=== PATIENT | female | born 1955 | race Caucasian/White ===

== ENCOUNTER → 2016-11-27 | Outpatient (CLI) | payer MEDICARE ==
[2016-11-27 15:26] LABS: ALT 38 U/L (9-52); AST 17 U/L (14-36); Alkaline Phosphatase 83 U/L (38-126); Anion Gap 14 mmol/L; Blood Urea Nitrogen 21 mg/dL (7-17); Calcium 9.4 mg/dL (8.4-10.2); Carbon Dioxide 20 mmol/L (22-30); Chloride 106 mmol/L (98-107); Glucose 157 mg/dL (74-99); Non-African American GFR(MDRD) >60 (>60 ml/min/1.73 sqM); Potassium 4.3 mmol/L (3.5-5.1); Sodium 140 mmol/L (137-145); Total Bilirubin 0.3 mg/dL (0.2-1.3); Total Protein 6.5 g/dL (6.3-8.2)
[2016-11-27 15:40] LABS: Aty Lym Flag Slight; CH 30.7; CHCM 32.2; HCT 43.3 % (34.0-46.0); HDW 2.55; HGB 13.6 gm/dL (11.4-16.0); MCH 30.2 pg (25.0-35.0); MCHC 31.5 g/dL (31.0-37.0); MCV 95.8 fL (80.0-100.0); Mean Platelet Volume 8.5; RBC 4.52 m/uL (3.80-5.40); WBC 6.7 k/uL (3.8-10.6); WBC (Perox) 6.63
[2016-11-27 16:50] LABS: Add Differential Manual Differential
[2016-11-27 16:53] LABS: Manual Review Performed; Nucleated Red Blood Cells 0 /100 WBC (0-0); Total Cells Counted 100; Toxic Granulation Present
== END | disposition home or self-care (01) ==
LOC: LABWHC1 14:29
PROVIDERS: ATTEND Internal Medicine Medical Oncology
DX: C90.00 Multiple myeloma not having achieved remission (principal); E53.8 Deficiency of other specified B group vitamins; M79.605 Pain in left leg; M25.569 Pain in unspecified knee
CPT/HCPCS: 36415; 80053; 85025

== ENCOUNTER → 2017-03-04 | Outpatient (CLI) | payer MEDICARE ==
[2017-03-04 10:42] LABS: Anisocytosis Slight; Basophils % (A) 0 %; CH 31.3; CHCM 31.2; Eosinophils # (A) 0.1 k/uL (0-0.7); Eosinophils % (A) 2 %; HDW 2.65; HGB 12.5 gm/dL (11.4-16.0); Hypochromasia Slight; Luc # (Auto) 0.12; Luc % (Auto) 2; Lymphocytes # (A) 0.4 k/uL (1.0-4.8); Lymphocytes % (A) 6 %; MCH 32.3 pg (25.0-35.0); MCV 100.7 fL (80.0-100.0); Macrocytosis Slight; Mean Platelet Volume 7.3; Monocytes # (A) 0.3 k/uL (0-1.0); Monocytes % (A) 4 %; Neutrophils # (A) 5.7 k/uL (1.3-7.7); Neutrophils % (A) 87 %; RBC 3.87 m/uL (3.80-5.40); WBC 6.5 k/uL (3.8-10.6); WBC (Perox) 6.82
[2017-03-04 11:14] LABS: ALT 31 U/L (9-52); AST 24 U/L (14-36); Alkaline Phosphatase 70 U/L (38-126); Anion Gap 9 mmol/L; Blood Urea Nitrogen 17 mg/dL (7-17); Calcium 8.8 mg/dL (8.4-10.2); Carbon Dioxide 24 mmol/L (22-30); Chloride 104 mmol/L (98-107); Glucose 203 mg/dL (74-99); Non-African American GFR(MDRD) >60 (>60 ml/min/1.73 sqM); Potassium 4.5 mmol/L (3.5-5.1); Sodium 137 mmol/L (137-145); Total Bilirubin 0.6 mg/dL (0.2-1.3); Total Protein 6.4 g/dL (6.3-8.2)
[2017-03-05 12:34] LABS: Immunoglobulin G 600 mg/dL (700 - 1600)
== END | disposition home or self-care (01) ==
LOC: LABWHC1 09:36
PROVIDERS: ATTEND Internal Medicine Medical Oncology
DX: C90.00 Multiple myeloma not having achieved remission (principal); E53.8 Deficiency of other specified B group vitamins; M25.519 Pain in unspecified shoulder; M79.605 Pain in left leg
CPT/HCPCS: 36415; 80053; 82784; 82785; 85025; 85610

== ENCOUNTER 2018-01-05 18:21 | Emergency (ER) | payer MEDICARE ==
[2018-01-05 19:00] VITALS: TEMP 99
[2018-01-05 20:41] LABS: Basophils % (A) 0 %; Eosinophils # (A) 0.5 k/uL (0-0.7); Eosinophils % (A) 9 %; HCT 38.5 % (34.0-46.0); HGB 12.6 gm/dL (11.4-16.0); Lymphocytes # (A) 0.4 k/uL (1.0-4.8); Lymphocytes % (A) 8 %; MCH 32.4 pg (25.0-35.0); MCHC 32.7 g/dL (31.0-37.0); MCV 99.3 fL (80.0-100.0); Macrocytosis Slight; Mean Platelet Volume 7.4; Monocytes # (A) 0.5 k/uL (0-1.0); Monocytes % (A) 9 %; Neutrophils # (A) 3.6 k/uL (1.3-7.7); Neutrophils % (A) 69 %; Platelet Count 212 k/uL (150-450); RBC 3.88 m/uL (3.80-5.40); RDW 15.6 % (11.5-15.5); WBC 5.2 k/uL (3.8-10.6)
[2018-01-05 20:45] LABS: ALT 31 U/L (9-52); AST 16 U/L (14-36); Albumin 3.5 g/dL (3.5-5.0); Alkaline Phosphatase 83 U/L (38-126); Anion Gap 9 mmol/L; Blood Urea Nitrogen 16 mg/dL (7-17); Calcium 9.6 mg/dL (8.4-10.2); Carbon Dioxide 31 mmol/L (22-30); Chloride 100 mmol/L (98-107); Glucose 118 mg/dL (74-99); Sodium 140 mmol/L (137-145); Total Bilirubin 0.3 mg/dL (0.2-1.3); Total Protein 5.7 g/dL (6.3-8.2)
--- NOTE | 2018-01-05 20:51 | XR ---
EXAMINATION TYPE: XR chest 2V DATE OF EXAM: 01/05/2018 COMPARISON: 04/27/2011 HISTORY: Limb swelling and pain TECHNIQUE: Frontal and lateral views of the chest are obtained. FINDINGS: There is some patchy infiltrate in the right upper lobe. The other lung balderas are fairly clear. There is no gross heart failure. There is no pleural effusion. Bony thorax is intact. IMPRESSION: There is new right upper lobe pneumonia compared to old exam. There is clearing of left perihilar consolidation compared to old exam. No heart failure.
[2018-01-05 21:15] LABS: INR 3.3 (<1.2); Partial Thromboplastin Time 36.3 sec (22.0-30.0); Prothrombin Time 29.6 sec (9.0-12.0)
--- NOTE | 2018-01-05 21:36 | US ---
EXAMINATION TYPE: US venous doppler duplex LE DATE OF EXAM: 01/05/2018 9:28 PM COMPARISON: NONE CLINICAL HISTORY: Pain. Bilateral edema SIDE PERFORMED: Bilateral TECHNIQUE: The lower extremity deep venous system is examined utilizing real time linear array sonog ernst with graded compression, doppler sonography and color-flow sonography. VESSELS IMAGED: External Iliac Vein (EIV) Common Femoral Vein Deep Femoral Vein Greater Saphenous Vein * Femoral Vein Popliteal Vein Small Saphenous Vein * Proximal Calf Veins (* superficial vessels) Right Leg: Negative for DVT Left Leg: Negative for DVT No evidence of DVT bilateral legs. Complex fluid area right popliteal area measuring 2.3 cm suggesti ve of bakers cyst. IMPRESSION: Popliteal cyst is seen at the right knee. No evidence of deep venous thrombosis in both l egs.
[2018-01-05] MEDS ORDERED: DOXYCYCLINE 50 MG CAP PO STA (22:42)
--- NOTE | 2018-01-05 22:46 | ED ---
Extremity Problem HPI - General Chief complaint: Extremity Problem,Nontraumatic Stated complaint: feet and legs swollen, R/O bloodclots Time Seen by Provider: 01/05/18 19:52 Source: patient Mode of arrival: wheelchair Limitations: no limitations - History of Present Illness Initial comments: 62-year-old female patient with past medical history significant for multiple myeloma currently treated with chemotherapy presents to the emergency department today for evaluation of bilateral lower extremity edema and redness. Patient states that her legs have been swollen and painful for the last 2-3 days. She states that today they started to get red. States that she has had cellulitis in the past. Patient states that she did see an network operations specialist today and was sent here for evaluation for possible blood clot. Patient denies any shortness of breath with ambulation or when lying flat. She denies any cough, congestion, fevers, or chills. She denies any chest pain. Patient denies any recent rash, abdominal pain, nausea, vomiting, diarrhea, constipation, back pain, numbness, tingling, dizziness, weakness, hematuria, dysuria, urinary urgency, urinary frequency, headache, visual changes, or any other complaints. - Related Data Home Medications Medication Instructions Recorded Confirmed Acyclovir 400 mg PO BID 01/05/18 01/05/18 Cholecalciferol (Vitamin D3) 2,000 unit PO DAILY 01/05/18 01/05/18 [Vitamin D3] Cyanocobalamin [Vitamin B-12] 500 mcg PO DAILY 01/05/18 01/05/18 Dexamethasone [Hexadrol] 28 mg PO TU 01/05/18 01/05/18 HYDROcodone/APAP 10-325MG [[place] 1 - 2 tab PO DAILY PRN 01/05/18 01/05/18 10-325] Lenalidomide [Revlimid] 25 mg PO DIRECTED 01/05/18 01/05/18 Loperamide [Imodium] 2 mg PO DAILY 01/05/18 01/05/18 Prochlorperazine [Compazine] 10 mg PO Q6H PRN 01/05/18 01/05/18 Pyridoxine [Vitamin B-6] 50 mg PO TID 01/05/18 01/05/18 Ranitidine HCl [Zantac] 150 mg PO DAILY 01/05/18 01/05/18 Warfarin [Coumadin] 2.5 mg PO HS 01/05/18 01/05/18 metFORMIN HCL [Glucophage] 500 mg PO BID 01/05/18 01/05/18 Previous Rx's Medication Instructions Recorded Doxycycline Hyclate 100 mg PO BID #28 tab 01/05/18 Furosemide [Lasix] 10 mg PO BID #6 dose 01/05/18 Allergies Allergy/AdvReac Type Severity Reaction Status Date / Time No Known Allergies Allergy Verified 01/05/18 20:00 Review of Systems ROS Statement: Those systems with pertinent positive or pertinent negative responses have been documented in the HPI. ROS Other: All systems not noted in ROS Statement are negative. Past Medical History Past Medical History: Cancer Additional Past Medical History / Comment(s): multiple myloma History of Any Multi-Drug Resistant Organisms: None Reported Past Surgical History: Orthopedic Surgery Past Psychological History: No Psychological Hx Reported Smoking Status: Never smoker Past Alcohol Use History: None Reported Past Drug Use History: None Reported General Exam Limitations: no limitations General appearance: alert, in no apparent distress, other (Physical well- developed, well-nourished, obese female patient in no acute distress. Vital signs upon presentation are temperature 99.0F, pulse 65, respirations 18, blood pressure 107/55, pulse ox 96% on room air.) Eye exam: Present: normal appearance, PERRL, EOMI. Absent: scleral icterus, conjunctival injection, periorbital swelling ENT exam: Present: normal exam, normal oropharynx, mucous membranes moist Respiratory exam: Present: normal lung sounds bilaterally. Absent: respiratory distress, wheezes, rales, rhonchi, stridor Cardiovascular Exam: Present: regular rate, normal rhythm, normal heart sounds. Absent: systolic murmur, diastolic murmur, rubs, gallop, clicks GI/Abdominal exam: Present: soft, normal bowel sounds. Absent: distended, tenderness, guarding, rebound, rigid Extremities exam: Present: full ROM, normal capillary refill, other (Patient has 3+ pitting lower extremity and pedal edema. There is circumferential cellulitis noted around the ankles. No evidence of wounds, drainage, or weeping. Pedal pulses are 2+ and equal bilaterally.). Absent: normal inspection, tenderness, pedal edema, joint swelling, calf tenderness Neurological exam: Present: alert, oriented X3, CN II-XII intact Psychiatric exam: Present: normal affect, normal mood Skin exam: Present: warm, dry, intact, normal color. Absent: rash Course Vital Signs 01/05/18 01/05/18 18:56 23:02 Temperature 99.0 F Pulse Rate 65 66 Respiratory 18 16 Rate Blood Pressure 107/55 139/58 O2 Sat by Pulse 96 96 Oximetry Medical Decision Making - Medical Decision Making 62-year-old female patient presents to the emergency department today for evaluation of bilateral lower extremity edema, erythema, and pain. Physical examination did reveal 3+ pitting edema to the bilateral lower legs and feet. There was circumferential cellulitis noted surrounding each ankle. Pedal pulses are intact. Ultrasound of the bilateral lower extremities was negative for acute DVT. Labs reviewed and showed a white blood cell count of 5.2. BNP was 649. Chest x-ray showed probable right upper lobe pneumonia. I did discuss findings with the patient. We did discuss home management. She is quite concerned about the swelling so we will start her on Lasix 10 mg twice a day until she is able to follow-up with her primary care physician. We did give her a 3 day course of this. She'll also be started on doxycycline to cover both the pneumonia and the cellulitis. She is instructed to follow-up with her primary care physician as soon as possible. She is instructed to return here immediately if her symptoms worsen, change, or she develops any new symptoms. She verbalizes understanding and agrees with this plan. - Lab Data Result diagrams: 01/05/18 20:17 01/05/18 20:17 Lab Results 01/05/18 01/05/18 01/05/18 Range/Units 20:17 20:17 20:17 WBC 5.2 (3.8-10.6) k/uL RBC 3.88 (3.80-5.40) m/uL Hgb 12.6 (11.4-16.0) gm/dL Hct 38.5 (34.0-46.0) % MCV 99.3 (80.0-100.0) fL MCH 32.4 (25.0-35.0) pg MCHC 32.7 (31.0-37.0) g/dL RDW 15.6 H (11.5-15.5) % Plt Count 212 (150-450) k/uL Neutrophils % 69 % Lymphocytes % 8 % Monocytes % 9 % Eosinophils % 9 % Basophils % 0 % Neutrophils # 3.6 (1.3-7.7) k/uL Lymphocytes # 0.4 L (1.0-4.8) k/uL Monocytes # 0.5 (0-1.0) k/uL Eosinophils # 0.5 (0-0.7) k/uL Basophils # 0.0 (0-0.2) k/uL Macrocytosis Slight PT (9.0-12.0) sec INR (<1.2) APTT (22.0-30.0) sec Sodium 140 (137-145) mmol/L Potassium 4.0 (3.5-5.1) mmol/L Chloride 100 (98-107) mmol/L Carbon Dioxide 31 H (22-30) mmol/L Anion Gap 9 mmol/L BUN 16 (7-17) mg/dL Creatinine 0.80 (0.52-1.04) mg/dL Est GFR (MDRD) Af Amer >60 (>60 ml/min/1.73 sqM) Est GFR (MDRD) Non-Af >60 (>60 ml/min/1.73 sqM) Glucose 118 H (74-99) mg/dL Calcium 9.6 (8.4-10.2) mg/dL Total Bilirubin 0.3 (0.2-1.3) mg/dL AST 16 (14-36) U/L ALT 31 (9-52) U/L Alkaline Phosphatase 83 (38-126) U/L NT-Pro-B Natriuret Pep 649 pg/mL Total Protein 5.7 L (6.3-8.2) g/dL Albumin 3.5 (3.5-5.0) g/dL 01/05/18 Range/Units 20:17 WBC (3.8-10.6) k/uL RBC (3.80-5.40) m/uL Hgb (11.4-16.0) gm/dL Hct (34.0-46.0) % MCV (80.0-100.0) fL MCH (25.0-35.0) pg MCHC (31.0-37.0) g/dL RDW (11.5-15.5) % Plt Count (150-450) k/uL Neutrophils % % Lymphocytes % % Monocytes % % Eosinophils % % Basophils % % Neutrophils # (1.3-7.7) k/uL Lymphocytes # (1.0-4.8) k/uL Monocytes # (0-1.0) k/uL Eosinophils # (0-0.7) k/uL Basophils # (0-0.2) k/uL Macrocytosis PT 29.6 H (9.0-12.0) sec INR 3.3 H (<1.2) APTT 36.3 H (22.0-30.0) sec Sodium (137-145) mmol/L Potassium (3.5-5.1) mmol/L Chloride (98-107) mmol/L Carbon Dioxide (22-30) mmol/L Anion Gap mmol/L BUN (7-17) mg/dL Creatinine (0.52-1.04) mg/dL Est GFR (MDRD) Af Amer (>60 ml/min/1.73 sqM) Est GFR (MDRD) Non-Af (>60 ml/min/1.73 sqM) Glucose (74-99) mg/dL Calcium (8.4-10.2) mg/dL Total Bilirubin (0.2-1.3) mg/dL AST (14-36) U/L ALT (9-52) U/L Alkaline Phosphatase (38-126) U/L NT-Pro-B Natriuret Pep pg/mL Total Protein (6.3-8.2) g/dL Albumin (3.5-5.0) g/dL - Radiology Data Radiology results: report reviewed, image reviewed Venous Doppler duplex of the bilateral lower external is was obtained, report was reviewed in its entirety. Impression by Dr. Barrera shows popliteal cyst in the right knee. No evidence of deep venous thrombosis in both legs. Two-view x-ray of the chest shows some patchy infiltrate in the right upper lobe. The other lung balderas are fairly clear. There is no gross heart failure. There is no pleural effusion. Bony thorax is intact. Impression by Dr. Barrera shows new right upper lobe pneumonia compared to old exam. Clearing of the left perihilar consolidation compared to old exam. No heart failure. Addendum was made shows the mediastinum appears unchanged her life or different projection compared to the old exam. Disposition Clinical Impression: Cellulitis, Lower extremity edema, Right upper lobe pneumonia Disposition: HOME SELF-CARE Condition: Good Instructions: Cellulitis (ED), Leg Edema (ED), Pneumonia (ED) Additional Instructions: Take medications as directed. Follow up with her primary care physician for recheck as soon as possible. Return here immediately for any new, worsening, or concerning symptoms. Prescriptions: Doxycycline Hyclate 100 mg PO BID #28 tab Furosemide [Lasix] 10 mg PO BID #6 dose Referrals: Seth Montoya DO [Primary Care Provider] - 1-2 days Time of Disposition: 22:46
[2018-01-05 23:03] VITALS: BP 139/58; PULSE 66; RESP 16
== END 2018-01-05 23:07 | disposition home or self-care (01) ==
LOC: EC 18:21
DX: J18.1 Lobar pneumonia, unspecified organism (principal); L03.116 Cellulitis of left lower limb; L03.115 Cellulitis of right lower limb; R60.0 Localized edema; M71.21 Synovial cyst of popliteal space [Baker], right knee; C90.00 Multiple myeloma not having achieved remission; E66.9 Obesity, unspecified; Z79.01 Long term (current) use of anticoagulants; Z79.52 Long term (current) use of systemic steroids; Z79.84 Long term (current) use of oral hypoglycemic drugs; Z79.899 Other long term (current) drug therapy; Z68.41 Body mass index [BMI] 40.0-44.9, adult
CPT/HCPCS: 36415; 71046; 80053; 83880; 85025; 85610; 85730; 93970; 99284

== ENCOUNTER 2018-01-18 13:34 | Inpatient (IN) | payer MEDICARE ==
[2018-01-18] MEDS ORDERED: VANCOMYCIN IV PER PHARMACY 1 EACH MISC MISCELLANE PRN (14:53)
[2018-01-18] MEDS ORDERED: SODIUM CHLORIDE 0.9% 1,000 ML IV STA (14:53)
--- NOTE | 2018-01-18 14:54 | ED ---
General Adult HPI - General Chief complaint: Skin/Abscess/Foreign Body Stated complaint: rash Time Seen by Provider: 01/18/18 14:27 Source: patient, RN notes reviewed, old records reviewed Mode of arrival: ambulatory Limitations: physical limitation - History of Present Illness Initial comments: This is a 62-year-old female to the ER for evaluation. This patient was essay for evaluation regarding lower extremities pain, erythema redness weeping and swelling. Patient also complains of bilateral underneath her breast rash and itching. Pain. Patient does have history of diabetes. Patient states her symptoms progressively worsened since being seen in the ER last week for pneumonia. Patient is recent travel history no sick contacts. - Related Data Home Medications Medication Instructions Recorded Confirmed Acyclovir 400 mg PO BID 01/05/18 01/18/18 Cholecalciferol (Vitamin D3) 2,000 unit PO DAILY 01/05/18 01/18/18 [Vitamin D3] Cyanocobalamin [Vitamin B-12] 500 mcg PO DAILY 01/05/18 01/18/18 Dexamethasone [Hexadrol] 28 mg PO TU 01/05/18 01/18/18 HYDROcodone/APAP 10-325MG [[place] 1 - 2 tab PO DAILY PRN 01/05/18 01/18/18 10-325] Lenalidomide [Revlimid] 25 mg PO DIRECTED 01/05/18 01/18/18 Loperamide [Imodium] 2 mg PO DAILY 01/05/18 01/18/18 Prochlorperazine [Compazine] 10 mg PO Q6H PRN 01/05/18 01/18/18 Pyridoxine [Vitamin B-6] 50 mg PO TID 01/05/18 01/18/18 Ranitidine HCl [Zantac] 150 mg PO DAILY 01/05/18 01/18/18 Warfarin [Coumadin] 2.5 mg PO HS 01/05/18 01/18/18 metFORMIN HCL [Glucophage] 500 mg PO BID 01/05/18 01/18/18 Allergies Allergy/AdvReac Type Severity Reaction Status Date / Time No Known Allergies Allergy Verified 01/18/18 14:34 Review of Systems ROS Statement: Those systems with pertinent positive or pertinent negative responses have been documented in the HPI. ROS Other: All systems not noted in ROS Statement are negative. Past Medical History Past Medical History: Cancer Additional Past Medical History / Comment(s): multiple myloma History of Any Multi-Drug Resistant Organisms: None Reported Past Surgical History: Orthopedic Surgery Past Psychological History: No Psychological Hx Reported Smoking Status: Never smoker Past Alcohol Use History: None Reported Past Drug Use History: None Reported General Exam Limitations: physical limitation General appearance: alert, in no apparent distress, obese Head exam: Present: atraumatic, normocephalic, normal inspection Eye exam: Present: normal appearance, PERRL, EOMI. Absent: scleral icterus, conjunctival injection, periorbital swelling ENT exam: Present: normal exam, mucous membranes moist Neck exam: Present: normal inspection. Absent: tenderness, meningismus, lymphadenopathy Respiratory exam: Present: normal lung sounds bilaterally. Absent: respiratory distress, wheezes, rales, rhonchi, stridor Cardiovascular Exam: Present: regular rate, normal rhythm, normal heart sounds, other (Chest wall and underneath breast area has intertrigo,). Absent: systolic murmur, diastolic murmur, rubs, gallop, clicks GI/Abdominal exam: Present: soft, normal bowel sounds. Absent: distended, tenderness, guarding, rebound, rigid Extremities exam: Present: normal inspection, full ROM, normal capillary refill , other (Left lower extremity edema, cellulitis cellulitis into the foot, right lower Shorty significant edema with cellulitis of the upper leg). Absent: tenderness, pedal edema, joint swelling, calf tenderness Back exam: Present: normal inspection Neurological exam: Present: alert, oriented X3, CN II-XII intact Psychiatric exam: Present: normal affect, normal mood Skin exam: Present: warm, dry, intact, normal color. Absent: rash Course Vital Signs 01/18/18 01/18/18 13:53 15:19 Temperature 97.9 F Pulse Rate 68 63 Respiratory 18 18 Rate Blood Pressure 135/59 134/60 O2 Sat by Pulse 97 96 Oximetry EKG Findings - EKG Comments: EKG Findings:: EKG shows normal sinus rhythm rate of 60, HI 144, QRS 74, QTC 422 Medical Decision Making - Medical Decision Making 62 female the ER for evaluation of rash, bilateral lower Shorty cellulitis worse on the left than the right, patient also is intertrigo, will admit for treatment - Lab Data Result diagrams: 01/18/18 15:06 01/18/18 15:06 Lab Results 01/18/18 01/18/18 01/18/18 Range/Units 15:06 15:06 15:44 WBC 8.9 (3.8-10.6) k/uL RBC 3.96 (3.80-5.40) m/uL Hgb 12.8 (11.4-16.0) gm/dL Hct 39.5 (34.0-46.0) % MCV 99.8 (80.0-100.0) fL MCH 32.5 (25.0-35.0) pg MCHC 32.5 (31.0-37.0) g/dL RDW 15.6 H (11.5-15.5) % Plt Count 266 (150-450) k/uL Neutrophils % 82 % Lymphocytes % 6 % Monocytes % 8 % Eosinophils % 3 % Basophils % 0 % Neutrophils # 7.3 (1.3-7.7) k/uL Lymphocytes # 0.5 L (1.0-4.8) k/uL Monocytes # 0.7 (0-1.0) k/uL Eosinophils # 0.2 (0-0.7) k/uL Basophils # 0.0 (0-0.2) k/uL Macrocytosis Slight Sodium 139 (137-145) mmol/L Potassium 4.0 (3.5-5.1) mmol/L Chloride 103 (98-107) mmol/L Carbon Dioxide 25 (22-30) mmol/L Anion Gap 11 mmol/L BUN 20 H (7-17) mg/dL Creatinine 0.61 (0.52-1.04) mg/dL Est GFR (MDRD) Af Amer >60 (>60 ml/min/1.73 sqM) Est GFR (MDRD) Non-Af >60 (>60 ml/min/1.73 sqM) Glucose 117 H (74-99) mg/dL Calcium 9.8 (8.4-10.2) mg/dL Phosphorus 4.9 H (2.5-4.5) mg/dL Magnesium 1.7 (1.6-2.3) mg/dL Total Bilirubin 0.2 (0.2-1.3) mg/dL AST 12 L (14-36) U/L ALT 25 (9-52) U/L Alkaline Phosphatase 75 (38-126) U/L Total Protein 5.7 L (6.3-8.2) g/dL Albumin 3.4 L (3.5-5.0) g/dL Urine Color Light Yellow Urine Appearance Clear (Clear) Urine pH 5.0 (5.0-8.0) Ur Specific [place] 1.014 (1.001-1.035) Urine Protein Negative (Negative) Urine Glucose (UA) Negative (Negative) Urine Ketones Negative (Negative) Urine Blood Small H (Negative) Urine Nitrite Negative (Negative) Urine Bilirubin Negative (Negative) Urine Urobilinogen <2.0 (<2.0) mg/dL Ur Leukocyte Esterase Negative (Negative) Urine RBC 2 (0-5) /hpf Urine WBC 4 (0-5) /hpf Ur Squamous Epith Cells 2 (0-4) /hpf Hyaline Casts 3 H (0-2) /lpf Urine Mucus Rare H (None) /hpf - Radiology Data Radiology results: report reviewed (Chest x-ray shows negative acute disease), image reviewed Disposition Clinical Impression: Lower extremity edema, Cellulitis, Intertrigo Disposition: ADMITTED IP TO THIS [facility] Condition: Good Referrals: Seth Montoya DO [Primary Care Provider] - 1-2 days
[2018-01-18] MEDS ORDERED: cefTRIAXone IN SWFI 1,000 MG/10 ML SYRINGE IVP STA (14:56)
[2018-01-18] MEDS ORDERED: VANCOMYCIN 1,750 MG in SODIUM CHLORIDE 0.9% 250 ML IVPB ONE (15:30)
[2018-01-18 15:33] LABS: Basophils % (A) 0 %; Eosinophils # (A) 0.2 k/uL (0-0.7); Eosinophils % (A) 3 %; HCT 39.5 % (34.0-46.0); HGB 12.8 gm/dL (11.4-16.0); Lymphocytes # (A) 0.5 k/uL (1.0-4.8); Lymphocytes % (A) 6 %; MCH 32.5 pg (25.0-35.0); MCHC 32.5 g/dL (31.0-37.0); MCV 99.8 fL (80.0-100.0); Macrocytosis Slight; Mean Platelet Volume 7.6; Monocytes # (A) 0.7 k/uL (0-1.0); Monocytes % (A) 8 %; Neutrophils # (A) 7.3 k/uL (1.3-7.7); Neutrophils % (A) 82 %; Platelet Count 266 k/uL (150-450); RBC 3.96 m/uL (3.80-5.40); RDW 15.6 % (11.5-15.5); WBC 8.9 k/uL (3.8-10.6)
[2018-01-18 15:43] LABS: Chloride 103 mmol/L (98-107); Glucose 117 mg/dL (74-99); Total Protein 5.7 g/dL (6.3-8.2)
--- NOTE | 2018-01-18 15:44 | XR ---
EXAMINATION TYPE: XR chest 2V DATE OF EXAM: 01/18/2018 COMPARISON: 01/05/2018 HISTORY: Recent pneumonia. Follow-up exam. TECHNIQUE: Frontal and lateral views of the chest are obtained. FINDINGS: The recently seen right upper lobe opacity has resolved in the interim. Left basal atelecta sis is also resolved. There is no focal air space opacity, pleural effusion, or pneumothorax seen. The cardiac silhouette size is mildly enlarged. The osseous structures are intact. Patient's chin p artially obscures the lung apices. IMPRESSION: Resolution of the previously seen right upper lobe pneumonia. No acute cardiopulmonary p rocess.
[2018-01-18 15:46] LABS: ALT 25 U/L (9-52); AST 12 U/L (14-36); Alkaline Phosphatase 75 U/L (38-126); Anion Gap 11 mmol/L; Blood Urea Nitrogen 20 mg/dL (7-17); Calcium 9.8 mg/dL (8.4-10.2); Carbon Dioxide 25 mmol/L (22-30); Sodium 139 mmol/L (137-145); Total Bilirubin 0.2 mg/dL (0.2-1.3)
[2018-01-18 16:00] LABS: Albumin 3.4 g/dL (3.5-5.0); Phosphorus 4.9 mg/dL (2.5-4.5)
[2018-01-18 16:10] LABS: Appearance,Urine Clear (Clear); Bilirubin,Urine Negative (Negative); Blood,Urine Small (Negative); Color,Urine Light Yellow; Glucose,Urine (UA) Negative (Negative); Hyaline Casts,Urine 3 /lpf (0-2); Ketones,Urine Negative (Negative); Leukocyte Esterase,Urine Negative (Negative); Mucus,Urine Rare /hpf; Protein,Urine Negative (Negative); RBC,Urine 2 /hpf (0-5); Specific Gravity,Urine 1.014 (1.001-1.035); Squamous Epithelial Cell,Urine 2 /hpf (0-4); Urobilinogen,Urine <2.0 mg/dL (<2.0); WBC,Urine 4 /hpf (0-5)
[2018-01-18 18:24] VITALS: BMI 41.5
[2018-01-18] MEDS: NYSTATIN 100,000 UNIT/GM POWD 15 GM TOPICAL SCH (21:13)
[2018-01-18 21:51] LABS: Glucose,Whole Blood 134 mg/dL (75-99)
[2018-01-18] MEDS ORDERED: HYDROCODONE PO PRN (22:22)
[2018-01-18] MEDS ORDERED: APAP PO PRN (22:22)
[2018-01-18] MEDS ORDERED: FLUCONAZOLE 100 MG TAB PO SCH (22:30)
[2018-01-18] MEDS: CLOTRIMAZOLE 1% CREAM 15 GM TUBE TOPICAL SCH (23:29)
[2018-01-18] MEDS: FUROSEMIDE 10 MG/ML 2 ML VIAL IV SCH (23:29)
[2018-01-18] MEDS: NYSTATIN 100,000UNIT/GM CREAM 30 GM TUBE TOPICAL SCH (23:29)
[2018-01-18] MEDS: ceFAZolin IN SWFI 2 GM/20 ML SYRINGE IVP SCH (23:30)
[2018-01-18] MEDS: HYDROcodone/APAP 10-325MG 1 EACH TAB PO PRN (23:44)
[2018-01-18] MEDS: ZOLPIDEM 10 MG TAB PO PRN (23:45)
[2018-01-18] MEDS: FLUCONAZOLE ORAL SUSP 1,400 MG/35 ML BOTTLE PO SCH (23:46)
[2018-01-19] MEDS ORDERED: VANCOMYCIN 1,750 MG in SODIUM CHLORIDE 0.9% 250 ML IVPB SCH ×2
[2018-01-19 07:10] LABS: Glucose,Whole Blood 114 mg/dL (75-99)
--- NOTE | 2018-01-19 07:34 | HP ---
HISTORY AND PHYSICAL I am covering for Dr. Montoya. DATE OF SERVICE: 01/18/2018. CHIEF COMPLAINT: Skin rash as well as itching of the left leg. HISTORY OF PRESENT ILLNESS: This 62-year-old woman with a past medical history of multiple medical problems including multiple myeloma, history of DJD being followed by Dr. Montoya in the outpatient setting is on chemotherapy by Dr. Stern by Oncology. Currently the patient is complaining of pain and swelling of the left leg over the past several days with erythema, pain, weeping, and sweating and patient also had adhesions under the breast bilaterally. The patient came to [facility] and was admitted for further evaluation and treatment. There is no history of fever, rigors. No history of headache, loss of consciousness or seizures. PAST MEDICAL HISTORY: Of multiple myeloma, history of degenerative joint disease. MEDICATIONS: Home medications are: 1. Glucophage 500 mg p.o. b.i.d. 2. Coumadin 2.5 mg daily. 3. Zantac 150 mg daily. 4. Vitamin B 50 mg t.i.d. 5. Compazine 10 mg q.6h. 6. Imodium 2 mg daily. 7. Revlimid 25 mg as before. 8. [place] 10 mg p.r.n. 9. Lexapro 20 mg p.o. q.h.s. 10.Vitamin B12 500 mcg. 11.Vitamin D3 2000 daily. ALLERGIES: None. FAMILY HISTORY: No history of heart disease or strokes in the family. SOCIAL HISTORY: No history of smoking. No history of alcohol intake. REVIEW OF SYSTEMS: ENT: No diminished vision. No diminished hearing. CARDIOVASCULAR: No angina or palpitations. RESPIRATORY: No cough. No hemoptysis. GI no nausea. no dysuria. Nervous system: No numbness or weakness. ALLERGY/IMMUNOLOGY: As mentioned earlier. HEMATOLOGY/ONCOLOGY: As mentioned earlier. Endocrine as mentioned earlier. Constitutional: As mentioned earlier. Dermatology: Negative. Rheumatology: Negative. PHYSICAL EXAM: Patient is alert, oriented x3. Blood pressure 130/60. Respiration 18, temperature 97.2, pulse ox 97% on room air. HEENT: Conjunctivae normal. Neck: No jugular venous distention. CARDIOVASCULAR: S1, S2. Respiratory: Breath sounds diminished in the bases. No rhonchi and no crackles. ABDOMEN: Soft, obese, nontender. No mass palpable. Legs no edema and no swelling. NERVOUS SYSTEM: Higher functions as mentioned earlier. Moves all four limbs. No focal deficits. Lymphatics: No lymph nodes palpable in the neck, axillae or groin. Skin: Bilateral cellulitis, left more than the right with tenderness and swelling also present. Candidal intertrigo present under the breasts both sites. LABORATORY DATA: CBC within normal limits. Otherwise glucose 117, phosphorus 4.9, AST is 12, and albumin 3.4. ASSESSMENT: 1. Bilateral leg cellulitis, left more than the right as well as Aaliyah intertrigo. 2. Multiple myeloma. 3. Diabetes type 2. 4. Increased random blood sugar. RECOMMENDATION AND DISCUSSION: In this 62-year-old woman who presented with multiple complex medical issues. We will monitor the patient closely. Initiate Kefzol and continue to monitor. Obtain cultures. Otherwise local treatment. Resume the home medications. I would also recommend a small dose of Lasix very cautiously and monitor renal functions very closely. Otherwise Dr. Russo will be consulted and Dr. Montoya will follow tomorrow. Prognosis guarded because of multiple complex medical issues as mentioned earlier. Discussed with the patient, understands and agrees. Discussed with staff. MMERICKL / IJN: [id number] / JAMESON
[2018-01-19 07:43] LABS: Basophils % (A) 1 %; Eosinophils # (A) 0.2 k/uL (0-0.7); Eosinophils % (A) 4 %; HCT 38.5 % (34.0-46.0); HGB 12.2 gm/dL (11.4-16.0); Lymphocytes # (A) 0.5 k/uL (1.0-4.8); Lymphocytes % (A) 9 %; MCH 31.7 pg (25.0-35.0); MCHC 31.7 g/dL (31.0-37.0); MCV 99.7 fL (80.0-100.0); Macrocytosis Slight; Monocytes # (A) 0.6 k/uL (0-1.0); Monocytes % (A) 10 %; Neutrophils # (A) 4.2 k/uL (1.3-7.7); Neutrophils % (A) 74 %; Platelet Count 237 k/uL (150-450); RBC 3.86 m/uL (3.80-5.40); RDW 15.5 % (11.5-15.5); WBC 5.7 k/uL (3.8-10.6)
[2018-01-19 07:52] LABS: INR 4.8 (<1.2); Prothrombin Time 43.2 sec (9.0-12.0)
[2018-01-19 07:56] LABS: Anion Gap 8 mmol/L; Blood Urea Nitrogen 18 mg/dL (7-17); Calcium 9.1 mg/dL (8.4-10.2); Carbon Dioxide 29 mmol/L (22-30); Chloride 102 mmol/L (98-107); Glucose 114 mg/dL (74-99); Potassium 3.9 mmol/L (3.5-5.1); Sodium 139 mmol/L (137-145)
[2018-01-19] MEDS: SODIUM CHLORIDE 0.9% 500 ML IV SCH ×2 (08:18→23:57)
[2018-01-19] MEDS: INSULIN ASPART 100 UNIT/ML 1 ML 10 ML VIAL SQ SCH ×4 (08:18→22:10)
[2018-01-19] MEDS ORDERED: ENOXAPARIN 40 MG/0.4 ML SYRINGE SQ SCH (09:00)
[2018-01-19] MEDS: METFORMIN HCL 500 MG PO SCH ×2 (09:16→17:19)
[2018-01-19] MEDS: ACYCLOVIR 400 MG PO SCH ×2 (09:17→20:01)
[2018-01-19] MEDS: DEXAMETHASONE PO SCH (09:17)
[2018-01-19] MEDS: NON-FORMULARY DRUG (Ranitidine Hcl [Zantac] 150 MG) PO SCH (09:18)
[2018-01-19] MEDS: LOPERAMIDE 2 MG PO SCH (09:18)
[2018-01-19] MEDS: NYSTATIN 100,000UNIT/GM CREAM 30 GM TUBE TOPICAL SCH ×2 (09:19→20:03)
[2018-01-19] MEDS: PYRIDOXINE 50 MG TAB PO SCH ×3 (09:19→20:03)
[2018-01-19] MEDS: CHOLECALCIFEROL 1,000 UNIT TAB PO SCH (09:19)
[2018-01-19] MEDS: CLOTRIMAZOLE 1% CREAM 15 GM TUBE TOPICAL SCH ×2 (09:20→20:03)
[2018-01-19] MEDS: CYANOCOBALAMIN 500 MCG TAB PO SCH (09:20)
[2018-01-19] MEDS: FUROSEMIDE 10 MG/ML 2 ML VIAL IV SCH ×2 (09:23→19:50)
[2018-01-19] MEDS: FLUCONAZOLE ORAL SUSP 1,400 MG/35 ML BOTTLE PO SCH (09:23)
[2018-01-19] MEDS: ceFAZolin IN SWFI 2 GM/20 ML SYRINGE IVP SCH ×3 (10:32→23:57)
[2018-01-19] MEDS: HYDROcodone/APAP 10-325MG 1 EACH TAB PO PRN ×3 (10:45→22:11)
[2018-01-19 11:34] LABS: Hemoglobin A1C 7.5 % (4.0-6.0)
[2018-01-19 11:43] LABS: Glucose,Whole Blood 179 mg/dL (75-99)
[2018-01-19] MEDS: NYSTATIN 100,000 UNIT/GM POWD 15 GM TOPICAL SCH ×2 (13:14→20:04)
[2018-01-19 17:07] LABS: Glucose,Whole Blood 120 mg/dL (75-99)
[2018-01-19] MEDS: WARFARIN 2.5 MG PO SCH (17:19)
[2018-01-19] MEDS: PROCHLORPERAZINE 10 MG PO PRN (17:20)
[2018-01-19 20:50] LABS: Glucose,Whole Blood 170 mg/dL (75-99)
[2018-01-19] MEDS: ZOLPIDEM 10 MG TAB PO PRN (22:11)
--- NOTE | 2018-01-19 23:26 | PN ---
PROGRESS NOTE DATE OF ADMISSION: 01/18/2018. DATE SEEN: 01/19/2018. HISTORY: Dr. Virk saw this patient on Friday, the . This is a pleasant 62-year-old white female who was admitted with multiple medical problems including history of multiple myeloma, who was admitted for weeping lower extremities and severe rash underneath her bilateral breasts. These are currently wrapped. PHYSICAL EXAM: Patient is alert and orientated x3. No acute distress at this time. Her legs feel much better being wrapped with Brenton bandages bilateral. She is neurovascular intact to the lower extremities. She is morbidly obese. Abdomen is soft, nontender. No rebound, rigidity, or guarding. Skin is warm and dry to palpation with cellulitis of the bilateral lower extremities. She has a candidal infection underneath bilateral breasts. Neurologic, cranial nerves 2 through 12 are grossly intact. IMPRESSIONS: 1. Acute bilateral lower extremity cellulitis. 2. Aaliyah infection under bilateral breasts. 3. History of multiple myeloma. 4. Diabetes type 2. PLAN: Continue patient on IV antibiotics. She has seen Dr. Soliz in the past, we will consult him for infectious issues. We will keep her on sepsis control. We will continue to follow patient's complex conditions. MMODL / IJN: [id number] /
--- NOTE | 2018-01-20 01:03 | CONS ---
CONSULTATION DATE OF CONSULTATION: 01/19/2018. REASON FOR CONSULTATION: 1. Left lower extremity cellulitis. 2. Bilateral breast intertrigo. HISTORY OF PRESENT ILLNESS: The patient is a 62-year-old male, morbidly obese with a past medical history significant for recurrent lower extremity cellulitis, presented to the ER at [facility] on the with chief complaints of left leg swelling redness and weeping that apparently has been going on for almost a week before she presented to the hospital. The patient also complaining of some dull aching pain to the left leg for the same duration of about a week. The pain is mostly dull aching 3-4 out of 10 and no radiation with associated redness, swelling and weeping of some clear fluid. The patient has also been complaining of a rash under the breast area, bilateral breast area that has been going on for more than a week now with significant itching to the area and intensity is mild to moderate. Some associated redness, but no drainage. Denies any high-grade fever. With these symptoms, the patient has been evaluated at the ER. The patient did have a chest x-ray showing no acute cardiopulmonary process. The patient was started on Rocephin and vanco that was subsequently switched over to Cefazolin. Infectious Disease was consulted for further recommendation regarding antibiotic therapy. REVIEW OF SYSTEMS: Constitutional: Positive for weakness and chills. No high-grade fever. Eyes no complaint. ENT no complaint. Respiratory as per HPI. Cardiovascular: No complaint. Genitourinary no complaint. Gastrointestinal: No complaint. Musculoskeletal no complaint. INTEGUMENTARY: As per HPI. PSYCHOLOGICAL: No complaint. Endocrine: No complaint. Neurologic no complaint. PAST MEDICAL HISTORY: Significant for multiple myeloma, recurrent lower extremity cellulitis, type 2 diabetes mellitus, history of DVT, PE. SOCIAL HISTORY: The patient denies smoking, drinking or drug use. Resides with . FAMILY HISTORY: No pertinent findings were noticed. ALLERGIES: No known drug allergies. MEDICATION: Medications include the patient is currently on [place], cefazolin 2 g q.8h. She is on vitamin D3. Lotrimizole lotion, Diflucan, Lasix, NovoLog, Glucophage, Coumadin, vitamin B6 and Ambien. EXAMINATION: Her blood pressure is 126/80 with a pulse of 75, temperature 99.9. She is 95% on room air. General description is a middle-aged female up in the bed in no distress. No tachypnea or accessory muscle for respiration use. HEENT: Shows no pallor or scleral icterus. Oral mucosa membranes moist. No significant erythema, thrush. Neck: Trachea central. No thyromegaly. Lungs unlabored breathing. Clear to auscultation, no wheezes or crackles. Heart S1, S2. Regular rate. No added sounds. ABDOMEN: Soft, no tenderness. No guarding. No rigidity. Extremities left leg with some swelling, minimal redness with evidence of athlete's foot in between the toes bilateral feet area. No open wound. No drainage. The patient also have extensive cultures can be sent both the breast area with a rash and no open area. No drainage. Neurological: Patient is awake, alert, oriented and affect normal. LABS: Hemoglobin is 12.8, white count 5.7, BUN of 18, creatinine 0.57. Urine is so far negative. Blood culture has been obtained which are currently pending. DIAGNOSTIC IMPRESSION AND PLAN: 1. Patient with left lower extremity cellulitis. The patient did have diffuse swelling and redness with evidence of representing a streptococcal cellulitis. Clinically doubt MRSA infection. 2. Patient with bilateral breast left intertrigo with extensive cutaneous skin disease, but no evidence of any cellulitis. PLAN: 1. Cefazolin 2 g q.8 hours. 2. cream to the bilateral below the breast area rash along with oral Diflucan. 3. Brenton wrap from just above to below the knee. 4. We will follow up on the clinical condition as well as cultures to further adjust medication if needed. Thank you for this consultation. Will follow this patient along with you. MMODL / IJN: [id number] /
[2018-01-20 02:04] LABS: Protein, Total 5.2 g/dL (6.2-8.2)
[2018-01-20 06:42] LABS: Glucose,Whole Blood 123 mg/dL (75-99)
[2018-01-20 07:45] LABS: Basophils % (A) 1 %; Eosinophils # (A) 0.3 k/uL (0-0.7); Eosinophils % (A) 6 %; HCT 41.4 % (34.0-46.0); HGB 13.4 gm/dL (11.4-16.0); Lymphocytes # (A) 0.5 k/uL (1.0-4.8); Lymphocytes % (A) 11 %; MCH 32.1 pg (25.0-35.0); MCHC 32.3 g/dL (31.0-37.0); MCV 99.4 fL (80.0-100.0); Macrocytosis Slight; Mean Platelet Volume 7.2; Monocytes # (A) 0.4 k/uL (0-1.0); Monocytes % (A) 9 %; Neutrophils # (A) 3.1 k/uL (1.3-7.7); Neutrophils % (A) 71 %; Platelet Count 251 k/uL (150-450); RBC 4.17 m/uL (3.80-5.40); RDW 15.6 % (11.5-15.5); WBC 4.4 k/uL (3.8-10.6)
[2018-01-20] MEDS: HYDROcodone/APAP 10-325MG 1 EACH TAB PO PRN ×3 (07:53→18:37)
[2018-01-20 07:54] LABS: INR 4.5 (<1.2); Prothrombin Time 40.9 sec (9.0-12.0)
[2018-01-20] MEDS: ceFAZolin IN SWFI 2 GM/20 ML SYRINGE IVP SCH ×3 (07:54→23:41)
[2018-01-20] MEDS: FUROSEMIDE 10 MG/ML 2 ML VIAL IV SCH ×2 (07:55→22:09)
[2018-01-20] MEDS: NYSTATIN 100,000UNIT/GM CREAM 30 GM TUBE TOPICAL SCH ×2 (08:14→22:08)
[2018-01-20] MEDS: NYSTATIN 100,000 UNIT/GM POWD 15 GM TOPICAL SCH ×2 (08:14→22:08)
[2018-01-20] MEDS: NON-FORMULARY DRUG (Ranitidine Hcl [Zantac] 150 MG) PO SCH (08:15)
[2018-01-20] MEDS: DEXAMETHASONE PO SCH (08:18)
[2018-01-20] MEDS: PYRIDOXINE 50 MG TAB PO SCH ×3 (08:20→22:08)
[2018-01-20] MEDS: PROCHLORPERAZINE 10 MG PO PRN ×2 (08:21→17:33)
[2018-01-20] MEDS: INSULIN ASPART 100 UNIT/ML 1 ML 10 ML VIAL SQ SCH ×4 (08:22→22:35)
[2018-01-20] MEDS: METFORMIN HCL 500 MG PO SCH ×2 (08:22→17:34)
[2018-01-20] MEDS: CHOLECALCIFEROL 1,000 UNIT TAB PO SCH (08:23)
[2018-01-20] MEDS: ACYCLOVIR 400 MG PO SCH ×2 (08:23→22:07)
[2018-01-20] MEDS: CYANOCOBALAMIN 500 MCG TAB PO SCH (08:25)
[2018-01-20] MEDS: FLUCONAZOLE ORAL SUSP 1,400 MG/35 ML BOTTLE PO SCH (08:25)
[2018-01-20] MEDS: CLOTRIMAZOLE 1% CREAM 15 GM TUBE TOPICAL SCH ×2 (08:25→22:08)
[2018-01-20] MEDS: LOPERAMIDE 2 MG PO SCH (08:26)
[2018-01-20 08:34] LABS: Anion Gap 12 mmol/L; Blood Urea Nitrogen 20 mg/dL (7-17); Calcium 9.4 mg/dL (8.4-10.2); Carbon Dioxide 27 mmol/L (22-30); Chloride 99 mmol/L (98-107); Glucose 142 mg/dL (74-99); Sodium 138 mmol/L (137-145)
--- NOTE | 2018-01-20 10:23 | XR ---
EXAMINATION TYPE: XR knee complete LT DATE OF EXAM: 01/20/2018 CLINICAL HISTORY: Increasing left knee pain with history of multiple myeloma TECHNIQUE: Three views of the left knee are obtained. COMPARISON: None. FINDINGS: There is no acute fracture/dislocation evident in left knee. There is surgical fixation of the left femur with lateral distal femoral diaphyseal periosteal reaction just distal to the surgica l clip and medial periosteal reaction. Increased density within the medullary canal may relate to pos tsurgical change in segment. No evidence of fixation plate loosening or hardware fracture. Mild media l compartment joint space narrowing and tibial plateau sclerosis is noted. Punctate calcification of the lateral compartment cartilage is present. There is a moderate suprapatellar joint effusion that appears to create bowing of the medial collater al ligament. There is also note of patella baja. No suspicious osseous lesions are seen. IMPRESSION: 1. There is no acute fracture or dislocation in the left knee. 2. Moderate suprapatellar joint effusion. 3. Patella baja that may be sequela of quadriceps dysfunction, prior bony trauma, or prior ligamentou s trauma. MR could further evaluate the tendons. 4. Mild lateral compartment chondrocalcinosis and medial compartment arthrosis.
[2018-01-20 10:57] LABS: Glucose,Whole Blood 179 mg/dL (75-99)
[2018-01-20 12:42] LABS: Immunoglobulin A <25.5 mg/dL (60.0-350.0); Immunoglobulin M <16.9 mg/dL (40.0-280.0)
[2018-01-20 17:24] LABS: Glucose,Whole Blood 285 mg/dL (75-99)
[2018-01-20] MEDS: WARFARIN 2.5 MG PO SCH (17:26)
--- NOTE | 2018-01-20 17:33 | P.CONS ---
History of Present Illness - Reason for Consult Consult date: 01/19/18 Mutiple Myeloma Requesting physician: Froilan Virk - Chief Complaint Rash and LE Swelling - History of Present Illness Mrs. Donato is a pleasant female who presents to [facility] for concerns related to increasing LE edema and blistering open rash to anterior chest. Merissa has a known history of Multiple Myeloma, she is currently under the care of Dr. Adkins at [facility]. She has been treated with multiple regimens, most currently on Empliciti/Revlimid/Decadron. She has a known history of recurrent, chronic lower extremity cellulitis and venous status, BLE DVT (on warfarin). She is morbidly obese, ambulates with a walker. Her treatment cycle restarted this week. She is not sure which day of her cycle she is currently on although her treatment plan is the following (Elotuzumab Day 1 and 15 every 28 days, Revlimid daily days 1-21 of 28 day cycle, and Decadron weekly on Tuesdays (40mg days 8 and 22, 28mg days 1 and 15). She states her Lower extremities have increased in swelling over the past week and have become painful. Her chest started to break out last week and is blistery and painful. She has been on acyclovir prophylaxis with her current regimen. She has been using over the counter hydrocortisone and light moisturizers without relief. She denies any fevers or chills. Review of Systems A 12 point review of systems assessed and completed and all negative except HPI All systems: negative Constitutional: Reports chronic pain, Reports daytime sleepiness, Reports fatigue, Reports malaise, Reports night sweats, Reports sweats Cardiovascular: Reports leg edema, Reports palpitations Respiratory: Reports dyspnea, Reports sleep apnea Musculoskeletal: Reports gait dysfunction, Reports leg numbness/tingling, Reports low back pain, Reports morning stiffness, Reports muscle cramps, Reports muscle weakness, Reports myalgias, Reports neck pain Integumentary: Reports dryness, Reports foot/leg ulcers, Reports lesions, Reports pruritus, Reports rash Past Medical History Past Medical History: Cancer, Diabetes Mellitus, Deep Vein Thrombosis (DVT), Fibromyalgia, GERD/Reflux, Hyperlipidemia Additional Past Medical History / Comment(s): multiple myloma History of Any Multi-Drug Resistant Organisms: None Reported Past Surgical History: Orthopedic Surgery Past Psychological History: No Psychological Hx Reported Smoking Status: Never smoker Past Alcohol Use History: None Reported Past Drug Use History: None Reported Medications and Allergies Home Medications Medication Instructions Recorded Confirmed Type Acyclovir 400 mg PO BID 01/05/18 01/18/18 History Cholecalciferol (Vitamin D3) 2,000 unit PO DAILY 01/05/18 01/18/18 History [Vitamin D3] Cyanocobalamin [Vitamin B-12] 500 mcg PO DAILY 01/05/18 01/18/18 History Dexamethasone [Hexadrol] 28 mg PO TU 01/05/18 01/18/18 History HYDROcodone/APAP 10-325MG [Lithia 1 - 2 tab PO DAILY PRN 01/05/18 01/18/18 History 10-325] Lenalidomide [Revlimid] 25 mg PO DIRECTED 01/05/18 01/18/18 History Loperamide [Imodium] 2 mg PO DAILY 01/05/18 01/18/18 History Prochlorperazine [Compazine] 10 mg PO Q6H PRN 01/05/18 01/18/18 History Pyridoxine [Vitamin B-6] 50 mg PO TID 01/05/18 01/18/18 History Ranitidine HCl [Zantac] 150 mg PO DAILY 01/05/18 01/18/18 History Warfarin [Coumadin] 2.5 mg PO HS 01/05/18 01/18/18 History metFORMIN HCL [Glucophage] 500 mg PO BID 01/05/18 01/18/18 History Allergies Allergy/AdvReac Type Severity Reaction Status Date / Time No Known Allergies Allergy Verified 01/18/18 14:34 Physical Exam Vitals: Vital Signs Temp Pulse Pulse Resp BP BP Pulse Ox 01/19/18 14:19 99.9 F H 95 18 126/80 95 01/19/18 08:00 71 16 01/19/18 07:00 97.1 F L 71 16 133/63 98 01/19/18 00:00 16 01/18/18 23:00 98.6 F 61 16 127/82 98 01/18/18 18:53 98.4 F 66 16 143/65 96 01/18/18 17:09 97.2 F L 73 18 138/66 97 Intake and Output 01/19/18 01/19/18 01/19/18 06:59 14:59 22:59 Intake Total 560 500 Balance 560 500 Intake: IV 60 Sodium Chloride 0.9% 500 60 ml @ 20 mls/hr IV .Q24H [facility] Rx#:[id number] Oral 500 500 Other: Voiding Method Toilet Toilet Bedside Commode Bedside Commode Incontinent Incontinent # Voids 6 5 # Bowel Movements 1 Weight 113.398 kg - Constitutional General appearance: morbidly obese - EENT Eyes: dentition normal, normal appearance ENT: hard of hearing, NA/AT, normal oropharynx Ears: bilateral: normal, negative: other (Hearing AIdes Bilateral ) - Neck Neck: other - Respiratory Respiratory: bilateral: CTA (No increased respiratory effort noted) - Cardiovascular Rhythm: regularly irregular Heart sounds: normal: S1, S2 - Gastrointestinal General gastrointestinal: normal bowel sounds, soft - Integumentary Bullous, open sores, crusted outside, blistered and erythema, appears to be bilateral bra line. Appears more herpetic than fungal although along same area that a fungal rash could evolve. - Neurologic No Focal Deficits - Musculoskeletal Musculoskeletal: generalized weakness - Psychiatric Psychiatric: A&O x's 3, appropriate affect, intact judgment & insight Results CBC & Chem 7: 01/20/18 07:17 01/20/18 07:17 Labs: Abnormal Lab Results - Last 24 Hours (Table) 01/18/18 01/18/18 01/18/18 Range/Units 15:06 15:06 15:44 Lymphocytes # (1.0-4.8) k/uL PT (9.0-12.0) sec INR (<1.2) BUN 20 H (7-17) mg/dL Glucose 117 H (74-99) mg/dL POC Glucose (mg/dL) (75-99) mg/dL Hemoglobin A1c 7.5 H (4.0-6.0) % Phosphorus 4.9 H (2.5-4.5) mg/dL AST 12 L (14-36) U/L Total Protein 5.7 L (6.3-8.2) g/dL Albumin 3.4 L (3.5-5.0) g/dL Urine Blood Small H (Negative) Hyaline Casts 3 H (0-2) /lpf Urine Mucus Rare H (None) /hpf 01/18/18 01/19/18 01/19/18 Range/Units 21:30 07:08 07:18 Lymphocytes # 0.5 L (1.0-4.8) k/uL PT (9.0-12.0) sec INR (<1.2) BUN (7-17) mg/dL Glucose (74-99) mg/dL POC Glucose (mg/dL) 134 H 114 H (75-99) mg/dL Hemoglobin A1c (4.0-6.0) % Phosphorus (2.5-4.5) mg/dL AST (14-36) U/L Total Protein (6.3-8.2) g/dL Albumin (3.5-5.0) g/dL Urine Blood (Negative) Hyaline Casts (0-2) /lpf Urine Mucus (None) /hpf 01/19/18 01/19/18 01/19/18 Range/Units 07:18 07:18 11:31 Lymphocytes # (1.0-4.8) k/uL PT 43.2 H (9.0-12.0) sec INR 4.8 H (<1.2) BUN 18 H (7-17) mg/dL Glucose 114 H (74-99) mg/dL POC Glucose (mg/dL) 179 H (75-99) mg/dL Hemoglobin A1c (4.0-6.0) % Phosphorus (2.5-4.5) mg/dL AST (14-36) U/L Total Protein (6.3-8.2) g/dL Albumin (3.5-5.0) g/dL Urine Blood (Negative) Hyaline Casts (0-2) /lpf Urine Mucus (None) /hpf Microbiology - Last 24 Hours (Table) 01/18/18 15:44 Urine Culture - Preliminary Urine,Voided Assessment and Plan (1) Multiple myeloma Narrative/Plan: 1. Currently under the care of Dr. Adkins at [facility]. 2. Receives treatment with Elozutunab/Revlimid/Dexamethasone 3. COntinue Dexamethasone and Revlimid tomorrow, since not receiving Empliciti tomorrow recommend giving 4mg PO of dexamethasone since this is dose when treatment is not received. 4. WIll Check Immunoglobulins today, protein electrophoresis 5. She will follow-up with Dr. Adkins after discharge. Current Visit: Yes Status: Acute Code(s): C90.00 - MULTIPLE MYELOMA NOT HAVING ACHIEVED REMISSION SNOMED Code(s): 393688234 (2) Rash and nonspecific skin eruption Narrative/Plan: 1. Viral versus Fungal. Grandchildren recently received vaccines 3 weeks ago? 2. If no improvement on antifungals would increased antiviral - WIll defer to Infectious Disease. She is at higher risk for atypical infections secondary to medications for multiple myeloma. Current Visit: Yes Status: Acute Code(s): R21 - RASH AND OTHER NONSPECIFIC SKIN ERUPTION SNOMED Code(s): 147844981 (3) Cellulitis Narrative/Plan: 1. Chronic and recurrent venous status and recurrent LE Cellulitis of her Lower Extremities. Multiple treatments and hospitalizations between [place] and [place] Current Visit: Yes Status: Acute Code(s): L03.90 - CELLULITIS, UNSPECIFIED SNOMED Code(s): 571964982 (4) Lower extremity edema Current Visit: Yes Status: Acute Code(s): R60.0 - LOCALIZED EDEMA SNOMED Code(s): 812905093 (5) Right upper lobe pneumonia Current Visit: No Status: Acute Code(s): J18.1 - LOBAR PNEUMONIA, UNSPECIFIED ORGANISM SNOMED Code(s): 213523765
--- NOTE | 2018-01-20 17:44 | P.PN ---
Subjective Progress Note Date: 01/20/18 Principal diagnosis: Multiplpe Myeloma Merissa is feeling ok today, her left knee is stiff and painful, this is new for her , her lower extremities are feeling heavy and she required assistance moving to the chair. Objective - Vital Signs Vital signs: Vital Signs Temp 98 F 01/20/18 14:16 Pulse 91 01/20/18 14:16 Resp 18 01/20/18 14:16 BP 138/85 01/20/18 14:16 Pulse Ox 96 01/20/18 14:16 Intake & Output 01/19/18 01/20/18 01/20/18 18:59 06:59 18:59 Intake Total 500 Balance 500 Weight 113.398 kg Intake: Oral 500 Other: Voiding Method Toilet Toilet Toilet Bedside Commode Bedside Commode Bedside Commode Incontinent Incontinent Incontinent # Voids 5 3 2 # Bowel Movements 1 - Constitutional General appearance: Present: morbidly obese - EENT Eyes: Present: dentition normal ENT: Present: NA/AT, normal oropharynx - Neck Neck: Present: normal ROM - Respiratory Respiratory: bilateral: diminished (Lower Lobes, No increased respiratory effort noted) - Cardiovascular Rhythm: regularly irregular - Peripheral edema foot Peripheral Edema: bilateral: 2+ leg Peripheral Edema: bilateral: 2+ (Evidence of venous insufficiency bilaterally) - Gastrointestinal Gastrointestinal Comment(s): Obese General gastrointestinal: Present: normal bowel sounds, soft - Integumentary Integumentary Comment(s): Blister-like open areas to bilateral anterior chest under bilateral breasts. - Neurologic Neurologic Comment(s): No Focal Defects. - Psychiatric Psychiatric: Present: A&O x's 3, appropriate affect, intact judgment & insight - Labs CBC & Chem 7: 01/20/18 07:17 01/20/18 07:17 Labs: Abnormal Lab Results - Last 24 Hours (Table) 01/19/18 01/19/18 01/20/18 Range/Units 07:18 20:42 06:39 RDW (11.5-15.5) % Lymphocytes # (1.0-4.8) k/uL PT (9.0-12.0) sec INR (<1.2) BUN (7-17) mg/dL Glucose (74-99) mg/dL POC Glucose (mg/dL) 170 H 123 H (75-99) mg/dL Total Protein (PEP) 5.2 L (6.2-8.2) g/dL IgG 493.0 L (700.0-1600.0) mg/dL IgA <25.5 L (60.0-350.0) mg/dL IgM <16.9 L (40.0-280.0) mg/dL 01/20/18 01/20/18 01/20/18 Range/Units 07:17 07:17 07:17 RDW 15.6 H (11.5-15.5) % Lymphocytes # 0.5 L (1.0-4.8) k/uL PT 40.9 H (9.0-12.0) sec INR 4.5 H (<1.2) BUN 20 H (7-17) mg/dL Glucose 142 H (74-99) mg/dL POC Glucose (mg/dL) (75-99) mg/dL Total Protein (PEP) (6.2-8.2) g/dL IgG (700.0-1600.0) mg/dL IgA (60.0-350.0) mg/dL IgM (40.0-280.0) mg/dL 01/20/18 01/20/18 Range/Units 10:55 17:22 RDW (11.5-15.5) % Lymphocytes # (1.0-4.8) k/uL PT (9.0-12.0) sec INR (<1.2) BUN (7-17) mg/dL Glucose (74-99) mg/dL POC Glucose (mg/dL) 179 H 285 H (75-99) mg/dL Total Protein (PEP) (6.2-8.2) g/dL IgG (700.0-1600.0) mg/dL IgA (60.0-350.0) mg/dL IgM (40.0-280.0) mg/dL Microbiology - Last 24 Hours (Table) 01/18/18 15:44 Urine Culture - Final Urine,Voided Proteus mirabilis 01/18/18 23:13 Blood Culture - Preliminary Blood No Growth after 24 hours 01/18/18 23:13 Blood Culture - Preliminary Blood No Growth after 24 hours Assessment and Plan (1) Left knee pain Current Visit: Yes Status: Acute Code(s): M25.562 - PAIN IN LEFT KNEE SNOMED Code(s): 69889985 (2) Multiple myeloma Narrative/Plan: 1. Under Care of Dr. Knight being treated with Emplici Revlimid and Dex 2. COntinue Rev and Dex 3. Awaiting SPEP, Immunogloblin levels 4. Xray of left ankle concern for new pain and mobility, Current Visit: Yes Status: Acute Code(s): C90.00 - MULTIPLE MYELOMA NOT HAVING ACHIEVED REMISSION SNOMED Code(s): 744664577 (3) Intertrigo Current Visit: Yes Status: Acute Code(s): L30.4 - ERYTHEMA INTERTRIGO SNOMED Code(s): 05473859 (4) Rash and nonspecific skin eruption Current Visit: Yes Status: Acute Code(s): R21 - RASH AND OTHER NONSPECIFIC SKIN ERUPTION SNOMED Code(s): 052379765 (5) DVT (deep venous thrombosis) Narrative/Plan: History of LE DVTs, On Warfarin, Holding currently for coumadin coagulopathy prob secondary to medication Current Visit: Yes Status: Acute Code(s): I82.409 - ACUTE EMBOLISM AND THOMBOS UNSP DEEP VN UNSP LOWER EXTREMITY SNOMED Code(s): 685042904
[2018-01-20 21:10] LABS: Glucose,Whole Blood 252 mg/dL (75-99)
[2018-01-20] MEDS: Lenalidomide [Revlimid] 25 MG PO SCH (22:04)
[2018-01-21] MEDS: SODIUM CHLORIDE 0.9% 500 ML IV SCH ×2 (00:26→22:46)
[2018-01-21] MEDS: ZOLPIDEM 10 MG TAB PO PRN ×2 (00:35→22:33)
[2018-01-21] MEDS: HYDROcodone/APAP 10-325MG 1 EACH TAB PO PRN ×3 (00:44→17:51)
[2018-01-21 07:47] LABS: Glucose,Whole Blood 256 mg/dL (75-99)
[2018-01-21] MEDS: ceFAZolin IN SWFI 2 GM/20 ML SYRINGE IVP SCH ×2 (07:47→16:32)
[2018-01-21] MEDS: FUROSEMIDE 10 MG/ML 2 ML VIAL IV SCH ×2 (07:47→21:15)
[2018-01-21 07:49] LABS: INR 4.8 (<1.2); Prothrombin Time 43.5 sec (9.0-12.0)
[2018-01-21 07:50] LABS: Basophils % (A) 0 %; Eosinophils % (A) 0 %; HGB 12.6 gm/dL (11.4-16.0); Lymphocytes # (A) 0.4 k/uL (1.0-4.8); Lymphocytes % (A) 7 %; MCH 31.9 pg (25.0-35.0); MCHC 32.4 g/dL (31.0-37.0); MCV 98.4 fL (80.0-100.0); Macrocytosis Slight; Mean Platelet Volume 7.6; Monocytes # (A) 0.3 k/uL (0-1.0); Monocytes % (A) 4 %; Neutrophils # (A) 5.8 k/uL (1.3-7.7); Neutrophils % (A) 88 %; Platelet Count 223 k/uL (150-450); RBC 3.96 m/uL (3.80-5.40); RDW 15.4 % (11.5-15.5); WBC 6.6 k/uL (3.8-10.6)
[2018-01-21] MEDS: CLOTRIMAZOLE 1% CREAM 15 GM TUBE TOPICAL SCH ×2 (07:56→22:34)
[2018-01-21] MEDS: NON-FORMULARY DRUG (Ranitidine Hcl [Zantac] 150 MG) PO SCH (08:02)
[2018-01-21] MEDS: CHOLECALCIFEROL 1,000 UNIT TAB PO SCH (08:02)
[2018-01-21] MEDS: CYANOCOBALAMIN 500 MCG TAB PO SCH (08:02)
[2018-01-21] MEDS: PYRIDOXINE 50 MG TAB PO SCH ×3 (08:02→21:15)
[2018-01-21] MEDS: FLUCONAZOLE ORAL SUSP 1,400 MG/35 ML BOTTLE PO SCH (08:03)
[2018-01-21] MEDS: METFORMIN HCL 500 MG PO SCH ×2 (08:03→18:11)
[2018-01-21] MEDS: ACYCLOVIR 400 MG PO SCH ×2 (08:04→21:17)
[2018-01-21] MEDS: INSULIN ASPART 100 UNIT/ML 1 ML 10 ML VIAL SQ SCH ×4 (08:04→21:16)
[2018-01-21] MEDS: NYSTATIN 100,000 UNIT/GM POWD 15 GM TOPICAL SCH ×2 (08:05→22:34)
[2018-01-21] MEDS: NYSTATIN 100,000UNIT/GM CREAM 30 GM TUBE TOPICAL SCH ×2 (08:05→22:34)
[2018-01-21 08:06] LABS: Anion Gap 13 mmol/L; Blood Urea Nitrogen 22 mg/dL (7-17); Calcium 9.3 mg/dL (8.4-10.2); Carbon Dioxide 25 mmol/L (22-30); Chloride 99 mmol/L (98-107); Glucose 253 mg/dL (74-99); Potassium 4.3 mmol/L (3.5-5.1); Sodium 137 mmol/L (137-145)
[2018-01-21] MEDS: LOPERAMIDE 2 MG PO SCH (08:12)
[2018-01-21] MEDS ORDERED: PROCHLORPERAZINE 10 MG TAB PO PRN (09:30)
--- NOTE | 2018-01-21 11:57 | PN ---
PROGRESS NOTE DATE OF SERVICE: 01/21/2018 REASON FOR FOLLOWUP: Right foot cellulitis at the foot and bilateral cutaneous candidiasis involving the breast area. INTERVAL HISTORY: The patient is afebrile. Her rash under the breast has slightly improved. Still complaining of swelling in the patient's the left foot area with some erythema, but no drainage. Denies having any chest pain or shortness of breath or cough and no diarrhea. PHYSICAL EXAMINATION: Blood pressure 141/57, pulse of 84, temperature of 97.9. She is 95% on room air. General description is a middle-aged female, up in the bed in no distress. RESPIRATORY SYSTEM: Unlabored breathing, clear to auscultation anteriorly. HEART: S1, S2. Regular rate and rhythm. ABDOMEN: Soft, no tenderness. Rash under the breast has slightly decreased in intensity. The right foot swelling is improved. Left leg still has some swelling and redness with the foot did have erythematous rash and evidence of athlete's foot. LABS: Hemoglobin is 12.5, white count of 6.6, BUN of 22, creatinine 0.47. DIAGNOSTIC IMPRESSION AND PLAN: 1. Patient with bilateral leg cellulitis and the left is more prominent than the right foot. Will continue Cefazolin, would benefit with the oral Keflex. 2. As per the athlete's foot and rash on the foot, will switch over the local wound care to local application to the Mycolog cream twice a day along with Brenton wrap to keep the swelling down. 3. Patient did have a positive urine culture with Proteus mirabilis. Should be covered with Cefazolin patient is already on, continue supportive care. MMODL / IJN: [id number] /
[2018-01-21 12:18] LABS: Albumin 2.96 g/dL (3.80-4.90); Gamma Globulin 0.48 g/dL (0.70-1.50)
--- NOTE | 2018-01-21 13:48 | P.CNOR ---
History of Present Illness - [facility] Consult date: 01/21/18 Consult reason: joint pain History of present illness: This is a 62-year-old female who was seen and evaluated today regards to left knee pain. Patient was recently admitted to [facility] with regards to bilateral lower extremity cellulitis, left being worse than the right. patient has a known history of multiple myeloma and is being followed by hematology/ oncology. She has had this diagnosis for about 5 years and has had treatment. She's had cellulitis of the lower extremities before and has seen Dr. Soliz from infectious disease, he is currently on consult also. Patient was admitted under internal medicine for initial care. Patient did develop some knee pain yesterday after ambulating, our orthopedic team was consulted for evaluation. Initial x-rays were done on the left knee, they revealed no acute fractures or dislocations. Previous surgical hardware is present along the lateral aspect of the knee. There is also knee effusion present. She was evaluated today at bedside, she notes the pain has significantly improved since yesterday. She notes pain more over the anterior aspect of the knee. She denies any recent trauma including falls. She has utilized a walker with ambulation over the last 3-4 years. Patient has had a previous ORIF procedure of the left distal femur, she states her was a cancerous lesion present there, a orthopedic oncologist at [facility] did this procedure about 5 years ago. Since that initial surgery, she's had no acute changes in the left leg. Review of Systems Constitutional: Reports as per [facility] Past Medical History Past Medical History: Cancer, Diabetes Mellitus, Deep Vein Thrombosis (DVT), Fibromyalgia, GERD/Reflux, Hyperlipidemia Additional Past Medical History / Comment(s): multiple myloma History of Any Multi-Drug Resistant Organisms: None Reported Past Surgical History: Orthopedic Surgery Past Psychological History: No Psychological Hx Reported Smoking Status: Never smoker Past Alcohol Use History: None Reported Past Drug Use History: None Reported Medications and Allergies Home Medications Medication Instructions Recorded Confirmed Type Acyclovir 400 mg PO BID 01/05/18 01/18/18 History Cholecalciferol (Vitamin D3) 2,000 unit PO DAILY 01/05/18 01/18/18 History [Vitamin D3] Cyanocobalamin [Vitamin B-12] 500 mcg PO DAILY 01/05/18 01/18/18 History Dexamethasone [Hexadrol] 28 mg PO TU 01/05/18 01/18/18 History HYDROcodone/APAP 10-325MG [[place] 1 - 2 tab PO DAILY PRN 01/05/18 01/18/18 History 10-325] Lenalidomide [Revlimid] 25 mg PO DIRECTED 01/05/18 01/18/18 History Loperamide [Imodium] 2 mg PO DAILY 01/05/18 01/18/18 History Prochlorperazine [Compazine] 10 mg PO Q6H PRN 01/05/18 01/18/18 History Pyridoxine [Vitamin B-6] 50 mg PO TID 01/05/18 01/18/18 History Ranitidine HCl [Zantac] 150 mg PO DAILY 01/05/18 01/18/18 History Warfarin [Coumadin] 2.5 mg PO HS 01/05/18 01/18/18 History metFORMIN HCL [Glucophage] 500 mg PO BID 01/05/18 01/18/18 History Allergies Allergy/AdvReac Type Severity Reaction Status Date / Time No Known Allergies Allergy Verified 01/18/18 14:34 Physical Examination Left lower extremity: No obvious open lesions or sores present over the knee, previous surgical incisions are present on the medial and lateral aspects of the knee Obvious effusion present on the left knee Obvious erythema noted around the ankle extending into the foot and toes, 3+ pitting edema is noted from mid shaft tibia down to the foot. Significant areas of erythema or increase in warmth the skin around the knee Patient is able to bend the knee past 90 with no significant discomfort, there is some extension lag noted, she can actively extend to about 50-60. Strength testing reveals adequate extension strength Calf is soft, no tenderness with palpation Sensory exam to light touch throughout the extremities intact, dorsal pedis pulses 2+ Results - Labs Labs: Abnormal Lab Results - Last 24 Hours (Table) 01/19/18 01/20/18 01/20/18 Range/Units 07:18 17:22 20:55 Lymphocytes # (1.0-4.8) k/uL PT (9.0-12.0) sec INR (<1.2) BUN (7-17) mg/dL Creatinine (0.52-1.04) mg/dL Glucose (74-99) mg/dL POC Glucose (mg/dL) 285 H 252 H (75-99) mg/dL IgG 493.0 L (700.0-1600.0) mg/dL IgA <25.5 L (60.0-350.0) mg/dL IgM <16.9 L (40.0-280.0) mg/dL 01/21/18 01/21/18 01/21/18 Range/Units 07:30 07:30 07:30 Lymphocytes # 0.4 L (1.0-4.8) k/uL PT 43.5 H (9.0-12.0) sec INR 4.8 H (<1.2) BUN 22 H (7-17) mg/dL Creatinine 0.47 L (0.52-1.04) mg/dL Glucose 253 H (74-99) mg/dL POC Glucose (mg/dL) (75-99) mg/dL IgG (700.0-1600.0) mg/dL IgA (60.0-350.0) mg/dL IgM (40.0-280.0) mg/dL 01/21/18 Range/Units 07:44 Lymphocytes # (1.0-4.8) k/uL PT (9.0-12.0) sec INR (<1.2) BUN (7-17) mg/dL Creatinine (0.52-1.04) mg/dL Glucose (74-99) mg/dL POC Glucose (mg/dL) 256 H (75-99) mg/dL IgG (700.0-1600.0) mg/dL IgA (60.0-350.0) mg/dL IgM (40.0-280.0) mg/dL Microbiology - Last 24 Hours (Table) 01/18/18 23:13 Blood Culture - Preliminary Blood No Growth after 48 hours 01/18/18 23:13 Blood Culture - Preliminary Blood No Growth after 48 hours 01/18/18 15:44 Urine Culture - Final Urine,Voided Proteus mirabilis H & H 01/18/18 01/19/18 01/20/18 Range/Units 15:06 07:18 07:17 Hgb 12.8 12.2 13.4 (11.4-16.0) gm/dL Hct 39.5 38.5 41.4 (34.0-46.0) % 01/21/18 Range/Units 07:30 Hgb 12.6 (11.4-16.0) gm/dL Hct 39.0 (34.0-46.0) % Coagulation 01/19/18 01/20/18 01/21/18 Range/Units 07:18 07:17 07:30 INR 4.8 H 4.5 H 4.8 H (<1.2) Result Diagrams: 01/21/18 07:30 01/21/18 07:30 - Diagnostic results Knee x-ray: report reviewed, image reviewed Assessment and Plan Plan: Imagin views of the left knee were taken by x-ray. Images reveal no acute fractures or dislocations. Stable plate and screw fixation of left distal femur present. Obvious effusion present. There is some chondrocalcinosis noted more on the lateral aspect of the knee with mild arthritic changes. Patella baja also appreciated. Assessment: 1. Left knee effusion 2. Left knee mild osteoarthritis 3. Other medical comorbidities Plan: I was able to discuss this case, including with physical exam findings with Dr. Lombardi. Dr. Lombardi was also available to examine the patient today at bedside. We do not feel there is any injury to the quad tendon at this time. The difficulty with extension and discomfort is likely due to the knee effusion. With the patient's current anticoagulation status, we will avoid any joint aspiration. We would like to evaluate the patient in the outpatient setting in 10-14 days for possible aspiration to improve symptoms Weight-bear as tolerated, utilize walker Pain control DVT and GI prophylaxis per medical's recommendations Other medical center director recommendations No orthopedic surgical intervention needed at this time, we'll be available for any further questions. On a orthopedic standpoint, patient is stable for discharge Time with Patient: Less than 30
[2018-01-21 16:41] LABS: Glucose,Whole Blood 256 mg/dL (75-99)
[2018-01-21 20:43] LABS: Glucose,Whole Blood 156 mg/dL (75-99)
[2018-01-21] MEDS: FAMOTIDINE 20 MG TAB PO SCH (21:16)
[2018-01-21] MEDS: Lenalidomide [Revlimid] 25 MG PO SCH (21:17)
[2018-01-21 21:19] VITALS: RESP 18
[2018-01-22] MEDS: HYDROcodone/APAP 10-325MG 1 EACH TAB PO PRN ×2 (00:04→13:32)
[2018-01-22] MEDS: ceFAZolin IN SWFI 2 GM/20 ML SYRINGE IVP SCH ×2 (00:05→07:49)
[2018-01-22 07:07] LABS: INR 4.6 (<1.2); Prothrombin Time 41.1 sec (9.0-12.0)
[2018-01-22 07:17] LABS: Anion Gap 9 mmol/L; Blood Urea Nitrogen 30 mg/dL (7-17); Calcium 9.2 mg/dL (8.4-10.2); Carbon Dioxide 27 mmol/L (22-30); Chloride 99 mmol/L (98-107); Glucose 183 mg/dL (74-99); Sodium 135 mmol/L (137-145)
[2018-01-22 07:22] LABS: Basophils % (A) 0 %; Eosinophils % (A) 0 %; HCT 37.4 % (34.0-46.0); HGB 12.2 gm/dL (11.4-16.0); Lymphocytes # (A) 0.6 k/uL (1.0-4.8); Lymphocytes % (A) 7 %; MCH 32.5 pg (25.0-35.0); MCHC 32.6 g/dL (31.0-37.0); MCV 99.5 fL (80.0-100.0); Macrocytosis Slight; Mean Platelet Volume 7.8; Monocytes # (A) 0.5 k/uL (0-1.0); Monocytes % (A) 6 %; Neutrophils % (A) 83 %; Platelet Count 234 k/uL (150-450); RBC 3.76 m/uL (3.80-5.40); RDW 15.4 % (11.5-15.5); WBC 8.5 k/uL (3.8-10.6)
[2018-01-22] MEDS: LOPERAMIDE 2 MG PO SCH ×2 (07:47→07:52)
[2018-01-22] MEDS: FLUCONAZOLE ORAL SUSP 1,400 MG/35 ML BOTTLE PO SCH (07:48)
[2018-01-22] MEDS: FUROSEMIDE 10 MG/ML 2 ML VIAL IV SCH (07:48)
[2018-01-22] MEDS: METFORMIN HCL 500 MG PO SCH (07:48)
[2018-01-22] MEDS: ACYCLOVIR 400 MG PO SCH (07:48)
[2018-01-22] MEDS: INSULIN ASPART 100 UNIT/ML 1 ML 10 ML VIAL SQ SCH ×2 (07:49→11:57)
[2018-01-22] MEDS: CHOLECALCIFEROL 1,000 UNIT TAB PO SCH (07:49)
[2018-01-22] MEDS: CYANOCOBALAMIN 500 MCG TAB PO SCH (07:49)
[2018-01-22] MEDS: PYRIDOXINE 50 MG TAB PO SCH (07:49)
[2018-01-22] MEDS: FAMOTIDINE 20 MG TAB PO SCH (07:49)
[2018-01-22] MEDS: NYSTATIN 100,000 UNIT/GM POWD 15 GM TOPICAL SCH (07:50)
[2018-01-22] MEDS: NYSTATIN 100,000UNIT/GM CREAM 30 GM TUBE TOPICAL SCH (07:50)
[2018-01-22] MEDS: CLOTRIMAZOLE 1% CREAM 15 GM TUBE TOPICAL SCH (07:50)
[2018-01-22 08:20] VITALS: TEMP 97.7
[2018-01-22 08:39] LABS: Glucose,Whole Blood 288 mg/dL (75-99)
[2018-01-22] MEDS ORDERED: IMMUNE GLOBULIN (HUMAN-IGG) 1 GM/10 ML VIAL IV ONE (09:30)
[2018-01-22] MEDS ORDERED: IMMUNE GLOBULIN (HUMAN-IGG) 20 GM in EMPTY BAG 1 BAG IV NR (10:00)
[2018-01-22] MEDS ORDERED: IMMUNE GLOBULIN (HUMAN-IGG) 30 GM in EMPTY BAG 1 BAG IV NR (10:00)
[2018-01-22 11:16] LABS: Glucose,Whole Blood 153 mg/dL (75-99)
--- NOTE | 2018-01-22 11:37 | P.DS ---
Providers Date of admission: 01/18/18 17:05 Expected date of discharge: 01/22/18 Attending physician: Seth Montoya Consults: 01/18/18 22:37 Consult Physician Routine Consulting Provider: Praneeth Russo Consult Reason/Comments: cml Do you want consulting provider notified?: Yes, Notify in am 01/19/18 09:32 Consult Physician Stat Consulting Provider: Hay Soliz Consult Reason/Comments: cellulitis Do you want consulting provider notified?: Yes 01/20/18 23:22 Consult Physician Routine Consulting Provider: Faustino Neville Consult Reason/Comments: left knee effusion, and pain Do you want consulting provider notified?: Yes Primary care physician: Seth Montoya [facility] Course: 62-year-old female who presented to the emergency room on 01/18/2018 with a chief complaint of increased swelling to her bilateral lower extremities and left knee pain. The patient also had a rash under her breasts bilaterally. The patient has a history of multiple myeloma and deep vein thrombosis. The patient takes Coumadin 2.5 mg daily. She also has a history of diabetes mellitus and degenerative joint disease. Infectious disease and hematology/ oncology were consulted. An x-ray of the left knee was completed revealing no acute fracture or dislocation but did reveal moderate suprapatellar joint effusion. Orthopedics was consulted and recommends patient follow up on an outpatient basis for possible drainage of effusion. The patient's INR was supratherapeutic upon admission at 4.8. Her Coumadin has been on hold. Her INR is currently 4.6. No evidence of bleeding is noted. The patient was evaluated by infectious disease and was placed on cefazolin IV. She has also been receiving mycolog cream to her feet and under her breasts. She also received IV lasix during hospitalization with improvement in swelling of her lower extremities. The patient was deemed stable for discharge per Dr. Montoya. She is to follow up on an outpatient basis. She is to receive Immune Globulin ordered by Dr. Russo before her discharge. She was also cleared for discharge per Dr. Soliz, who recommends Keflex 500 mg 3 times a day 10 days, Diflucan 200 mg daily 10 days, and continued use of Mycolog cream to rash under her bilateral breasts and bilateral feet. She is to hold her Coumadin until her follow-up appointment with Dr. Montoya at which time he will repeat her INR. DISCHARGE DIAGNOSIS: Bilateral lower extremity cellulitis Left knee pain, imaging reveals moderate suprapatellar joint effusion Urinary tract infection, cultures positive for Proteus mirabilis Supratherapeutic INR History of deep vein thrombosis, maintained on long-term anticoagulation with Coumadin Diabetes mellitus, type II History of multiple myeloma Morbid obesity: BMI 41.6 Nurse practitioner note has been reviewed by physician. Signing provider agrees with the documented findings, assessment, and plan of care. Patient Condition at Discharge: Good Plan - Discharge Summary New Discharge Prescriptions: New Cephalexin [Keflex] 500 mg PO Q8HR #30 cap Fluconazole [Diflucan] 200 mg PO DAILY #10 tab Nystatin/Triamcin Cream [Mycolog 100,000-0.1 Unit/gm-% Cream] 1 applic TOPICAL BID #1 tube Continue HYDROcodone/APAP 10-325MG [[place] 10-325] 1 - 2 tab PO DAILY PRN PRN Reason: Pain Ranitidine HCl [Zantac] 150 mg PO DAILY Pyridoxine [Vitamin B-6] 50 mg PO TID metFORMIN HCL [Glucophage] 500 mg PO BID Lenalidomide [Revlimid] 25 mg PO DIRECTED Cyanocobalamin [Vitamin B-12] 500 mcg PO DAILY Cholecalciferol (Vitamin D3) [Vitamin D3] 2,000 unit PO DAILY Dexamethasone [Hexadrol] 28 mg PO TU Acyclovir 400 mg PO BID Loperamide [Imodium] 2 mg PO DAILY Discontinued Prochlorperazine [Compazine] 10 mg PO Q6H PRN PRN Reason: Nausea Warfarin [Coumadin] 2.5 mg PO HS Discharge Medication List Acyclovir 400 mg PO BID 01/05/18 [History] Cholecalciferol (Vitamin D3) [Vitamin D3] 2,000 unit PO DAILY 01/05/18 [History] Cyanocobalamin [Vitamin B-12] 500 mcg PO DAILY 01/05/18 [History] Dexamethasone [Hexadrol] 28 mg PO TU 01/05/18 [History] HYDROcodone/APAP 10-325MG [[place] 10-325] 1 - 2 tab PO DAILY PRN 01/05/18 [ History] Lenalidomide [Revlimid] 25 mg PO DIRECTED 01/05/18 [History] Loperamide [Imodium] 2 mg PO DAILY 01/05/18 [History] Pyridoxine [Vitamin B-6] 50 mg PO TID 01/05/18 [History] Ranitidine HCl [Zantac] 150 mg PO DAILY 01/05/18 [History] metFORMIN HCL [Glucophage] 500 mg PO BID 01/05/18 [History] Cephalexin [Keflex] 500 mg PO Q8HR #30 cap 01/22/18 [Rx] Fluconazole [Diflucan] 200 mg PO DAILY #10 tab 01/22/18 [Rx] Nystatin/Triamcin Cream [Mycolog 100,000-0.1 Unit/gm-% Cream] 1 applic TOPICAL BID #1 tube 01/22/18 [Rx] Follow up Appointment(s)/Referral(s): Praneeth Russo MD [STAFF PHYSICIAN] - 1 Week Seth Montoya DO [Primary Care Provider] - 1-2 days Pramod Lombardi MD [STAFF PHYSICIAN] - 2 Weeks Activity/Diet/Wound Care/Special Instructions: Patient to hold Coumadin until her follow up appointment with Dr. Montoya. Will recheck INR at that visit Discharge Disposition: HOME SELF-CARE
--- NOTE | 2018-01-22 11:41 | P.PN ---
Subjective Progress Note Date: 01/21/18 Patient seen and examined the bedside on rounds with Dr. Montoya. Patient is sitting up in bed. Awake and alert. Swelling to the lower extremities has improved. Rashes noted to underside of bilateral breast. Patient denies shortness of breath or coughing. Denies chest pain or pressure. INR remains elevated. Coumadin remains on hold. Objective - Vital Signs Vital signs: Vital Signs Temp 97.7 F 01/22/18 07:00 Pulse 56 L 01/22/18 07:00 Resp 18 01/22/18 07:00 BP 119/70 01/22/18 07:00 Pulse Ox 98 01/22/18 07:00 Intake & Output 01/21/18 01/22/18 01/22/18 18:59 06:59 18:59 Weight 113.398 kg Other: Voiding Method Toilet Toilet Toilet Bedside Commode # Voids 3 3 - Exam GENERAL: This is a 62-year-old female in no apparent distress at the time of examination. Pleasant and cooperative. HEENT: Head is atraumatic, normocephalic. Pupils are equal, round, and reactive to light. Sclerae anicteric. Conjunctivae are clear. Mucus membranes of the mouth are moist. Neck is supple. RESPIRATORY: Clear to ausculation. No wheezes, rales, or rhonchi. No use of accessory muscles. Patient maintaining oxygen saturation greater than 92%. No chest wall tenderness is noted on palpation or with deep breathing. CARDIOVASCULAR: Regular rate and rhythm. S1 and S2 noted. No systolic or diastolic murmur auscultated. No JVD noted. No S3 or S4 noted. GASTROINTESTINAL: No distention noted. Abdomen soft and round. Normal active bowel sounds auscultated x 4 quadrants. No pain or tenderness noted upon palpation. INTEGUMENTARY: Rash noted to underside of bilateral breast. +2 lower extremity edema, which is improving. Erythema and dry flaky skin noted to bilateral feet. EXTREMITIES: 2+ peripheral pulses. No calf tenderness noted. NEUROLOGIC: Cranial nerves II-XII intact. PSYCHIATRIC: Awake, alert, and oriented X 3. Appropriate affect. Intact judgement and insight. - Labs CBC & Chem 7: 01/22/18 06:40 01/22/18 06:40 Labs: Abnormal Lab Results - Last 24 Hours (Table) 01/19/18 01/21/18 01/21/18 Range/Units 07:18 11:40 16:30 RBC (3.80-5.40) m/uL Lymphocytes # (1.0-4.8) k/uL PT (9.0-12.0) sec INR (<1.2) Sodium (137-145) mmol/L BUN (7-17) mg/dL Glucose (74-99) mg/dL POC Glucose (mg/dL) 288 H 256 H (75-99) mg/dL Albumin (PEP) 2.96 L (3.80-4.90) g/dL Gamma Globulins 0.48 L (0.70-1.50) g/dL 01/21/18 01/22/18 01/22/18 Range/Units 20:41 06:40 06:40 RBC 3.76 L (3.80-5.40) m/uL Lymphocytes # 0.6 L (1.0-4.8) k/uL PT (9.0-12.0) sec INR (<1.2) Sodium 135 L (137-145) mmol/L BUN 30 H (7-17) mg/dL Glucose 183 H (74-99) mg/dL POC Glucose (mg/dL) 156 H (75-99) mg/dL Albumin (PEP) (3.80-4.90) g/dL Gamma Globulins (0.70-1.50) g/dL 01/22/18 01/22/18 Range/Units 06:40 11:14 RBC (3.80-5.40) m/uL Lymphocytes # (1.0-4.8) k/uL PT 41.1 H (9.0-12.0) sec INR 4.6 H (<1.2) Sodium (137-145) mmol/L BUN (7-17) mg/dL Glucose (74-99) mg/dL POC Glucose (mg/dL) 153 H (75-99) mg/dL Albumin (PEP) (3.80-4.90) g/dL Gamma Globulins (0.70-1.50) g/dL Microbiology - Last 24 Hours (Table) 01/18/18 23:13 Blood Culture - Preliminary Blood No Growth after 72 hours 02/25/18 23:13 Blood Culture - Preliminary Blood No Growth after 72 hours Assessment and Plan Plan: ASSESSMENT: Bilateral lower extremity cellulitis Left knee pain, imaging reveals moderate suprapatellar joint effusion Urinary tract infection, cultures positive for Proteus mirabilis Supratherapeutic INR History of deep vein thrombosis, maintained on long-term anticoagulation with Coumadin Diabetes mellitus, type II History of multiple myeloma Morbid obesity: BMI 41.6 PLAN: Continue to hold Coumadin. Recheck INR in a.m. Continue cefazolin. Continue Mycolog cream to bilateral lower extremities Anticipate discharge within the next 24 hours if patient remains stable. Nurse practitioner note has been reviewed by physician. Signing provider agrees with the documented findings, assessment, and plan of care.
[2018-01-22 13:58] VITALS: BP 125/64; PULSE 62
--- NOTE | 2018-01-22 15:37 | PN ---
PROGRESS NOTE DATE OF SERVICE: 01/22/2018 REASON FOR FOLLOW UP: 1. Bilateral leg cellulitis. 2. Patient with bilateral breast intertrigo. INTERVAL HISTORY: The patient is afebrile, she is breathing comfortably. Did mention the rash on the other breast has decreased. Still complaining of some swelling in the leg, minimal redness and some dull pain to to the region of slight radiation. There is no open area. No drainage. Denies having any chest pain or shortness of breath or cough. PHYSICAL EXAMINATION: Blood pressure 125/84 with a pulse of 82, temperature is 97.7. General description is a middle-aged female up in the bed, in no distress. RESPIRATORY SYSTEM: Unlabored breathing, clear to auscultation anteriorly. HEART: S1, S2. Regular rate and rhythm. ABDOMEN: Soft, no tenderness. swelling has improved. No bleeding. No drainage. Bilateral breast pressure has decreased as well. LABS: Hemoglobin is 12.1, white count 8.5 with a BUN of 30, creatinine 0.60. DIAGNOSTIC IMPRESSION AND PLAN: 1. Patient with a bilateral extremity cellulitis, left more than the right with diffuse swelling and redness likely a streptococcal disease. The patient did show overall improvement on cefazolin. She was switched over to Keflex 500 mg 3 times a day for another week to finish the course of therapy. 2. Patient with extensive redness and candidiasis under the breast area bilaterally. Local wound care with estrogen cream in addition to the oral Diflucan for another week with close monitoring of her INR while she is on these antibiotic in the . Plan of care discussed with the nurse practitioner for the primary team. MMODL / IJN: [id number] /
[2018-01-22] MEDS ORDERED: TRIAMCINOLONE ACET 0.5% CREAM 15 GM TUBE TOPICAL SCH (21:00)
[2018-01-22] MEDS ORDERED: NYSTATIN 100,000UNIT/GM CREAM 30 GM TUBE TOPICAL SCH (21:00)
== END 2018-01-22 16:56 | disposition home or self-care (01) | DRG 603 ==
LOC: EC 13:34 → 5MS5E 17:05 → 5ONC 17:15
PROVIDERS: ADMIT Family Medicine; ATTEND Family Medicine
DX: L03.115 Cellulitis of right lower limb (principal); N39.0 Urinary tract infection, site not specified; E66.01 Morbid (severe) obesity due to excess calories; E11.9 Type 2 diabetes mellitus without complications; E78.5 Hyperlipidemia, unspecified; B37.2 Candidiasis of skin and nail; B96.4 Proteus (mirabilis) (morganii) as the cause of diseases classified elsewhere; M19.90 Unspecified osteoarthritis, unspecified site; L03.116 Cellulitis of left lower limb; M79.7 Fibromyalgia; R79.1 Abnormal coagulation profile; K21.9 Gastro-esophageal reflux disease without esophagitis; M25.462 Effusion, left knee; L30.4 Erythema intertrigo; I87.8 Other specified disorders of veins; H91.90 Unspecified hearing loss, unspecified ear; R32 Unspecified urinary incontinence; Z68.41 Body mass index [BMI] 40.0-44.9, adult; Z79.01 Long term (current) use of anticoagulants; Z79.84 Long term (current) use of oral hypoglycemic drugs; Z79.899 Other long term (current) drug therapy; Z86.718 Personal history of other venous thrombosis and embolism
CPT/HCPCS: 36415; 71046; 80048; 80053; 81001; 82784; 83036; 83735; 84100; 84165; 85025; 85610; 87040; 87077; 87086; 87186; 93005; 96365; 96366; 96375; 99285

== ENCOUNTER → 2018-02-13 | Outpatient (CLI) | payer MEDICARE ==
--- NOTE | 2018-02-13 14:39 | CT ---
EXAMINATION TYPE: CT femur LT wo con DATE OF EXAM: 02/13/2018 COMPARISON: NONE HISTORY: Left sided knee pain. History of multiple myeloma. CT DLP: 771.9 mGycm Automated exposure control for dose reduction was used. Unenhanced CT of the left femur was performed from the proximal diaphysis through the proximal left tibia and fibula. Bone and soft tissue window settings are submitted as well as coronal and sagittal reconstruction. FINDINGS: Plate fixation noted distal femur with multiple fixating screws in place. Increased density within th e medullary canal is likely related to postsurgical change. Correlate clinically. There is evidence o f periosteal reaction. Axial image 74 of 144 demonstrates vague cortical linear lucency posterior cor kristen. Skeletal reflect nondisplaced pathologic fracture. No bony destructive process seen. Mild patell a urbano is noted. Proximal tibia and fibula are intact. IMPRESSION: 1. POSTOPERATIVE CHANGES OF THE FEMUR DISCUSSED WITH PERIOSTEAL REACTION SEEN. NOTED IDENTIFIED ON A SINGLE IMAGE WITHIN THE POSTERIOR CORTEX IS LINEAR CORTICAL DEFECT WHICH COULD REFLECT A NONDIS PLACED FRACTURE.
== END | disposition home or self-care (01) ==
LOC: RADCTMAIN 13:55
PROVIDERS: ATTEND Orthopaedic Surgery
DX: M94.8X6 Other specified disorders of cartilage, lower leg (principal); Z98.890 Other specified postprocedural states

== ENCOUNTER 2018-05-03 16:05 | Observation (INO) | payer BC, MEDICARE ==
[2018-05-03] MEDS ORDERED: MORPHINE SULFATE 2 MG/ML SYRINGE IVP STA ×2 (17:03→19:31)
[2018-05-03] MEDS ORDERED: ONDANSETRON 4 MG/2 ML VIAL IVP STA (17:03)
[2018-05-03] MEDS ORDERED: SODIUM CHLORIDE 0.9% 1,000 ML IV STA (17:03)
--- NOTE | 2018-05-03 17:07 | ED ---
General Adult HPI - General Chief complaint: Back Pain/Injury Stated complaint: Kidney Pain Time Seen by Provider: 05/03/18 16:54 Source: patient, RN notes reviewed Mode of arrival: wheelchair Limitations: no limitations - History of Present Illness Initial comments: Patient 63-year-old female significant past medical history for multiple myeloma , presented to the emergency room today with chief complaint of right-sided flank pain. Patient states pain started approximately 4 days ago. Since she feels it in the right side over the kidney. Patient denies any injury or trauma. Patient does admit that there was some pain wrapping around to the front short days ago none currently. Patient does note that she's taking [place] at home with little relief the symptoms. Denies any other complaints or symptoms. Patient denies any recent fever, chills, shortness of breath, chest pain, dysuria or hematuria, constipation or diarrhea, headaches or visual changes, or any other complaints. - Related Data Home Medications Medication Instructions Recorded Confirmed Acyclovir 400 mg PO BID 01/05/18 01/18/18 Cholecalciferol (Vitamin D3) 2,000 unit PO DAILY 01/05/18 01/18/18 [Vitamin D3] Cyanocobalamin [Vitamin B-12] 500 mcg PO DAILY 01/05/18 01/18/18 Dexamethasone [Hexadrol] 28 mg PO TU 01/05/18 01/18/18 HYDROcodone/APAP 10-325MG [[place] 1 - 2 tab PO DAILY PRN 01/05/18 01/18/18 10-325] Lenalidomide [Revlimid] 25 mg PO DIRECTED 01/05/18 01/18/18 Loperamide [Imodium] 2 mg PO DAILY 01/05/18 01/18/18 Pyridoxine [Vitamin B-6] 50 mg PO TID 01/05/18 01/18/18 Ranitidine HCl [Zantac] 150 mg PO DAILY 01/05/18 01/18/18 metFORMIN HCL [Glucophage] 500 mg PO BID 01/05/18 01/18/18 Previous Rx's Medication Instructions Recorded Cephalexin [Keflex] 500 mg PO Q8HR #30 cap 01/22/18 Fluconazole [Diflucan] 200 mg PO DAILY #10 tab 01/22/18 Nystatin/Triamcin Cream [Mycolog 1 applic TOPICAL BID #1 tube 01/22/18 100,000-0.1 Unit/gm-% Cream] Allergies Allergy/AdvReac Type Severity Reaction Status Date / Time No Known Allergies Allergy Verified 05/03/18 16:17 Review of Systems ROS Statement: Those systems with pertinent positive or pertinent negative responses have been documented in the HPI. ROS Other: All systems not noted in ROS Statement are negative. Past Medical History Past Medical History: Cancer, Diabetes Mellitus, Deep Vein Thrombosis (DVT), Fibromyalgia, GERD/Reflux, Hyperlipidemia Additional Past Medical History / Comment(s): multiple myloma History of Any Multi-Drug Resistant Organisms: None Reported Past Surgical History: Orthopedic Surgery Past Psychological History: No Psychological Hx Reported Smoking Status: Never smoker Past Alcohol Use History: None Reported Past Drug Use History: None Reported General Exam - General Exam Comments Initial Comments: General: The patient is awake and alert, in mild discomfort. Eye: Pupils are equal, round and reactive to light, extra-ocular movements are intact. No nystagmus. There is normal conjunctiva bilaterally. No signs of icterus. Ears, nose, mouth and throat: There are moist mucous membranes and no oral lesions. Neck: The neck is supple, there is no tenderness or JVD. Cardiovascular: There is a regular rate and rhythm. No murmur, rub or gallop is appreciated. Respiratory: Lungs are clear to auscultation, respirations are non-labored, breath sounds are equal. No wheezes, stridor, rales, or rhonchi. Gastrointestinal: Abdomen soft on palpation. no rebound or guarding present. Tender in the right flank. Musculoskeletal: Normal ROM, no tenderness. Strength 5/5. Sensation intact. Pulses equal bilaterally 2+. Neurological: A&O x 3. CN II-XII intact, There are no obvious motor or sensory deficits. Coordination appears grossly intact. Speech is normal. Skin: Skin is warm and dry and no rashes or lesions are noted. Psychiatric: Cooperative, appropriate mood & affect, normal judgment. Limitations: no limitations Course Vital Signs 05/03/18 05/03/18 16:13 19:00 Temperature 98.3 F Pulse Rate 84 74 Respiratory 18 16 Rate Blood Pressure 123/66 121/60 O2 Sat by Pulse 96 99 Oximetry Medical Decision Making - Medical Decision Making Patient's CT reviewed and does show evidence of a proximal ureteral stone on the left with obstruction and mild hydronephrosis. There is evidence for a indeterminate age of a T11 fracture. Patient maile bony tenderness in this area. She is tender over the flank. No elevated fever here in emergency room. Patient urinalysis does show evidence for infection. Patient still expressing pain over the left flank. Will be started on antibiotics and admitted to observation for rule out pyelonephritis/infected stone. - Lab Data Result diagrams: 05/03/18 17:37 05/03/18 17:37 Lab Results 05/03/18 05/03/18 05/03/18 Range/Units 17:37 17:37 17:37 WBC 9.6 (3.8-10.6) k/uL RBC 3.90 (3.80-5.40) m/uL Hgb 13.0 (11.4-16.0) gm/dL Hct 38.4 (34.0-46.0) % MCV 98.6 (80.0-100.0) fL MCH 33.3 (25.0-35.0) pg MCHC 33.8 (31.0-37.0) g/dL RDW 15.8 H (11.5-15.5) % Plt Count 206 (150-450) k/uL Neutrophils % 81 % Lymphocytes % 4 % Monocytes % 10 % Eosinophils % 2 % Basophils % 0 % Neutrophils # 7.7 (1.3-7.7) k/uL Lymphocytes # 0.4 L (1.0-4.8) k/uL Monocytes # 1.0 (0-1.0) k/uL Eosinophils # 0.2 (0-0.7) k/uL Basophils # 0.0 (0-0.2) k/uL Macrocytosis Slight PT (9.0-12.0) sec INR (<1.2) APTT (22.0-30.0) sec Sodium 139 (137-145) mmol/L Potassium 4.9 (3.5-5.1) mmol/L Chloride 103 (98-107) mmol/L Carbon Dioxide 22 (22-30) mmol/L Anion Gap 14 mmol/L BUN 25 H (7-17) mg/dL Creatinine 0.80 (0.52-1.04) mg/dL Est GFR (CKD-EPI)AfAm >90 (>60 ml/min/1.73 sqM) Est GFR (CKD-EPI)NonAf 80 (>60 ml/min/1.73 sqM) Glucose 170 H (74-99) mg/dL Calcium 8.7 (8.4-10.2) mg/dL Total Bilirubin 0.9 (0.2-1.3) mg/dL AST 54 H (14-36) U/L ALT 35 (9-52) U/L Alkaline Phosphatase 54 (38-126) U/L NT-Pro-B Natriuret Pep 592 pg/mL Total Protein 6.5 (6.3-8.2) g/dL Albumin 3.8 (3.5-5.0) g/dL Amylase 61 (30-110) U/L Lipase 132 (23-300) U/L Urine Color Urine Appearance (Clear) Urine pH (5.0-8.0) Ur Specific [place] (1.001-1.035) Urine Protein (Negative) Urine Glucose (UA) (Negative) Urine Ketones (Negative) Urine Blood (Negative) Urine Nitrite (Negative) Urine Bilirubin (Negative) Urine Urobilinogen (<2.0) mg/dL Ur Leukocyte Esterase (Negative) Urine RBC (0-5) /hpf Urine WBC (0-5) /hpf Ur Squamous Epith Cells (0-4) /hpf Calcium Oxalate Crystal (None) /hpf Uric Acid Crystals (None) /hpf Urine Mucus (None) /hpf 05/03/18 05/03/18 Range/Units 17:37 17:45 WBC (3.8-10.6) k/uL RBC (3.80-5.40) m/uL Hgb (11.4-16.0) gm/dL Hct (34.0-46.0) % MCV (80.0-100.0) fL MCH (25.0-35.0) pg MCHC (31.0-37.0) g/dL RDW (11.5-15.5) % Plt Count (150-450) k/uL Neutrophils % % Lymphocytes % % Monocytes % % Eosinophils % % Basophils % % Neutrophils # (1.3-7.7) k/uL Lymphocytes # (1.0-4.8) k/uL Monocytes # (0-1.0) k/uL Eosinophils # (0-0.7) k/uL Basophils # (0-0.2) k/uL Macrocytosis PT 26.3 H (9.0-12.0) sec INR 2.9 H (<1.2) APTT 29.7 (22.0-30.0) sec Sodium (137-145) mmol/L Potassium (3.5-5.1) mmol/L Chloride (98-107) mmol/L Carbon Dioxide (22-30) mmol/L Anion Gap mmol/L BUN (7-17) mg/dL Creatinine (0.52-1.04) mg/dL Est GFR (CKD-EPI)AfAm (>60 ml/min/1.73 sqM) Est GFR (CKD-EPI)NonAf (>60 ml/min/1.73 sqM) Glucose (74-99) mg/dL Calcium (8.4-10.2) mg/dL Total Bilirubin (0.2-1.3) mg/dL AST (14-36) U/L ALT (9-52) U/L Alkaline Phosphatase (38-126) U/L NT-Pro-B Natriuret Pep pg/mL Total Protein (6.3-8.2) g/dL Albumin (3.5-5.0) g/dL Amylase (30-110) U/L Lipase (23-300) U/L Urine Color Yellow Urine Appearance Turbid H (Clear) Urine pH 5.0 (5.0-8.0) Ur Specific [place] 1.027 (1.001-1.035) Urine Protein 1+ H (Negative) Urine Glucose (UA) 2+ H (Negative) Urine Ketones Trace H (Negative) Urine Blood Moderate H (Negative) Urine Nitrite Negative (Negative) Urine Bilirubin Negative (Negative) Urine Urobilinogen <2.0 (<2.0) mg/dL Ur Leukocyte Esterase Small H (Negative) Urine RBC 88 H (0-5) /hpf Urine WBC 25 H (0-5) /hpf Ur Squamous Epith Cells 1 (0-4) /hpf Calcium Oxalate Crystal Rare H (None) /hpf Uric Acid Crystals Few H (None) /hpf Urine Mucus Few H (None) /hpf Disposition Clinical Impression: Kidney stone, Pyelonephritis Disposition: ADMITTED IP TO THIS [facility] Condition: Stable Is patient prescribed a controlled substance at d/c from ED?: No Referrals: Seth Montoya DO [Primary Care Provider] - 1-2 days Time of Disposition: 19:39
[2018-05-03 17:49] LABS: Basophils % (A) 0 %; Eosinophils # (A) 0.2 k/uL (0-0.7); Eosinophils % (A) 2 %; HCT 38.4 % (34.0-46.0); Lymphocytes # (A) 0.4 k/uL (1.0-4.8); Lymphocytes % (A) 4 %; MCH 33.3 pg (25.0-35.0); MCHC 33.8 g/dL (31.0-37.0); MCV 98.6 fL (80.0-100.0); Macrocytosis Slight; Mean Platelet Volume 7.5; Monocytes % (A) 10 %; Neutrophils # (A) 7.7 k/uL (1.3-7.7); Neutrophils % (A) 81 %; Platelet Count 206 k/uL (150-450); RDW 15.8 % (11.5-15.5); WBC 9.6 k/uL (3.8-10.6)
[2018-05-03 17:54] LABS: Appearance,Urine Turbid (Clear); Bilirubin,Urine Negative (Negative); Blood,Urine Moderate (Negative); Calcium Oxalate Crystals,Urine Rare /hpf; Color,Urine Yellow; Glucose,Urine (UA) 2+ (Negative); Ketones,Urine Trace (Negative); Leukocyte Esterase,Urine Small (Negative); Mucus,Urine Few /hpf; Nitrite,Urine Negative (Negative); Protein,Urine 1+ (Negative); RBC,Urine 88 /hpf (0-5); Specific Gravity,Urine 1.027 (1.001-1.035); Squamous Epithelial Cell,Urine 1 /hpf (0-4); Uric Acid Crystals,Urine Few /hpf; Urobilinogen,Urine <2.0 mg/dL (<2.0); WBC,Urine 25 /hpf (0-5)
[2018-05-03 18:03] LABS: Amylase 61 U/L (30-110); Anion Gap 14 mmol/L; Carbon Dioxide 22 mmol/L (22-30); Chloride 103 mmol/L (98-107); Glucose 170 mg/dL (74-99); Lipase 132 U/L (23-300); Sodium 139 mmol/L (137-145)
[2018-05-03 18:07] LABS: ALT 35 U/L (9-52); AST 54 U/L (14-36); Albumin 3.8 g/dL (3.5-5.0); Alkaline Phosphatase 54 U/L (38-126); Blood Urea Nitrogen 25 mg/dL (7-17); Calcium 8.7 mg/dL (8.4-10.2); Potassium 4.9 mmol/L (3.5-5.1); Total Bilirubin 0.9 mg/dL (0.2-1.3); Total Protein 6.5 g/dL (6.3-8.2)
[2018-05-03 18:13] LABS: INR 2.9 (<1.2); Prothrombin Time 26.3 sec (9.0-12.0)
[2018-05-03 18:14] LABS: Partial Thromboplastin Time 29.7 sec (22.0-30.0)
--- NOTE | 2018-05-03 18:20 | XR ---
EXAMINATION TYPE: XR chest 2V DATE OF EXAM: 05/03/2018 COMPARISON: 01/18/2018 HISTORY: Lower extremity edema. Shortness of breath. TECHNIQUE: Frontal and lateral views of the chest are obtained. FINDINGS: There is no focal air space opacity, pleural effusion, or pneumothorax seen. The cardiac silhouette size is and mildly enlarged. The osseous structures are intact. Mild to moderate multile jimmy degenerative changes of the thoracic spine are noted. IMPRESSION: No acute cardiopulmonary process.
--- NOTE | 2018-05-03 18:21 | XR ---
EXAMINATION TYPE: XR KUB DATE OF EXAM: 05/03/2018 6:15 PM CLINICAL HISTORY: Right flank pain TECHNIQUE: Single upright image of the abdomen is obtained. COMPARISON: None. FINDINGS: Scattered gas is seen in non-distended small bowel loops. Gas and fecal material is seen in non-distended colon. There is no visceromegaly, pneumoperitoneum, or abnormal calcification apprecia sriram. The lung bases are clear and the osseous structures are intact. IMPRESSION: Nonobstructive bowel gas pattern.
--- NOTE | 2018-05-03 19:07 | CT ---
EXAMINATION TYPE: CT abdomen pelvis wo con DATE OF EXAM: 05/03/2018 COMPARISON: NONE HISTORY: Back pain. CT DLP: 1339.8 mGycm Automated exposure control for dose reduction was used. TECHNIQUE: Helical acquisition of images was performed from the lung bases through the pelvis. FINDINGS: Lack of intravenous and oral contrast limit evaluation of the hollow and solid viscera. LUNG BASES: No significant abnormality is appreciated. LIVER/GB: Diffuse hypoattenuation of the hepatic parenchyma and approaches criteria for hepatic steat osis. No cholelithiasis. PANCREAS: No significant abnormality is seen. SPLEEN: No significant abnormality is seen. ADRENALS: No significant abnormality is seen. KIDNEYS: There is a 2 to 3 mm obstructing calculus within the right proximal ureter just distal to th e ureteropelvic junction creating mild right hydroureteronephrosis. Left pelvocaliectasis is seen wit hout obstructing calculus. There also may be renal sinus cysts although incomplete evaluation without intravenous contrast. 5 mm nonobstructing right renal calculus is also identified. Minimal right-silverio ed perinephric fat stranding is seen. FREE AIR: No free air is visualized ADENOPATHY: No greater than 1 cm short axis lymph nodes are noted within the abdomen or pelvis. REPRODUCTIVE ORGANS: No significant abnormality is seen URINARY BLADDER: No significant abnormality is seen. OSSEOUS STRUCTURES: Age indeterminant compression deformity is seen of the T11 vertebral body. Corre late with point tenderness. Mild multilevel degenerative changes of the visualized spine are seen. Pr obable hemangioma is noted of L5.. BOWEL: There is a small hiatal hernia. No bowel dilatation to suggest obstruction. OTHER: There is a fat-containing infrarenal ventral hernia with a neck measuring 2.2 cm in craniocaud al dimension and the hernia measuring 8.5 cm in craniocaudal dimension. No bowel is seen within this hernia defect. IMPRESSION: 1. RIGHT PROXIMAL URETERAL 2 TO 3 MM OBSTRUCTING CALCULUS CREATING MILD RIGHT HYDROURETERONEPHROSIS. SOLITARY ADDITIONAL NONOBSTRUCTING RIGHT RENAL CALCULUS. 2. AGE INDETERMINANT COMPRESSION DEFORMITY OF THE T11 VERTEBRAL BODY. CORRELATE WITH POINT TENDERNESS . 3. FAT FILLED VENTRAL INFRAUMBILICAL ABDOMINAL HERNIA DESCRIBED ABOVE.
[2018-05-03] MEDS ORDERED: cefTRIAXone IN SWFI 1,000 MG/10 ML SYRINGE IVP STA (19:31)
[2018-05-03] MEDS ORDERED: NALOXONE 0.4 MG/ML 1 ML VIAL IV PRN (19:40)
[2018-05-03] MEDS ORDERED: ONDANSETRON 4 MG/2 ML VIAL IVP PRN (19:40)
[2018-05-03] MEDS ORDERED: SODIUM CHLORIDE 0.9% 1,000 ML IV ONE (19:40)
[2018-05-03] MEDS ORDERED: HYDROcodone/APAP 5-325MG 1 EACH TAB PO PRN (19:40)
[2018-05-03] MEDS ORDERED: LORazepam 2 MG/ML INJ IV PRN (19:40)
[2018-05-03] MEDS ORDERED: MORPHINE SULFATE 2 MG/ML SYRINGE IV PRN (19:40)
[2018-05-03] MEDS ORDERED: ACETAMINOPHEN TAB 325 MG TAB PO PRN (19:40)
[2018-05-03 22:08] LABS: Glucose,Whole Blood 157 mg/dL (75-99)
[2018-05-03] MEDS ORDERED: LOPERAMIDE 2 MG CAP PO PRN (22:23)
[2018-05-03] MEDS ORDERED: TRIAMCINOLONE 0.1% CREAM 80 GM TUBE TOPICAL SCH (22:45)
[2018-05-04] MEDS ORDERED: HYDROcodone/APAP 10-325MG 1 EACH TAB PO PRN (00:01)
[2018-05-04] MEDS: metFORMIN 500 MG TAB PO SCH ×3 (00:08→20:25)
[2018-05-04] MEDS: ACYCLOVIR 200 MG CAP PO SCH ×3 (00:08→20:21)
[2018-05-04] MEDS: ZOLPIDEM 10 MG TAB PO SCH ×2 (00:10→22:46)
[2018-05-04] MEDS: PROCHLORPERAZINE 10 MG TAB PO SCH ×3 (00:10→20:25)
[2018-05-04] MEDS: INSULIN ASPART 100 UNIT/ML 1 ML 10 ML VIAL SQ SCH ×5 (00:12→20:24)
[2018-05-04] MEDS: CLOTRIMAZOLE 1% CREAM 15 GM TUBE TOPICAL SCH ×3 (00:12→20:21)
[2018-05-04] MEDS: HYDROcodone/APAP 10-325MG 1 EACH TAB PO PRN ×4 (00:15→20:02)
[2018-05-04] MEDS: NYSTAT-TRIAMCIN 100,000-0.1 UNIT/GM-% CREAM 30 GM TUBE TOPICAL SCH ×2 (00:26→20:07)
[2018-05-04] MEDS: PYRIDOXINE 50 MG TAB PO SCH ×4 (00:26→22:46)
[2018-05-04 07:09] LABS: Glucose,Whole Blood 107 mg/dL (75-99)
[2018-05-04 08:26] LABS: Anisocytosis Slight; Basophils % (A) 0 %; Eosinophils # (A) 0.2 k/uL (0-0.7); Eosinophils % (A) 4 %; HCT 35.7 % (34.0-46.0); HGB 11.5 gm/dL (11.4-16.0); Lymphocytes # (A) 0.4 k/uL (1.0-4.8); Lymphocytes % (A) 7 %; MCH 32.5 pg (25.0-35.0); MCHC 32.2 g/dL (31.0-37.0); MCV 100.9 fL (80.0-100.0); Macrocytosis Slight; Mean Platelet Volume 6.8; Monocytes # (A) 0.6 k/uL (0-1.0); Monocytes % (A) 10 %; Neutrophils # (A) 4.3 k/uL (1.3-7.7); Neutrophils % (A) 74 %; Platelet Count 194 k/uL (150-450); RBC 3.54 m/uL (3.80-5.40); RDW 16.2 % (11.5-15.5); WBC 5.8 k/uL (3.8-10.6)
[2018-05-04 08:37] LABS: ALT 36 U/L (9-52); AST 12 U/L (14-36); Albumin 2.8 g/dL (3.5-5.0); Alkaline Phosphatase 54 U/L (38-126); Anion Gap 9 mmol/L; Blood Urea Nitrogen 17 mg/dL (7-17); Calcium 8.1 mg/dL (8.4-10.2); Carbon Dioxide 25 mmol/L (22-30); Chloride 107 mmol/L (98-107); Glucose 104 mg/dL (74-99); Potassium 3.4 mmol/L (3.5-5.1); Sodium 141 mmol/L (137-145); Total Bilirubin 0.6 mg/dL (0.2-1.3); Total Protein 4.9 g/dL (6.3-8.2)
[2018-05-04] MEDS: FAMOTIDINE 20 MG TAB PO SCH (10:54)
[2018-05-04] MEDS: POTASSIUM CHLORIDE ER 20 MEQ TAB.ER PO SCH ×2 (10:55→13:32)
[2018-05-04] MEDS: CHOLECALCIFEROL 1,000 UNIT TAB PO SCH (10:55)
[2018-05-04 11:44] LABS: Glucose,Whole Blood 131 mg/dL (75-99)
--- NOTE | 2018-05-04 12:06 | P.HPIM ---
History of Present Illness H&P Date: 05/04/18 Chief Complaint: Right flank pain 63-year-old female who presented to the emergency room with a chief complaint of right sided flank pain. Patient reports pain has been present for about 3-4 days and worsening in severity. Patient reports she takes [place] at home but it was not helping the pain. She denies dysuria, urinary frequency, urgency, or malodorous urine. She denies chest pain or pressure. Denies shortness of breath. The patient has a history of multiple myeloma, diabetes mellitus, DVT and thrombosis, fibromyalgia, hyperlipidemia, and GERD. Chest x-ray: Negative for an acute process. KUB x-ray: Nonobstructive bowel gas pattern. CT abdomen and pelvis: Right proximal ureteral 2 to 3mm calculus creating mild right hydroureteronephrosis. Age indetermint compression deformity of T11 vertebral body. Fat filled ventral infraumbilical abdominal hernia. Laboratory data: WBC 9.6. Hemoglobin 13.0. Platelet count 206. Sodium 139. Potassium 3.9. BUN 25. Creatinine 0.80. GFR 80. Glucose 170. BNP: 592 Urinalysis reveals: Turbid, urine, 1+ proteinuria, 2+ glucose, trace ketonuria, moderate blood, small leukocyte esterase, RBC 88, WBC 25 The patient was admitted to the hospital under the care of Dr. Montoya. The patient was seen and examined at the bedside. Patient continues to complain of right flank pain but states she thinks she may have passed a kidney stone this morning. Patient does report hematuria with urination. Denies any other urinary symptoms. Patient complains of increased edema and erythema to bilateral lower extremities. Patient has been prescribed compression hose and is supposed to with him on an outpatient basis. Patient states she does not wear them because they're uncomfortable. Patient reports Dr. Montoya told her she could use silvadene to her bilateral lower extremities and then wrap with gauze and [place] bandage. Patient states she has not been doing this either at home. Review of Systems GENERAL: Patient denies fever. Denies chills. EYES: Denies blurred vision. Denies vision changes. Denies eye pain. EARS, NOSE, MOUTH, & THROAT: Denies headache. Denies sore throat. Denies ear pain. RESPIRATORY: Denies cough. Denies shortness of breath. Denies sputum production. Denies hemoptysis. CARDIOVASCULAR: Denies chest pain or pressure. Denies palpitations. Denies arrhythmias. GASTROINTESTINAL: Denies abdominal pain. Denies diarrhea. Denies constipation. Denies nausea. Denies vomiting. Denies heartburn. Denies blood in the stool. GENITOURINARY: Reports hematuria. Denies urinary frequency. Denies burning. Denies dysuria. Denies cloudy urine. MUSCULOSKELETAL: Denies myalgias. Denies joint swelling. Denies decreased range of motion beyond patients baseline. INTEGUMENTARY: Reports increased erythema and edema to bilateral lower extremities. PSYCHIATRIC: Denies suicidal or homicial ideations. ENDOCRINE: Denies weight change. Denies polydipsia. Denies polyuria. HEMATOLOGIC: Denies bleeding disorders. Past Medical History Past Medical History: Cancer, Diabetes Mellitus, Deep Vein Thrombosis (DVT), Fibromyalgia, GERD/Reflux, Hyperlipidemia Additional Past Medical History / Comment(s): multiple myloma History of Any Multi-Drug Resistant Organisms: None Reported Past Surgical History: Orthopedic Surgery Past Anesthesia/Blood Transfusion Reactions: Previous Problems w/ Anesthesia Additional Past Anesthesia/Blood Transfusion Reaction / Comment(s): DIFFICULT INTUBATION WHEN HAVING PREVIOUS LEFT KNEE SURGERIES Past Psychological History: No Psychological Hx Reported Smoking Status: Never smoker Past Alcohol Use History: None Reported Past Drug Use History: None Reported Medications and Allergies Home Medications Medication Instructions Recorded Confirmed Type Acyclovir 400 mg PO BID 01/05/18 05/04/18 History Cholecalciferol (Vitamin D3) 2,000 unit PO DAILY 01/05/18 05/04/18 History [Vitamin D3] Cyanocobalamin [Vitamin B-12] 500 mcg PO DAILY 01/05/18 05/04/18 History Dexamethasone [Hexadrol] 28 - 40 mg PO TU 01/05/18 05/04/18 History HYDROcodone/APAP 10-325MG [[place] 2 tab PO Q4H PRN 01/05/18 05/04/18 History 10-325] Lenalidomide [Revlimid] 25 mg PO DIRECTED 01/05/18 05/04/18 History Loperamide [Imodium] 2 mg PO DAILY PRN 01/05/18 05/04/18 History Pyridoxine [Vitamin B-6] 50 mg PO DAILY 01/05/18 05/04/18 History Ranitidine HCl [Zantac] 150 mg PO DAILY 01/05/18 05/04/18 History metFORMIN HCL [Glucophage] 500 mg PO BID 01/05/18 05/04/18 History Prochlorperazine Maleate 10 mg PO BID 05/04/18 05/04/18 History Warfarin [Coumadin] 2.5 mg PO HS 05/04/18 05/04/18 History Zolpidem [Ambien] 10 mg PO HS 05/04/18 05/04/18 History Allergies Allergy/AdvReac Type Severity Reaction Status Date / Time No Known Allergies Allergy Verified 05/04/18 08:56 Physical Exam Vitals: Vital Signs Temp Pulse Pulse Resp BP BP Pulse Ox 05/04/18 03:14 98.4 F 67 16 96/60 92 L 05/04/18 00:00 16 05/03/18 20:54 98.7 F 76 17 146/75 97 05/03/18 20:26 98.8 F 76 20 127/58 95 05/03/18 19:00 74 16 121/60 99 05/03/18 16:13 98.3 F 84 18 123/66 96 Intake and Output 05/03/18 05/04/18 05/04/18 22:59 06:59 14:59 Intake Total 540 Balance 540 Intake: Oral 540 Other: Voiding Method Toilet Toilet # Voids 1 3 # Bowel Movements 0 # Emeses 0 Weight 110.223 kg GENERAL: This is a 63-year-old female in no apparent distress at the time of examination. Pleasant and cooperative. HEENT: Head is atraumatic, normocephalic. Pupils are equal, round, and reactive to light. Sclerae anicteric. Conjunctivae are clear. Mucus membranes of the mouth are moist. Neck is supple. RESPIRATORY: Clear to ausculation-diminished at the bases. No wheezes, rales, or rhonchi. No use of accessory muscles. Patient maintaining oxygen saturation greater than 92%. No chest wall tenderness is noted on palpation or with deep breathing. CARDIOVASCULAR: Regular rate and rhythm. S1 and S2 noted. No systolic or diastolic murmur auscultated. No JVD noted. No S3 or S4 noted. GASTROINTESTINAL: Pain and tenderness of right flank region upon palpation. No distention noted. Abdomen soft and round. Normal active bowel sounds auscultated x 4 quadrants. INTEGUMENTARY: No cyanosis. No jaundice. No rashes noted. No cellulitis noted. EXTREMITIES: 2+ bilateral lower extremity edema with erythema. NEUROLOGIC: Cranial nerves II-XII intact. PSYCHIATRIC: Awake, alert, and oriented X 3. Appropriate affect. Intact judgement and insight. Results CBC & Chem 7: 05/04/18 07:33 05/04/18 07:33 Labs: Abnormal Lab Results - Last 24 Hours (Table) 05/03/18 05/03/18 05/03/18 Range/Units 17:37 17:37 17:37 RBC (3.80-5.40) m/uL MCV (80.0-100.0) fL RDW 15.8 H (11.5-15.5) % Lymphocytes # 0.4 L (1.0-4.8) k/uL PT (9.0-12.0) sec INR (<1.2) Potassium (3.5-5.1) mmol/L BUN 25 H (7-17) mg/dL Glucose 170 H (74-99) mg/dL POC Glucose (mg/dL) (75-99) mg/dL Calcium (8.4-10.2) mg/dL AST 54 H (14-36) U/L Total Protein (6.3-8.2) g/dL Albumin (3.5-5.0) g/dL Urine Appearance Turbid H (Clear) Urine Protein 1+ H (Negative) Urine Glucose (UA) 2+ H (Negative) Urine Ketones Trace H (Negative) Urine Blood Moderate H (Negative) Ur Leukocyte Esterase Small H (Negative) Urine RBC 88 H (0-5) /hpf Urine WBC 25 H (0-5) /hpf Calcium Oxalate Crystal Rare H (None) /hpf Uric Acid Crystals Few H (None) /hpf Urine Mucus Few H (None) /hpf 05/03/18 05/03/18 05/04/18 Range/Units 17:45 21:51 07:06 RBC (3.80-5.40) m/uL MCV (80.0-100.0) fL RDW (11.5-15.5) % Lymphocytes # (1.0-4.8) k/uL PT 26.3 H (9.0-12.0) sec INR 2.9 H (<1.2) Potassium (3.5-5.1) mmol/L BUN (7-17) mg/dL Glucose (74-99) mg/dL POC Glucose (mg/dL) 157 H 107 H (75-99) mg/dL Calcium (8.4-10.2) mg/dL AST (14-36) U/L Total Protein (6.3-8.2) g/dL Albumin (3.5-5.0) g/dL Urine Appearance (Clear) Urine Protein (Negative) Urine Glucose (UA) (Negative) Urine Ketones (Negative) Urine Blood (Negative) Ur Leukocyte Esterase (Negative) Urine RBC (0-5) /hpf Urine WBC (0-5) /hpf Calcium Oxalate Crystal (None) /hpf Uric Acid Crystals (None) /hpf Urine Mucus (None) /hpf 05/04/18 05/04/18 Range/Units 07:33 07:33 RBC 3.54 L (3.80-5.40) m/uL MCV 100.9 H (80.0-100.0) fL RDW 16.2 H (11.5-15.5) % Lymphocytes # 0.4 L (1.0-4.8) k/uL PT (9.0-12.0) sec INR (<1.2) Potassium 3.4 L (3.5-5.1) mmol/L BUN (7-17) mg/dL Glucose 104 H (74-99) mg/dL POC Glucose (mg/dL) (75-99) mg/dL Calcium 8.1 L (8.4-10.2) mg/dL AST 12 L (14-36) U/L Total Protein 4.9 L (6.3-8.2) g/dL Albumin 2.8 L (3.5-5.0) g/dL Urine Appearance (Clear) Urine Protein (Negative) Urine Glucose (UA) (Negative) Urine Ketones (Negative) Urine Blood (Negative) Ur Leukocyte Esterase (Negative) Urine RBC (0-5) /hpf Urine WBC (0-5) /hpf Calcium Oxalate Crystal (None) /hpf Uric Acid Crystals (None) /hpf Urine Mucus (None) /hpf Microbiology - Last 24 Hours (Table) 05/03/18 17:37 Urine Culture - Preliminary Urine,Voided Thrombosis Risk Factor Assmnt - Choose All That Apply Any of the Below Risk Factors Present?: No Other Risk Factors: Yes Each Risk Factor Represents 2 Points: Age 61-74 years Each Risk Factor Represents 3 Points: History of DVT/PE Other congenital or acquired thrombophilia - If yes, enter type in comment: No Thrombosis Risk Factor Assessment Total Risk Factor Score: 5 Thrombosis Risk Factor Assessment Level: High Risk Assessment and Plan Plan: ASSESSMENT: Right ureteral calculus with mild hydroureteronephrosis with suspected pyelonephritis Pyuria and hematuria, secondary to above Cellulitis of bilateral lower extremities Diabetes mellitus, type II History of deep vein thrombosis History of fibromyalgia History of multiple myeloma Gastroesophageal reflux disease Hypokalemia PLAN: Await results of urine culture Antibiotics: Rocephin 1 gram Q24 hours Consult urology for evaluation Pain control Continue IV fluid Replace potassium Silvadene to bilateral lower extremities, wrap lightly with gauze, and then wrap with Brenton bandage Elevate lower extremities while in bed Home meds as appropriate Resume coumadin. Monitor INR Monitor labs GI prophylaxis: Pepcid 20 mg by mouth daily DVT prophylaxis: Coumadin Monitor vital signs and address as appropriate Discharge planning: Patient to return home when stable Further recommendations pending patient's course Nurse practitioner note has been reviewed by physician. Signing provider agrees with the documented findings, assessment, and plan of care.
[2018-05-04] MEDS ORDERED: LEVOFLOXACIN 750MG-D5W PMX 750 MG in DEXTROSE/WATER 1 150ML.BAG IVPB SCH (13:00)
[2018-05-04] MEDS: CYANOCOBALAMIN 500 MCG TAB PO SCH (13:32)
[2018-05-04] MEDS: cefTRIAXone IN SWFI 1,000 MG/10 ML SYRINGE IVP SCH (13:35)
[2018-05-04 14:59] LABS: INR 2.4 (<1.2); Prothrombin Time 21.3 sec (9.0-12.0)
[2018-05-04 17:24] LABS: Glucose,Whole Blood 115 mg/dL (75-99)
[2018-05-04] MEDS: NYSTATIN 100,000UNIT/GM CREAM 30 GM TUBE TOPICAL SCH ×2 (17:40→20:25)
[2018-05-04] MEDS: TRIAMCINOLONE 0.1% CREAM 80 GM TUBE TOPICAL SCH ×2 (17:41→20:25)
[2018-05-04 20:19] LABS: Glucose,Whole Blood 180 mg/dL (75-99)
[2018-05-04] MEDS ORDERED: WARFARIN 2.5 MG TAB PO SCH ×2 (21:00)
[2018-05-04] MEDS ORDERED: HEPARIN SODIUM,PORCINE 5,000 UNIT/ML 1 ML VIAL SQ SCH (21:00)
--- NOTE | 2018-05-04 22:26 | P.GSCN ---
History of Present Illness Consult date: 05/04/18 Reason for Consult: Right ureteral calculus Requesting physician: Fernanda Taylor History of present illness: The patient is a 63-year-old white female admitted with a four-day history of right flank pain. She denies any prior history of UTIs or urolithiasis. She does report mixed urinary incontinence. Review of Systems - Constitutional Denies chills, Denies fever - Gastrointestinal Denies nausea, Denies vomiting - Genitourinary Genitourinary: Reports hematuria, Reports mixed incontinence Past Medical History Past Medical History: Cancer, Diabetes Mellitus, Deep Vein Thrombosis (DVT), Fibromyalgia, GERD/Reflux, Hyperlipidemia Additional Past Medical History / Comment(s): multiple myloma History of Any Multi-Drug Resistant Organisms: None Reported Past Surgical History: Orthopedic Surgery Past Anesthesia/Blood Transfusion Reactions: Previous Problems w/ Anesthesia Additional Past Anesthesia/Blood Transfusion Reaction / Comm: DIFFICULT INTUBATION WHEN HAVING PREVIOUS LEFT KNEE SURGERIES Past Psychological History: No Psychological Hx Reported Smoking Status: Never smoker Past Alcohol Use History: None Reported Past Drug Use History: None Reported Medications and Allergies Home Medications Medication Instructions Recorded Confirmed Type Acyclovir 400 mg PO BID 01/05/18 05/04/18 History Cholecalciferol (Vitamin D3) 2,000 unit PO DAILY 01/05/18 05/04/18 History [Vitamin D3] Cyanocobalamin [Vitamin B-12] 500 mcg PO DAILY 01/05/18 05/04/18 History Dexamethasone [Hexadrol] 28 - 40 mg PO TU 01/05/18 05/04/18 History HYDROcodone/APAP 10-325MG [Malone 2 tab PO Q4H PRN 01/05/18 05/04/18 History 10-325] Lenalidomide [Revlimid] 25 mg PO DIRECTED 01/05/18 05/04/18 History Loperamide [Imodium] 2 mg PO DAILY PRN 01/05/18 05/04/18 History Pyridoxine [Vitamin B-6] 50 mg PO DAILY 01/05/18 05/04/18 History Ranitidine HCl [Zantac] 150 mg PO DAILY 01/05/18 05/04/18 History metFORMIN HCL [Glucophage] 500 mg PO BID 01/05/18 05/04/18 History Prochlorperazine Maleate 10 mg PO BID 05/04/18 05/04/18 History Tamsulosin [Flomax] 0.4 mg PO DAILY #30 cap 05/04/18 Rx Tamsulosin [Flomax] 0.4 mg PO DAILY #30 cap 05/04/18 Rx Warfarin [Coumadin] 2.5 mg PO HS 05/04/18 05/04/18 History Zolpidem [Ambien] 10 mg PO HS 05/04/18 05/04/18 History Allergies Allergy/AdvReac Type Severity Reaction Status Date / Time No Known Allergies Allergy Verified 05/04/18 08:56 Surgical - Exam Vital Signs Temp Pulse Resp BP Pulse Ox 98.3 F 84 18 123/66 96 05/03/18 16:13 05/03/18 16:13 05/03/18 16:13 05/03/18 16:13 05/03/18 16:13 - General well developed, well nourished, no distress, obese - Abdomen Abdomen: soft, non tender, no guarding, no rigid, no rebound - Neurologic normal coordination - Psychiatric oriented to time, oriented to person, oriented to place, speech is normal, memory intact Results - Labs 05/04/18 07:33 05/04/18 07:33 Abnormal Lab Results - Last 24 Hours (Table) 05/03/18 05/04/18 05/04/18 Range/Units 21:51 07:06 07:33 RBC 3.54 L (3.80-5.40) m/uL MCV 100.9 H (80.0-100.0) fL RDW 16.2 H (11.5-15.5) % Lymphocytes # 0.4 L (1.0-4.8) k/uL PT (9.0-12.0) sec INR (<1.2) Potassium (3.5-5.1) mmol/L Glucose (74-99) mg/dL POC Glucose (mg/dL) 157 H 107 H (75-99) mg/dL Calcium (8.4-10.2) mg/dL AST (14-36) U/L Total Protein (6.3-8.2) g/dL Albumin (3.5-5.0) g/dL 05/04/18 05/04/18 05/04/18 Range/Units 07:33 11:24 14:42 RBC (3.80-5.40) m/uL MCV (80.0-100.0) fL RDW (11.5-15.5) % Lymphocytes # (1.0-4.8) k/uL PT 21.3 H (9.0-12.0) sec INR 2.4 H (<1.2) Potassium 3.4 L (3.5-5.1) mmol/L Glucose 104 H (74-99) mg/dL POC Glucose (mg/dL) 131 H (75-99) mg/dL Calcium 8.1 L (8.4-10.2) mg/dL AST 12 L (14-36) U/L Total Protein 4.9 L (6.3-8.2) g/dL Albumin 2.8 L (3.5-5.0) g/dL 05/04/18 05/04/18 Range/Units 17:20 20:14 RBC (3.80-5.40) m/uL MCV (80.0-100.0) fL RDW (11.5-15.5) % Lymphocytes # (1.0-4.8) k/uL PT (9.0-12.0) sec INR (<1.2) Potassium (3.5-5.1) mmol/L Glucose (74-99) mg/dL POC Glucose (mg/dL) 115 H 180 H (75-99) mg/dL Calcium (8.4-10.2) mg/dL AST (14-36) U/L Total Protein (6.3-8.2) g/dL Albumin (3.5-5.0) g/dL Microbiology - Last 24 Hours (Table) 05/03/18 17:37 Urine Culture - Preliminary Urine,Voided Gram Neg Bacilli Diabetes panel 05/04/18 Range/Units 07:33 Sodium 141 (137-145) mmol/L Potassium 3.4 L (3.5-5.1) mmol/L Chloride 107 (98-107) mmol/L Carbon Dioxide 25 (22-30) mmol/L BUN 17 (7-17) mg/dL Creatinine 0.61 (0.52-1.04) mg/dL Glucose 104 H (74-99) mg/dL Calcium 8.1 L (8.4-10.2) mg/dL AST 12 L (14-36) U/L ALT 36 (9-52) U/L Alkaline Phosphatase 54 (38-126) U/L Total Protein 4.9 L (6.3-8.2) g/dL Albumin 2.8 L (3.5-5.0) g/dL Calcium panel 05/04/18 Range/Units 07:33 Calcium 8.1 L (8.4-10.2) mg/dL Albumin 2.8 L (3.5-5.0) g/dL Pituitary panel 05/04/18 Range/Units 07:33 Sodium 141 (137-145) mmol/L Potassium 3.4 L (3.5-5.1) mmol/L Chloride 107 (98-107) mmol/L Carbon Dioxide 25 (22-30) mmol/L BUN 17 (7-17) mg/dL Creatinine 0.61 (0.52-1.04) mg/dL Glucose 104 H (74-99) mg/dL Calcium 8.1 L (8.4-10.2) mg/dL Adrenal panel 05/04/18 Range/Units 07:33 Sodium 141 (137-145) mmol/L Potassium 3.4 L (3.5-5.1) mmol/L Chloride 107 (98-107) mmol/L Carbon Dioxide 25 (22-30) mmol/L BUN 17 (7-17) mg/dL Creatinine 0.61 (0.52-1.04) mg/dL Glucose 104 H (74-99) mg/dL Calcium 8.1 L (8.4-10.2) mg/dL Total Bilirubin 0.6 (0.2-1.3) mg/dL AST 12 L (14-36) U/L ALT 36 (9-52) U/L Alkaline Phosphatase 54 (38-126) U/L Total Protein 4.9 L (6.3-8.2) g/dL Albumin 2.8 L (3.5-5.0) g/dL - Imaging CT scan - abdomen: report reviewed, image reviewed Assessment and Plan (1) Calculus of ureter Current Visit: Yes Status: Acute Code(s): N20.1 - CALCULUS OF URETER SNOMED Code(s): 80042194 Plan: The patient is a 63-year-old woman with no prior history of urolithiasis, who now presents with right renal colic due to a 2-3 mm right proximal ureteral calculus just distal to the ureteropelvic junction. the computed tomography scan shows mild right hydronephrosis, as well as an additional 5 mm right lower pole renal calculus. She believes she may have passed a calculus prior to admission. She is currently comfortable. I explained to her that the calculus has a high likelihood of spontaneous passage, and in view of this I have discouraged surgery. If she remains comfortable overnight, she will be discharged home tomorrow. I have prescribed tamsulosin, and advised her to strain her urine. She has Malone at home. She will follow up in 4 weeks. She will require ureteroscopic removal of the calculus if she develops intractable symptoms. Time with Patient: Greater than 30
[2018-05-05] MEDS: HYDROcodone/APAP 10-325MG 1 EACH TAB PO PRN ×3 (01:54→11:59)
[2018-05-05 07:26] LABS: Glucose,Whole Blood 113 mg/dL (75-99)
[2018-05-05 07:47] LABS: Basophils % (A) 0 %; Eosinophils # (A) 0.3 k/uL (0-0.7); Eosinophils % (A) 5 %; HCT 38.2 % (34.0-46.0); HGB 12.2 gm/dL (11.4-16.0); Lymphocytes # (A) 0.4 k/uL (1.0-4.8); Lymphocytes % (A) 9 %; MCH 32.2 pg (25.0-35.0); MCHC 31.9 g/dL (31.0-37.0); Macrocytosis Slight; Mean Platelet Volume 6.9; Monocytes # (A) 0.5 k/uL (0-1.0); Monocytes % (A) 11 %; Neutrophils # (A) 3.4 k/uL (1.3-7.7); Neutrophils % (A) 71 %; Platelet Count 219 k/uL (150-450); RBC 3.79 m/uL (3.80-5.40); RDW 15.7 % (11.5-15.5); WBC 4.9 k/uL (3.8-10.6)
[2018-05-05] MEDS: INSULIN ASPART 100 UNIT/ML 1 ML 10 ML VIAL SQ SCH ×2 (07:53→12:28)
[2018-05-05 08:16] LABS: ALT 33 U/L (9-52); AST 16 U/L (14-36); Albumin 3.1 g/dL (3.5-5.0); Alkaline Phosphatase 60 U/L (38-126); Anion Gap 10 mmol/L; Blood Urea Nitrogen 15 mg/dL (7-17); Calcium 8.4 mg/dL (8.4-10.2); Carbon Dioxide 26 mmol/L (22-30); Chloride 108 mmol/L (98-107); Glucose 112 mg/dL (74-99); Potassium 3.9 mmol/L (3.5-5.1); Sodium 144 mmol/L (137-145); Total Bilirubin 0.5 mg/dL (0.2-1.3); Total Protein 5.3 g/dL (6.3-8.2)
[2018-05-05] MEDS: metFORMIN 500 MG TAB PO SCH (08:28)
[2018-05-05] MEDS: PROCHLORPERAZINE 10 MG TAB PO SCH (08:28)
[2018-05-05] MEDS: CHOLECALCIFEROL 1,000 UNIT TAB PO SCH (08:28)
[2018-05-05] MEDS: ACYCLOVIR 200 MG CAP PO SCH (08:28)
[2018-05-05] MEDS: PYRIDOXINE 50 MG TAB PO SCH (08:28)
[2018-05-05] MEDS: FAMOTIDINE 20 MG TAB PO SCH (08:28)
[2018-05-05] MEDS: cefTRIAXone IN SWFI 1,000 MG/10 ML SYRINGE IVP SCH ×2 (08:28→08:47)
[2018-05-05] MEDS: CLOTRIMAZOLE 1% CREAM 15 GM TUBE TOPICAL SCH (08:29)
[2018-05-05] MEDS: TRIAMCINOLONE 0.1% CREAM 80 GM TUBE TOPICAL SCH (08:30)
[2018-05-05] MEDS: NYSTATIN 100,000UNIT/GM CREAM 30 GM TUBE TOPICAL SCH (08:30)
[2018-05-05 08:40] LABS: INR 2.1 (<1.2); Prothrombin Time 18.8 sec (9.0-12.0)
[2018-05-05] MEDS ORDERED: WARFARIN 2.5 MG TAB PO SCH ×2 (09:20→18:00)
--- NOTE | 2018-05-05 10:35 | P.DS ---
Providers Date of admission: 05/03/18 19:49 Expected date of discharge: 05/05/18 Attending physician: Seth Montoya Consults: 05/04/18 11:56 Consult Physician Routine Consulting Provider: Artie Renteria Consult Reason/Comments: kidney stone, right flank pain Do you want consulting provider notified?: Yes Primary care physician: Seth Montoya [facility] Course: 63-year-old female who presented to the emergency room with a chief complaint of right sided flank pain. Patient reports pain has been present for about 3-4 days and worsening in severity. Patient reports she takes [place] at home but it was not helping the pain. She denies dysuria, urinary frequency, urgency, or malodorous urine. She denies chest pain or pressure. Denies shortness of breath. The patient has a history of multiple myeloma, diabetes mellitus, DVT and thrombosis, fibromyalgia, hyperlipidemia, and GERD. Chest x-ray: Negative for an acute process. KUB x-ray: Nonobstructive bowel gas pattern. CT abdomen and pelvis: Right proximal ureteral 2 to 3mm calculus creating mild right hydroureteronephrosis. Age indetermint compression deformity of T11 vertebral body. Fat filled ventral infraumbilical abdominal hernia. Laboratory data: WBC 9.6. Hemoglobin 13.0. Platelet count 206. Sodium 139. Potassium 3.9. BUN 25. Creatinine 0.80. GFR 80. Glucose 170. BNP: 592 Urinalysis reveals: Turbid, urine, 1+ proteinuria, 2+ glucose, trace ketonuria, moderate blood, small leukocyte esterase, RBC 88, WBC 25 The patient was admitted to the hospital under the care of Dr. Montoya. 05/04/2018 The patient was seen and examined at the bedside. Patient continues to complain of right flank pain but states she thinks she may have passed a kidney stone this morning. Patient does report hematuria with urination. Denies any other urinary symptoms. Patient complains of increased edema and erythema to bilateral lower extremities. Patient has been prescribed compression hose and is supposed to with him on an outpatient basis. Patient states she does not wear them because they're uncomfortable. Patient reports Dr. Montoya told her she could use silvadene to her bilateral lower extremities and then wrap with gauze and Brenton bandage. Patient states she has not been doing this either at home. 05/05/2018 Patient seen and examined at the bedside on rounds Dr. Montoya. Patient states she is feeling better this morning. Pain is controlled. Patient was evaluated by urology yesterday who recommended straining urine for calculus as patient has a high likelihood of spontaneously passing the stone. She was prescribed Flomax. Preliminary urine culture is positive for gram-negative bacilli. Identification of organism is not yet resulted. The patient was deemed stable for discharge per Dr. Montoya. She is to follow up on an outpatient basis with Dr. Montoya and urology. Prescriptions were sent to the patient's preferred pharmacy for ciprofloxacin, Flomax, and Silvadene. Home care will be set up for the patient the time of discharge. She was encouraged to wrap her legs daily with Silvadene cream then loosely wrapped with gauze and apply Brenton bandages to bilateral lower extremities. DISCHARGE DIAGNOSIS: Right ureteral calculus with mild hydroureteronephrosis, pyelonephritis ruled out Pyuria and hematuria, secondary to above Cellulitis of bilateral lower extremities Diabetes mellitus, type II History of deep vein thrombosis History of fibromyalgia History of multiple myeloma Gastroesophageal reflux disease Hypokalemia, resolved at the time of discharge Nurse practitioner note has been reviewed by physician. Signing provider agrees with the documented findings, assessment, and plan of care. Patient Condition at Discharge: Stable Plan - Discharge Summary Discharge Rx Participant: Yes New Discharge Prescriptions: New Tamsulosin [Flomax] 0.4 mg PO DAILY #30 cap Ciprofloxacin HCl [Cipro] 500 mg PO Q12HR #10 tablet SILVER sulfADIAZINE CREAM [Silvadene Cream] 1 applic TOPICAL DAILY #1 tube Continue HYDROcodone/APAP 10-325MG [[place] 10-325] 2 tab PO Q4H PRN PRN Reason: Pain Ranitidine HCl [Zantac] 150 mg PO DAILY Pyridoxine [Vitamin B-6] 50 mg PO DAILY metFORMIN HCL [Glucophage] 500 mg PO BID Lenalidomide [Revlimid] 25 mg PO DIRECTED Cyanocobalamin [Vitamin B-12] 500 mcg PO DAILY Cholecalciferol (Vitamin D3) [Vitamin D3] 2,000 unit PO DAILY Dexamethasone [Hexadrol] 28 - 40 mg PO TU Acyclovir 400 mg PO BID Loperamide [Imodium] 2 mg PO DAILY PRN PRN Reason: Diarrhea Zolpidem [Ambien] 10 mg PO HS Warfarin [Coumadin] 2.5 mg PO HS Prochlorperazine Maleate 10 mg PO BID Discharge Medication List Acyclovir 400 mg PO BID 01/05/18 [History] Cholecalciferol (Vitamin D3) [Vitamin D3] 2,000 unit PO DAILY 01/05/18 [History] Cyanocobalamin [Vitamin B-12] 500 mcg PO DAILY 01/05/18 [History] Dexamethasone [Hexadrol] 28 - 40 mg PO TU 01/05/18 [History] HYDROcodone/APAP 10-325MG [[place] 10-325] 2 tab PO Q4H PRN 01/05/18 [History] Lenalidomide [Revlimid] 25 mg PO DIRECTED 01/05/18 [History] Loperamide [Imodium] 2 mg PO DAILY PRN 01/05/18 [History] Pyridoxine [Vitamin B-6] 50 mg PO DAILY 01/05/18 [History] Ranitidine HCl [Zantac] 150 mg PO DAILY 01/05/18 [History] metFORMIN HCL [Glucophage] 500 mg PO BID 01/05/18 [History] Prochlorperazine Maleate 10 mg PO BID 05/04/18 [History] Tamsulosin [Flomax] 0.4 mg PO DAILY #30 cap 05/04/18 [Rx] Warfarin [Coumadin] 2.5 mg PO HS 05/04/18 [History] Zolpidem [Ambien] 10 mg PO HS 05/04/18 [History] Ciprofloxacin HCl [Cipro] 500 mg PO Q12HR #10 tablet 05/05/18 [Rx] SILVER sulfADIAZINE CREAM [Silvadene Cream] 1 applic TOPICAL DAILY #1 tube 05/05 [Rx] Follow up Appointment(s)/Referral(s): Artie Renteria MD [STAFF PHYSICIAN] - 4 Weeks Seth Montoya DO [Primary Care Provider] - 1 Week [facility], [NON-STAFF] - Activity/Diet/Wound Care/Special Instructions: Drink plenty of fluids. Strain urine. Please provide patient with a urine strainer prior to discharge Discharge Disposition: HOME WITH HOME HEALTH SERVICES
[2018-05-05 10:48] VITALS: BP 111/65; PULSE 62; RESP 12; TEMP 98.5
[2018-05-05] MEDS ORDERED: LEVOFLOXACIN 500 MG TAB PO STA (11:20)
[2018-05-05] MEDS: CYANOCOBALAMIN 500 MCG TAB PO SCH (11:59)
[2018-05-05 12:18] LABS: Glucose,Whole Blood 114 mg/dL (75-99)
[2018-05-05 14:29] VITALS: BMI 40.4
== END 2018-05-05 14:30 | disposition home health service (06) ==
LOC: EC 16:05 → 3SUR 19:49 → 6PED 05-05 09:48
PROVIDERS: ADMIT Family Medicine; ATTEND Family Medicine
DX: N13.2 Hydronephrosis with renal and ureteral calculous obstruction (principal); L03.115 Cellulitis of right lower limb; L03.116 Cellulitis of left lower limb; M79.7 Fibromyalgia; C90.00 Multiple myeloma not having achieved remission; K21.9 Gastro-esophageal reflux disease without esophagitis; M48.54XA Collapsed vertebra, not elsewhere classified, thoracic region, initial encounter for fracture; N39.46 Mixed incontinence; E78.5 Hyperlipidemia, unspecified; E11.9 Type 2 diabetes mellitus without complications; K46.9 Unspecified abdominal hernia without obstruction or gangrene; E87.6 Hypokalemia; Z86.718 Personal history of other venous thrombosis and embolism; Z79.01 Long term (current) use of anticoagulants; Z79.84 Long term (current) use of oral hypoglycemic drugs; Z79.899 Other long term (current) drug therapy
CPT/HCPCS: 99285 ×2; 96374 ×2; 96375 ×3; 96376 ×3; 96361 ×7; 36415; 83880; 80053 ×3; 82150; 83690; 85025 ×3; 85610 ×3; 85730; 81001; 87086; 87077; 87186; 71046; 74018; 74176; G0378 ×3; S0183 ×2; J2405; J0696 ×2; J2270

== ENCOUNTER → 2018-07-15 | Outpatient (CLI) | payer MEDICARE ==
[2018-07-15 15:56] LABS: Basophils % (A) 0 %; Eosinophils % (A) 0 %; HCT 37.7 % (34.0-46.0); HGB 12.2 gm/dL (11.4-16.0); Lymphocytes # (A) 0.4 k/uL (1.0-4.8); Lymphocytes % (A) 6 %; MCH 32.1 pg (25.0-35.0); MCHC 32.4 g/dL (31.0-37.0); MCV 99.1 fL (80.0-100.0); Macrocytosis Slight; Mean Platelet Volume 7.9; Monocytes # (A) 0.6 k/uL (0-1.0); Monocytes % (A) 8 %; Neutrophils # (A) 6.3 k/uL (1.3-7.7); Neutrophils % (A) 83 %; Platelet Count 220 k/uL (150-450); RBC 3.81 m/uL (3.80-5.40); RDW 15.3 % (11.5-15.5); WBC 7.5 k/uL (3.8-10.6)
[2018-07-15 16:06] LABS: ALT 30 U/L (9-52); AST 15 U/L (14-36); Albumin 3.7 g/dL (3.5-5.0); Alkaline Phosphatase 56 U/L (38-126); Anion Gap 12 mmol/L; Blood Urea Nitrogen 18 mg/dL (7-17); Calcium 8.9 mg/dL (8.4-10.2); Carbon Dioxide 19 mmol/L (22-30); Chloride 107 mmol/L (98-107); Glucose 190 mg/dL (74-99); Potassium 3.9 mmol/L (3.5-5.1); Sodium 138 mmol/L (137-145); Total Bilirubin 0.3 mg/dL (0.2-1.3); Total Protein 5.9 g/dL (6.3-8.2)
== END | disposition home or self-care (01) ==
LOC: LABWHC1 15:11
PROVIDERS: ATTEND Nurse Practitioner Adult Health
DX: C90.00 Multiple myeloma not having achieved remission (principal); E53.8 Deficiency of other specified B group vitamins
CPT/HCPCS: 36415; 80053; 85025

== ENCOUNTER → 2018-07-22 | Outpatient (CLI) | payer MEDICARE, BC ==
--- NOTE | 2018-07-22 15:53 | XR ---
EXAMINATION TYPE: XR femur LT DATE OF EXAM: 07/22/2018 COMPARISON: None HISTORY: Fracture TECHNIQUE: 2 view left femur FINDINGS: Open reduction internal fixation of the distal left femoral fracture is evident. The superi ormost screw on the lateral plate is fractured. An acute fracture is not identified at this time. Degenerative changes are at proximal and distal femoral joint spaces. Within the proximal diaphysis there is some subtle the lucencies. This could indicate underlying mult iple myeloma. IMPRESSION: 1. No acute osseous abnormality. 2. Suspicion of subtle lytic areas within the proximal diaphysis left femur
--- NOTE | 2018-07-22 15:59 | XR ---
EXAMINATION TYPE: XR Hip Complete LT DATE OF EXAM: 07/22/2018 COMPARISON: None HISTORY: Multiple myeloma TECHNIQUE: 2 view left hip FINDINGS: Femoral head articulate with the acetabulum. Mild joint space narrowing may be present. The proximal diaphyseal femur is slightly moth-eaten which can be compatible with multiple myeloma. IMPRESSION: 1. No acute osseous abnormality. 2. Moth-eaten appearance of the medullary diaphysis proximal left femur. Findings can be compatible w ith multiple myeloma.
== END | disposition home or self-care (01) ==
LOC: RADXRMAIN 14:40
PROVIDERS: ATTEND Radiology Radiation Oncology
DX: C90.00 Multiple myeloma not having achieved remission (principal)
CPT/HCPCS: 73502

== ENCOUNTER → 2018-11-04 | Outpatient (CLI) | payer MEDICARE ==
--- NOTE | 2018-11-04 15:37 | XR ---
EXAMINATION TYPE: XR pelvis AP view DATE OF EXAM: 11/04/2018 COMPARISON: None HISTORY: Multiple myeloma TECHNIQUE: AP standing pelvis FINDINGS: Femoral heads articulate with the acetabulum. No acute fractures are evident. No suspicious lytic lesions are evident. Mild joint space narrowing of the hips is present. Symphysis pubis and sa croiliac joints are intact. Sacroiliac joints have mild degenerative change. IMPRESSION: 1. Mild degenerative joint changes. 2. No suspicious lytic lesions.
--- NOTE | 2018-11-04 15:39 | XR ---
EXAMINATION TYPE: XR knee complete LT DATE OF EXAM: 11/04/2018 COMPARISON: None HISTORY: Multiple myeloma TECHNIQUE: Three-view left knee FINDINGS: There is an old femoral diaphyseal repair. Multiple screws and plates along the lateral fem ur. No joint effusion is evident. Mild narrowing of the medial compartment joint space is present. IMPRESSION: 1. Old left knee repair of the distal femur. 2. No acute osseous abnormality. 3. No suspicious lytic lesions.
--- NOTE | 2018-11-04 15:42 | XR ---
EXAMINATION TYPE: XR femur LT DATE OF EXAM: 11/04/2018 COMPARISON: None HISTORY: Multiple myeloma TECHNIQUE: 2 view left femur FINDINGS: Femoral head articulates with the acetabulum. Mild joint space narrowing is present. There is an old fracture repair at distal femur. The proximal screw is fractured the there is repair of the distal femur. IMPRESSION: 1. No suspicious lytic femur.
== END | disposition home or self-care (01) ==
LOC: RADXRMAIN 15:06
PROVIDERS: ATTEND Radiology Radiation Oncology
DX: C90.00 Multiple myeloma not having achieved remission (principal); M16.0 Bilateral primary osteoarthritis of hip
CPT/HCPCS: 72170

== ENCOUNTER 2018-11-26 03:21 | Inpatient (IN) | payer MEDICARE ==
[2018-11-26] MEDS ORDERED: SODIUM CHLORIDE 0.9% 1,000 ML IV STA (04:01)
[2018-11-26] MEDS ORDERED: IPRATROPIUM-ALBUTEROL 3 ML NEB INHALATION STA (04:04)
[2018-11-26 04:39] LABS: Appearance,Urine Clear (Clear); Bilirubin,Urine Negative (Negative); Blood,Urine Small (Negative); Color,Urine Yellow; Glucose,Urine (UA) Trace (Negative); Hyaline Casts,Urine 1 /lpf (0-2); Ketones,Urine 1+ (Negative); Leukocyte Esterase,Urine Negative (Negative); Mucus,Urine Many /hpf; Nitrite,Urine Negative (Negative); PH, Urine 5.5 (5.0-8.0); Protein,Urine Trace (Negative); RBC,Urine 1 /hpf (0-5); Specific Gravity,Urine 1.022 (1.001-1.035); Squamous Epithelial Cell,Urine <1 /hpf (0-4); Urobilinogen,Urine <2.0 mg/dL (<2.0); WBC,Urine 1 /hpf (0-5)
--- NOTE | 2018-11-26 04:57 | ED ---
Weakness HPI - General Source: EMS, RN notes reviewed, old records reviewed Mode of arrival: EMS Limitations: no limitations <Stormy Dunbar - Last Filed: 11/26/18 06:29> <Ivet Beck - Last Filed: 11/27/18 21:35> - General Chief complaint: Weakness Stated complaint: Weakness Time Seen by Provider: 11/26/18 03:33 - History of Present Illness Initial comments: 63-year-old female with history of multiple myeloma presents today with increased weakness multiple falls over the past 2 days. Patient reports that she was ambulating with her walker and seems to the fast and tripped and fell. She states that she's been increasingly weak. She does complain of a significant cough drops of breath. She states that she has had this cough worsening over the past 2 days. Patient reports she is currently on amoxicillin for a jaw infection. (Stormy Dunbar) - Related Data Home Medications Medication Instructions Recorded Confirmed Acyclovir 400 mg PO BID 01/05/18 11/26/18 Cholecalciferol (Vitamin D3) 4,000 unit PO DAILY 01/05/18 11/26/18 [Vitamin D3] Cyanocobalamin [Vitamin B-12] 500 mcg PO DAILY 01/05/18 11/26/18 Loperamide [Imodium] 2 mg PO DAILY PRN 01/05/18 11/26/18 Pyridoxine [Vitamin B-6] 50 mg PO DAILY 01/05/18 11/26/18 Ranitidine HCl [Zantac] 150 mg PO DAILY 01/05/18 11/26/18 metFORMIN HCL [Glucophage] 500 mg PO BID 01/05/18 11/26/18 Prochlorperazine Maleate 10 mg PO Q6H PRN 05/04/18 11/26/18 Zolpidem [Ambien] 10 mg PO HS 05/04/18 11/26/18 Amoxicillin 500 mg PO TID 11/26/18 11/26/18 Apixaban [Eliquis] 5 mg PO BID 11/26/18 11/26/18 Fexofenadine HCl 180 mg PO DAILY 11/26/18 11/26/18 Hydrocodone/Acetaminophen [[place] 1 tab PO Q6H PRN 11/26/18 11/26/18 10-325] Lenalidomide [Revlimid] 25 mg PO DIRECTED 11/26/18 11/26/18 Allergies Allergy/AdvReac Type Severity Reaction Status Date / Time No Known Allergies Allergy Verified 11/26/18 07:55 Review of Systems ROS Other: All systems not noted in ROS Statement are negative. <BettinaStormy - Last Filed: 11/26/18 06:29> ROS Other: All systems not noted in ROS Statement are negative. <Ivet Beck - Last Filed: 11/27/18 21:35> ROS Statement: Those systems with pertinent positive or pertinent negative responses have been documented in the HPI. Past Medical History Past Medical History: Cancer, Diabetes Mellitus, Deep Vein Thrombosis (DVT), Fibromyalgia, GERD/Reflux, Hyperlipidemia Additional Past Medical History / Comment(s): multiple myloma History of Any Multi-Drug Resistant Organisms: None Reported Past Surgical History: Orthopedic Surgery Past Anesthesia/Blood Transfusion Reactions: Previous Problems w/ Anesthesia Additional Past Anesthesia/Blood Transfusion Reaction / Comment(s): DIFFICULT INTUBATION WHEN HAVING PREVIOUS LEFT KNEE SURGERIES Past Psychological History: No Psychological Hx Reported Smoking Status: Never smoker Past Alcohol Use History: None Reported Past Drug Use History: None Reported <BettinaStormy - Last Filed: 11/26/18 06:29> General Exam Limitations: no limitations General appearance: alert, in no apparent distress Head exam: Present: atraumatic, normocephalic, normal inspection Eye exam: Present: normal appearance, PERRL, EOMI. Absent: scleral icterus, conjunctival injection, periorbital swelling ENT exam: Present: normal exam, mucous membranes moist Neck exam: Present: normal inspection. Absent: tenderness, meningismus, lymphadenopathy Respiratory exam: Present: wheezes, decreased breath sounds. Absent: normal lung sounds bilaterally (Diminished right lower lung field sounds.), respiratory distress, rales, rhonchi, stridor Cardiovascular Exam: Present: regular rate, normal rhythm, normal heart sounds. Absent: systolic murmur, diastolic murmur, rubs, gallop, clicks GI/Abdominal exam: Present: soft, normal bowel sounds. Absent: distended, tenderness, guarding, rebound, rigid Extremities exam: Present: normal inspection, full ROM, normal capillary refill. Absent: tenderness, pedal edema, joint swelling, calf tenderness Back exam: Present: normal inspection Neurological exam: Present: alert, oriented X3, CN II-XII intact Psychiatric exam: Present: normal affect, normal mood Skin exam: Present: warm, dry, intact, normal color. Absent: rash <Stormy Dunbar - Last Filed: 11/26/18 06:29> <Ivet Beck - Last Filed: 11/27/18 21:35> - General Exam Comments Initial Comments: Is a 63-year-old female. Alert and oriented. 3. Patient appears in no significant distress at this time. (Stormy Dunbar) Vital Signs 11/26/18 11/26/18 11/26/18 03:49 03:51 04:00 Temperature Pulse Rate 79 Pulse Rate [ Pulse Oximetery ] Respiratory 22 19 Rate Blood Pressure 121/56 121/56 Blood Pressure [Left Arm] O2 Sat by Pulse 89 L 93 L Oximetry 11/26/18 11/26/18 11/26/18 04:32 04:42 05:00 Temperature Pulse Rate 80 82 80 Pulse Rate [ Pulse Oximetery ] Respiratory 20 Rate Blood Pressure 108/60 Blood Pressure [Left Arm] O2 Sat by Pulse 95 Oximetry 11/26/18 11/26/18 07:00 12:12 Temperature 98.3 F 97.5 F L Pulse Rate 72 Pulse Rate [ 69 Pulse Oximetery ] Respiratory 18 18 Rate Blood Pressure 111/60 Blood Pressure 99/53 [Left Arm] O2 Sat by Pulse 95 92 L Oximetry EKG Findings - EKG Comments: EKG Findings:: EKG performed at [facility] shows normal sinus rhythm, really transferred to return. Abnormal EKG. Ventricular 85 bpm. Is 146 ms. QRS ration 72 ms. QT QTC 398/473 ms. <Stormy Dunbar - Last Filed: 11/26/18 06:29> Medical Decision Making - Lab Data Result diagrams: 11/26/18 05:28 11/26/18 05:28 - Radiology Data Radiology results: report reviewed <Stormy Dunbar - Last Filed: 11/26/18 06:29> - Lab Data Result diagrams: 11/27/18 08:06 11/27/18 08:06 <Ivet Beck P - Last Filed: 11/27/18 21:35> - Medical Decision Making 63-year-old female presents return to diffuse body weakness, cough and congestion 2 days. Patient was found to be somewhat hypoxic on EMS arrival and 87% on room air. Patient on oxygen. Patient denies chest pain but she reports that she is having worsening cough since urged her grandchildren were over the [place] holiday. They also had a cough. Patient has history of multiple myeloma. She follows with Dr. Jefferson. Chest x-ray does show evidence of right middle lobe pneumonia. Started the Patient on Rocephin and azithromycin. Lab work was otherwise unremarkable. When Patient was ambulating to the bathroom and took a 2 person assist. She states that she lives at home and she takes care of her and her . Given patient's current physical state it seems difficult for her to care for herself alone her . will be admitted at this time for weakness, pneumonia. She may need placement for an extended care facility. (Stormy Dunbar) I personally saw and examined the patient. I reviewed and agree with the mid- level provider findings including all diagnostic interpretations and treatment plans as written unless otherwise stated. At this time I agree the patient is not stay for discharge home and will require observation in the hospital, treatment for her middle lobe pneumonia and generalized weakness and possible discussion of long-term placement. Patient care was discussed with the admitting hospitalist who accepts admission. (Ivet Beck) - Lab Data Lab Results 11/26/18 11/26/18 11/26/18 Range/Units 04:28 05:28 05:28 WBC 10.5 (3.8-10.6) k/uL RBC 4.04 (3.80-5.40) m/uL Hgb 13.0 (11.4-16.0) gm/dL Hct 39.6 (34.0-46.0) % MCV 98.0 (80.0-100.0) fL MCH 32.1 (25.0-35.0) pg MCHC 32.8 (31.0-37.0) g/dL RDW 15.6 H (11.5-15.5) % Plt Count 194 (150-450) k/uL Neutrophils % 86 % Lymphocytes % 4 % Monocytes % 6 % Eosinophils % 1 % Basophils % 0 % Neutrophils # 9.1 H (1.3-7.7) k/uL Lymphocytes # 0.4 L (1.0-4.8) k/uL Monocytes # 0.7 (0-1.0) k/uL Eosinophils # 0.1 (0-0.7) k/uL Basophils # 0.0 (0-0.2) k/uL Macrocytosis Slight PT (9.0-12.0) sec INR (<1.2) APTT (22.0-30.0) sec Sodium (137-145) mmol/L Potassium (3.5-5.1) mmol/L Chloride (98-107) mmol/L Carbon Dioxide (22-30) mmol/L Anion Gap mmol/L BUN (7-17) mg/dL Creatinine (0.52-1.04) mg/dL Est GFR (CKD-EPI)AfAm (>60 ml/min/1.73 sqM) Est GFR (CKD-EPI)NonAf (>60 ml/min/1.73 sqM) Glucose (74-99) mg/dL Estimated Ave Glu mg/dL Hemoglobin A1c (4.0-6.0) % Plasma Lactic Acid Manoj (0.7-2.0) mmol/L Calcium (8.4-10.2) mg/dL Phosphorus (2.5-4.5) mg/dL Magnesium (1.6-2.3) mg/dL Total Bilirubin (0.2-1.3) mg/dL AST (14-36) U/L ALT (9-52) U/L Alkaline Phosphatase (38-126) U/L Total Creatine Kinase 24 L (30-135) U/L CK-MB (CK-2) 0.3 (0.0-2.4) ng/mL CK-MB (CK-2) Rel Index 1.3 Troponin I <0.012 (0.000-0.034) ng/mL NT-Pro-B Natriuret Pep pg/mL Total Protein (6.3-8.2) g/dL Albumin (3.5-5.0) g/dL Urine Color Yellow Urine Appearance Clear (Clear) Urine pH 5.5 (5.0-8.0) Ur Specific [place] 1.022 (1.001-1.035) Urine Protein Trace H (Negative) Urine Glucose (UA) Trace H (Negative) Urine Ketones 1+ H (Negative) Urine Blood Small H (Negative) Urine Nitrite Negative (Negative) Urine Bilirubin Negative (Negative) Urine Urobilinogen <2.0 (<2.0) mg/dL Ur Leukocyte Esterase Negative (Negative) Urine RBC 1 (0-5) /hpf Urine WBC 1 (0-5) /hpf Ur Squamous Epith Cells <1 (0-4) /hpf Hyaline Casts 1 (0-2) /lpf Urine Mucus Many H (None) /hpf 11/26/18 11/26/18 11/26/18 Range/Units 05:28 05:28 05:28 WBC (3.8-10.6) k/uL RBC (3.80-5.40) m/uL Hgb (11.4-16.0) gm/dL Hct (34.0-46.0) % MCV (80.0-100.0) fL MCH (25.0-35.0) pg MCHC (31.0-37.0) g/dL RDW (11.5-15.5) % Plt Count (150-450) k/uL Neutrophils % % Lymphocytes % % Monocytes % % Eosinophils % % Basophils % % Neutrophils # (1.3-7.7) k/uL Lymphocytes # (1.0-4.8) k/uL Monocytes # (0-1.0) k/uL Eosinophils # (0-0.7) k/uL Basophils # (0-0.2) k/uL Macrocytosis PT 11.7 (9.0-12.0) sec INR 1.1 (<1.2) APTT 26.6 (22.0-30.0) sec Sodium 137 (137-145) mmol/L Potassium 3.9 (3.5-5.1) mmol/L Chloride 104 (98-107) mmol/L Carbon Dioxide 25 (22-30) mmol/L Anion Gap 8 mmol/L BUN 14 (7-17) mg/dL Creatinine 0.55 (0.52-1.04) mg/dL Est GFR (CKD-EPI)AfAm >90 (>60 ml/min/1.73 sqM) Est GFR (CKD-EPI)NonAf >90 (>60 ml/min/1.73 sqM) Glucose 144 H (74-99) mg/dL Estimated Ave Glu mg/dL Hemoglobin A1c (4.0-6.0) % Plasma Lactic Acid Manoj (0.7-2.0) mmol/L Calcium 8.8 (8.4-10.2) mg/dL Phosphorus 3.9 (2.5-4.5) mg/dL Magnesium 1.5 L (1.6-2.3) mg/dL Total Bilirubin 0.7 (0.2-1.3) mg/dL AST 14 (14-36) U/L ALT 38 (9-52) U/L Alkaline Phosphatase 68 (38-126) U/L Total Creatine Kinase (30-135) U/L CK-MB (CK-2) (0.0-2.4) ng/mL CK-MB (CK-2) Rel Index Troponin I (0.000-0.034) ng/mL NT-Pro-B Natriuret Pep 517 pg/mL Total Protein 5.7 L (6.3-8.2) g/dL Albumin 3.4 L (3.5-5.0) g/dL Urine Color Urine Appearance (Clear) Urine pH (5.0-8.0) Ur Specific [place] (1.001-1.035) Urine Protein (Negative) Urine Glucose (UA) (Negative) Urine Ketones (Negative) Urine Blood (Negative) Urine Nitrite (Negative) Urine Bilirubin (Negative) Urine Urobilinogen (<2.0) mg/dL Ur Leukocyte Esterase (Negative) Urine RBC (0-5) /hpf Urine WBC (0-5) /hpf Ur Squamous Epith Cells (0-4) /hpf Hyaline Casts (0-2) /lpf Urine Mucus (None) /hpf 11/26/18 11/26/18 Range/Units 05:28 05:28 WBC (3.8-10.6) k/uL RBC (3.80-5.40) m/uL Hgb (11.4-16.0) gm/dL Hct (34.0-46.0) % MCV (80.0-100.0) fL MCH (25.0-35.0) pg MCHC (31.0-37.0) g/dL RDW (11.5-15.5) % Plt Count (150-450) k/uL Neutrophils % % Lymphocytes % % Monocytes % % Eosinophils % % Basophils % % Neutrophils # (1.3-7.7) k/uL Lymphocytes # (1.0-4.8) k/uL Monocytes # (0-1.0) k/uL Eosinophils # (0-0.7) k/uL Basophils # (0-0.2) k/uL Macrocytosis PT (9.0-12.0) sec INR (<1.2) APTT (22.0-30.0) sec Sodium (137-145) mmol/L Potassium (3.5-5.1) mmol/L Chloride (98-107) mmol/L Carbon Dioxide (22-30) mmol/L Anion Gap mmol/L BUN (7-17) mg/dL Creatinine (0.52-1.04) mg/dL Est GFR (CKD-EPI)AfAm (>60 ml/min/1.73 sqM) Est GFR (CKD-EPI)NonAf (>60 ml/min/1.73 sqM) Glucose (74-99) mg/dL Estimated Ave Glu mg/dL 137 Hemoglobin A1c 6.4 H (4.0-6.0) % Plasma Lactic Acid Manoj 1.4 (0.7-2.0) mmol/L Calcium (8.4-10.2) mg/dL Phosphorus (2.5-4.5) mg/dL Magnesium (1.6-2.3) mg/dL Total Bilirubin (0.2-1.3) mg/dL AST (14-36) U/L ALT (9-52) U/L Alkaline Phosphatase (38-126) U/L Total Creatine Kinase (30-135) U/L CK-MB (CK-2) (0.0-2.4) ng/mL CK-MB (CK-2) Rel Index Troponin I (0.000-0.034) ng/mL NT-Pro-B Natriuret Pep pg/mL Total Protein (6.3-8.2) g/dL Albumin (3.5-5.0) g/dL Urine Color Urine Appearance (Clear) Urine pH (5.0-8.0) Ur Specific [place] (1.001-1.035) Urine Protein (Negative) Urine Glucose (UA) (Negative) Urine Ketones (Negative) Urine Blood (Negative) Urine Nitrite (Negative) Urine Bilirubin (Negative) Urine Urobilinogen (<2.0) mg/dL Ur Leukocyte Esterase (Negative) Urine RBC (0-5) /hpf Urine WBC (0-5) /hpf Ur Squamous Epith Cells (0-4) /hpf Hyaline Casts (0-2) /lpf Urine Mucus (None) /hpf - Radiology Data Mild interstitial right-sided pulmonary infiltrate appears new compared old exam. Normal heart. No heart failure. Slight elevated right diaphragm could relate to partial paralysis. (Stormy Dunbar) Disposition Is patient prescribed a controlled substance at d/c from ED?: No Time of Disposition: 06:31 <Stormy Dunbar - Last Filed: 11/26/18 06:29> <Ivet Beck - Last Filed: 11/27/18 21:35> Clinical Impression: Weakness, Pneumonia Disposition: ADMITTED IP TO THIS HOSP Condition: Stable
--- NOTE | 2018-11-26 05:09 | XR ---
EXAMINATION TYPE: XR chest 2V DATE OF EXAM: 11/26/2018 COMPARISON: 05/03/2018 HISTORY: Weakness TECHNIQUE: Frontal and lateral views of the chest are obtained. FINDINGS: There is some minimal infiltrate in the right lung. The other lung balderas are clear. There is no heart failure. There is slight elevated right diaphragm. IMPRESSION: Mild interstitial right side pulmonary infiltrate appears new compared to old exam. Norm al heart. No heart failure. Slight elevated right diaphragm could relate to partial paralysis.
[2018-11-26] MEDS ORDERED: AZITHROMYCIN 500 MG TAB PO STA (05:23)
[2018-11-26 05:47] LABS: Basophils % (A) 0 %; Eosinophils # (A) 0.1 k/uL (0-0.7); Eosinophils % (A) 1 %; HCT 39.6 % (34.0-46.0); Lymphocytes # (A) 0.4 k/uL (1.0-4.8); Lymphocytes % (A) 4 %; MCH 32.1 pg (25.0-35.0); MCHC 32.8 g/dL (31.0-37.0); Macrocytosis Slight; Mean Platelet Volume 7.4; Monocytes # (A) 0.7 k/uL (0-1.0); Monocytes % (A) 6 %; Neutrophils # (A) 9.1 k/uL (1.3-7.7); Neutrophils % (A) 86 %; Platelet Count 194 k/uL (150-450); RBC 4.04 m/uL (3.80-5.40); RDW 15.6 % (11.5-15.5); WBC 10.5 k/uL (3.8-10.6)
[2018-11-26 05:53] LABS: INR 1.1 (<1.2); Partial Thromboplastin Time 26.6 sec (22.0-30.0); Prothrombin Time 11.7 sec (9.0-12.0)
[2018-11-26 05:55] LABS: ALT 38 U/L (9-52); AST 14 U/L (14-36); Albumin 3.4 g/dL (3.5-5.0); Alkaline Phosphatase 68 U/L (38-126); Anion Gap 8 mmol/L; Blood Urea Nitrogen 14 mg/dL (7-17); Calcium 8.8 mg/dL (8.4-10.2); Carbon Dioxide 25 mmol/L (22-30); Chloride 104 mmol/L (98-107); Glucose 144 mg/dL (74-99); Magnesium 1.5 mg/dL (1.6-2.3); Phosphorus 3.9 mg/dL (2.5-4.5); Potassium 3.9 mmol/L (3.5-5.1); Sodium 137 mmol/L (137-145); Total Bilirubin 0.7 mg/dL (0.2-1.3); Total Protein 5.7 g/dL (6.3-8.2)
[2018-11-26 06:00] LABS: Creatine Kinase 24 U/L (30-135)
[2018-11-26 06:14] LABS: Creatine Kinase MB 0.3 ng/mL (0.0-2.4); Troponin I <0.012 ng/mL (0.000-0.034)
[2018-11-26] MEDS ORDERED: ACETAMINOPHEN TAB 325 MG TAB PO PRN (06:32)
[2018-11-26] MEDS ORDERED: oxyCODONE-APAP 5-325MG 1 EACH TAB PO PRN (06:32)
[2018-11-26] MEDS ORDERED: IBUPROFEN 400 MG TAB PO PRN (06:32)
[2018-11-26] MEDS ORDERED: NALOXONE 0.4 MG/ML 1 ML VIAL IV PRN (06:32)
[2018-11-26] MEDS: HYDROcodone/APAP 5-325MG 1 EACH TAB PO PRN ×3 (09:55→20:25)
[2018-11-26] MEDS: PANTOPRAZOLE 40 MG/10 ML VIAL IV SCH (09:55)
[2018-11-26] MEDS: ONDANSETRON 4 MG/2 ML VIAL IVP PRN ×2 (09:56→19:50)
[2018-11-26 13:04] LABS: Glucose,Whole Blood 123 mg/dL (75-99)
[2018-11-26] MEDS: SODIUM CHLORIDE 0.9% 1,000 ML IV SCH ×3 (14:33→23:52)
[2018-11-26] MEDS ORDERED: LOPERAMIDE 2 MG CAP PO PRN (14:59)
[2018-11-26] MEDS ORDERED: Lenalidomide [Revlimid] PO SCH (15:00)
[2018-11-26 16:18] LABS: Hemoglobin A1C 6.4 % (4.0-6.0)
[2018-11-26 17:27] LABS: Glucose,Whole Blood 114 mg/dL (75-99)
[2018-11-26] MEDS: INSULIN ASPART 100 UNIT/ML 1 ML 10 ML VIAL SQ SCH ×2 (17:46→20:51)
[2018-11-26] MEDS ORDERED: IPRATROPIUM-ALBUTEROL 3 ML NEB INHALATION PRN (17:49)
[2018-11-26] MEDS: metFORMIN 500 MG TAB PO SCH (18:16)
[2018-11-26] MEDS: methylPREDNISolone SOD SUCCI 125 MG/2 ML VIAL IV SCH ×2 (18:17→23:52)
--- NOTE | 2018-11-26 19:22 | HP ---
HISTORY AND PHYSICAL DATE OF SERVICE: 11/26/2018 I am covering for Dr. Montoya. CHIEF COMPLAINT: Weakness and cough and sputum. HISTORY OF PRESENT ILLNESS: This 63-year-old woman with past medical history of diabetes, DVT,hypertension, history of multiple myeloma being followed by Dr. Seth Montoya in the outpatient setting, was complaining shortness of breath with cough for the past several days. The patient was complaining of tiredness and weakness. The patient apparently tripped, patient also had a fall also. The patient is complaining of left femur pain and the patient came to [facility] and was admitted for further evaluation and treatment. A right-sided pneumonia is suspected and the patient is started on IV antibiotics. Patient admitted for further evaluation and treatment. There is no history of any fever, rigors or chills. No history of headache, loss of consciousness or seizures at this time. Pulmonary and as well as Dr. Jefferson has been consulted. There is no history of fever, rigors. PAST MEDICAL HISTORY: Diabetes, DVT, fibromyalgia, GERD, hyperlipidemia, history of multiple myeloma. MEDICATIONS: Home medications are reviewed and include: 1. Metformin 500 mg p.o. b.i.d. 2. Ambien 10 mg q.h.s. 3. Zantac 150 mg. 4. Vitamin B6 50 mg daily. 5. Prochlorperazine 10 mg daily. 6. Imodium 2 mg daily p.r.n. 7. Revlimid 25 mg p.r.n. 8. [place] 10 mg q.6h p.r.n. 9. Fexofenadine 180 mg p.o. daily. 10.Vitamin B12 500 mcg daily. 11.Vitamin D3 4000 daily. 12.Eliquis 5 mg p.o. b.i.d. 13.Amoxicillin 500 mg p.o.. 14.Acyclovir 400 mg p.o. b.i.d. ALLERGIES: None. FAMILY HISTORY: History of cancer, ALS in the family. SOCIAL HISTORY: No history of smoking. No history of alcohol. REVIEW OF SYSTEMS: ENT: No diminished vision. No diminished hearing. CARDIOVASCULAR: As mentioned earlier. RESPIRATORY: As mentioned earlier. GI: No nausea or vomiting. : No dysuria. NERVOUS SYSTEM: No numbness or weakness. ALLERGY/IMMUNOLOGY: No asthma or hayfever. MUSCULOSKELETAL as mentioned earlier. HEMATOLOGY/ONCOLOGY: No history of anemia. ENDOCRINE: Diabetes. CONSTITUTIONAL: As mentioned earlier. Dermatology: Negative. Rheumatology: Negative. Psychiatry: As mentioned earlier. PHYSICAL EXAMINATION: GENERAL: Alert and oriented x2. VITAL SIGNS: Pulse 79, blood pressure 96/56, respiration 18, temperature 98.4, pulse ox 98% on 2 L. HEENT is conjunctivae are normal. Oral mucosa moist. NECK is no jugular venous distention. No carotid bruit. No lymph node enlargement. CARDIOVASCULAR SYSTEM: S1, S2. RESPIRATION: Breath sounds diminished in the bases with bilateral scattered rhonchi and crackles. Expiratory wheezing also present. ABDOMEN: Soft, nontender. No mass palpable. LEGS: No edema. No swelling. NERVOUS SYSTEM: Higher functions as mentioned earlier. Moves all four extremities. No focal deficits. LYMPHATICS: No lymph nodes palpable in the neck, axilla and groin. SKIN: No ulcer, rash or bleeding. LABS: At this time shows WBC 10.2, hemoglobin 13, and sodium 137, potassium 3.8, glucose 123, and magnesium is 1.5. Chest x-ray personally reviewed by me showed evidence of right sided pneumonia. ASSESSMENT: 1. Right-sided pneumonia possibly community-acquired. 2. Fall and left femur and left leg pain. 3. Multiple myeloma. 4. History of diabetes. 5. History of deep vein thrombosis. 6. Fibromyalgia. 7. Gastroesophageal reflux disease. 8. Hyperlipidemia. 9. Gait dysfunction. 10.FULL CODE. RECOMMENDATIONS AND DISCUSSION: This 63-year-old woman who presented with multiple complex medical issues, we will monitor the patient closely, continue the current medications, management and symptomatic treatment. I recommend continue with broad-spectrum IV antibiotics, bronchodilators also recommend Pulmonary and Hematology consultations. I would also recommend x-rays. I would also recommend a CT scan of the brain also. Otherwise prognosis guarded because of multiple complex medical issues. Further recommendations to follow. We will cut down the IV as well. The prognosis extremely guarded because of multiple complex medical issues. Further recommendations to follow. Repeat labs have been ordered. Home medications will be reconciled. MMODL / IJN: [id number] / MTDD
[2018-11-26] MEDS: IPRATROPIUM-ALBUTEROL 3 ML NEB INHALATION SCH (19:53)
--- NOTE | 2018-11-26 20:03 | CT ---
EXAMINATION TYPE: CT brain wo con DATE OF EXAM: 11/26/2018 COMPARISON: None HISTORY: Fall. CT DLP: 1095.7 mGycm Automated exposure control for dose reduction was used. FINDINGS: Ventricles and sulci appear normal. There is no mass effect nor midline shift. There is no sign of in tracranial hemorrhage. The calvarium is intact. There is mild mucosal thickening in the right maxilla ry sinus. There is some mucosal thickening in the ethmoid air cells. IMPRESSION: MILD SINUSITIS. NEGATIVE CT SCAN OF THE BRAIN.
--- NOTE | 2018-11-26 20:07 | XR ---
EXAMINATION TYPE: XR femur LT DATE OF EXAM: 11/26/2018 COMPARISON: 11/04/2018 HISTORY: Left leg pain TECHNIQUE: 5 views there is a plate with screws fixing old fracture of the distal shaft of the femur. The hip joint neela ears intact. There is a transverse lucent line at the mid shaft of the femur at the proximal and of t he plate that is consistent with nondisplaced transverse femoral fracture. This appears to be an acut e fracture. There is extensive bone cement in the distal femoral metaphysis. IMPRESSION: There is transverse fracture of the midshaft of the femur that in retrospect is probably present on the old exam of 11/04/2018. No displacement.
[2018-11-26] MEDS: LENALIDOMIDE PO SCH (20:26)
[2018-11-26] MEDS: ACYCLOVIR 200 MG CAP PO SCH (20:26)
[2018-11-26] MEDS: APIXABAN 5 MG TAB PO SCH (20:26)
[2018-11-26 21:03] LABS: Glucose,Whole Blood 144 mg/dL (75-99)
--- NOTE | 2018-11-26 21:25 | XR ---
EXAMINATION TYPE: XR Hip Complete LT DATE OF EXAM: 11/26/2018 COMPARISON: NONE HISTORY: Leg pain TECHNIQUE: 3 views FINDINGS: Acetabulum appears intact. Proximal femur is intact. There is a plate fixing the distal fem ur. The upper end of the plate has a fracture screw and also there is transverse cortical fracture th rough the midshaft of the femur on the lateral aspect. There is no displacement. IMPRESSION: Transverse nondisplaced fracture of the midshaft of the femur.
--- NOTE | 2018-11-26 21:26 | XR ---
EXAMINATION TYPE: XR pelvis AP view DATE OF EXAM: 11/26/2018 COMPARISON: 11/04/2018 HISTORY: Leg pain TECHNIQUE: Single view FINDINGS: The pelvic ring is intact. Proximal femurs and hip joints are intact. There is no sign of h ip dysplasia. Sacroiliac joints appear intact. IMPRESSION: No acute abnormality of the pelvis.
[2018-11-26] MEDS: ZOLPIDEM 10 MG TAB PO PRN (22:21)
[2018-11-27] MEDS: HYDROcodone/APAP 5-325MG 1 EACH TAB PO PRN ×5 (02:35→23:37)
[2018-11-27] MEDS: methylPREDNISolone SOD SUCCI 125 MG/2 ML VIAL IV SCH ×4 (06:27→23:33)
[2018-11-27] MEDS: IPRATROPIUM-ALBUTEROL 3 ML NEB INHALATION SCH ×4 (07:20→19:14)
[2018-11-27 07:23] LABS: Glucose,Whole Blood 167 mg/dL (75-99)
[2018-11-27] MEDS: metFORMIN 500 MG TAB PO SCH ×2 (08:52→17:49)
[2018-11-27] MEDS: ACYCLOVIR 200 MG CAP PO SCH ×2 (08:52→21:03)
[2018-11-27] MEDS: FAMOTIDINE 20 MG TAB PO SCH (08:52)
[2018-11-27] MEDS: LORATADINE 10 MG TAB PO SCH (08:52)
[2018-11-27] MEDS: CHOLECALCIFEROL 1,000 UNIT TAB PO SCH (08:53)
[2018-11-27] MEDS: APIXABAN 5 MG TAB PO SCH ×2 (08:53→21:03)
[2018-11-27] MEDS: INSULIN ASPART 100 UNIT/ML 1 ML 10 ML VIAL SQ SCH ×4 (08:53→21:02)
[2018-11-27] MEDS: CYANOCOBALAMIN 500 MCG TAB PO SCH (08:53)
[2018-11-27] MEDS: PANTOPRAZOLE 40 MG/10 ML VIAL IV SCH (08:53)
[2018-11-27] MEDS: PYRIDOXINE 50 MG TAB PO SCH (08:57)
[2018-11-27] MEDS ORDERED: AZITHROMYCIN 500 MG in SODIUM CHLORIDE 0.9% 250 ML IVPB SCH (09:00)
[2018-11-27 09:03] LABS: Basophils % (A) 0 %; Eosinophils % (A) 0 %; HCT 37.8 % (34.0-46.0); HGB 12.2 gm/dL (11.4-16.0); Hypochromasia Slight; Lymphocytes # (A) 0.4 k/uL (1.0-4.8); Lymphocytes % (A) 7 %; MCH 31.9 pg (25.0-35.0); MCHC 32.4 g/dL (31.0-37.0); MCV 98.5 fL (80.0-100.0); Macrocytosis Slight; Mean Platelet Volume 7.6; Monocytes # (A) 0.4 k/uL (0-1.0); Monocytes % (A) 7 %; Neutrophils # (A) 4.6 k/uL (1.3-7.7); Neutrophils % (A) 84 %; Platelet Count 205 k/uL (150-450); RBC 3.84 m/uL (3.80-5.40); RDW 15.7 % (11.5-15.5); WBC 5.5 k/uL (3.8-10.6)
[2018-11-27 09:23] LABS: Anion Gap 5 mmol/L; Blood Urea Nitrogen 8 mg/dL (7-17); Calcium 8.7 mg/dL (8.4-10.2); Carbon Dioxide 26 mmol/L (22-30); Chloride 107 mmol/L (98-107); Glucose 155 mg/dL (74-99); Magnesium 1.9 mg/dL (1.6-2.3); Potassium 4.2 mmol/L (3.5-5.1); Sodium 138 mmol/L (137-145)
[2018-11-27 11:16] LABS: Glucose,Whole Blood 190 mg/dL (75-99)
--- NOTE | 2018-11-27 13:01 | P.CONS ---
History of Present Illness - Reason for Consult Consult date: 11/27/18 Multiple myeloma on treatment Requesting physician: Stormy Dunbar - Chief Complaint Weakness - History of Present Illness Merissa presented in 2011 with severe L leg pain > she was found to have a pathologic fracture of L distal femur, had surgery by Dr Hector Segura (Ortho/Onc) > was found to have Plasma cell Myeloma. The patient was diagnosed with IgG- [place] Multiple Myeloma. The patient was initially treated with Velcade/Dex , received XRT to L femur, then placed in maintenance Revlamid from November 2012 to Dec 2015 when disease progressed. She was then treated with Kyprolis/Rev/Dex without significant clinical response> treatment changed to Empliciti/Rev/Dex with excellent control > she remains on same protocol. She recently has become peristently weaker and difficulty with walking, ambulating, and now with falls. She has had recurrent hospital admissions, recent [facility] and [facility]. With her multiple myeloma well controlled will wan to continue same regimen, although unlikely able to be discharged home after hospitalization with recurrent admissions. Review of Systems A 14 point review of systems assessed and completed and all negative except HPI Past Medical History Past Medical History: Cancer, Diabetes Mellitus, Deep Vein Thrombosis (DVT), Fibromyalgia, GERD/Reflux, Hyperlipidemia Additional Past Medical History / Comment(s): multiple myloma -chemo every other week, uti-ecoli ,kidney stone/polynephritis History of Any Multi-Drug Resistant Organisms: None Reported Past Surgical History: Orthopedic Surgery Past Anesthesia/Blood Transfusion Reactions: Previous Problems w/ Anesthesia Additional Past Anesthesia/Blood Transfusion Reaction / Comm: DIFFICULT INTUBATION WHEN HAVING PREVIOUS LEFT KNEE SURGERIES Smoking Status: Never smoker - Past Family History Father Family Medical History: Cancer Mother Additional Family Medical History / Comment(s): from ALS Medications and Allergies Home Medications Medication Instructions Recorded Confirmed Type Acyclovir 400 mg PO BID 01/05/18 11/26/18 History Cholecalciferol (Vitamin D3) 4,000 unit PO DAILY 01/05/18 11/26/18 History [Vitamin D3] Cyanocobalamin [Vitamin B-12] 500 mcg PO DAILY 01/05/18 11/26/18 History Loperamide [Imodium] 2 mg PO DAILY PRN 01/05/18 11/26/18 History Pyridoxine [Vitamin B-6] 50 mg PO DAILY 01/05/18 11/26/18 History Ranitidine HCl [Zantac] 150 mg PO DAILY 01/05/18 11/26/18 History metFORMIN HCL [Glucophage] 500 mg PO BID 01/05/18 11/26/18 History Prochlorperazine Maleate 10 mg PO Q6H PRN 05/04/18 11/26/18 History Zolpidem [Ambien] 10 mg PO HS 05/04/18 11/26/18 History Amoxicillin 500 mg PO TID 11/26/18 11/26/18 History Apixaban [Eliquis] 5 mg PO BID 11/26/18 11/26/18 History Fexofenadine HCl 180 mg PO DAILY 11/26/18 11/26/18 History Hydrocodone/Acetaminophen [[place] 1 tab PO Q6H PRN 11/26/18 11/26/18 History 10-325] Lenalidomide [Revlimid] 25 mg PO DIRECTED 11/26/18 11/26/18 History Allergies Allergy/AdvReac Type Severity Reaction Status Date / Time No Known Allergies Allergy Verified 11/26/18 07:55 Physical Exam Vitals: Vital Signs Temp Pulse Pulse Resp BP Pulse Ox 11/27/18 12:15 97.5 F L 75 20 99/61 92 L 11/27/18 11:02 76 11/27/18 10:54 72 11/27/18 07:29 68 11/27/18 07:21 68 11/27/18 05:00 98.3 F 61 17 134/75 93 L 11/26/18 23:30 17 11/26/18 21:00 98.4 F 77 17 118/56 93 L 11/26/18 20:01 80 11/26/18 19:55 78 11/26/18 16:00 79 18 11/26/18 13:37 98.4 F 79 18 96/56 93 L Intake and Output 11/26/18 11/27/18 11/27/18 22:59 06:59 14:59 Intake Total 440 280 Balance 440 280 Intake: Intake, IV Titration 80 40 Amount Sodium Chloride 0.9% 1, 80 40 000 ml @ 20 mls/hr IV . Q24H BUZZ Rx#:[id number] Oral 360 240 Other: # Voids 2 1 1 # Bowel Movements 1 Weight 99.79 kg - Constitutional General appearance: Present: morbidly obese - EENT Eyes: Present: dentition normal ENT: Present: NA/AT, normal oropharynx - Neck Neck: Present: normal ROM - Respiratory Respiratory: bilateral: diminished (Lower Lobes, No increased respiratory effort noted) - Cardiovascular Rhythm: regularly irregular - Peripheral edema foot Peripheral Edema: bilateral: 2+ leg Peripheral Edema: bilateral: 2+ (Evidence of venous insufficiency bilaterally) - Gastrointestinal Gastrointestinal Comment(s): Obese General gastrointestinal: Present: normal bowel sounds, soft - Integumentary Integumentary Comment(s): Blister-like open areas to bilateral anterior chest under bilateral breasts. - Neurologic Neurologic Comment(s): No Focal Defects. - Psychiatric Psychiatric: Present: A&O x's 3, appropriate affect, intact judgment & insight - Labs CBC & Chem 7: Results CBC & Chem 7: 11/27/18 08:06 11/27/18 08:06 Labs: Abnormal Lab Results - Last 24 Hours (Table) 11/26/18 11/26/18 11/26/18 Range/Units 05:28 13:03 17:26 RDW (11.5-15.5) % Lymphocytes # (1.0-4.8) k/uL Creatinine (0.52-1.04) mg/dL Glucose (74-99) mg/dL POC Glucose (mg/dL) 123 H 114 H (75-99) mg/dL Hemoglobin A1c 6.4 H (4.0-6.0) % 11/26/18 11/27/18 11/27/18 Range/Units 20:43 07:21 08:06 RDW 15.7 H (11.5-15.5) % Lymphocytes # 0.4 L (1.0-4.8) k/uL Creatinine (0.52-1.04) mg/dL Glucose (74-99) mg/dL POC Glucose (mg/dL) 144 H 167 H (75-99) mg/dL Hemoglobin A1c (4.0-6.0) % 11/27/18 11/27/18 Range/Units 08:06 11:14 RDW (11.5-15.5) % Lymphocytes # (1.0-4.8) k/uL Creatinine 0.41 L (0.52-1.04) mg/dL Glucose 155 H (74-99) mg/dL POC Glucose (mg/dL) 190 H (75-99) mg/dL Hemoglobin A1c (4.0-6.0) % Microbiology - Last 24 Hours (Table) 11/26/18 05:28 Blood Culture Gram Stain - Preliminary Blood Blood Culture - Preliminary Coagulase Negative Staph 11/26/18 18:15 Urine Culture - Preliminary Urine,Voided 11/26/18 05:28 Blood Culture - Final Blood Chest x-ray: report reviewed Assessment and Plan Plan: Assessment and Recommendations: 1. Multiple Myeloma: - currently on treatment with Revlimid, Dexamethasone, and Empliciti (Last , was due 11-26-17) Also receuives Xgeva which was on hold for tooth abscess - Disease has been stable 2. Recurrent Falls and Debility: - Becoming more difficult for patient to care for herself at home. - She recently had admission at [facility] for similiar complaints with increased mental status changes. - Further imaging with MRI is resonable 3. Pneumonia: Currently on antibiotics. 4. 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 - Use caution with prescribing - Bowel protocol.
[2018-11-27] MEDS: MULTIVITAMINS, THERA 1 EACH TAB PO SCH (13:21)
[2018-11-27] MEDS: SODIUM CHLORIDE 0.9% 1,000 ML IV SCH (13:46)
[2018-11-27] MEDS: HYDROmorphone 0.5 MG/0.5 ML SYRINGE IVP PRN ×2 (13:46→21:03)
--- NOTE | 2018-11-27 13:53 | P.CNPUL ---
History of Present Illness Consult date: 11/27/18 Requesting physician: Froilan Virk Reason for consult: pneumonia Chief complaint: shortness of breath History of present illness: HPI: This is a 63-year-old female being seen examined and evaluated today for consult dictation covering for Dr. Owens. This patient came in to the hospital after having shortness of breath and multiple falls at home. Patient states she has had progressive weakness that has been causing her to fall. She has been using a walker however she states she continues to trip and fall. She also states she has had a significant cough as well as progressive being short of breath. She describes her sputum is being cleared. Workup in the ER did reveal that she had a right-sided pneumonia. In the emergency room the patient was somewhat hypoxic on room air. Has pO2 of 87% and she did require supplemental oxygen. She was admitted and started on antibiotics as well as steroids and breathing treatments. The patient states she does not use breathing treatments in the home setting. She states she has never been diagnosed with COPD asthma or had any toxic inhalation exposures. She denies any smoking history. Does have dog in the home. She also had a CT of the brain which showed mild sinusitis with no acute bleeding. CT of the chest is currently pending. She did have x-rays of her hip/femur which did show a transverse nondisplaced fracture of the midshaft of the left femur. She does have a history of multiple myeloma, and states she gets chemo every other week. Review of Systems 14 point review of systems was completed and is negative unless noted above in the HPI Past Medical History Past Medical History: Cancer, Diabetes Mellitus, Deep Vein Thrombosis (DVT), Fibromyalgia, GERD/Reflux, Hyperlipidemia Additional Past Medical History / Comment(s): multiple myloma -chemo every other week, uti-ecoli ,kidney stone/polynephritis History of Any Multi-Drug Resistant Organisms: None Reported Past Surgical History: Orthopedic Surgery Past Anesthesia/Blood Transfusion Reactions: Previous Problems w/ Anesthesia Additional Past Anesthesia/Blood Transfusion Reaction / Comment(s): DIFFICULT INTUBATION WHEN HAVING PREVIOUS LEFT KNEE SURGERIES Smoking Status: Never smoker - Past Family History Father Family Medical History: Cancer Mother Additional Family Medical History / Comment(s): from ALS Medications and Allergies Home Medications Medication Instructions Recorded Confirmed Type Acyclovir 400 mg PO BID 01/05/18 11/26/18 History Cholecalciferol (Vitamin D3) 4,000 unit PO DAILY 01/05/18 11/26/18 History [Vitamin D3] Cyanocobalamin [Vitamin B-12] 500 mcg PO DAILY 01/05/18 11/26/18 History Loperamide [Imodium] 2 mg PO DAILY PRN 01/05/18 11/26/18 History Pyridoxine [Vitamin B-6] 50 mg PO DAILY 01/05/18 11/26/18 History Ranitidine HCl [Zantac] 150 mg PO DAILY 01/05/18 11/26/18 History metFORMIN HCL [Glucophage] 500 mg PO BID 01/05/18 11/26/18 History Prochlorperazine Maleate 10 mg PO Q6H PRN 05/04/18 11/26/18 History Zolpidem [Ambien] 10 mg PO HS 05/04/18 11/26/18 History Amoxicillin 500 mg PO TID 11/26/18 11/26/18 History Apixaban [Eliquis] 5 mg PO BID 11/26/18 11/26/18 History Fexofenadine HCl 180 mg PO DAILY 11/26/18 11/26/18 History Hydrocodone/Acetaminophen [[place] 1 tab PO Q6H PRN 11/26/18 11/26/18 History 10-325] Lenalidomide [Revlimid] 25 mg PO DIRECTED 11/26/18 11/26/18 History Allergies Allergy/AdvReac Type Severity Reaction Status Date / Time No Known Allergies Allergy Verified 11/26/18 07:55 Physical Exam Vitals: Vital Signs Temp Pulse Pulse Resp BP Pulse Ox 11/27/18 12:15 97.5 F L 75 20 99/61 92 L 11/27/18 11:02 76 11/27/18 10:54 72 11/27/18 07:29 68 11/27/18 07:21 68 11/27/18 05:00 98.3 F 61 17 134/75 93 L 11/26/18 23:30 17 11/26/18 21:00 98.4 F 77 17 118/56 93 L 11/26/18 20:01 80 11/26/18 19:55 78 11/26/18 16:00 79 18 11/26/18 13:37 98.4 F 79 18 96/56 93 L Intake and Output 11/26/18 11/27/18 11/27/18 22:59 06:59 14:59 Intake Total 440 280 Balance 440 280 Intake: Intake, IV Titration 80 40 Amount Sodium Chloride 0.9% 1, 80 40 000 ml @ 20 mls/hr IV . Q24H BUZZ Rx#:[id number] Oral 360 240 Other: # Voids 2 1 1 # Bowel Movements 1 Weight 99.79 kg GENERAL EXAM: Alert, obese, comfortable in no apparent distress. HEAD: Normocephalic. EYES: Normal reaction of pupils, equal size. NOSE: Clear with pink turbinates. THROAT: No erythema or exudates. NECK: No masses, no JVD. CHEST: No chest wall deformity. LUNGS: Equal air entry with expiratory wheezing noted. Bases diminished. CVS: S1 and S2 normal with no audible mumurs, regular rhythm. ABDOMEN: No hepatosplenomegaly, normal bowel sounds, no guarding or rigidity. EXTREMITIES: Trace pedal edema noted, pedal pulses palpable. CENTRAL NERVOUS SYSTEM: No focal deficits, weakness. Results - Laboratory Findings CBC and BMP: 11/27/18 08:06 11/27/18 08:06 PT/INR, D-dimer PT 11.7 sec (9.0-12.0) 11/26/18 05:28 INR 1.1 (<1.2) 11/26/18 05:28 Abnormal lab findings: Abnormal Labs 11/26/18 11/26/18 11/26/18 04:28 05:28 05:28 RDW 15.6 H Neutrophils # 9.1 H Lymphocytes # 0.4 L Creatinine Glucose POC Glucose (mg/dL) Hemoglobin A1c Magnesium Total Creatine Kinase 24 L Total Protein Albumin Urine Protein Trace H Urine Glucose (UA) Trace H Urine Ketones 1+ H Urine Blood Small H Urine Mucus Many H 11/26/18 11/26/18 11/26/18 05:28 05:28 13:03 RDW Neutrophils # Lymphocytes # Creatinine Glucose 144 H POC Glucose (mg/dL) 123 H Hemoglobin A1c 6.4 H Magnesium 1.5 L Total Creatine Kinase Total Protein 5.7 L Albumin 3.4 L Urine Protein Urine Glucose (UA) Urine Ketones Urine Blood Urine Mucus 11/26/18 11/26/18 11/27/18 17:26 20:43 07:21 RDW Neutrophils # Lymphocytes # Creatinine Glucose POC Glucose (mg/dL) 114 H 144 H 167 H Hemoglobin A1c Magnesium Total Creatine Kinase Total Protein Albumin Urine Protein Urine Glucose (UA) Urine Ketones Urine Blood Urine Mucus 11/27/18 11/27/18 11/27/18 08:06 08:06 11:14 RDW 15.7 H Neutrophils # Lymphocytes # 0.4 L Creatinine 0.41 L Glucose 155 H POC Glucose (mg/dL) 190 H Hemoglobin A1c Magnesium Total Creatine Kinase Total Protein Albumin Urine Protein Urine Glucose (UA) Urine Ketones Urine Blood Urine Mucus - Diagnostic Findings Chest x-ray: report reviewed, image reviewed Assessment and Plan Assessment: Assessment Right-sided community-acquired pneumonia Acute hypoxic respiratory failure requiring supplemental oxygen Weakness and debility with frequent falls History of multiple myeloma Fibromyalgia, chronic pain syndrome GERD History of DVT Transverse nondisplaced fracture of the midshaft of the left femur, appears to be an old fracture that was seen on 11/04/2018 film per radiology report Plan Medications have been reviewed and will be continued as ordered. Continue with antibiotics and steroid taper Initiate and encourage incentive spirometer Bloody urine and sputum cultures pending CT of the chest pending Continue with pulmonary hygiene, coughing and deep breathing exercises, and supportive care. Supplemental oxygen to maintain oxygen saturations of 92% or better. Continue nebulizer treatments. GI and DVT prophylaxis. Hematology/oncology on consult appreciate recommendations Ortho on consult for fracture, appreciate recommendations Increase activity as tolerated PT and OT weight bearing per ortho We will continue to monitor labs/results and adjust treatment as necessary. Further recommendations pending. Please note we are covering for Dr. Owens. I, the signing physician performed an examination of the patient, discussed and directed their management with the nurse practitioner. I have reviewed the nurse practitioner's note and agree with the documented findings, orders and plan of care. Nurse practitioner acting as a scribe for the signing physician.
--- NOTE | 2018-11-27 14:41 | CT ---
EXAMINATION TYPE: CT chest wo con DATE OF EXAM: 11/27/2018 COMPARISON: None HISTORY: Pneumonia CT DLP: 881.3 mGycm, Automated exposure control for dose reduction was used. CONTRAST: Performed injected with 0 mL of Isovue 300. TECHNIQUE: Axial images were obtained at 5 mm thick sections. Reconstructed images are reviewed on [employer] computer in the coronal plane. FINDINGS: Portion of the thyroid visualized is normal. Bibasilar infiltrates are present in the posterior medial lung bases bilaterally. Correlate for pneum onia. This should be followed to clearing. There are some additional patchy areas of pneumonitis with in the right upper mid lung balderas. No enlarged mediastinal or hilar adenopathy is evident. The ascending aorta diameter at the level o f the main pulmonary artery is 3.5 cm. The main pulmonary artery diameter at the bifurcation is 3.6 cm. Pulmonary hypertension is not excluded. Mild coronary artery calcification is present. Limited CT sections are obtained through the upper abdomen. Note is made of punctate nonobstructing r enal stones on the right kidney. There is some mild left hydronephrosis. Left kidney is small. IMPRESSIONS: 1. Bibasilar infiltrates findings can be compatible with pneumonia. Additional areas of pneumonitis. Follow-up can be performed. 2. Nonobstructing punctate right renal stones. 3. Mild left hydronephrosis partially visualized on this exam.
[2018-11-27 17:07] LABS: Glucose,Whole Blood 147 mg/dL (75-99)
[2018-11-27] MEDS: guaiFENesin 600 MG TABLET.ER PO SCH ×2 (17:48→23:33)
[2018-11-27 19:06] LABS: Glucose,Whole Blood 128 mg/dL (75-99)
[2018-11-27 20:04] LABS: Glucose,Whole Blood 169 mg/dL (75-99)
--- NOTE | 2018-11-27 20:35 | PN ---
PROGRESS NOTE DATE OF SERVICE: 11/27/2018 I am covering for Dr. Montoya. This 63-year-old woman who was admitted with right-sided pneumonia, possibly community- acquired, also was complaining of shortness of breath and cough. The patient had a CT scan of the chest. Pulmonary is following the patient closely. CT scan of the chest showed bibasilar infiltrate and nonobstructive punctate right renal stone and mild left hydronephrosis. Past medical history reviewed. REVIEW OF SYSTEMS: CARDIOVASCULAR SYSTEM: As mentioned earlier. RESPIRATORY SYSTEM: As mentioned earlier. GI: No nausea, vomiting. : No dysuria or retention. NERVOUS SYSTEM: No numbness, weakness. CURRENT MEDICATIONS: Reviewed. They include: 1. Tylenol 650 q.6 p.r.n. 2. Cozad 5 mg q.4 p.r.n. 3. Zovirax 400 mg p.o. b.i.d. 4. DuoNeb q.i.d. and p.r.n. 5. Eliquis 5 mg p.o. b.i.d. 6. Zithromax 500 mg p.o. daily. 7. Rocephin 1 gram daily. 8. Vitamin D3 daily. 9. Vitamin B12 daily. 10.Pepcid 20 mg p.o. daily. 11.Mucinex 1200 mg p.o. b.i.d. 12.Dilaudid 0.5 mg q.6 p.r.n. 13.Motrin 400 mg q.6 p.r.n. 14.NovoLog. 15.Imodium. 16.Claritin. 17.Glucophage. 18.Solu-Medrol 60 IV q.6. 19.Multivitamins. 20.Narcan. 21.Zofran. 22.Percocet. 23.Compazine. 24.Ambien. PHYSICAL EXAMINATION: Patient is alert and oriented x3. Pulse 75, blood pressure 99/61, respiration 20, temperature 97.5, pulse ox 92% on room air. HEENT: Conjunctivae normal. Oral mucosa moist. NECK: No jugular venous distention. No carotid bruit. No lymph node enlargement. CARDIOVASCULAR SYSTEM: S1, S2 muffled. RESPIRATORY SYSTEM: Breath sounds diminished at the bases. Bilateral scattered rhonchi and crackles. ABDOMEN: Soft, non-tender. LEGS: No edema. No swelling. NERVOUS SYSTEM: No focal deficit. LABS: WBC 5.5, hemoglobin 12.2, sodium 138, potassium 4.2. ASSESSMENT: 1. Right-sided pneumonia, possibly community-acquired. 2. Fall and left femur and left leg pain. 3. Possible transverse missed displaced fracture of the mid shaft of the femur. 4. Multiple myeloma. 5. History of diabetes mellitus, type 2. 6. History of deep vein thrombosis. 7. Fibromyalgia. 8. Gastroesophageal reflux disease. 9. Hyperlipidemia. 10.Gait dysfunction. 11.FULL CODE. RECOMMENDATIONS AND DISCUSSION: I recommend to continue current management, continue symptomatic treatment. The CT scan of the chest reports evaluated. The brain CT scan showed mild sinusitis. Otherwise, the pelvis x-ray showed no abnormality of the pelvis. Hip x-ray showed a transverse nondisplaced fracture of the mid shaft of the femur. I would also recommend orthopedic evaluation. The fracture is possibly not acute at this time; however, we will continue to monitor. PT/OT evaluation. Also recommend evaluate pain medications. Guarded prognosis because of multiple complex medical issues. Further recommendations to follow. MMODL / IJN: [id number] /
[2018-11-27] MEDS: LENALIDOMIDE PO SCH (23:34)
[2018-11-28] MEDS: ZOLPIDEM 10 MG TAB PO PRN ×2 (01:04→22:13)
[2018-11-28] MEDS: methylPREDNISolone SOD SUCCI 125 MG/2 ML VIAL IV SCH ×2 (05:50→13:33)
[2018-11-28 07:05] LABS: Glucose,Whole Blood 182 mg/dL (75-99)
[2018-11-28] MEDS: IPRATROPIUM-ALBUTEROL 3 ML NEB INHALATION SCH ×4 (07:56→20:56)
[2018-11-28 08:03] LABS: Basophils % (A) 0 %; Eosinophils % (A) 1 %; HCT 39.3 % (34.0-46.0); HGB 12.5 gm/dL (11.4-16.0); Hypochromasia Slight; Lymphocytes # (A) 0.3 k/uL (1.0-4.8); Lymphocytes % (A) 6 %; MCH 31.8 pg (25.0-35.0); MCHC 31.8 g/dL (31.0-37.0); MCV 99.9 fL (80.0-100.0); Macrocytosis Slight; Mean Platelet Volume 7.6; Monocytes # (A) 0.2 k/uL (0-1.0); Monocytes % (A) 4 %; Neutrophils # (A) 4.9 k/uL (1.3-7.7); Neutrophils % (A) 89 %; Platelet Count 201 k/uL (150-450); RBC 3.94 m/uL (3.80-5.40); RDW 15.7 % (11.5-15.5); WBC 5.5 k/uL (3.8-10.6)
[2018-11-28 08:15] LABS: Anion Gap 6 mmol/L; Blood Urea Nitrogen 15 mg/dL (7-17); Calcium 8.6 mg/dL (8.4-10.2); Carbon Dioxide 27 mmol/L (22-30); Chloride 108 mmol/L (98-107); Glucose 183 mg/dL (74-99); Potassium 4.5 mmol/L (3.5-5.1); Sodium 141 mmol/L (137-145)
[2018-11-28] MEDS: LORATADINE 10 MG TAB PO SCH (08:54)
[2018-11-28] MEDS: FAMOTIDINE 20 MG TAB PO SCH (08:54)
[2018-11-28] MEDS: INSULIN ASPART 100 UNIT/ML 1 ML 10 ML VIAL SQ SCH ×4 (08:54→20:31)
[2018-11-28] MEDS: metFORMIN 500 MG TAB PO SCH ×2 (08:54→18:31)
[2018-11-28] MEDS: MULTIVITAMINS, THERA 1 EACH TAB PO SCH (08:55)
[2018-11-28] MEDS: CHOLECALCIFEROL 1,000 UNIT TAB PO SCH (08:55)
[2018-11-28] MEDS: CYANOCOBALAMIN 500 MCG TAB PO SCH (08:56)
[2018-11-28] MEDS: ACYCLOVIR 200 MG CAP PO SCH ×2 (08:57→20:31)
[2018-11-28] MEDS: APIXABAN 5 MG TAB PO SCH ×2 (08:57→20:30)
[2018-11-28] MEDS: guaiFENesin 600 MG TABLET.ER PO SCH ×2 (08:57→20:31)
[2018-11-28] MEDS: HYDROcodone/APAP 5-325MG 1 EACH TAB PO PRN ×4 (09:02→22:13)
--- NOTE | 2018-11-28 09:51 | P.CNOR ---
History of Present Illness - HPI Consult date: 11/28/18 Consult reason: fracture (Possible subacute midshaft femur fracture) History of present illness: The patient is a 63-year-old female who is a history of multiple myeloma that is currently in the hospital for pneumonia and weakness. She states that she fell twice at home recently and has developed increased left thigh pain. Orthopedics was consulted for a possible subacute midshaft femur fracture. She does have a history of a pathologic fracture to the left distal femur and 2012 that was repaired by Dr. Segura, an oncology orthopedic surgeon. She has most recently follow-up with Dr. Ortiz less than a year ago but has not seen him recently. X-rays in June and October in our system reveal a stable position of the plate and screws, the most proximal screw has been broken for some time. X-rays taken on this admission revealed a nondisplaced fracture to the midshaft femur at the most proximal screw site. Upon reviewing the x-ray from October 2018, there was a possible fracture at that time as well. The patient is receiving treatment by oncology and radiation therapy. Internal medicine and pulmonology are also on the case due to the pneumonia. Today, the patient states that her pain is controlled. She does have quite a bit of pain when she puts weight into the left leg which is new since the recent 2 falls. She denies any numbness or tingling in the leg. No other injuries noted at this time. Review of Systems Constitutional: Denies chills, Denies fatigue, Denies fever Cardiovascular: Reports shortness of breath, Denies chest pain Respiratory: Denies cough Gastrointestinal: Denies diarrhea, Denies nausea, Denies vomiting Musculoskeletal: Reports as per HPI, Reports fractures Past Medical History Past Medical History: Cancer, Diabetes Mellitus, Deep Vein Thrombosis (DVT), Fibromyalgia, GERD/Reflux, Hyperlipidemia Additional Past Medical History / Comment(s): multiple myloma -chemo every other week, uti-ecoli ,kidney stone/polynephritis History of Any Multi-Drug Resistant Organisms: None Reported Past Surgical History: Orthopedic Surgery Past Anesthesia/Blood Transfusion Reactions: Previous Problems w/ Anesthesia Additional Past Anesthesia/Blood Transfusion Reaction / Comm: DIFFICULT INTUBATION WHEN HAVING PREVIOUS LEFT KNEE SURGERIES Smoking Status: Never smoker - Past Family History Father Family Medical History: Cancer Mother Additional Family Medical History / Comment(s): from ALS Medications and Allergies Home Medications Medication Instructions Recorded Confirmed Type Acyclovir 400 mg PO BID 01/05/18 11/26/18 History Cholecalciferol (Vitamin D3) 4,000 unit PO DAILY 01/05/18 11/26/18 History [Vitamin D3] Cyanocobalamin [Vitamin B-12] 500 mcg PO DAILY 01/05/18 11/26/18 History Loperamide [Imodium] 2 mg PO DAILY PRN 01/05/18 11/26/18 History Pyridoxine [Vitamin B-6] 50 mg PO DAILY 01/05/18 11/26/18 History Ranitidine HCl [Zantac] 150 mg PO DAILY 01/05/18 11/26/18 History metFORMIN HCL [Glucophage] 500 mg PO BID 01/05/18 11/26/18 History Prochlorperazine Maleate 10 mg PO Q6H PRN 05/04/18 11/26/18 History Zolpidem [Ambien] 10 mg PO HS 05/04/18 11/26/18 History Amoxicillin 500 mg PO TID 11/26/18 11/26/18 History Apixaban [Eliquis] 5 mg PO BID 11/26/18 11/26/18 History Fexofenadine HCl 180 mg PO DAILY 11/26/18 11/26/18 History Hydrocodone/Acetaminophen [[place] 1 tab PO Q6H PRN 11/26/18 11/26/18 History 10-325] Lenalidomide [Revlimid] 25 mg PO DIRECTED 11/26/18 11/26/18 History Allergies Allergy/AdvReac Type Severity Reaction Status Date / Time No Known Allergies Allergy Verified 11/26/18 07:55 Physical Examination The patient is a 63-year-old female who is in no acute distress. She is alert and oriented 3. Exam of the left lower extremity reveals a well-healed incision to the lateral aspect of the thigh. No obvious deformity or open wounds seen. There is pain to palpation to the thigh and calf area. Homans sign is negative. There is good foot and ankle motion to the leg. There is pain to any range of motion of the leg at this time. Neurological and circulatory status is intact. Results X-rays of the left femur dated 11/26/2018 reveal a transverse fracture of the midshaft femur that was probably present on exam dated 11/04/2018. No displacement noted. The most proximal screw is broken. Plate and screws are intact. - Labs Labs: Abnormal Lab Results - Last 24 Hours (Table) 11/27/18 11/27/18 11/27/18 Range/Units 11:14 17:05 18:54 RDW (11.5-15.5) % Lymphocytes # (1.0-4.8) k/uL Chloride (98-107) mmol/L Creatinine (0.52-1.04) mg/dL Glucose (74-99) mg/dL POC Glucose (mg/dL) 190 H 147 H 128 H (75-99) mg/dL 11/27/18 11/28/18 11/28/18 Range/Units 20:03 06:33 06:33 RDW 15.7 H (11.5-15.5) % Lymphocytes # 0.3 L (1.0-4.8) k/uL Chloride 108 H (98-107) mmol/L Creatinine 0.43 L (0.52-1.04) mg/dL Glucose 183 H (74-99) mg/dL POC Glucose (mg/dL) 169 H (75-99) mg/dL 11/28/18 Range/Units 07:04 RDW (11.5-15.5) % Lymphocytes # (1.0-4.8) k/uL Chloride (98-107) mmol/L Creatinine (0.52-1.04) mg/dL Glucose (74-99) mg/dL POC Glucose (mg/dL) 182 H (75-99) mg/dL Microbiology - Last 24 Hours (Table) 11/27/18 15:24 Gram Stain - Preliminary Sputum 11/26/18 18:15 Urine Culture - Final Urine,Voided 11/26/18 05:28 Blood Culture Gram Stain - Preliminary Blood Blood Culture - Preliminary Coagulase Negative Staph H & H 11/26/18 11/27/18 11/28/18 Range/Units 05:28 08:06 06:33 Hgb 13.0 12.2 12.5 (11.4-16.0) gm/dL Hct 39.6 37.8 39.3 (34.0-46.0) % Coagulation 11/26/18 Range/Units 05:28 INR 1.1 (<1.2) Result Diagrams: 11/28/18 06:33 11/28/18 06:33 Assessment and Plan (1) Closed femur fracture Current Visit: Yes Status: Acute Code(s): S72.90XA - UNSP FRACTURE OF UNSP FEMUR, INIT ENCNTR FOR CLOSED FRACTURE SNOMED Code(s): 23509974 (2) Fall Current Visit: Yes Status: Acute Code(s): W19.XXXA - UNSPECIFIED FALL, INITIAL ENCOUNTER SNOMED Code(s): 4651671 (3) Multiple myeloma Current Visit: No Status: Acute Code(s): C90.00 - MULTIPLE MYELOMA NOT HAVING ACHIEVED REMISSION SNOMED Code(s): 169703466 Plan: The clinical and x-ray findings were discussed with the patient. The case was also discussed at length with Dr. Enio Pagan. We are recommending nonweightbearing to the left lower extremity and application of the knee immobilizer for support. Continue current pain control. Physical therapy and occupational therapy has been ordered to evaluate the patient. Subacute rehab may be needed depending on the patient's course. Upon discharge, the patient was encouraged to follow up with Dr. Ortiz for further management of her femur.
[2018-11-28] MEDS: PYRIDOXINE 50 MG TAB PO SCH (10:27)
[2018-11-28] MEDS: AZITHROMYCIN 500 MG TAB PO SCH (10:27)
[2018-11-28] MEDS: HYDROmorphone 0.5 MG/0.5 ML SYRINGE IVP PRN (10:29)
[2018-11-28 12:43] LABS: Glucose,Whole Blood 235 mg/dL (75-99)
[2018-11-28 17:13] LABS: Glucose,Whole Blood 172 mg/dL (75-99)
--- NOTE | 2018-11-28 19:08 | PN ---
PROGRESS NOTE DATE OF SERVICE: 11/28/2018 I am covering for Dr. Montoya. This 63-year-old woman who was admitted with right-sided pneumonia also had a fall and left leg pain also. The patient was noted to have a left femoral fracture. Orthopedics recommending nonweightbearing to the left and application of the knee immobilizer. PT/OT. Possible ECF rehab may also be a possibility. The CT scan of the brain was done which showed mild sinusitis. A CT of the chest was also done which showed bibasilar infiltrates. renal stone and mild hydronephrosis. No chest pain. No palpitations. PAST MEDICAL HISTORY: Reviewed. REVIEW OF SYSTEMS: CARDIOVASCULAR: No angina or palpitations. RESPIRATORY: As mentioned earlier. GI no nausea or vomiting. : No dysuria. NERVOUS SYSTEM: No numbness or weakness. CURRENT MEDICATIONS ARE: Reviewed and include: 1. Tylenol 650 q.6h p.r.n. 2. Critz 5 mg q.4h p.r.n. 3. Zovirax 400 mg b.i.d. 4. DuoNeb q.i.d. and p.r.n. 5. Eliquis 5 mg p.o. b.i.d. 6. Zithromax 500 mg p.o. daily. 7. Rocephin 1 g daily. 8. Vitamin D3 4000 daily. 9. Vitamin B12 500 mcg. 10.Pepcid 20 mg. 11.Mucinex. 12.Dilaudid. 13.Motrin. 14.NovoLog scale. 15.Imodium 2 mg p.o. 16.Claritin 10 mg daily. 17.Glucophage 500 mg p.o. b.i.d. 18.Solu-Medrol 60 IV q.6h. 19.Narcan. 20.Zofran. 21.Percocet 5 mg q.4h. 22.Compazine. 23.Vitamin B6. 24.Ambien. PHYSICAL EXAM: Patient is alert, oriented x3. Pulse 96, blood pressure 116/67, respirations 16 , temperature 97.7, pulse ox 92% on room air. HEENT: Conjunctivae normal. Oral mucosa moist. Neck is no jugular venous distention. No carotid bruit. No lymph node enlargement. CARDIOVASCULAR: S1, S2 muffled. RESPIRATIONS: Breath sounds diminished in the bases. Scattered rhonchi and crackles. ABDOMEN: Soft, nontender. Legs are no edema. No swelling. CENTRAL NERVOUS SYSTEM: No focal deficits. LABS: At this time shows WBC 5.2, hemoglobin 12.4, sodium 140. Accu-Cheks noted. ASSESSMENT: 1. Right-sided pneumonia possibly community acquired. 2. Fall and left leg pain, left femur fracture. 3. Possible transverse undisplaced fracture of the midshaft of the femur. 4. Multiple myeloma. 5. History of diabetes type 2. 6. History of deep vein thrombosis. 7. History of fibromyalgia. 8. Gastroesophageal reflux disease. 9. Hyperlipidemia. 10.Gait dysfunction. 11.FULL CODE. RECOMMENDATIONS AND DISCUSSION: Recommend to continue current medications, management and symptomatic treatment. Otherwise, at this time, I would recommend continue with PT/OT evaluation, possible ECF rehab. Otherwise orthopedic evaluation noted. Broad-spectrum IV antibiotics. Continue the bronchodilators and rest of the medications. Guarded prognosis because of multiple complex medical issues. We will monitor blood sugars closely. Further recommendations to follow. MMODL / IJN: [id number] / JAMESON
--- NOTE | 2018-11-28 19:29 | PN ---
PROGRESS NOTE She has some shortness of breath and cough that is bringing up sputum. She has pain in her left lower extremity. PHYSICAL EXAMINATION: Respiratory rate is 18, pulse 60, blood pressure 116/67, O2 saturation on room is 92%. HEENT is unremarkable. Chest reveals scattered crackles in the bases. Cardiovascular system reveals an S1, S2. Abdomen is soft. There is no edema white count is 5.5, hemoglobin of 12.5, sodium 141, potassium 4.4, ( ).7. IMPRESSION: 1. Bilateral lower zone pneumonia, possibly secondary to aspiration. 2. Multiple myeloma with nondisplaced fracture of the midshaft of the femur on the left. Continue her on bronchodilators, IV steroids, Rocephin. Increase her activity level per orthopedic instructions. MMODL / IJN: [id number] /
[2018-11-28 20:09] LABS: Glucose,Whole Blood 179 mg/dL (75-99)
[2018-11-28] MEDS: ESCITALOPRAM 20 MG TAB PO SCH (20:31)
[2018-11-28] MEDS: LENALIDOMIDE PO SCH (20:32)
[2018-11-29] MEDS: methylPREDNISolone SOD SUCCI 40 MG/ML 1 ML VIAL IV SCH ×2 (00:54→09:01)
[2018-11-29] MEDS: SODIUM CHLORIDE 0.9% 1,000 ML IV SCH (01:11)
[2018-11-29] MEDS: HYDROmorphone 0.5 MG/0.5 ML SYRINGE IVP PRN ×2 (02:57→19:33)
[2018-11-29] MEDS: HYDROcodone/APAP 5-325MG 1 EACH TAB PO PRN ×5 (04:17→21:37)
[2018-11-29 07:25] LABS: Glucose,Whole Blood 159 mg/dL (75-99)
[2018-11-29] MEDS: INSULIN ASPART 100 UNIT/ML 1 ML 10 ML VIAL SQ SCH ×4 (08:58→20:46)
[2018-11-29] MEDS: ESCITALOPRAM 20 MG TAB PO SCH (08:59)
[2018-11-29] MEDS: LORATADINE 10 MG TAB PO SCH (08:59)
[2018-11-29] MEDS: FAMOTIDINE 20 MG TAB PO SCH (09:00)
[2018-11-29] MEDS: ACYCLOVIR 200 MG CAP PO SCH ×2 (09:00→20:36)
[2018-11-29] MEDS: guaiFENesin 600 MG TABLET.ER PO SCH ×2 (09:00→20:36)
[2018-11-29] MEDS: CYANOCOBALAMIN 500 MCG TAB PO SCH (09:00)
[2018-11-29] MEDS: APIXABAN 5 MG TAB PO SCH ×2 (09:00→20:37)
[2018-11-29] MEDS: metFORMIN 500 MG TAB PO SCH ×2 (09:00→17:05)
[2018-11-29] MEDS: CHOLECALCIFEROL 1,000 UNIT TAB PO SCH (09:00)
[2018-11-29] MEDS: MULTIVITAMINS, THERA 1 EACH TAB PO SCH (09:00)
[2018-11-29] MEDS: AZITHROMYCIN 500 MG TAB PO SCH (09:01)
[2018-11-29 09:32] LABS: Basophils % (A) 0 %; Eosinophils % (A) 1 %; HCT 38.6 % (34.0-46.0); HGB 12.3 gm/dL (11.4-16.0); Hypochromasia Moderate; Lymphocytes # (A) 0.2 k/uL (1.0-4.8); Lymphocytes % (A) 3 %; MCH 32.2 pg (25.0-35.0); MCHC 31.9 g/dL (31.0-37.0); MCV 100.8 fL (80.0-100.0); Macrocytosis Slight; Mean Platelet Volume 7.7; Monocytes # (A) 0.7 k/uL (0-1.0); Monocytes % (A) 8 %; Neutrophils # (A) 7.5 k/uL (1.3-7.7); Neutrophils % (A) 87 %; Platelet Count 206 k/uL (150-450); RBC 3.83 m/uL (3.80-5.40); RDW 15.7 % (11.5-15.5); WBC 8.6 k/uL (3.8-10.6)
[2018-11-29] MEDS: IPRATROPIUM-ALBUTEROL 3 ML NEB INHALATION SCH ×4 (09:43→20:07)
[2018-11-29 09:52] LABS: Anion Gap 8 mmol/L; Blood Urea Nitrogen 20 mg/dL (7-17); Calcium 8.7 mg/dL (8.4-10.2); Carbon Dioxide 22 mmol/L (22-30); Chloride 108 mmol/L (98-107); Glucose 238 mg/dL (74-99); Potassium 3.9 mmol/L (3.5-5.1); Sodium 138 mmol/L (137-145)
[2018-11-29] MEDS: PYRIDOXINE 50 MG TAB PO SCH (11:46)
[2018-11-29 11:53] LABS: Glucose,Whole Blood 202 mg/dL (75-99)
--- NOTE | 2018-11-29 12:49 | P.PN ---
Subjective Progress Note Date: 11/29/18 Principal diagnosis: Left femur fracture The patient is a 63 y/o female who we have been following for a left femur fracture. The patient states that her pain is better today in the knee immobilizer. She did sit on the side of the bed with physical therapy yesterday. No new complaints today. Objective - Vital Signs Vital signs: Vital Signs Temp 98.1 F 11/29/18 05:00 Pulse 63 11/29/18 05:00 Resp 24 11/29/18 05:00 BP 126/73 11/29/18 05:00 Pulse Ox 93 L 11/29/18 05:00 Intake & Output 11/28/18 11/29/18 11/29/18 18:59 06:59 18:59 Intake Total 210 1020 Balance 210 1020 Intake: Intake, IV Titration 210 140 Amount Sodium Chloride 0.9% 1, 160 140 000 ml @ 20 mls/hr IV . Q24H BUZZ Rx#:[id number] cefTRIAXone 1,000 mg In 50 Sodium Chloride 0.9% 50 ml @ 100 mls/hr IVPB Q24HR BUZZ Rx#:[id number] Oral 880 Other: Voiding Method Bedpan Bedpan Bedpan # Voids 2 - Exam The patient is a 63-year-old female who is in no acute distress. She is alert and oriented 3. Exam of the left lower extremity reveals a well-healed incision to the lateral aspect of the thigh. Knee immobilizer in the place. No obvious deformity or open wounds seen. There is pain to palpation to the thigh and calf area. Homans sign is negative. There is good foot and ankle motion to the leg. There is pain to any range of motion of the leg at this time. Neurological and circulatory status is intact. - Labs CBC & Chem 7: 11/29/18 09:11 11/29/18 09:11 Labs: Abnormal Lab Results - Last 24 Hours (Table) 11/28/18 11/28/18 11/29/18 Range/Units 17:12 20:08 07:24 MCV (80.0-100.0) fL RDW (11.5-15.5) % Lymphocytes # (1.0-4.8) k/uL Chloride (98-107) mmol/L BUN (7-17) mg/dL Creatinine (0.52-1.04) mg/dL Glucose (74-99) mg/dL POC Glucose (mg/dL) 172 H 179 H 159 H (75-99) mg/dL 11/29/18 11/29/18 11/29/18 Range/Units 09:11 09:11 11:52 MCV 100.8 H (80.0-100.0) fL RDW 15.7 H (11.5-15.5) % Lymphocytes # 0.2 L (1.0-4.8) k/uL Chloride 108 H (98-107) mmol/L BUN 20 H (7-17) mg/dL Creatinine 0.45 L (0.52-1.04) mg/dL Glucose 238 H (74-99) mg/dL POC Glucose (mg/dL) 202 H (75-99) mg/dL Microbiology - Last 24 Hours (Table) 11/27/18 15:24 Gram Stain - Preliminary Sputum Assessment and Plan (1) Closed femur fracture Current Visit: Yes Status: Acute Code(s): S72.90XA - UNSP FRACTURE OF UNSP FEMUR, INIT ENCNTR FOR CLOSED FRACTURE SNOMED Code(s): 99569096 (2) Fall Current Visit: Yes Status: Acute Code(s): W19.XXXA - UNSPECIFIED FALL, INITIAL ENCOUNTER SNOMED Code(s): 1800555 (3) Multiple myeloma Current Visit: No Status: Acute Code(s): C90.00 - MULTIPLE MYELOMA NOT HAVING ACHIEVED REMISSION SNOMED Code(s): 854501454 Plan: The clinical and x-ray findings were discussed with the patient. The case was also discussed at length with Dr. Enio Pagan. We are recommending nonweightbearing to the left lower extremity and application of the knee immobilizer for support. Continue current pain control. Physical therapy and occupational therapy has been ordered to evaluate the patient. Subacute rehab may be needed depending on the patient's course. Upon discharge, the patient was encouraged to follow up with Dr. Ortiz for further management of her femur. We will be signing off at this time.
--- NOTE | 2018-11-29 16:10 | PN ---
PROGRESS NOTE DATE OF SERVICE: 11/29/2018 She was seen on November2018. She continues to have cough, but she has less shortness of breath. PHYSICAL EXAMINATION: Her respiratory rate is 16, pulse rate of 80, temperature 98.2, blood pressure 146/72, O2 saturation on room air is 91%. HEENT: Unremarkable. Chest reveals decreased breath sounds at bases. Cardiovascular system is S1, S2. Abdomen is soft. There is no pedal edema. LABS: Reveal a white count 8.6, hemoglobin of 12.3, sodium 138, potassium 3.9, chloride 108, bicarb 22, BUN 20, creatinine 0.85. IMPRESSION: At this time: 1. Multiple myeloma with left femur fracture. 2. Pneumonia possibly secondary to aspiration. Switch to oral steroids. Continue antibiotics. Increase activity level. She may be a candidate for inpatient rehab. TASIA / CRYSTAL: [id number] /
[2018-11-29 16:54] LABS: Glucose,Whole Blood 129 mg/dL (75-99)
[2018-11-29] MEDS: LENALIDOMIDE PO SCH (20:38)
[2018-11-29 20:43] LABS: Glucose,Whole Blood 173 mg/dL (75-99)
[2018-11-29] MEDS: ZOLPIDEM 10 MG TAB PO PRN (22:03)
[2018-11-30] MEDS: HYDROcodone/APAP 5-325MG 1 EACH TAB PO PRN ×5 (02:18→22:08)
--- NOTE | 2018-11-30 05:43 | PN ---
PROGRESS NOTE DATE OF SERVICE: 11/29/2018 I am covering for Dr. Montoya. This 63-year-old woman who was admitted with right-sided pneumonia possibly community- acquired, also had a fall and leg pain also. Patient is being closely monitor. PT, OT evaluated the patient. No chest pain or palpitations. No fever. PHYSICAL EXAMINATION: On exam, alert and oriented x3. Pulse 80 blood pressure 146/72, respirations 16, temperature 98.2, pulse ox 91% on room air. HEENT: Conjunctivae normal. NECK: No jugular venous distention. CARDIOVASCULAR: S1 and S2 muffled. RESPIRATORY: Breath sounds diminished at the bases. A few rhonchi. No crackles. ABDOMEN: Soft, nontender. LEGS: No edema, no swelling. NERVOUS SYSTEM: No focal deficits. LABS: WBC 8.6, hemoglobin 12.3. Accu-Cheks noted. ASSESSMENT: 1. Right-sided pneumonia possibly community acquired. 2. Fall and left leg pain, left femur fracture. There is possible transverse and displaced fracture of the midshaft of the femur. 3. Multiple myeloma. 4. History of diabetes mellitus type 2. 5. History of deep vein thrombosis. 6. History of fibromyalgia. 7. History of gastroesophageal reflux disease. 8. Hyperlipidemia. 9. History of gait dysfunction. 10.FULL CODE. RECOMMENDATIONS AND DISCUSSION: Recommend to continue current medications, continue with monitoring and symptomatic treatment. Otherwise at this time I would recommend closely follow with multiple consultants. PT, OT evaluation, possible ECF rehab. Guarded prognosis. Further recommendations to follow. MMODL / IJN: [id number] /
[2018-11-30] MEDS: PROCHLORPERAZINE 10 MG TAB PO PRN (05:44)
--- NOTE | 2018-11-30 06:36 | P.CONS ---
History of Present Illness - Chief Complaint Walking difficulty - History of Present Illness I had the opportunity to see patient for inpatient rehab consultation regarding walking difficulty. She was admitted to [facility] November 26 with weakness and falls. Seen by EMS 2 times and brought in because of severe weakness. Seen by Dr. Owens who notes right side community-acquired pneumonia. Seen by Dr. Enio Pagan who notes transverse midshaft left femur fracture currently with nonweightbearing and leg immobilizer. Chest CT demonstrates bibasilar infiltrates and nonobstructing right renal calculi. Head CT with mild sinusitis only. Pelvic x-ray negative. Hip and femur x-ray consistent with transverse midshaft fracture. PT and OT prescribed. Previous functional history as elicited from patient: 63-year-old right-handed white female who is lives in one floor home with . does the laundry, in the basement. Patient does the cooking and is independent with driving, standing shower and gait with roller walker at night. Regular doctors are Drs. Montoya and Ronny. Family history mother with ALS and father with cancer. Review of Systems Review of systems: ENT: Denies sneezes or discharge. Eyes: Denies discharge or photophobia. Cardiac: Denies chest pain or palpitation. Pulmonary: Mild shortness of breath. Breast: Denies discharge or lumps. Gastrointestinal: Denies nausea, emesis, constipation, diarrhea. Genitourinary: Denies discharge or frequency. Musculoskeletal: Left thigh pain or discomfort. Neurologic: Generalized weakness. Endocrine: Denies shakes or sweats. Oncology: Denies cancers. Dermatologic: Denies rash, itching, pruritus. ALLERGY/immunology: Denies sneezes, rashes. Past Medical History Past Medical History: Cancer, Diabetes Mellitus, Deep Vein Thrombosis (DVT), Fibromyalgia, GERD/Reflux, Hyperlipidemia Additional Past Medical History / Comment(s): multiple myloma -chemo every other week, uti-ecoli ,kidney stone/polynephritis History of Any Multi-Drug Resistant Organisms: None Reported Past Surgical History: Orthopedic Surgery Past Anesthesia/Blood Transfusion Reactions: Previous Problems w/ Anesthesia Additional Past Anesthesia/Blood Transfusion Reaction / Comm: DIFFICULT INTUBATION WHEN HAVING PREVIOUS LEFT KNEE SURGERIES Smoking Status: Never smoker - Past Family History Father Family Medical History: Cancer Mother Additional Family Medical History / Comment(s): from ALS Medications and Allergies Home Medications Medication Instructions Recorded Confirmed Type Acyclovir 400 mg PO BID 01/05/18 11/26/18 History Cholecalciferol (Vitamin D3) 4,000 unit PO DAILY 01/05/18 11/26/18 History [Vitamin D3] Cyanocobalamin [Vitamin B-12] 500 mcg PO DAILY 01/05/18 11/26/18 History Loperamide [Imodium] 2 mg PO DAILY PRN 01/05/18 11/26/18 History Pyridoxine [Vitamin B-6] 50 mg PO DAILY 01/05/18 11/26/18 History Ranitidine HCl [Zantac] 150 mg PO DAILY 01/05/18 11/26/18 History metFORMIN HCL [Glucophage] 500 mg PO BID 01/05/18 11/26/18 History Prochlorperazine Maleate 10 mg PO Q6H PRN 05/04/18 11/26/18 History Zolpidem [Ambien] 10 mg PO HS 05/04/18 11/26/18 History Amoxicillin 500 mg PO TID 11/26/18 11/26/18 History Apixaban [Eliquis] 5 mg PO BID 11/26/18 11/26/18 History Fexofenadine HCl 180 mg PO DAILY 11/26/18 11/26/18 History Hydrocodone/Acetaminophen [[place] 1 tab PO Q6H PRN 11/26/18 11/26/18 History 10-325] Lenalidomide [Revlimid] 25 mg PO DIRECTED 11/26/18 11/26/18 History Escitalopram Oxalate [Lexapro] 1 tab PO DAILY 11/28/18 11/28/18 History Allergies Allergy/AdvReac Type Severity Reaction Status Date / Time No Known Allergies Allergy Verified 11/26/18 07:55 Physical Exam Vitals: Vital Signs Temp Pulse Resp BP Pulse Ox 11/30/18 05:00 97.6 F 61 16 148/81 91 L 11/29/18 21:00 98.3 F 56 L 16 143/67 90 L 11/29/18 12:29 98.2 F 80 16 146/72 91 L Intake and Output 11/29/18 11/29/18 11/30/18 14:59 22:59 06:59 Intake Total 1909 590 Balance 1909 590 Intake: Intake, IV Titration 210 Amount Sodium Chloride 0.9% 1, 160 000 ml @ 20 mls/hr IV . Q24H BUZZ Rx#:[id number] cefTRIAXone 1,000 mg In 50 Sodium Chloride 0.9% 50 ml @ 100 mls/hr IVPB Q24HR BUZZ Rx#:[id number] Oral 1700 590 Other: Voiding Method Bedpan Bedpan # Voids 3 2 2 # Bowel Movements 1 Skin: Good color, texture, turgor. General: Medium build and comfortable appearance. Head: Normocephalic, atraumatic. Eyes: Symmetric. Pupils equal round. Ears: Symmetric. Hearing within normal limits. Mouth: Clear. Neck: Supple. Carotid without bruit. Cardiac: Regular rate and rhythm. Lungs: Clear anteriorly and posteriorly. Abdomen: Soft active nontender. Extremities: Normal tone. Neurological: Mental status: Alert, cooperative, pleasant. Cranial nerves: Symmetric facial tone and trapezius. Motor: Can actively elevate arms. Active movement right leg and left ankle.. Sensation: Intact throughout. DTRs: Symmetric and equal throughout. Mobility: Did not attempt to sit or stand is with leg in immobilizer. Results CBC & Chem 7: 11/29/18 09:11 11/29/18 09:11 Labs: Abnormal Lab Results - Last 24 Hours (Table) 11/29/18 11/29/18 11/29/18 Range/Units 07:24 09:11 09:11 MCV 100.8 H (80.0-100.0) fL RDW 15.7 H (11.5-15.5) % Lymphocytes # 0.2 L (1.0-4.8) k/uL Chloride 108 H (98-107) mmol/L BUN 20 H (7-17) mg/dL Creatinine 0.45 L (0.52-1.04) mg/dL Glucose 238 H (74-99) mg/dL POC Glucose (mg/dL) 159 H (75-99) mg/dL 11/29/18 11/29/18 11/29/18 Range/Units 11:52 16:54 20:41 MCV (80.0-100.0) fL RDW (11.5-15.5) % Lymphocytes # (1.0-4.8) k/uL Chloride (98-107) mmol/L BUN (7-17) mg/dL Creatinine (0.52-1.04) mg/dL Glucose (74-99) mg/dL POC Glucose (mg/dL) 202 H 129 H 173 H (75-99) mg/dL Assessment and Plan (1) Closed femur fracture Current Visit: Yes Status: Acute Code(s): S72.90XA - UNSP FRACTURE OF UNSP FEMUR, INIT ENCNTR FOR CLOSED FRACTURE SNOMED Code(s): 41043453 (2) Pneumonia Current Visit: Yes Status: Acute Code(s): J18.9 - PNEUMONIA, UNSPECIFIED ORGANISM SNOMED Code(s): 053644455 Plan: Impression: 1. Walking difficulty. 2. Left femur fracture. 3. Right side community-acquired pneumonia. 4. Multiple myeloma with history of femur fracture 2011. 5. Diabetes. 6. History DVT. Comments and plan: PT and OT prescribed per orthopedics and no nonweightbearing left leg. Follow therapies with yourself but currently guarded.
[2018-11-30 07:06] LABS: Anisocytosis Slight; Basophils % (A) 0 %; Eosinophils # (A) 0.1 k/uL (0-0.7); Eosinophils % (A) 1 %; HCT 39.2 % (34.0-46.0); HGB 12.3 gm/dL (11.4-16.0); Lymphocytes # (A) 0.2 k/uL (1.0-4.8); Lymphocytes % (A) 4 %; MCHC 31.5 g/dL (31.0-37.0); MCV 98.4 fL (80.0-100.0); Macrocytosis Slight; Mean Platelet Volume 7.4; Monocytes # (A) 0.5 k/uL (0-1.0); Monocytes % (A) 9 %; Neutrophils # (A) 4.8 k/uL (1.3-7.7); Neutrophils % (A) 83 %; Platelet Count 190 k/uL (150-450); RBC 3.98 m/uL (3.80-5.40); RDW 16.1 % (11.5-15.5); WBC 5.7 k/uL (3.8-10.6)
[2018-11-30 07:12] LABS: Glucose,Whole Blood 75 mg/dL (75-99)
[2018-11-30 07:16] LABS: Anion Gap 3 mmol/L; Blood Urea Nitrogen 19 mg/dL (7-17); Calcium 8.4 mg/dL (8.4-10.2); Carbon Dioxide 28 mmol/L (22-30); Chloride 107 mmol/L (98-107); Glucose 80 mg/dL (74-99); Potassium 3.8 mmol/L (3.5-5.1); Sodium 138 mmol/L (137-145)
[2018-11-30] MEDS: IPRATROPIUM-ALBUTEROL 3 ML NEB INHALATION SCH ×4 (07:52→21:24)
[2018-11-30] MEDS: INSULIN ASPART 100 UNIT/ML 1 ML 10 ML VIAL SQ SCH ×4 (08:17→20:49)
[2018-11-30] MEDS: HYDROmorphone 0.5 MG/0.5 ML SYRINGE IVP PRN (08:25)
[2018-11-30] MEDS: APIXABAN 5 MG TAB PO SCH ×2 (08:26→20:49)
[2018-11-30] MEDS: FAMOTIDINE 20 MG TAB PO SCH (08:26)
[2018-11-30] MEDS: predniSONE 20 MG TAB PO SCH (08:26)
[2018-11-30] MEDS: ACYCLOVIR 200 MG CAP PO SCH ×2 (08:26→20:49)
[2018-11-30] MEDS: CHOLECALCIFEROL 1,000 UNIT TAB PO SCH (08:26)
[2018-11-30] MEDS: AZITHROMYCIN 500 MG TAB PO SCH (08:26)
[2018-11-30] MEDS: CYANOCOBALAMIN 500 MCG TAB PO SCH (08:26)
[2018-11-30] MEDS: ESCITALOPRAM 20 MG TAB PO SCH (08:26)
[2018-11-30] MEDS: LORATADINE 10 MG TAB PO SCH (08:26)
[2018-11-30] MEDS: metFORMIN 500 MG TAB PO SCH ×2 (08:26→18:12)
[2018-11-30] MEDS: guaiFENesin 600 MG TABLET.ER PO SCH ×2 (08:26→20:49)
[2018-11-30] MEDS: SODIUM CHLORIDE 0.9% 1,000 ML IV SCH (08:33)
[2018-11-30] MEDS: PYRIDOXINE 50 MG TAB PO SCH (08:33)
--- NOTE | 2018-11-30 09:29 | P.PN ---
Subjective Progress Note Date: 11/30/18 Patient examined at the bedside. She is awake and alert. Eating breakfast. Immobilizer to left lower extremity. Complains of back spasms this morning. Vital signs are stable. Objective - Vital Signs Vital signs: Vital Signs Temp 97.6 F 11/30/18 05:00 Pulse 64 11/30/18 07:59 Resp 16 11/30/18 05:00 BP 148/81 11/30/18 05:00 Pulse Ox 91 L 11/30/18 05:00 Intake & Output 11/29/18 11/30/18 11/30/18 18:59 06:59 18:59 Intake Total 1910 590 Balance 1910 590 Intake: Intake, IV Titration 210 Amount Sodium Chloride 0.9% 1, 160 000 ml @ 20 mls/hr IV . Q24H [facility] Rx#:[id number] cefTRIAXone 1,000 mg In 50 Sodium Chloride 0.9% 50 ml @ 100 mls/hr IVPB Q24HR [facility] Rx#:[id number] Oral 1700 590 Other: Voiding Method Bedpan Bedpan # Voids 3 2 # Bowel Movements 1 - Exam GENERAL: This is a 63-year-old female in no apparent distress at the time of examination. Pleasant and cooperative. HEENT: Head is atraumatic, normocephalic. Pupils are equal, round, and reactive to light. Sclerae anicteric. Conjunctivae are clear. Mucus membranes of the mouth are moist. Neck is supple. RESPIRATORY: Diminished with some expiratory wheezing noted. No use of accessory muscles. Patient maintaining oxygen saturation greater than 92%. No chest wall tenderness is noted on palpation or with deep breathing. CARDIOVASCULAR: Regular rate and rhythm. S1 and S2 noted. No systolic or diastolic murmur auscultated. No JVD noted. No S3 or S4 noted. GASTROINTESTINAL: No distention noted. Abdomen soft and round. Normal active bowel sounds auscultated x 4 quadrants. No pain or tenderness noted upon palpation. INTEGUMENTARY: No cyanosis. No jaundice. No rashes noted. No cellulitis noted. EXTREMITIES: Immobilizer to left lower extremity. 2+ peripheral pulses. trace bilateral lower extremity edema. No calf tenderness noted. NEUROLOGIC: Cranial nerves II-XII intact. PSYCHIATRIC: Awake, alert, and oriented X 3. Appropriate affect. Intact judgement and insight. - Labs CBC & Chem 7: 11/30/18 06:35 11/30/18 06:35 Labs: Abnormal Lab Results - Last 24 Hours (Table) 11/29/18 11/29/18 11/29/18 Range/Units 09:11 09:11 11:52 MCV 100.8 H (80.0-100.0) fL RDW 15.7 H (11.5-15.5) % Lymphocytes # 0.2 L (1.0-4.8) k/uL Chloride 108 H (98-107) mmol/L BUN 20 H (7-17) mg/dL Creatinine 0.45 L (0.52-1.04) mg/dL Glucose 238 H (74-99) mg/dL POC Glucose (mg/dL) 202 H (75-99) mg/dL 11/29/18 11/29/18 11/30/18 Range/Units 16:54 20:41 06:35 MCV (80.0-100.0) fL RDW 16.1 H (11.5-15.5) % Lymphocytes # 0.2 L (1.0-4.8) k/uL Chloride (98-107) mmol/L BUN (7-17) mg/dL Creatinine (0.52-1.04) mg/dL Glucose (74-99) mg/dL POC Glucose (mg/dL) 129 H 173 H (75-99) mg/dL 11/30/18 Range/Units 06:35 MCV (80.0-100.0) fL RDW (11.5-15.5) % Lymphocytes # (1.0-4.8) k/uL Chloride (98-107) mmol/L BUN 19 H (7-17) mg/dL Creatinine (0.52-1.04) mg/dL Glucose (74-99) mg/dL POC Glucose (mg/dL) (75-99) mg/dL Assessment and Plan Plan: ASSESSMENT: Right sided pneumonia, community acquired Fall with left femur fracture Inability to ambulate secondary to above Diabetes mellitus type II History of DVT History of fibromyalgia History of multiple myeloma GERD Hyperlipidemia PLAN: Continue antibiotics. Continue nebulizer treatments. Oral steroids per pulmonary. PT/OT. Discharge planning includes inpatient rehab VS subacute rehab. Patient requesting [facility] or [facility]. Anticipate discharge in the next 48 hours. Nurse practitioner note has been reviewed by physician. Signing provider agrees with the documented findings, assessment, and plan of care.
[2018-11-30 11:14] LABS: Glucose,Whole Blood 116 mg/dL (75-99)
[2018-11-30] MEDS: MULTIVITAMINS, THERA 1 EACH TAB PO SCH (11:23)
[2018-11-30 17:32] LABS: Glucose,Whole Blood 147 mg/dL (75-99)
[2018-11-30 20:48] LABS: Glucose,Whole Blood 152 mg/dL (75-99)
[2018-11-30] MEDS: LENALIDOMIDE PO SCH (20:49)
[2018-11-30] MEDS: ZOLPIDEM 10 MG TAB PO PRN (22:08)
[2018-12-01] MEDS: SODIUM CHLORIDE 0.9% 1,000 ML IV SCH (04:52)
[2018-12-01 07:18] LABS: Glucose,Whole Blood 86 mg/dL (75-99)
[2018-12-01] MEDS: predniSONE 20 MG TAB PO SCH (07:18)
[2018-12-01] MEDS: ACYCLOVIR 200 MG CAP PO SCH ×2 (07:18→20:47)
[2018-12-01] MEDS: APIXABAN 5 MG TAB PO SCH ×2 (07:18→20:47)
[2018-12-01] MEDS: CYANOCOBALAMIN 500 MCG TAB PO SCH (07:18)
[2018-12-01] MEDS: INSULIN ASPART 100 UNIT/ML 1 ML 10 ML VIAL SQ SCH ×4 (07:18→20:47)
[2018-12-01] MEDS: FAMOTIDINE 20 MG TAB PO SCH (07:19)
[2018-12-01] MEDS: LORATADINE 10 MG TAB PO SCH (07:19)
[2018-12-01] MEDS: CHOLECALCIFEROL 1,000 UNIT TAB PO SCH (07:19)
[2018-12-01] MEDS: HYDROcodone/APAP 5-325MG 1 EACH TAB PO PRN ×4 (07:19→22:17)
[2018-12-01] MEDS: guaiFENesin 600 MG TABLET.ER PO SCH ×2 (07:19→20:47)
[2018-12-01] MEDS: metFORMIN 500 MG TAB PO SCH ×2 (07:19→17:59)
[2018-12-01] MEDS: ESCITALOPRAM 20 MG TAB PO SCH (07:23)
[2018-12-01] MEDS: AZITHROMYCIN 500 MG TAB PO SCH (07:23)
[2018-12-01] MEDS: PYRIDOXINE 50 MG TAB PO SCH (07:23)
[2018-12-01 08:12] LABS: Anisocytosis Slight; Basophils % (A) 0 %; Eosinophils # (A) 0.2 k/uL (0-0.7); Eosinophils % (A) 4 %; HCT 41.2 % (34.0-46.0); HGB 13.4 gm/dL (11.4-16.0); Lymphocytes # (A) 0.4 k/uL (1.0-4.8); Lymphocytes % (A) 8 %; MCH 31.6 pg (25.0-35.0); MCHC 32.6 g/dL (31.0-37.0); Mean Platelet Volume 7.5; Monocytes # (A) 0.5 k/uL (0-1.0); Monocytes % (A) 9 %; Neutrophils # (A) 3.8 k/uL (1.3-7.7); Neutrophils % (A) 74 %; Platelet Count 175 k/uL (150-450); RBC 4.24 m/uL (3.80-5.40); WBC 5.2 k/uL (3.8-10.6)
[2018-12-01 08:18] LABS: Anion Gap 8 mmol/L; Blood Urea Nitrogen 16 mg/dL (7-17); Calcium 8.7 mg/dL (8.4-10.2); Carbon Dioxide 28 mmol/L (22-30); Chloride 102 mmol/L (98-107); Glucose 98 mg/dL (74-99); Potassium 3.9 mmol/L (3.5-5.1); Sodium 138 mmol/L (137-145)
[2018-12-01] MEDS: IPRATROPIUM-ALBUTEROL 3 ML NEB INHALATION SCH ×4 (08:57→21:08)
--- NOTE | 2018-12-01 09:05 | P.DS ---
Providers Date of admission: 11/26/18 06:32 Expected date of discharge: 12/01/18 Attending physician: Seth Montoya Consults: 11/26/18 06:34 Consult Physician Stat Consulting Provider: Daniel Jefferson Consult Reason/Comments: Multiple Myeloma, Weakness, Pneumonia Do you want consulting provider notified?: Yes, Notify in am 11/26/18 15:27 Consult Physician Routine Consulting Provider: Eben Owens Consult Reason/Comments: pneumonis Do you want consulting provider notified?: Yes 11/27/18 13:22 Consult Physician Routine Consulting Provider: Enio Pagan Consult Reason/Comments: femur fracture Do you want consulting provider notified?: Yes 11/28/18 13:41 Consult Physician Routine Consulting Provider: Kevin Marcus Consult Reason/Comments: inpatient rehab/left leg fracture Do you want consulting provider notified?: Yes Primary care physician: Seth Montoya Hospital Course: Patient originally presented to the hospital due to weakness. She reports falling at home. She also complained of SOB. She was diagnosed with right sided pneumonia. She was treated with IV antibiotics. She was followed by pulmonary during hospitalization. She was also started on steroids which have been transitioned to oral. She was evaluated by orthopedics during hospitalization due to complaints of left lower extremity pain. She does have a history of a pathologic fracture to the left distal femur and 2012 that was repaired by Dr. Segura, an oncology orthopedic surgeon. She has most recently follow-up with Dr. Ortiz less than a year ago but has not seen him recently. X-rays in June and October in our system reveal a stable position of the plate and screws, the most proximal screw has been broken for some time. X-rays taken on this admission revealed a nondisplaced fracture to the midshaft femur at the most proximal screw site. Upon reviewing the x-ray from October 2018, there was a possible fracture at that time as well. Per orthopedics the patient is to be nonweightbearing to left lower extremity. Her left leg is currently in an immobilizer. She is to follow-up with Dr. Ortiz after discharge. She has been working with physical therapy and occupational therapy during hospitalization. Subacute rehab was recommended the time of discharge. The patient is requesting [facility]. She is stable for discharge today to subacute rehab. Discharge Diagnosis: Right sided pneumonia, community acquired Fall with left femur fracture Inability to ambulate secondary to above Diabetes mellitus type II History of DVT History of fibromyalgia History of multiple myeloma GERD Hyperlipidemia Nurse practitioner note has been reviewed by physician. Signing provider agrees with the documented findings, assessment, and plan of care. Patient Condition at Discharge: Stable Plan - Discharge Summary Discharge Rx Participant: No New Discharge Prescriptions: New Azithromycin [Zithromax] 500 mg PO DAILY #3 tab Cefuroxime Axetil [Ceftin] 500 mg PO BID #14 tab guaiFENesin [Mucinex] 1,200 mg PO Q12HR tablet.er predniSONE See Taper PO DIRECTED #30 tab Zolpidem [Ambien] 10 mg PO HS PRN #3 tab PRN Reason: Sleep Continue Ranitidine HCl [Zantac] 150 mg PO DAILY Pyridoxine [Vitamin B-6] 50 mg PO DAILY metFORMIN HCL [Glucophage] 500 mg PO BID Cyanocobalamin [Vitamin B-12] 500 mcg PO DAILY Cholecalciferol (Vitamin D3) [Vitamin D3] 4,000 unit PO DAILY Acyclovir 400 mg PO BID Loperamide [Imodium] 2 mg PO DAILY PRN PRN Reason: Diarrhea Prochlorperazine Maleate 10 mg PO Q6H PRN PRN Reason: UPSET STOMACH Fexofenadine HCl 180 mg PO DAILY Lenalidomide [Revlimid] 25 mg PO DIRECTED Apixaban [Eliquis] 5 mg PO BID Escitalopram Oxalate [Lexapro] 1 tab PO DAILY Hydrocodone/Acetaminophen [[place] 10-325] 1 tab PO Q6H PRN #12 tablet PRN Reason: Pain Discontinued Zolpidem [Ambien] 10 mg PO HS Amoxicillin 500 mg PO TID Discharge Medication List Acyclovir 400 mg PO BID 01/05/18 [History] Cholecalciferol (Vitamin D3) [Vitamin D3] 4,000 unit PO DAILY 01/05/18 [History] Cyanocobalamin [Vitamin B-12] 500 mcg PO DAILY 01/05/18 [History] Loperamide [Imodium] 2 mg PO DAILY PRN 01/05/18 [History] Pyridoxine [Vitamin B-6] 50 mg PO DAILY 01/05/18 [History] Ranitidine HCl [Zantac] 150 mg PO DAILY 01/05/18 [History] metFORMIN HCL [Glucophage] 500 mg PO BID 01/05/18 [History] Prochlorperazine Maleate 10 mg PO Q6H PRN 05/04/18 [History] Apixaban [Eliquis] 5 mg PO BID 11/26/18 [History] Fexofenadine HCl 180 mg PO DAILY 11/26/18 [History] Lenalidomide [Revlimid] 25 mg PO DIRECTED 11/26/18 [History] Escitalopram Oxalate [Lexapro] 1 tab PO DAILY 11/28/18 [History] Azithromycin [Zithromax] 500 mg PO DAILY #3 tab 12/01/18 [Rx] Cefuroxime Axetil [Ceftin] 500 mg PO BID #14 tab 12/01/18 [Rx] Hydrocodone/Acetaminophen [[place] 10-325] 1 tab PO Q6H PRN #12 tablet 12/01/18 [ Rx] Zolpidem [Ambien] 10 mg PO HS PRN #3 tab 12/01/18 [Rx] guaiFENesin [Mucinex] 1,200 mg PO Q12HR tablet.er 12/01/18 [Rx] predniSONE See Taper PO DIRECTED #30 tab 12/01/18 [Rx] Follow up Appointment(s)/Referral(s): Seth Montoya DO [Primary Care Provider] - 1 Week Juliann Arcos ANPBC [Nurse Practitioner] - 12/03/18 1:15 pm [facility] [place], [NON-STAFF] - As Needed Eder Dalal MD [STAFF PHYSICIAN] - 2 Weeks Activity/Diet/Wound Care/Special Instructions: pt home meds in pharmacy. tag in chart for slat pickler. pt also has own chemo pills that need returned at discharge Nonweight bearing to left lower extremity. Patient has immobilizer Regular diet Patient is to follow up with Dr. Ortiz regarding her femur fracture Discharge Disposition: TRANSFER TO SNF/ECF
--- NOTE | 2018-12-01 10:18 | P.PN ---
Subjective Progress Note Date: 12/01/18 Principal diagnosis: Right-sided community-acquired pneumonia Acute hypoxic respiratory failure related to above History of multiple myeloma Generalized weakness and medical debility History of DVT mid shaft left femoral fracture, seen back in 12/01/2018, patient seen daytonal reexamined during the rounds clinically has been doing better cough congestion shortness breath has improved though is still present labs reviewed medications reviewed noted patient is being planned for possible discharge later on today, labs reviewed medications reviewed, would recommend patient to have early follow-up in the office This patient came in to the hospital after having shortness of breath and multiple falls at home. Patient states she has had progressive weakness that has been causing her to fall. She has been using a walker however she states she continues to trip and fall. She also states she has had a significant cough as well as progressive being short of breath. She describes her sputum is being cleared. Workup in the ER did reveal that she had a right-sided pneumonia. In the emergency room the patient was somewhat hypoxic on room air. Has pO2 of 87% and she did require supplemental oxygen. She was admitted and started on antibiotics as well as steroids and breathing treatments. The patient states she does not use breathing treatments in the home setting. She states she has never been diagnosed with COPD asthma or had any toxic inhalation exposures. She denies any smoking history. Does have dog in the home. She also had a CT of the brain which showed mild sinusitis with no acute bleeding. CT of the chest is currently pending. She did have x-rays of her hip /femur which did show a transverse nondisplaced fracture of the midshaft of the left femur. She does have a history of multiple myeloma, and states she gets chemo every other week. Objective - Vital Signs Vital signs: Vital Signs Temp 97.2 F L 12/01/18 04:55 Pulse 74 12/01/18 09:08 Resp 17 12/01/18 04:55 BP 148/70 12/01/18 04:55 Pulse Ox 97 12/01/18 04:55 Intake & Output 11/30/18 12/01/18 12/01/18 18:59 06:59 18:59 Intake Total 210 2020 Balance 210 2020 Weight 99.79 kg Intake: Intake, IV Titration 210 Amount Sodium Chloride 0.9% 1, 160 000 ml @ 20 mls/hr IV . Q24H [facility] Rx#:[id number] cefTRIAXone 1,000 mg In 50 Sodium Chloride 0.9% 50 ml @ 100 mls/hr IVPB Q24HR [facility] Rx#:[id number] Oral 2020 Other: Voiding Method Bedpan Bedpan # Voids 5 1 # Bowel Movements 1 - Exam GENERAL EXAM: Alert, obese, comfortable in no apparent distress. HEAD: Normocephalic. EYES: Normal reaction of pupils, equal size. NOSE: Clear with pink turbinates. THROAT: No erythema or exudates. NECK: No masses, no JVD. CHEST: No chest wall deformity. LUNGS: Equal air entry with expiratory wheezing noted. Bases diminished. CVS: S1 and S2 normal with no audible mumurs, regular rhythm. ABDOMEN: No hepatosplenomegaly, normal bowel sounds, no guarding or rigidity. EXTREMITIES: Trace pedal edema noted, pedal pulses palpable. CENTRAL NERVOUS SYSTEM: No focal deficits, weakness. - Labs CBC & Chem 7: 12/01/18 07:34 12/01/18 07:34 Labs: Abnormal Lab Results - Last 24 Hours (Table) 11/30/18 11/30/18 11/30/18 Range/Units 11:12 17:22 20:21 RDW (11.5-15.5) % Lymphocytes # (1.0-4.8) k/uL POC Glucose (mg/dL) 116 H 147 H 152 H (75-99) mg/dL 12/01/18 Range/Units 07:34 RDW 16.0 H (11.5-15.5) % Lymphocytes # 0.4 L (1.0-4.8) k/uL POC Glucose (mg/dL) (75-99) mg/dL Microbiology - Last 24 Hours (Table) 11/27/18 15:24 Gram Stain - Final Sputum Sputum Culture - Final 11/26/18 05:28 Blood Culture Gram Stain - Final Blood Blood Culture - Final Staphylococcus epidermidis Assessment and Plan Assessment: Aspiration pneumonia Left femoral fracture and advanced multiple myeloma Generalized weakness Advanced multiple myeloma on chemotherapy Plan: Agree with discharge planning Continue with rehab evaluation Taper and DC her steroids and oral outpatient antibiotic follow up on outpatient setting Time with Patient: Greater than 30
[2018-12-01 11:18] LABS: Glucose,Whole Blood 156 mg/dL (75-99)
[2018-12-01] MEDS: MULTIVITAMINS, THERA 1 EACH TAB PO SCH (11:51)
--- NOTE | 2018-12-01 13:12 | P.PN ---
Subjective Progress Note Date: 12/01/18 Principal diagnosis: pneumonia, on treatment for MM Pt seen today in f/u, she is going to rehabilitate for her non-displaced femur fracture. She is being treated for pneumonia. She denies fever, cough is stable, sputum that is expectorated is nearly clear, no dysuria, diarrhea, pain is managed on current analgesic regimen. Objective - Vital Signs Vital signs: Vital Signs Temp 98.1 F 12/01/18 11:17 Pulse 74 12/01/18 12:20 Resp 18 12/01/18 11:17 BP 140/70 12/01/18 11:17 Pulse Ox 92 L 12/01/18 11:17 Intake & Output 11/30/18 12/01/18 12/01/18 18:59 06:59 18:59 Intake Total 210 2020 Balance 210 2020 Weight 99.79 kg Intake: Intake, IV Titration 210 Amount Sodium Chloride 0.9% 1, 160 000 ml @ 20 mls/hr IV . Q24H [facility] Rx#:[id number] cefTRIAXone 1,000 mg In 50 Sodium Chloride 0.9% 50 ml @ 100 mls/hr IVPB Q24HR [facility] Rx#:[id number] Oral 2020 Other: Voiding Method Bedpan Bedpan # Voids 5 1 # Bowel Movements 1 - Constitutional General appearance: Present: cooperative, no acute distress, obese - EENT Eyes: Present: anicteric sclerae ENT: Present: hearing grossly normal - Respiratory Respiratory: bilateral: CTA - Cardiovascular Heart sounds: normal: S1, S2 - Gastrointestinal General gastrointestinal: Present: normal bowel sounds, soft - Musculoskeletal Musculoskeletal: Present: generalized weakness - Psychiatric Psychiatric: Present: A&O x's 3, appropriate affect, intact judgment & insight - Labs CBC & Chem 7: 12/01/18 07:34 12/01/18 07:34 Labs: Abnormal Lab Results - Last 24 Hours (Table) 11/30/18 11/30/18 12/01/18 Range/Units 17:22 20:21 07:34 RDW 16.0 H (11.5-15.5) % Lymphocytes # 0.4 L (1.0-4.8) k/uL POC Glucose (mg/dL) 147 H 152 H (75-99) mg/dL 12/01/18 Range/Units 11:17 RDW (11.5-15.5) % Lymphocytes # (1.0-4.8) k/uL POC Glucose (mg/dL) 156 H (75-99) mg/dL Microbiology - Last 24 Hours (Table) 11/27/18 15:24 Gram Stain - Final Sputum Sputum Culture - Final 11/26/18 05:28 Blood Culture Gram Stain - Final Blood Blood Culture - Final Staphylococcus epidermidis Assessment and Plan (1) Closed femur fracture Narrative/Plan: Plan of care per orthopedic recommendations Current Visit: Yes Status: Acute Priority: High Code(s): S72.90XA - UNSP FRACTURE OF UNSP FEMUR, INIT ENCNTR FOR CLOSED FRACTURE SNOMED Code(s): 69632580 (2) Multiple myeloma Narrative/Plan: Please plan for pt MM treatment: Patient is actually due for her one-week off of oral Revlimid. Patient will continue to hold Revlimid until she has been discharged from rehabilitation/ ECF. She will start a new cycle once discharged Patient does receive intravenous empliciti as part of her treatment regimen. This will be on hold until patient has been discharged from rehabilitation/ECF. Zometa is IV bisphosphonate therapy for myeloma bone lesions. This is only administered Q 3 months, not due until Dec 2018, ok to hold until discharged from rehab/ECF. Please continue patient on dexamethasone as prescribed, 20 mg weekly, please give on . Cont Acyclovir 400mg PO BID Current Visit: No Status: Chronic Priority: Medium Code(s): C90.00 - MULTIPLE MYELOMA NOT HAVING ACHIEVED REMISSION SNOMED Code(s): 074971729 (3) DVT (deep venous thrombosis) Narrative/Plan: Cont eliquis 5mg BID Current Visit: No Status: Chronic Priority: Medium Code(s): I82.409 - ACUTE EMBOLISM AND THOMBOS UNSP DEEP VN UNSP LOWER EXTREMITY SNOMED Code(s): 648735271
[2018-12-01 17:13] LABS: Glucose,Whole Blood 136 mg/dL (75-99)
[2018-12-01 20:41] LABS: Glucose,Whole Blood 126 mg/dL (75-99)
[2018-12-01] MEDS: LENALIDOMIDE PO SCH (20:47)
[2018-12-01] MEDS: ZOLPIDEM 10 MG TAB PO PRN (22:17)
[2018-12-02] MEDS: SODIUM CHLORIDE 0.9% 1,000 ML IV SCH (04:42)
[2018-12-02 07:12] LABS: Glucose,Whole Blood 98 mg/dL (75-99)
[2018-12-02] MEDS: INSULIN ASPART 100 UNIT/ML 1 ML 10 ML VIAL SQ SCH ×4 (07:21→21:07)
[2018-12-02 07:25] LABS: Anion Gap 8 mmol/L; Blood Urea Nitrogen 21 mg/dL (7-17); Calcium 8.7 mg/dL (8.4-10.2); Carbon Dioxide 25 mmol/L (22-30); Chloride 106 mmol/L (98-107); Glucose 105 mg/dL (74-99); Potassium 3.6 mmol/L (3.5-5.1); Sodium 139 mmol/L (137-145)
[2018-12-02 07:40] LABS: Anisocytosis Slight; Basophils % (A) 0 %; Eosinophils # (A) 0.5 k/uL (0-0.7); Eosinophils % (A) 9 %; HCT 42.2 % (34.0-46.0); HGB 13.6 gm/dL (11.4-16.0); Lymphocytes # (A) 0.7 k/uL (1.0-4.8); Lymphocytes % (A) 12 %; MCH 31.5 pg (25.0-35.0); MCHC 32.2 g/dL (31.0-37.0); MCV 97.6 fL (80.0-100.0); Macrocytosis Slight; Mean Platelet Volume 7.4; Monocytes # (A) 0.5 k/uL (0-1.0); Monocytes % (A) 9 %; Neutrophils # (A) 3.8 k/uL (1.3-7.7); Neutrophils % (A) 66 %; Platelet Count 193 k/uL (150-450); RBC 4.33 m/uL (3.80-5.40); RDW 16.1 % (11.5-15.5); WBC 5.8 k/uL (3.8-10.6)
[2018-12-02] MEDS: guaiFENesin 600 MG TABLET.ER PO SCH ×2 (07:52→21:07)
[2018-12-02] MEDS: ACYCLOVIR 200 MG CAP PO SCH ×2 (07:52→21:07)
[2018-12-02] MEDS: LORATADINE 10 MG TAB PO SCH (07:52)
[2018-12-02] MEDS: metFORMIN 500 MG TAB PO SCH ×2 (07:52→17:20)
[2018-12-02] MEDS: CHOLECALCIFEROL 1,000 UNIT TAB PO SCH (07:52)
[2018-12-02] MEDS: HYDROcodone/APAP 5-325MG 1 EACH TAB PO PRN ×4 (07:53→21:08)
[2018-12-02] MEDS: predniSONE 20 MG TAB PO SCH (07:53)
[2018-12-02] MEDS: APIXABAN 5 MG TAB PO SCH ×2 (07:53→21:07)
[2018-12-02] MEDS: FAMOTIDINE 20 MG TAB PO SCH (07:53)
[2018-12-02] MEDS: MULTIVITAMINS, THERA 1 EACH TAB PO SCH (07:53)
[2018-12-02] MEDS: CYANOCOBALAMIN 500 MCG TAB PO SCH (07:53)
[2018-12-02] MEDS: ESCITALOPRAM 20 MG TAB PO SCH (07:55)
[2018-12-02] MEDS: AZITHROMYCIN 500 MG TAB PO SCH (07:55)
[2018-12-02] MEDS: PYRIDOXINE 50 MG TAB PO SCH (07:56)
[2018-12-02] MEDS: IPRATROPIUM-ALBUTEROL 3 ML NEB INHALATION SCH ×4 (08:57→20:26)
--- NOTE | 2018-12-02 09:03 | P.PN ---
Progress Note - Text Progress Note Date: 12/02/18 Patient was medically cleared for discharge yesterday. [facility] declined patient due to chemo medications. Per Oncology [employer], patient may hold her chemo medications while in [facility]. Patient is now requesting discharge to [facility]. Anticipate discharge today.
[2018-12-02 11:07] LABS: Glucose,Whole Blood 116 mg/dL (75-99)
[2018-12-02 17:15] LABS: Glucose,Whole Blood 134 mg/dL (75-99)
[2018-12-02 20:18] LABS: Glucose,Whole Blood 152 mg/dL (75-99)
[2018-12-02] MEDS: LENALIDOMIDE PO SCH (21:15)
[2018-12-02] MEDS: ZOLPIDEM 10 MG TAB PO PRN (22:48)
[2018-12-03] MEDS: SODIUM CHLORIDE 0.9% 1,000 ML IV SCH (01:56)
--- NOTE | 2018-12-03 06:37 | P.PN ---
Subjective Progress Note Date: 12/02/18 Principal diagnosis: Right-sided community-acquired pneumonia Acute hypoxic respiratory failure related to above History of multiple myeloma Generalized weakness and medical debility History of DVT mid shaft left femoral fracture, seen back in 12/02/2018, patient seen jerilyn examined during rounds clinically has been doing well awake and alert breathing comfortably cuff congestion shortness of breath has improved, patient is being valve replacement in extended care facility 12/01/2018, patient seen jerilyn reexamined during the rounds clinically has been doing better cough congestion shortness breath has improved though is still present labs reviewed medications reviewed noted patient is being planned for possible discharge later on today, labs reviewed medications reviewed, would recommend patient to have early follow-up in the office This patient came in to the hospital after having shortness of breath and multiple falls at home. Patient states she has had progressive weakness that has been causing her to fall. She has been using a walker however she states she continues to trip and fall. She also states she has had a significant cough as well as progressive being short of breath. She describes her sputum is being cleared. Workup in the ER did reveal that she had a right-sided pneumonia. In the emergency room the patient was somewhat hypoxic on room air. Has pO2 of 87% and she did require supplemental oxygen. She was admitted and started on antibiotics as well as steroids and breathing treatments. The patient states she does not use breathing treatments in the home setting. She states she has never been diagnosed with COPD asthma or had any toxic inhalation exposures. She denies any smoking history. Does have dog in the home. She also had a CT of the brain which showed mild sinusitis with no acute bleeding. CT of the chest is currently pending. She did have x-rays of her hip /femur which did show a transverse nondisplaced fracture of the midshaft of the left femur. She does have a history of multiple myeloma, and states she gets chemo every other week. Objective - Vital Signs Vital signs: Vital Signs Temp 97.7 F 12/02/18 21:00 Pulse 65 12/02/18 21:00 Resp 18 12/02/18 21:00 BP 130/74 12/02/18 21:00 Pulse Ox 93 L 12/02/18 21:00 Intake & Output 12/02/18 12/02/18 12/03/18 06:59 18:59 06:59 Intake Total 1260 50 320 Balance 1260 50 320 Weight 99.79 kg Intake: Intake, IV Titration 50 80 Amount Sodium Chloride 0.9% 1, 80 000 ml @ 20 mls/hr IV . Q24H [facility] Rx#:[id number] cefTRIAXone 1,000 mg In 50 Sodium Chloride 0.9% 50 ml @ 100 mls/hr IVPB Q24HR [facility] Rx#:[id number] Oral 1260 240 Other: Voiding Method Bedpan Bedpan # Voids 3 2 # Bowel Movements 1 1 - Exam GENERAL EXAM: Alert, obese, comfortable in no apparent distress. HEAD: Normocephalic. EYES: Normal reaction of pupils, equal size. NOSE: Clear with pink turbinates. THROAT: No erythema or exudates. NECK: No masses, no JVD. CHEST: No chest wall deformity. LUNGS: Equal air entry with expiratory wheezing noted. Bases diminished. CVS: S1 and S2 normal with no audible mumurs, regular rhythm. ABDOMEN: No hepatosplenomegaly, normal bowel sounds, no guarding or rigidity. EXTREMITIES: Trace pedal edema noted, pedal pulses palpable. CENTRAL NERVOUS SYSTEM: No focal deficits, weakness. - Labs CBC & Chem 7: 12/02/18 06:43 12/02/18 06:43 Labs: Abnormal Lab Results - Last 24 Hours (Table) 12/02/18 12/02/18 12/02/18 Range/Units 06:43 06:43 11:06 RDW 16.1 H (11.5-15.5) % Lymphocytes # 0.7 L (1.0-4.8) k/uL BUN 21 H (7-17) mg/dL Glucose 105 H (74-99) mg/dL POC Glucose (mg/dL) 116 H (75-99) mg/dL 12/02/18 12/02/18 Range/Units 17:13 20:17 RDW (11.5-15.5) % Lymphocytes # (1.0-4.8) k/uL BUN (7-17) mg/dL Glucose (74-99) mg/dL POC Glucose (mg/dL) 134 H 152 H (75-99) mg/dL Assessment and Plan Assessment: Aspiration pneumonia Left femoral fracture and advanced multiple myeloma Generalized weakness Advanced multiple myeloma on chemotherapy Plan: Agree with discharge planning Continue with rehab evaluation Taper and DC her steroids and oral outpatient antibiotic follow up on outpatient setting Time with Patient: Greater than 30
--- NOTE | 2018-12-03 06:39 | P.PN ---
Subjective Progress Note Date: 12/03/18 Principal diagnosis: Right-sided community-acquired pneumonia Acute hypoxic respiratory failure related to above History of multiple myeloma Generalized weakness and medical debility History of DVT mid shaft left femoral fracture, seen back in 12/03/2018, patient seen jerilyn examined during care plan discussed with RN, patient has been breathing comfortably no obvious distress present Ammann patient likely will replace to ECF later on today she is off of chemotherapy now , she has been on room air with sats into low to mid 90s 12/02/2018, patient seen evbridget examined during rounds clinically has been doing well awake and alert breathing comfortably cuff congestion shortness of breath has improved, patient is being valve replacement in extended care facility 12/01/2018, patient seen eval reexamined during the rounds clinically has been doing better cough congestion shortness breath has improved though is still present labs reviewed medications reviewed noted patient is being planned for possible discharge later on today, labs reviewed medications reviewed, would recommend patient to have early follow-up in the office This patient came in to the hospital after having shortness of breath and multiple falls at home. Patient states she has had progressive weakness that has been causing her to fall. She has been using a walker however she states she continues to trip and fall. She also states she has had a significant cough as well as progressive being short of breath. She describes her sputum is being cleared. Workup in the ER did reveal that she had a right-sided pneumonia. In the emergency room the patient was somewhat hypoxic on room air. Has pO2 of 87% and she did require supplemental oxygen. She was admitted and started on antibiotics as well as steroids and breathing treatments. The patient states she does not use breathing treatments in the home setting. She states she has never been diagnosed with COPD asthma or had any toxic inhalation exposures. She denies any smoking history. Does have dog in the home. She also had a CT of the brain which showed mild sinusitis with no acute bleeding. CT of the chest is currently pending. She did have x-rays of her hip /femur which did show a transverse nondisplaced fracture of the midshaft of the left femur. She does have a history of multiple myeloma, and states she gets chemo every other week. Objective - Vital Signs Vital signs: Vital Signs Temp 97.4 F L 12/03/18 05:00 Pulse 57 L 12/03/18 05:00 Resp 18 12/03/18 05:00 BP 149/86 12/03/18 05:00 Pulse Ox 94 L 12/03/18 05:00 Intake & Output 12/02/18 12/02/18 12/03/18 06:59 18:59 06:59 Intake Total 1260 50 880 Balance 1260 50 880 Weight 99.79 kg Intake: Intake, IV Titration 50 220 Amount Sodium Chloride 0.9% 1, 220 000 ml @ 20 mls/hr IV . Q24H BUZZ Rx#:[id number] cefTRIAXone 1,000 mg In 50 Sodium Chloride 0.9% 50 ml @ 100 mls/hr IVPB Q24HR BUZZ Rx#:[id number] Oral 1260 660 Other: Voiding Method Bedpan Bedpan Bedpan # Voids 3 2 600 # Bowel Movements 1 1 - Exam GENERAL EXAM: Alert, obese, comfortable in no apparent distress. HEAD: Normocephalic. EYES: Normal reaction of pupils, equal size. NOSE: Clear with pink turbinates. THROAT: No erythema or exudates. NECK: No masses, no JVD. CHEST: No chest wall deformity. LUNGS: Equal air entry with expiratory wheezing noted. Bases diminished. CVS: S1 and S2 normal with no audible mumurs, regular rhythm. ABDOMEN: No hepatosplenomegaly, normal bowel sounds, no guarding or rigidity. EXTREMITIES: Trace pedal edema noted, pedal pulses palpable. CENTRAL NERVOUS SYSTEM: No focal deficits, weakness. - Labs CBC & Chem 7: 12/02/18 06:43 12/02/18 06:43 Labs: Abnormal Lab Results - Last 24 Hours (Table) 12/02/18 12/02/18 12/02/18 Range/Units 06:43 06:43 11:06 RDW 16.1 H (11.5-15.5) % Lymphocytes # 0.7 L (1.0-4.8) k/uL BUN 21 H (7-17) mg/dL Glucose 105 H (74-99) mg/dL POC Glucose (mg/dL) 116 H (75-99) mg/dL 12/02/18 12/02/18 Range/Units 17:13 20:17 RDW (11.5-15.5) % Lymphocytes # (1.0-4.8) k/uL BUN (7-17) mg/dL Glucose (74-99) mg/dL POC Glucose (mg/dL) 134 H 152 H (75-99) mg/dL Assessment and Plan Assessment: Aspiration pneumonia Left femoral fracture and advanced multiple myeloma Generalized weakness Advanced multiple myeloma on chemotherapy Acute hypoxic respiratory failure related to above Plan: Patient will not need home oxygen however recheck oxygen saturation at room air prior to discharge Agree with discharge planning Continue with rehab evaluation Taper and DC her steroids and oral outpatient antibiotic follow up on outpatient setting Time with Patient: Greater than 30
[2018-12-03 07:01] LABS: Glucose,Whole Blood 82 mg/dL (75-99)
[2018-12-03] MEDS: HYDROcodone/APAP 5-325MG 1 EACH TAB PO PRN ×3 (07:14→17:03)
[2018-12-03] MEDS: INSULIN ASPART 100 UNIT/ML 1 ML 10 ML VIAL SQ SCH ×3 (07:42→17:45)
[2018-12-03] MEDS: ESCITALOPRAM 20 MG TAB PO SCH (08:14)
[2018-12-03] MEDS: AZITHROMYCIN 500 MG TAB PO SCH (08:14)
[2018-12-03] MEDS: guaiFENesin 600 MG TABLET.ER PO SCH (08:14)
[2018-12-03] MEDS: ACYCLOVIR 200 MG CAP PO SCH (08:14)
[2018-12-03] MEDS: metFORMIN 500 MG TAB PO SCH ×2 (08:14→17:45)
[2018-12-03] MEDS: APIXABAN 5 MG TAB PO SCH (08:14)
[2018-12-03] MEDS: FAMOTIDINE 20 MG TAB PO SCH (08:14)
[2018-12-03] MEDS: CHOLECALCIFEROL 1,000 UNIT TAB PO SCH (08:14)
[2018-12-03] MEDS: CYANOCOBALAMIN 500 MCG TAB PO SCH (08:14)
[2018-12-03] MEDS: predniSONE 20 MG TAB PO SCH (08:14)
[2018-12-03] MEDS: PYRIDOXINE 50 MG TAB PO SCH (08:14)
[2018-12-03] MEDS: LORATADINE 10 MG TAB PO SCH (08:15)
[2018-12-03] MEDS: IPRATROPIUM-ALBUTEROL 3 ML NEB INHALATION SCH ×3 (08:32→16:00)
--- NOTE | 2018-12-03 08:51 | P.PN ---
Progress Note - Text Progress Note Date: 12/03/18 Patient examined at the bedside. Patient was medically cleared for discharge on 12-01-18. Discharge delayed pending ECF arrangements and insurance authorization. Patient remains stable for discharge today.
[2018-12-03 11:36] LABS: Glucose,Whole Blood 106 mg/dL (75-99)
[2018-12-03] MEDS: PROCHLORPERAZINE 10 MG TAB PO PRN (12:26)
[2018-12-03] MEDS: MULTIVITAMINS, THERA 1 EACH TAB PO SCH (12:49)
[2018-12-03 13:09] VITALS: BP 140/92; PULSE 90; RESP 20; TEMP 97.8
[2018-12-03 14:34] VITALS: BMI 36.6
[2018-12-03 17:15] LABS: Glucose,Whole Blood 134 mg/dL (75-99)
== END 2018-12-03 18:54 | DRG 177 ==
LOC: EC 03:21 → 3NMEDONC 06:32
PROVIDERS: ADMIT Family Medicine; ATTEND Family Medicine
DX: J69.0 Pneumonitis due to inhalation of food and vomit (principal); S72.302A Unspecified fracture of shaft of left femur, initial encounter for closed fracture; J96.01 Acute respiratory failure with hypoxia; C90.00 Multiple myeloma not having achieved remission; N13.2 Hydronephrosis with renal and ureteral calculous obstruction; E11.9 Type 2 diabetes mellitus without complications; E78.5 Hyperlipidemia, unspecified; G89.4 Chronic pain syndrome; I10 Essential (primary) hypertension; K21.9 Gastro-esophageal reflux disease without esophagitis; M79.7 Fibromyalgia; R29.6 Repeated falls; W01.0XXA Fall on same level from slipping, tripping and stumbling without subsequent striking against object, initial encounter; Y92.009 Unspecified place in unspecified non-institutional (private) residence as the place of occurrence of the external cause; Z79.01 Long term (current) use of anticoagulants; Z79.84 Long term (current) use of oral hypoglycemic drugs; Z80.9 Family history of malignant neoplasm, unspecified; Z86.718 Personal history of other venous thrombosis and embolism; Z87.442 Personal history of urinary calculi
CPT/HCPCS: 36415; 70450; 71046; 71250; 72170; 73502; 80048; 80053; 81001; 82550; 82553; 83036; 83605; 83735; 83880; 84100; 84484; 85025; 85610; 85730; 87040; 87070; 87077; 87086; 87186; 87205; 87502; 93005; 94640; 96365; 96366; 96375; 99285

== ENCOUNTER 2019-01-06 16:32 | Inpatient (IN) | payer MEDICARE ==
[2019-01-06] MEDS ORDERED: NALOXONE 0.4 MG/ML 1 ML VIAL IV PRN (17:51)
[2019-01-06] MEDS ORDERED: HYDROcodone/APAP 5-325MG 1 EACH TAB PO PRN (17:51)
[2019-01-06] MEDS ORDERED: DOCUSATE 100 MG CAP PO PRN (17:51)
[2019-01-06] MEDS ORDERED: traMADol 50 MG TAB PO PRN (17:51)
[2019-01-06] MEDS ORDERED: TEMAZEPAM 15 MG CAP PO PRN (17:54)
[2019-01-06] MEDS ORDERED: HYDROmorphone 0.5 MG/0.5 ML SYRINGE IVP PRN (18:14)
--- NOTE | 2019-01-06 19:25 | HP ---
HISTORY AND PHYSICAL I am covering for Dr. Montoya. CHIEF COMPLAINTS: Left leg pain. HISTORY OF PRESENT ILLNESS: This 63-year-old woman with a past history of diabetes, DJD, DVT, fibromyalgia, GERD, multiple myeloma, being followed by Dr. Montoya in the outpatient setting was recently admitted to [facility] with right-sided pneumonia possibly community acquired. The patient also had a fall and complains of left leg pain also. Left femoral fracture was suspected and the patient was evaluated by Dr. Lemos in [facility] and the patient was told her not have any fracture. Apparently yesterday the patient was sitting on the commode for a long time complaining of leg pain. Patient was referred and sent to [facility] and they femur x-ray was also done which showed proximal screw fractured and trances lucency noted to reflect recent fracture and the patient admitted for further evaluation and treatment. The patient had orthopedic surgery recently. There is no history of fever, rigors. No history of headache, loss of consciousness, seizures at this time. PAST MEDICAL HISTORY: History of diabetes, DVT, fibromyalgia, GERD, hyperlipidemia, history of multiple myeloma. MEDICATIONS ARE: 1. Prednisone taper. 2. Glucophage 500 mg b.i.d. 3. Mucinex 1200 mg b.i.d. 4. Ambien 10 mg q.h.s. p.r.n. 5. Zantac 150 mg daily. 6. Vitamin B6 50 mg p.o. daily. 7. Prochlorperazine 10 mg q.6h p.r.n. 8. Imodium 2 mg daily p.r.n. 9. Revlimid 25 mg p.r.n. 10.[place]cl[place] 10 mg q.6h p.r.n. 11.Fexofenadine 180 mg. 12.Lexapro 10 daily. 13.Vitamin B12 500 mcg. 14.Vitamin D3 4000 daily. 15.Ceftin 500 mg p.o. b.i.d. 16.Zithromax 500 mg p.o. daily. 17.Eliquis 5 mg p.o. b.i.d. 18.Acyclovir 400 mg p.o. daily. ALLERGIES: None. FAMILY HISTORY: History of ALS, cancer. SOCIAL HISTORY: No history of smoking. No history of alcohol. REVIEW OF SYSTEMS: ENT: Diminished hearing and diminished vision. CARDIOVASCULAR: No angina or palpitations. RESPIRATION: No angina or palpitations. GASTROINTESTINAL: No nausea or vomiting. GENITOURINARY: No dysuria or hematuria. Nervous System: No numbness, weakness. ALLERGY/IMMUNOLOGY: No asthma or hayfever. MUSCULOSKELETAL: As mentioned. HEMATOLOGY/ONCOLOGY: As mentioned earlier. ENDOCRINE: Mentioned earlier. CONSTITUTIONAL: As mentioned earlier. DERMATOLOGY: Negative. RHEUMATOLOGY: Negative. PSYCHIATRY: As mentioned. PHYSICAL EXAMINATION: Alert and oriented x3. Pulse 80. Blood pressure 120/92, respiration 20. Temperature is normal. HEENT: Conjunctivae normal. Oral mucosa moist. NECK is no jugular venous distention. No carotid bruit. No lymph node enlargement. Cardiovascular system: S1, S2 muffled. No S3, no S4. RESPIRATORY: Breath sounds diminished in the bases. No rhonchi. No crackles. ABDOMEN: Soft, nontender. No mass palpable. Legs minimal tenderness in the present. Otherwise, no edema and no swelling. Nervous system: Higher functions as mentioned earlier. Moves all four extremities. No focal deficits. lymphatics: No lymph nodes palpable in the neck, axillae or groin. Skin: No ulcer, rash or bleeding. LABS: Not available at this time. ASSESSMENT: 1. Left leg pain as well as possible left transverse humerus fracture. 2. Fractured screw of the plate and screw on the left leg. 3. History of recent pneumonia. 4. Multiple myeloma on radiation. 5. History of multiple falls. 6. History of diabetes type 2. 7. History of deep vein thrombosis. 8. Fibromyalgia. 9. Gastroesophageal reflux disease. 10.Hyperlipidemia. 11.History of gait dysfunction. 12.FULL CODE: RECOMMENDATIONS AND DISCUSSION: In this 63-year-old woman who presented with multiple medical issues, at this time, we will monitor the patient closely. Continue the current medications, continue symptomatic treatment. Otherwise, I would recommend DVT prophylaxis. Symptomatic treatment of pain. Otherwise, resume the home medications. Orthopedic evaluation. Other than that, guarded prognosis because of multiple complex medical issues. Further recommendations to follow. MMODL / IJN: [id number] / MTDD
[2019-01-06 20:05] LABS: Glucose,Whole Blood 119 mg/dL (75-99)
[2019-01-06 22:11] LABS: Amorphous Sediment,Urine Rare /hpf; Appearance,Urine Cloudy (Clear); Bacteria,Urine Rare /hpf; Bilirubin,Urine Negative (Negative); Blood,Urine Trace (Negative); Color,Urine Yellow; Glucose,Urine (UA) Negative (Negative); Hyaline Casts,Urine 6 /lpf (0-2); Ketones,Urine 1+ (Negative); Leukocyte Esterase,Urine Large (Negative); Mucus,Urine Occasional /hpf; Nitrite,Urine Negative (Negative); PH, Urine 5.5 (5.0-8.0); Protein,Urine Trace (Negative); RBC,Urine 6 /hpf (0-5); Specific Gravity,Urine 1.023 (1.001-1.035); Squamous Epithelial Cell,Urine 32 /hpf (0-4); Urobilinogen,Urine <2.0 mg/dL (<2.0); WBC,Urine 96 /hpf (0-5)
[2019-01-06] MEDS: HYDROcodone/APAP 10-325MG 1 EACH TAB PO PRN (22:32)
[2019-01-06] MEDS: HEPARIN SODIUM,PORCINE 5,000 UNIT/ML 1 ML VIAL SQ SCH (22:32)
[2019-01-06] MEDS: MELATONIN 3 MG TABLET PO SCH (22:32)
[2019-01-06] MEDS: Lenalidomide [Revlimid] 25 MG PO SCH (22:32)
[2019-01-07] MEDS: SODIUM CHLORIDE 0.9% 1,000 ML IV SCH ×2 (05:11→19:31)
[2019-01-07 07:46] LABS: Anisocytosis Slight; Basophils % (A) 1 %; Eosinophils # (A) 0.2 k/uL (0-0.7); Eosinophils % (A) 5 %; HCT 35.4 % (34.0-46.0); HGB 11.6 gm/dL (11.4-16.0); Hypochromasia Slight; Lymphocytes # (A) 0.5 k/uL (1.0-4.8); Lymphocytes % (A) 12 %; MCH 31.9 pg (25.0-35.0); MCHC 32.8 g/dL (31.0-37.0); MCV 97.3 fL (80.0-100.0); Mean Platelet Volume 6.6; Monocytes # (A) 0.5 k/uL (0-1.0); Monocytes % (A) 11 %; Neutrophils % (A) 70 %; Platelet Count 269 k/uL (150-450); RBC 3.64 m/uL (3.80-5.40); RDW 16.3 % (11.5-15.5); WBC 4.3 k/uL (3.8-10.6)
[2019-01-07 08:08] LABS: Anion Gap 6 mmol/L; Blood Urea Nitrogen 9 mg/dL (7-17); Calcium 8.7 mg/dL (8.4-10.2); Carbon Dioxide 27 mmol/L (22-30); Chloride 108 mmol/L (98-107); Glucose 95 mg/dL (74-99); Potassium 3.4 mmol/L (3.5-5.1); Sodium 141 mmol/L (137-145)
--- NOTE | 2019-01-07 08:58 | P.CNOR ---
History of Present Illness - HPI Consult date: 01/07/19 Consult reason: fracture History of present illness: The patient is seen and examined at bedside. She is a very pleasant 63-year- old female multiple medical histories, including history of multiple myeloma and history of left femur surgery with removal of mass at left femur and fracture fixation done approximately 5 or 6 years ago with a lateral plate. The patient has been having pain at her left thigh particularly with ambulating. She says the pain is been going on for the past several months. When she initially had her surgery 5 or 6 years ago she had plate fixation and says that at that point she was told by her surgeon that one of the screws was broken but that that would be okay. She continues to well over the past 5 years but started having some increasing pain. She was seen approximately 1-1/ 2 months ago in regards to left femur pain as she had been having a couple falls. There were able to note the broken screw at the proximal plate at the left femur, as well as a likely fracture line near the top of top plate at the level of the broken screw. The patient was placed in a knee but knee immobilizer and made nonweightbearing. She was referred for follow-up evaluation with Dr. Ortiz, trauma surgeon at [facility]. The patient says she was seen by Dr. Ortiz at [place] this past month and was told that she did not need the brace and could start weightbearing. However the patient has been having some increasing pain and return for evaluation. Lucency at the top of the plate transversely across the femur was again noted and we're counseled in regard to the fracture. She denies any numbness tingling or lower extremity. Denies any weakness in her ankle foot and toes. She denies any new hard falls but had had a couple of minor falls over the past month where she was still able to get up and ambulate. She normally uses a walker for ambulation and has some difficulty even with her walker. She lives at home with her who has some medical issues as well. Review of Systems As stated per HPI. Denies any chest pain shortness breath. Past Medical History Past Medical History: Cancer, Diabetes Mellitus, Deep Vein Thrombosis (DVT), Fibromyalgia, GERD/Reflux, Hyperlipidemia, Pneumonia Additional Past Medical History / Comment(s): multiple myeloma -chemo every other week, uti-ecoli ,kidney stone/polynephritis History of Any Multi-Drug Resistant Organisms: None Reported Past Surgical History: Orthopedic Surgery Additional Past Surgical History / Comment(s): knee sx Past Anesthesia/Blood Transfusion Reactions: Previous Problems w/ Anesthesia Additional Past Anesthesia/Blood Transfusion Reaction / Comm: DIFFICULT INTUBATION WHEN HAVING PREVIOUS LEFT KNEE SURGERIES Smoking Status: Never smoker - Past Family History Father Family Medical History: Cancer Mother Additional Family Medical History / Comment(s): from ALS Medications and Allergies Home Medications Medication Instructions Recorded Confirmed Type Acyclovir 400 mg PO BID 01/05/18 01/06/19 History Cholecalciferol (Vitamin D3) 4,000 unit PO DAILY 01/05/18 01/06/19 History [Vitamin D3] Cyanocobalamin [Vitamin B-12] 500 mcg PO DAILY 01/05/18 01/06/19 History Loperamide [Imodium] 2 mg PO DAILY PRN 01/05/18 01/06/19 History Pyridoxine [Vitamin B-6] 50 mg PO DAILY 01/05/18 01/06/19 History Ranitidine HCl [Zantac] 150 mg PO DAILY 01/05/18 01/06/19 History metFORMIN HCL [Glucophage] 500 mg PO BID 01/05/18 01/06/19 History Prochlorperazine Maleate 10 mg PO Q6H PRN 05/04/18 01/06/19 History Apixaban [Eliquis] 5 mg PO BID 11/26/18 01/06/19 History Fexofenadine HCl 180 mg PO DAILY 11/26/18 01/06/19 History Lenalidomide [Revlimid] 25 mg PO DIRECTED 11/26/18 01/06/19 History Escitalopram Oxalate [Lexapro] 20 mg PO DAILY 11/28/18 01/06/19 History Hydrocodone/Acetaminophen [[place] 1 tab PO Q6H PRN #12 tablet 12/01/18 01/06/19 Rx 10-325] Zolpidem [Ambien] 10 mg PO HS PRN #3 tab 12/01/18 01/06/19 Rx guaiFENesin [Mucinex] 1,200 mg PO Q12HR tablet.er 12/01/18 01/06/19 Rx Bisacodyl [Dulcolax] 10 mg RECTAL DAILY PRN 01/06/19 01/06/19 History Magnesium Hydroxide [Milk of 2,400 mg PO DAILY PRN 01/06/19 01/06/19 History Magnesia] Menthol/Zinc Oxide [Calmoseptine 1 applic TOPICAL Q12H 01/06/19 01/06/19 History Ointment] Na Phos,M-B/Na Phos,Di-Ba [Fleet 133 ml RECTAL ONCE PRN 01/06/19 01/06/19 History Adult] SILVER sulfADIAZINE Cream 1 applic TOPICAL DAILY 01/06/19 01/06/19 History [Silvadene 1% Cream] Allergies Allergy/AdvReac Type Severity Reaction Status Date / Time No Known Allergies Allergy Verified 01/06/19 18:27 Physical Examination Osteopathic Statement: *. No significant issues noted on an osteopathic structural exam other than those noted in the History and Physical/Consult. - Fracture left femur Appearance: other (At her left thigh there is no redness or swelling. There is a left lateral well-healed incision. She is nontender to palpation. She is able to lift her leg up off the bed though she does have some global weakness. She has sustained dorsal flexion plantarflexion and EHL at her ankle foot and toes. She is able flex and extend her knee though she has some pain at her thigh with this. There is no crepitus. There is no point tenderness.) Results - Labs Labs: Abnormal Lab Results - Last 24 Hours (Table) 01/06/19 01/06/19 01/07/19 Range/Units 19:54 21:50 06:36 RBC 3.64 L (3.80-5.40) m/uL RDW 16.3 H (11.5-15.5) % Lymphocytes # 0.5 L (1.0-4.8) k/uL Potassium (3.5-5.1) mmol/L Chloride (98-107) mmol/L Creatinine (0.52-1.04) mg/dL POC Glucose (mg/dL) 119 H (75-99) mg/dL Urine Appearance Cloudy H (Clear) Urine Protein Trace H (Negative) Urine Ketones 1+ H (Negative) Urine Blood Trace H (Negative) Ur Leukocyte Esterase Large H (Negative) Urine RBC 6 H (0-5) /hpf Urine WBC 96 H (0-5) /hpf Ur Squamous Epith Cells 32 H (0-4) /hpf Amorphous Sediment Rare H (None) /hpf Urine Bacteria Rare H (None) /hpf Hyaline Casts 6 H (0-2) /lpf Urine Mucus Occasional H (None) /hpf 01/07/19 Range/Units 06:36 RBC (3.80-5.40) m/uL RDW (11.5-15.5) % Lymphocytes # (1.0-4.8) k/uL Potassium 3.4 L (3.5-5.1) mmol/L Chloride 108 H (98-107) mmol/L Creatinine 0.45 L (0.52-1.04) mg/dL POC Glucose (mg/dL) (75-99) mg/dL Urine Appearance (Clear) Urine Protein (Negative) Urine Ketones (Negative) Urine Blood (Negative) Ur Leukocyte Esterase (Negative) Urine RBC (0-5) /hpf Urine WBC (0-5) /hpf Ur Squamous Epith Cells (0-4) /hpf Amorphous Sediment (None) /hpf Urine Bacteria (None) /hpf Hyaline Casts (0-2) /lpf Urine Mucus (None) /hpf H & H 01/07/19 Range/Units 06:36 Hgb 11.6 (11.4-16.0) gm/dL Hct 35.4 (34.0-46.0) % Result Diagrams: 01/07/19 06:36 01/07/19 06:36 - Diagnostic results Knee x-ray: report reviewed, image reviewed (Imaging of her left femur and pelvis is reviewed. At her left femur there is evidence of prior surgeries at the distal femur with cement augmentation for mass removal with placement of a left femoral plate with screws. The proximal screw on the plate at near midshaft femur is broken. There is a lucency that is transverse across the femoral shaft with some small amount of callus formation at that site. There is no displacement. There is no angulation. This lucency at the top of the plate across the femur was noted on images from yesterday as well as from November 26 and apparently per her chart was noticed in October. There is been no change in the position.) Assessment and Plan Assessment: Left thigh pain Left femoral shaft fracture, subacute versus chronic, nondisplaced non-angulated History multiple myeloma with history of mass removal at the distal femur with cement augmentation and plate fixation at the distal femur done 5 years ago Fibromyalgia Multiple medical issues Plan: Left thigh pain Left femoral shaft fracture, subacute versus chronic, nondisplaced non-angulated History multiple myeloma with history of mass removal at the distal femur with cement augmentation and plate fixation at the distal femur done 5 years ago Fibromyalgia Multiple medical issues The patient appears to have a delayed union have a fracture at the midshaft femur at the top portion of her plate. I can still see a lucency across the femoral shaft. The screw that has been broken apparently has been broken for several years but is difficult to fully ascertain the length of time where the lucency at the femoral shaft has been present. The patient has been having some pain at her left femur which seems likely related to this. Last month the patient was placed in a knee immobilizer and made nonweightbearing to follow up with trauma surgery. She had evaluation with trauma surgery at that point and was started on some physical therapy. The patient has been having some increasing pain. With the patient's increase in pain and continued lucency at the femoral shaft I think that we need to restart the left lower extremity immobilizer brace and make her nonweightbearing on her left lower extremity. I think she needs to have reevaluation with a higher level of specialty with trauma surgery with Dr. Ortiz at [facility], Where she had evaluation in the past month. If she is having too much difficulty with her mobility while maintaining nonweightbearing status in the brace and she may need jail facility and follow up with Dr. Ortiz has outpatient. If she is not able to mobilize then we will have to consider transfer to [facility] for further evaluation with Dr. Ortiz. I discussed this with her at length and we will see how she does with physical therapy and bracing. Time with Patient: Greater than 30
[2019-01-07] MEDS: HYDROcodone/APAP 10-325MG 1 EACH TAB PO PRN ×3 (10:39→19:29)
[2019-01-07] MEDS: HEPARIN SODIUM,PORCINE 5,000 UNIT/ML 1 ML VIAL SQ SCH ×2 (10:40→21:09)
[2019-01-07] MEDS: PANTOPRAZOLE 40 MG TABLET PO SCH (10:40)
[2019-01-07] MEDS ORDERED: ZOLPIDEM 10 MG TAB PO PRN (14:47)
[2019-01-07] MEDS ORDERED: LOPERAMIDE 2 MG CAP PO PRN (14:47)
[2019-01-07] MEDS ORDERED: NA PHOS,M-B/NA PHOS,DI-BA 133 ML ENEMA RECTAL PRN (14:47)
[2019-01-07] MEDS ORDERED: PROCHLORPERAZINE 10 MG TAB PO PRN (14:47)
[2019-01-07] MEDS ORDERED: MAGNESIUM HYDROXIDE 2,400 MG/10 ML CUP PO PRN (14:47)
--- NOTE | 2019-01-07 16:08 | PN ---
PROGRESS NOTE I am covering for Dr. Montoya. DATE OF SERVICE: 01/07/2019 This 63-year-old woman who was admitted with leg pain was found to have a minimal transverse fracture on the humerus. The patient also had a failed screw on the plate on the left side. The patient also has multiple myeloma, on chemotherapy. The patient was recently admitted here and patient was evaluated by Orthopedic Surgery. The patient's original orthopedic surgeon Today patient was evaluated by Dr. Griffin, who recommended evaluation by the patient's original orthopedic surgeon again. Dr. Griffin is concerned about weightbearing as well as presence of a fracture just above the plate and screw as well. Patient is being closely monitored. Past medical history reviewed. REVIEW OF SYSTEMS: CARDIOVASCULAR SYSTEM: No angina, palpitations. RESPIRATORY SYSTEM: As mentioned earlier. GI: No nausea, vomiting. : No dysuria or retention. NERVOUS SYSTEM: No numbness, weakness. CURRENT MEDICATIONS: Reviewed. They include: 1. [place] 10 mg q.6 p.r.n. 2. Xanax 0.25 q.6. 3. Colace 100 mg b.i.d. 4. Heparin 5000 units subcutaneously b.i.d. 5. Dilaudid 0.5 mg q.6 p.r.n. 6. Melatonin 6 mg at bedtime. 7. Narcan 0.2 q.2 p.r.n. 8. Protonix 40 mg b.i.d. 9. Ultram 50 mg q.6 p.r.n. PHYSICAL EXAMINATION: Patient is alert, oriented x3. Pulse 58, blood pressure 98/63, respirations 16, temperature 98.4, pulse ox normal. HEENT: Conjunctivae normal. Oral mucosa moist. NECK: No jugular venous distention. No carotid bruit. No lymph node enlargement. CARDIOVASCULAR SYSTEM: S1, S2 muffled. RESPIRATORY SYSTEM: Breath sounds diminished at the bases. Bilateral scattered rhonchi and crackles. ABDOMEN: Soft, non-tender. No mass palpable. LEGS: No edema. No swelling. NERVOUS SYSTEM: Higher functions as mentioned earlier. Moves all 4 limbs. No focal motor or sensory deficit. LYMPHATICS: No lymph node palpable in neck, axillae or groin. SKIN: No ulcer, rash, bleeding. LABS: Labs at this time show WBC 4.3, hemoglobin 11.6, sodium 141, potassium 3.4. UA noted. ASSESSMENT: 1. Left leg pain as well as possible left transverse humerus fracture. 2. Fractured screw of the plate and screw of the left leg. 3. History of recent pneumonia. 4. Possible urinary tract infection, present on admission. 5. Multiple myeloma, on radiation. 6. History of multiple falls. 7. Diabetes mellitus, type 2. 8. History of deep venous thrombosis. 9. Fibromyalgia. 10.Gastroesophageal reflux disease. 11.Hyperlipidemia. 12.History of gait dysfunction. 13.FULL CODE. RECOMMENDATIONS AND DISCUSSION: I recommend to continue current medication, continue symptomatic treatment. Continue with the pain management. Discussed with Dr. Griffin at length about the patient, and Dr. Griffin will try to contact the patient's original orthopedic surgeon. Orthopedic Surgery is also concerned about the weightbearing status because of the fracture which is persistent on x-rays. If the patient needs further procedure, the patient may be transferred to the patient's original orthopedic surgeon per Dr. Griffin. Will continue to monitor. Further recommendations to follow. MMODL / IJN: [id number] / MTDD
[2019-01-07] MEDS: metFORMIN 500 MG TAB PO SCH (17:28)
[2019-01-07] MEDS: Lenalidomide [Revlimid] 25 MG PO SCH (19:30)
[2019-01-07 19:41] LABS: Protein, Total 4.4 g/dL (6.2-8.2)
--- NOTE | 2019-01-07 21:02 | P.CONS ---
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 The patient was diagnosed with IgG- [place] Multiple Myeloma. The patient was initially treated with Velcade/Dex , received XRT to L femur, then placed in maintenance Revlamid from November 2012 to Dec 2015 when disease progressed. She was then treated with Kyprolis/Rev/Dex without significant clinical response> treatment changed to Empliciti/Rev/Dex with excellent control > she remains on same protocol. She recently has become peristently weaker and difficulty with walking, ambulating, and now with falls. She has had recurrent hospital admissions, recent [facility] and [facility]. With her multiple myeloma well controlled will wan to continue same regimen, although unlikely able to be discharged home after hospitalization with recurrent admissions. She has been undergoing rehab at outpatient facility after last discharge and was evaluated at [facility], who felt she did not have acute fracture. She continues on Revlimid for myeloma although with re-admissions and KELLY has not been able to restart Emplicit. Review of Systems A 14 point review of systems assessed and completed and all negative except HPI Past Medical History Past Medical History: Cancer, Diabetes Mellitus, Deep Vein Thrombosis (DVT), Fibromyalgia, GERD/Reflux, Hyperlipidemia, Pneumonia Additional Past Medical History / Comment(s): multiple myeloma -chemo every other week, uti-ecoli ,kidney stone/polynephritis History of Any Multi-Drug Resistant Organisms: None Reported Past Surgical History: Orthopedic Surgery Additional Past Surgical History / Comment(s): knee sx Past Anesthesia/Blood Transfusion Reactions: Previous Problems w/ Anesthesia Additional Past Anesthesia/Blood Transfusion Reaction / Comm: DIFFICULT INTUBATION WHEN HAVING PREVIOUS LEFT KNEE SURGERIES Smoking Status: Never smoker - Past Family History Father Family Medical History: Cancer Mother Additional Family Medical History / Comment(s): from ALS Medications and Allergies Home Medications Medication Instructions Recorded Confirmed Type Acyclovir 400 mg PO BID 01/05/18 01/06/19 History Cholecalciferol (Vitamin D3) 4,000 unit PO DAILY 01/05/18 01/06/19 History [Vitamin D3] Cyanocobalamin [Vitamin B-12] 500 mcg PO DAILY 01/05/18 01/06/19 History Loperamide [Imodium] 2 mg PO DAILY PRN 01/05/18 01/06/19 History Pyridoxine [Vitamin B-6] 50 mg PO DAILY 01/05/18 01/06/19 History Ranitidine HCl [Zantac] 150 mg PO DAILY 01/05/18 01/06/19 History metFORMIN HCL [Glucophage] 500 mg PO BID 01/05/18 01/06/19 History Prochlorperazine Maleate 10 mg PO Q6H PRN 05/04/18 01/06/19 History Apixaban [Eliquis] 5 mg PO BID 11/26/18 01/06/19 History Fexofenadine HCl 180 mg PO DAILY 11/26/18 01/06/19 History Lenalidomide [Revlimid] 25 mg PO DIRECTED 11/26/18 01/06/19 History Escitalopram Oxalate [Lexapro] 20 mg PO DAILY 11/28/18 01/06/19 History Hydrocodone/Acetaminophen [[place] 1 tab PO Q6H PRN #12 tablet 12/01/18 01/06/19 Rx 10-325] Zolpidem [Ambien] 10 mg PO HS PRN #3 tab 12/01/18 01/06/19 Rx guaiFENesin [Mucinex] 1,200 mg PO Q12HR tablet.er 12/01/18 01/06/19 Rx Bisacodyl [Dulcolax] 10 mg RECTAL DAILY PRN 01/06/19 01/06/19 History Magnesium Hydroxide [Milk of 2,400 mg PO DAILY PRN 01/06/19 01/06/19 History Magnesia] Menthol/Zinc Oxide [Calmoseptine 1 applic TOPICAL Q12H 01/06/19 01/06/19 History Ointment] Na Phos,M-B/Na Phos,Di-Ba [Fleet 133 ml RECTAL ONCE PRN 01/06/19 01/06/19 History Adult] SILVER sulfADIAZINE Cream 1 applic TOPICAL DAILY 01/06/19 01/06/19 History [Silvadene 1% Cream] Allergies Allergy/AdvReac Type Severity Reaction Status Date / Time No Known Allergies Allergy Verified 01/06/19 18:27 Physical Exam Vitals: Vital Signs Temp Pulse Resp BP Pulse Ox 01/07/19 16:00 16 01/07/19 15:00 98.6 F 62 16 119/74 96 01/07/19 00:00 98.4 F 58 L 16 98/63 Intake and Output 01/07/19 01/07/19 01/07/19 06:59 14:59 22:59 Intake Total 180 Balance 180 Intake: Oral 180 Other: # Voids 1 - Constitutional General appearance: Present: morbidly obese - EENT Eyes: Present: dentition normal ENT: Present: NA/AT, normal oropharynx - Neck Neck: Present: normal ROM - Respiratory Respiratory: bilateral: diminished (Lower Lobes, No increased respiratory effort noted) - Cardiovascular Rhythm: regularly irregular - Peripheral edema foot Peripheral Edema: bilateral: 2+ leg Peripheral Edema: bilateral: 2+ (Evidence of venous insufficiency bilaterally) - Gastrointestinal Gastrointestinal Comment(s): Obese General gastrointestinal: Present: normal bowel sounds, soft - Integumentary Integumentary Comment(s): Blister-like open areas to bilateral anterior chest under bilateral breasts. - Neurologic Neurologic Comment(s): No Focal Defects. - Psychiatric Psychiatric: Present: A&O x's 3, appropriate affect, intact judgment & insight Results CBC & Chem 7: 01/07/19 06:36 01/07/19 06:36 Labs: Abnormal Lab Results - Last 24 Hours (Table) 01/06/19 01/07/19 01/07/19 Range/Units 21:50 06:36 06:36 RBC 3.64 L (3.80-5.40) m/uL RDW 16.3 H (11.5-15.5) % Lymphocytes # 0.5 L (1.0-4.8) k/uL Potassium 3.4 L (3.5-5.1) mmol/L Chloride 108 H (98-107) mmol/L Creatinine 0.45 L (0.52-1.04) mg/dL Total Protein (PEP) (6.2-8.2) g/dL Urine Appearance Cloudy H (Clear) Urine Protein Trace H (Negative) Urine Ketones 1+ H (Negative) Urine Blood Trace H (Negative) Ur Leukocyte Esterase Large H (Negative) Urine RBC 6 H (0-5) /hpf Urine WBC 96 H (0-5) /hpf Ur Squamous Epith Cells 32 H (0-4) /hpf Amorphous Sediment Rare H (None) /hpf Urine Bacteria Rare H (None) /hpf Hyaline Casts 6 H (0-2) /lpf Urine Mucus Occasional H (None) /hpf 01/07/19 Range/Units 06:36 RBC (3.80-5.40) m/uL RDW (11.5-15.5) % Lymphocytes # (1.0-4.8) k/uL Potassium (3.5-5.1) mmol/L Chloride (98-107) mmol/L Creatinine (0.52-1.04) mg/dL Total Protein (PEP) 4.4 L (6.2-8.2) g/dL Urine Appearance (Clear) Urine Protein (Negative) Urine Ketones (Negative) Urine Blood (Negative) Ur Leukocyte Esterase (Negative) Urine RBC (0-5) /hpf Urine WBC (0-5) /hpf Ur Squamous Epith Cells (0-4) /hpf Amorphous Sediment (None) /hpf Urine Bacteria (None) /hpf Hyaline Casts (0-2) /lpf Urine Mucus (None) /hpf Assessment and Plan Plan: Chest x-ray: report reviewed Assessment and Plan: Assessment and Recommendations: 1. Multiple Myeloma: - currently on treatment with Revlimid, Dexamethasone, and Empliciti (Last , was due 118) Also receuives Xgeva which was on hold for tooth abscess - Disease has been stable 2. Recurrent Falls and Debility: - Becoming more difficult for patient to care for herself at home. - She recently had admission at [facility] for similiar complaints with increased mental status changes. - Further imaging with MRI is resonable 3. Pneumonia: Currently on antibiotics. 4. 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 - Use caution with prescribing - Bowel protocol. Recheck Myeloma Markers Await Urine cultures Results CHeck Immunoglobulins.
[2019-01-07] MEDS: MELATONIN 3 MG TABLET PO SCH (21:08)
[2019-01-07] MEDS: guaiFENesin 600 MG TABLET.ER PO SCH (21:09)
[2019-01-07] MEDS: ALPRAZolam 0.25 MG TAB PO PRN (21:14)
[2019-01-08 07:15] LABS: Anisocytosis Slight; Basophils % (A) 1 %; Eosinophils # (A) 0.2 k/uL (0-0.7); Eosinophils % (A) 5 %; HCT 35.6 % (34.0-46.0); HGB 11.4 gm/dL (11.4-16.0); Hypochromasia Slight; Lymphocytes # (A) 0.6 k/uL (1.0-4.8); Lymphocytes % (A) 17 %; MCH 31.2 pg (25.0-35.0); MCV 97.5 fL (80.0-100.0); Mean Platelet Volume 6.8; Monocytes # (A) 0.4 k/uL (0-1.0); Monocytes % (A) 10 %; Neutrophils # (A) 2.2 k/uL (1.3-7.7); Neutrophils % (A) 63 %; Platelet Count 266 k/uL (150-450); RBC 3.65 m/uL (3.80-5.40); RDW 16.2 % (11.5-15.5); WBC 3.5 k/uL (3.8-10.6)
[2019-01-08 07:27] LABS: ALT 25 U/L (9-52); AST 11 U/L (14-36); Albumin 2.6 g/dL (3.5-5.0); Alkaline Phosphatase 46 U/L (38-126); Anion Gap 5 mmol/L; Blood Urea Nitrogen 8 mg/dL (7-17); Calcium 8.5 mg/dL (8.4-10.2); Carbon Dioxide 28 mmol/L (22-30); Chloride 107 mmol/L (98-107); Glucose 98 mg/dL (74-99); Magnesium 1.6 mg/dL (1.6-2.3); Potassium 3.3 mmol/L (3.5-5.1); Sodium 140 mmol/L (137-145); Total Bilirubin 0.4 mg/dL (0.2-1.3); Total Protein 4.8 g/dL (6.3-8.2)
[2019-01-08] MEDS: HEPARIN SODIUM,PORCINE 5,000 UNIT/ML 1 ML VIAL SQ SCH ×2 (10:37→21:00)
[2019-01-08] MEDS: guaiFENesin 600 MG TABLET.ER PO SCH ×2 (10:38→21:00)
[2019-01-08] MEDS: FAMOTIDINE 20 MG TAB PO SCH (10:38)
[2019-01-08] MEDS: HYDROcodone/APAP 10-325MG 1 EACH TAB PO PRN ×3 (10:39→19:09)
[2019-01-08] MEDS: metFORMIN 500 MG TAB PO SCH ×2 (10:39→18:15)
[2019-01-08] MEDS: PANTOPRAZOLE 40 MG TABLET PO SCH (10:39)
[2019-01-08] MEDS: PYRIDOXINE 50 MG TAB PO SCH (10:40)
[2019-01-08 11:00] LABS: Immunoglobulin A <25.5 mg/dL (60.0-350.0); Immunoglobulin M <16.9 mg/dL (40.0-280.0)
[2019-01-08] MEDS ORDERED: FLUCONAZOLE 100 MG TAB PO ONE (13:03)
[2019-01-08 13:22] LABS: Albumin 2.49 g/dL (3.80-4.90)
[2019-01-08] MEDS: NYSTATIN 100,000 UNIT/GM POWD 15 GM TOPICAL SCH ×2 (15:07→21:01)
[2019-01-08] MEDS: NYSTATIN 100,000UNIT/GM CREAM 30 GM TUBE TOPICAL SCH ×2 (15:07→21:00)
--- NOTE | 2019-01-08 17:07 | P.PN ---
Subjective Progress Note Date: 01/08/19 Principal diagnosis: Multiple Myeloma patient's pain is controlled at this time, Ortho has seen her. I feel it is difficult for her to remain in her home with her recurrent falls, although she did have prolonged rehab stay. Defer discharge plan to primary team if no surgical intervention. Myeloma markers are stable and she will continue revlimid. Objective - Vital Signs Vital signs: Vital Signs Temp 98.4 F 01/08/19 15:00 Pulse 59 L 01/08/19 15:00 Resp 16 01/08/19 15:00 BP 102/63 01/08/19 15:00 Pulse Ox 95 01/08/19 15:00 Intake & Output 01/07/19 01/08/19 01/08/19 18:59 06:59 18:59 Intake Total 180 Balance 180 Intake: Oral 180 Other: Voiding Method Bedpan # Voids 1 3 - Exam - Constitutional General appearance: Present: morbidly obese - EENT Eyes: Present: dentition normal ENT: Present: NA/AT, normal oropharynx - Neck Neck: Present: normal ROM - Respiratory Respiratory: bilateral: diminished (Lower Lobes, No increased respiratory effort noted) - Cardiovascular Rhythm: regularly irregular - Peripheral edema foot Peripheral Edema: bilateral: 2+ leg Peripheral Edema: bilateral: 2+ (Evidence of venous insufficiency bilaterally) - Gastrointestinal Gastrointestinal Comment(s): Obese General gastrointestinal: Present: normal bowel sounds, soft - Integumentary Integumentary Comment(s): Blister-like open areas to bilateral anterior chest under bilateral breasts. - Neurologic Neurologic Comment(s): No Focal Defects. - Psychiatric Psychiatric: Present: A&O x's 3, appropriate affect, intact judgment & insight - Labs CBC & Chem 7: 01/08/19 06:35 01/08/19 06:35 Labs: Abnormal Lab Results - Last 24 Hours (Table) 01/07/19 01/08/19 01/08/19 Range/Units 06:36 06:35 06:35 WBC 3.5 L (3.8-10.6) k/uL RBC 3.65 L (3.80-5.40) m/uL RDW 16.2 H (11.5-15.5) % Lymphocytes # 0.6 L (1.0-4.8) k/uL Potassium 3.3 L (3.5-5.1) mmol/L Creatinine 0.48 L (0.52-1.04) mg/dL AST 11 L (14-36) U/L Total Protein 4.8 L (6.3-8.2) g/dL Total Protein (PEP) 4.4 L (6.2-8.2) g/dL Albumin 2.6 L (3.5-5.0) g/dL Albumin (PEP) 2.49 L (3.80-4.90) g/dL Beta Globulins 0.46 L (0.60-1.30) g/dL Gamma Globulins 0.40 L (0.70-1.50) g/dL IgG 514.0 L (700.0-1600.0) mg/dL IgA <25.5 L (60.0-350.0) mg/dL IgM <16.9 L (40.0-280.0) mg/dL Free [place] LC, Quant 0.03 L (0.33-1.94) mg/dL Assessment and Plan Plan: Chest x-ray: report reviewed Assessment and Plan: Assessment and Recommendations: 1. Multiple Myeloma: - currently on treatment with Revlimid, Dexamethasone, and Empliciti (Last , was due 11-26-17) Also receuives Xgeva which was on hold for tooth abscess - Disease has been stable 2. Recurrent Falls and Debility: - Becoming more difficult for patient to care for herself at home. - She recently had admission at [facility] for similiar complaints with increased mental status changes. - Further imaging with MRI is resonable 3. Pneumonia: Currently on antibiotics. 4. 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 - Use caution with prescribing - Bowel protocol. Follow-up in office. Physician Attest: I have completed the full history and physical and developed the impression and plan and agree with dictation dictated on scribe
[2019-01-08] MEDS: SODIUM CHLORIDE 0.9% 1,000 ML IV SCH (18:15)
[2019-01-08] MEDS: Lenalidomide [Revlimid] 25 MG PO SCH (19:10)
[2019-01-08 19:53] LABS: Glucose,Whole Blood 128 mg/dL (75-99)
[2019-01-08] MEDS: INSULIN ASPART (NovoLOG) 100 UNIT/ML VIAL SQ SCH (20:56)
[2019-01-08] MEDS: MELATONIN 3 MG TABLET PO SCH (21:00)
--- NOTE | 2019-01-08 21:45 | PN ---
PROGRESS NOTE DATE OF SERVICE: 01/08/2019 This 64-year-old woman was admitted with left leg pain as well as possible left femur transverse fracture also had a fracture screw on the on the left leg. The orthopedics is following the patient and is concerned about weightbearing status at this time. The patient has also being followed by Dr. Lemos in the [facility]. Hematology/Oncology also following the patient and recommending to continue the current medication. Patient also has extensive rash on the back and under the breast also. The patient is on Revlimid, dexamethasone and Empliciti. No chest pain. No palpitations. PAST MEDICAL HISTORY: Reviewed. REVIEW OF SYSTEMS: Cardiovascular system: No angina or palpitations. RESPIRATORY: As mentioned earlier. GI no nausea or vomiting. no dysuria. Nervous system: No numbness, weakness. MUSCULOSKELETAL: As mentioned earlier. MEDICATIONS: Current medications are reviewed and include: 1. [place] 1 p.o. q.6h p.r.n. 2. Xanax 0.5 q.6 hours. 3. Rocephin 1 g daily. 4. Colace 100 mg p.o. b.i.d. 5. Pepcid 20 mg p.o. daily. 6. Mucinex 1200 mg p.o. daily b.i.d. 7. Heparin 5000 subcu b.i.d. 8. Dilaudid 0.5 q.6h p.r.n. 9. Imodium 2 mg p.o. t.i.d. 10.Milk of Magnesia. 11.Melatonin. 12.Glucophage 500 mg p.o. b.i.d. 13.Narcan 0.2 q.2h p.r.n. 15.Protonix 40 mg p.o. b.i.d. 16.Compazine. 17.Vitamin B6 50 mg daily. 18.Silvadene. 19.Ultram 50 mg q.6h p.r.n. PHYSICAL EXAM: Patient is alert, oriented x3, pulse 68, blood pressure 107/60, respirations 16, temperature 98.8, pulse ox 97% on room air. HEENT: Conjunctivae normal. Neck: No jugular venous distention. Cardiovascular system: S1, S2. Respiration: Breath sounds diminished in the bases. A few scattered rhonchi. No crackles. ABDOMEN: Soft, nontender. Legs minimal tenderness present. Nervous system: No focal deficits. Skin: Extensive rash in the back and as well as present maculopapular with elevated margins on the back. LABS: WBC 3.2, hemoglobin 11.4 sodium 140 potassium 3.3. ASSESSMENT: 1. Left leg pain as well as possible left transverse femur fracture. 2. Fractures of the plate of the left leg. 3. History of recent pneumonia. 4. Possible urinary tract infection present on admission. 5. Multiple myeloma and radiation. 6. Extensive skin rash with possible fungal dermatitis. 7. History of multiple falls. 8. Diabetes mellitus type 2. 9. History of deep vein thrombosis. 10.Fibromyalgia. 11.Gastroesophageal reflux disease. 12.Hyperlipidemia. 13.Gait dysfunction. 14.FULL CODE. RECOMMENDATIONS AND DISCUSSION: In this 63-year-old woman who presented with multiple medical issues, at this time I recommend to continue current medications, management and symptomatic treatment. Diflucan, local treatment. Otherwise continue the antibiotics. The cultures at this time negative so far. The patient is on a combination of Rocephin and Diflucan. Continue the rest of medications. Monitor blood sugars closely and further recommendations to follow. Otherwise discussed with Dr. Dhaliwal, who is in touch with Dr. Lemos the patient's orthopedic surgeon and considering the option of very strict non-weight bearing with rehab and continue to monitor. Prognosis guarded. Further recommendations to follow. MMODL / IJN: [id number] / MTDD
[2019-01-08] MEDS: ALPRAZolam 0.25 MG TAB PO PRN (22:05)
[2019-01-09 04:24] LABS: Hemoglobin A1C 6.5 % (4.0-6.0)
[2019-01-09] MEDS: HYDROcodone/APAP 10-325MG 1 EACH TAB PO PRN ×3 (06:08→17:55)
[2019-01-09 06:59] LABS: Glucose,Whole Blood 99 mg/dL (75-99)
[2019-01-09] MEDS: INSULIN ASPART (NovoLOG) 100 UNIT/ML VIAL SQ SCH ×4 (08:55→20:43)
[2019-01-09] MEDS: HEPARIN SODIUM,PORCINE 5,000 UNIT/ML 1 ML VIAL SQ SCH ×2 (09:05→20:42)
[2019-01-09] MEDS: FAMOTIDINE 20 MG TAB PO SCH (09:07)
[2019-01-09] MEDS: PANTOPRAZOLE 40 MG TABLET PO SCH (09:07)
[2019-01-09] MEDS: metFORMIN 500 MG TAB PO SCH ×2 (09:07→17:56)
[2019-01-09] MEDS: PYRIDOXINE 50 MG TAB PO SCH (09:07)
[2019-01-09] MEDS: guaiFENesin 600 MG TABLET.ER PO SCH ×2 (09:07→20:43)
[2019-01-09] MEDS: NYSTATIN 100,000 UNIT/GM POWD 15 GM TOPICAL SCH ×2 (09:10→20:40)
[2019-01-09] MEDS: NYSTATIN 100,000UNIT/GM CREAM 30 GM TUBE TOPICAL SCH ×2 (09:10→20:41)
[2019-01-09 09:11] LABS: Anion Gap 4 mmol/L; Blood Urea Nitrogen 8 mg/dL (7-17); Calcium 8.2 mg/dL (8.4-10.2); Carbon Dioxide 27 mmol/L (22-30); Chloride 108 mmol/L (98-107); Glucose 101 mg/dL (74-99); Potassium 3.2 mmol/L (3.5-5.1); Sodium 139 mmol/L (137-145)
[2019-01-09 09:26] LABS: Anisocytosis Slight; Basophils % (A) 1 %; Eosinophils # (A) 0.2 k/uL (0-0.7); Eosinophils % (A) 5 %; HGB 11.3 gm/dL (11.4-16.0); Hypochromasia Slight; Lymphocytes # (A) 0.5 k/uL (1.0-4.8); Lymphocytes % (A) 14 %; MCH 30.8 pg (25.0-35.0); MCHC 31.4 g/dL (31.0-37.0); MCV 98.2 fL (80.0-100.0); Macrocytosis Slight; Mean Platelet Volume 6.9; Monocytes # (A) 0.4 k/uL (0-1.0); Monocytes % (A) 9 %; Neutrophils # (A) 2.6 k/uL (1.3-7.7); Neutrophils % (A) 68 %; Platelet Count 251 k/uL (150-450); RBC 3.67 m/uL (3.80-5.40); RDW 16.2 % (11.5-15.5); WBC 3.8 k/uL (3.8-10.6)
[2019-01-09 11:54] LABS: Glucose,Whole Blood 135 mg/dL (75-99)
[2019-01-09] MEDS ORDERED: Potassium Replacement Protocol 1 EACH MISC MISCELLANE PRN (14:13)
[2019-01-09] MEDS: POTASSIUM CHLORIDE ER 20 MEQ TAB.ER PO SCH ×4 (17:05→23:00)
[2019-01-09 17:40] LABS: Glucose,Whole Blood 81 mg/dL (75-99)
[2019-01-09] MEDS: SODIUM CHLORIDE 0.9% 1,000 ML IV SCH (17:57)
--- NOTE | 2019-01-09 18:55 | PN ---
PROGRESS NOTE DATE OF SERVICE: 01/09/2019 This 63-year-old woman who was admitted with left leg pain as well as possible left transverse femur fracture is being closely monitored at this time. The patient also had multiple medical problems including multiple myeloma, history of chemotherapy. No chest pain. No palpitations. Orthopedics as well as hematology oncology are following the patient closely. EXAM: Alert and oriented x3. Pulse 51, blood pressure 98/60, respirations 20, temperature 97.2, pulse ox 97% on room air. HEENT: Conjunctivae normal. NECK: No jugular venous distention. CARDIOVASCULAR: S1, S2. RESPIRATORY: Breath sounds diminished in the bases. A few scattered rhonchi. ABDOMEN: Soft, nontender. NERVOUS SYSTEM: No focal deficits. LABS: WBC 3.8, hemoglobin 11.8, sodium 139, potassium 3.2. ASSESSMENT: 1. Left leg pain as well as possible left transverse femoral fracture. 2. Fractures of the screw and plate on the left leg. 3. History of recent pneumonia. 4. Possible urinary tract infection, present on admission. 5. History of multiple myeloma, radiation. 6. Extensive skin rash with possible fungal dermatitis. 7. History of multiple falls. 8. Diabetes mellitus type 2. 9. History of deep venous thrombosis. 10.Fibromyalgia. 11.Gastroesophageal reflux disease. 12.Hyperlipidemia. 13.Gait dysfunction. 14.FULL CODE. RECOMMENDATIONS AND DISCUSSION: I recommend to continue current management and symptomatic treatment. Otherwise, continue with the current medication. Continue the antibiotics, antifungals. PT, OT evaluation. Further recommendations to follow. MMODL / IJN: [id number] /
[2019-01-09 20:13] LABS: Glucose,Whole Blood 119 mg/dL (75-99)
[2019-01-09] MEDS: Lenalidomide [Revlimid] 25 MG PO SCH (20:41)
[2019-01-09] MEDS: MELATONIN 3 MG TABLET PO SCH (20:43)
[2019-01-10] MEDS: HYDROcodone/APAP 10-325MG 1 EACH TAB PO PRN ×4 (01:22→21:14)
[2019-01-10 07:11] LABS: Glucose,Whole Blood 100 mg/dL (75-99)
[2019-01-10] MEDS: INSULIN ASPART (NovoLOG) 100 UNIT/ML VIAL SQ SCH ×4 (07:40→21:15)
[2019-01-10 08:01] LABS: Anisocytosis Slight; Basophils % (A) 1 %; Eosinophils # (A) 0.2 k/uL (0-0.7); Eosinophils % (A) 5 %; HCT 35.7 % (34.0-46.0); HGB 11.3 gm/dL (11.4-16.0); Hypochromasia Slight; Lymphocytes # (A) 0.5 k/uL (1.0-4.8); Lymphocytes % (A) 17 %; MCHC 31.7 g/dL (31.0-37.0); MCV 97.7 fL (80.0-100.0); Mean Platelet Volume 7.7; Monocytes # (A) 0.3 k/uL (0-1.0); Monocytes % (A) 8 %; Neutrophils # (A) 2.1 k/uL (1.3-7.7); Neutrophils % (A) 65 %; Platelet Count 234 k/uL (150-450); RBC 3.65 m/uL (3.80-5.40); WBC 3.2 k/uL (3.8-10.6)
[2019-01-10 08:17] LABS: Anion Gap 5 mmol/L; Blood Urea Nitrogen 6 mg/dL (7-17); Calcium 8.3 mg/dL (8.4-10.2); Carbon Dioxide 27 mmol/L (22-30); Chloride 108 mmol/L (98-107); Glucose 92 mg/dL (74-99); Potassium 4.1 mmol/L (3.5-5.1); Sodium 140 mmol/L (137-145)
[2019-01-10] MEDS: PYRIDOXINE 50 MG TAB PO SCH (09:53)
[2019-01-10] MEDS: metFORMIN 500 MG TAB PO SCH ×2 (10:01→18:25)
[2019-01-10] MEDS: FAMOTIDINE 20 MG TAB PO SCH (10:01)
[2019-01-10] MEDS: guaiFENesin 600 MG TABLET.ER PO SCH ×2 (10:01→21:14)
[2019-01-10] MEDS: HEPARIN SODIUM,PORCINE 5,000 UNIT/ML 1 ML VIAL SQ SCH ×2 (10:01→21:14)
[2019-01-10] MEDS: PANTOPRAZOLE 40 MG TABLET PO SCH (10:01)
[2019-01-10] MEDS: NYSTATIN 100,000UNIT/GM CREAM 30 GM TUBE TOPICAL SCH ×2 (10:02→21:15)
[2019-01-10] MEDS: NYSTATIN 100,000 UNIT/GM POWD 15 GM TOPICAL SCH ×2 (10:02→21:15)
[2019-01-10 12:37] LABS: Glucose,Whole Blood 99 mg/dL (75-99)
--- NOTE | 2019-01-10 16:53 | PN ---
PROGRESS NOTE DATE OF SERVICE: 01/10/2019 This 63-year-old woman who was admitted with left leg pain as well as left transverse femoral fracture is being closely monitored. PT, OT are evaluating the patient for ECF rehab. No chest pain. No palpations. Needed significant help on ambulation and movement at this time. EXAM: Alert and oriented x3. Pulse is 59, blood pressure 97/54, respirations 16, temperature 98.5, pulse ox 97% on room air. HEENT: Conjunctivae normal. NECK: No jugular venous distention. CARDIOVASCULAR: S1, S2. RESPIRATORY: Breath sounds diminished in the bases. No rhonchi, no crackles. ABDOMEN: Soft, nontender. LEGS: Minimal pain, otherwise no edema. NERVOUS SYSTEM: No focal deficits. LABS: WBC 3.2, hemoglobin 11.3, sodium 140, potassium 4.1. ASSESSMENT: 1. Left leg pain as well as possible left transverse femoral fracture. 2. Fractures with screw and plate on the left leg, possibly old. 3. Gait dysfunction. 4. History of recent pneumonia. 5. Possibly urinary tract infection, present on admission. 6. History of multiple myeloma radiation. 7. History of skin rash with possible fungal infection, focal dermatitis. 8. History of multiple falls. 9. Diabetes mellitus type 2. 10.History of DVT. 11.Fibromyalgia. 12.Gastroesophageal reflux disease. 13.Hypertension. 14.Hyperlipidemia. 15.Gait dysfunction. 16.FULL CODE. RECOMMENDATIONS AND DISCUSSION: I recommend to continue current medications, continue with monitoring and symptomatic treatment. Otherwise at this time I recommend continue with antifungals. Continue rest of medications. PT/OT evaluation, possible ECF rehab. Guarded prognosis. Further recommendations to follow. MMODL / IJN: [id number] /
[2019-01-10 17:27] LABS: Glucose,Whole Blood 94 mg/dL (75-99)
[2019-01-10] MEDS: SODIUM CHLORIDE 0.9% 1,000 ML IV SCH (18:25)
[2019-01-10 19:53] LABS: Glucose,Whole Blood 129 mg/dL (75-99)
[2019-01-10] MEDS: Lenalidomide [Revlimid] 25 MG PO SCH (21:14)
[2019-01-10] MEDS: MELATONIN 3 MG TABLET PO SCH (21:14)
[2019-01-11 01:49] VITALS: RESP 15
[2019-01-11 07:18] LABS: Glucose,Whole Blood 104 mg/dL (75-99)
[2019-01-11 07:47] LABS: Anisocytosis Slight; Basophils % (A) 1 %; Eosinophils # (A) 0.2 k/uL (0-0.7); Eosinophils % (A) 5 %; HCT 36.1 % (34.0-46.0); HGB 11.5 gm/dL (11.4-16.0); Hypochromasia Slight; Lymphocytes # (A) 0.6 k/uL (1.0-4.8); Lymphocytes % (A) 16 %; MCH 31.1 pg (25.0-35.0); MCHC 31.8 g/dL (31.0-37.0); MCV 97.7 fL (80.0-100.0); Monocytes # (A) 0.2 k/uL (0-1.0); Monocytes % (A) 7 %; Neutrophils # (A) 2.5 k/uL (1.3-7.7); Neutrophils % (A) 70 %; Platelet Count 265 k/uL (150-450); RBC 3.69 m/uL (3.80-5.40); RDW 16.3 % (11.5-15.5); WBC 3.6 k/uL (3.8-10.6)
[2019-01-11 08:01] LABS: Anion Gap 5 mmol/L; Blood Urea Nitrogen 4 mg/dL (7-17); Calcium 8.6 mg/dL (8.4-10.2); Carbon Dioxide 28 mmol/L (22-30); Chloride 107 mmol/L (98-107); Glucose 103 mg/dL (74-99); Sodium 140 mmol/L (137-145)
[2019-01-11] MEDS: guaiFENesin 600 MG TABLET.ER PO SCH (08:55)
[2019-01-11] MEDS: HEPARIN SODIUM,PORCINE 5,000 UNIT/ML 1 ML VIAL SQ SCH (08:55)
[2019-01-11] MEDS: INSULIN ASPART (NovoLOG) 100 UNIT/ML VIAL SQ SCH ×2 (08:56→11:58)
[2019-01-11] MEDS: NYSTATIN 100,000 UNIT/GM POWD 15 GM TOPICAL SCH (08:56)
[2019-01-11] MEDS: metFORMIN 500 MG TAB PO SCH (08:56)
[2019-01-11] MEDS: FAMOTIDINE 20 MG TAB PO SCH (08:56)
[2019-01-11] MEDS: PANTOPRAZOLE 40 MG TABLET PO SCH (08:56)
[2019-01-11] MEDS: HYDROcodone/APAP 10-325MG 1 EACH TAB PO PRN ×2 (08:59→15:18)
[2019-01-11] MEDS: NYSTATIN 100,000UNIT/GM CREAM 30 GM TUBE TOPICAL SCH (09:04)
[2019-01-11 11:31] LABS: Glucose,Whole Blood 160 mg/dL (75-99)
[2019-01-11] MEDS: PYRIDOXINE 50 MG TAB PO SCH (11:58)
--- NOTE | 2019-01-11 15:06 | P.DS ---
Providers Date of admission: 01/06/19 16:47 Expected date of discharge: 01/11/19 Attending physician: Froilan Virk Consults: 01/06/19 17:54 Consult Physician Routine Consulting Provider: Praneeth Russo Consult Reason/Comments: malignancy Do you want consulting provider notified?: Yes 01/06/19 18:14 Consult Physician Routine Consulting Provider: Enio Pagan Consult Reason/Comments: left femur pain Do you want consulting provider notified?: Yes Primary care physician: Seth Montoya Hospital Course: Final Diagnoses: -Left leg pain as well as possible left transverse femoral fracture -Fractures with screw and plate on the left leg, possibly old -Gait dysfunction -Recent pneumonia -Possible acute UTI, present on admission -Multiple myeloma radiation, history of -History of multiple falls -Diabetes mellitus type 2 Hospital course: This is a 63-year-old female admitted with left leg pain, left transverse fracture and multiple other medical issues. Evaluated by orthopedic surgery, hematology/oncology, PT/OT. Orthopedic surgeon in recommending follow- up with [facility] orthopedic trauma surgeon, whom patient is already affiliated with, as well as nonweightbearing of the left lower extremity. Cleared by all consults for discharge. Patient is being discharged to subacute rehab in stable condition with guarded prognosis. GEN: Alert and oriented 3, no acute distress CV: S1 and S2,LUNGS: Bilateral bases diminished. ABD: Soft, nontender, positive bowel sounds. NERVOUS: No focal deficits. The impression and plan of care has been dictated as directed. : I performed a history and examination of this patient, discussed the same with the dictator. I agree with the dictator's note ,documented as a scribe. Any additional findings or plans will be noted. Time taken: 35 minutes Patient Condition at Discharge: Stable Plan - Discharge Summary Discharge Rx Participant: No New Discharge Prescriptions: New Docusate [Colace] 100 mg PO BID PRN cap PRN Reason: Constipation INSULIN LISPRO (HumaLOG) [humaLOG] 0 unit SQ ACHS #1 vial Melatonin 6 mg PO HS tablet Nystatin 100,000 Unit/gm Powd [Mycostatin Powder] 1 applic TOPICAL BID applic Nystatin 100,000Unit/gm Cream [Mycostatin Cream] 1 applic TOPICAL BID applic Pantoprazole [Protonix] 40 mg PO AC-BRKFST tablet. Cefuroxime Axetil [Ceftin] 500 mg PO BID #10 tab Continue Pyridoxine [Vitamin B-6] 50 mg PO DAILY metFORMIN HCL [Glucophage] 500 mg PO BID Cyanocobalamin [Vitamin B-12] 500 mcg PO DAILY Cholecalciferol (Vitamin D3) [Vitamin D3] 4,000 unit PO DAILY Acyclovir 400 mg PO BID Prochlorperazine Maleate 10 mg PO Q6H PRN PRN Reason: UPSET STOMACH Fexofenadine HCl 180 mg PO DAILY Lenalidomide [Revlimid] 25 mg PO DIRECTED Apixaban [Eliquis] 5 mg PO BID Escitalopram Oxalate [Lexapro] 20 mg PO DAILY guaiFENesin [Mucinex] 1,200 mg PO Q12HR tablet.er Zolpidem [Ambien] 10 mg PO HS PRN #3 tab PRN Reason: Sleep Bisacodyl [Dulcolax] 10 mg RECTAL DAILY PRN PRN Reason: Constipation Na Phos,M-B/Na Phos,Di-Ba [Fleet Adult] 133 ml RECTAL ONCE PRN PRN Reason: Constipation SILVER sulfADIAZINE Cream [Silvadene 1% Cream] 1 applic TOPICAL DAILY Magnesium Hydroxide [Milk of Magnesia] 2,400 mg PO DAILY PRN PRN Reason: Constipation Menthol/Zinc Oxide [Calmoseptine Ointment] 1 applic TOPICAL Q12H Hydrocodone/Acetaminophen [[place] 10-325] 1 tab PO Q6H PRN #12 tablet PRN Reason: Pain Loperamide [Imodium] 2 mg PO DAILY PRN #3 cap PRN Reason: Diarrhea Discontinued Ranitidine HCl [Zantac] 150 mg PO DAILY Discharge Medication List Acyclovir 400 mg PO BID 01/05/18 [History] Cholecalciferol (Vitamin D3) [Vitamin D3] 4,000 unit PO DAILY 01/05/18 [History] Cyanocobalamin [Vitamin B-12] 500 mcg PO DAILY 01/05/18 [History] Pyridoxine [Vitamin B-6] 50 mg PO DAILY 01/05/18 [History] metFORMIN HCL [Glucophage] 500 mg PO BID 01/05/18 [History] Prochlorperazine Maleate 10 mg PO Q6H PRN 05/04/18 [History] Apixaban [Eliquis] 5 mg PO BID 11/26/18 [History] Fexofenadine HCl 180 mg PO DAILY 11/26/18 [History] Lenalidomide [Revlimid] 25 mg PO DIRECTED 11/26/18 [History] Escitalopram Oxalate [Lexapro] 20 mg PO DAILY 11/28/18 [History] Zolpidem [Ambien] 10 mg PO HS PRN #3 tab 12/01/18 [Rx] guaiFENesin [Mucinex] 1,200 mg PO Q12HR tablet.er 12/01/18 [Rx] Bisacodyl [Dulcolax] 10 mg RECTAL DAILY PRN 01/06/19 [History] Magnesium Hydroxide [Milk of Magnesia] 2,400 mg PO DAILY PRN 01/06/19 [History] Menthol/Zinc Oxide [Calmoseptine Ointment] 1 applic TOPICAL Q12H 01/06/19 [ History] Na Phos,M-B/Na Phos,Di-Ba [Fleet Adult] 133 ml RECTAL ONCE PRN 01/06/19 [History ] SILVER sulfADIAZINE Cream [Silvadene 1% Cream] 1 applic TOPICAL DAILY 01/06/19 [ History] Cefuroxime Axetil [Ceftin] 500 mg PO BID #10 tab 01/11/19 [Rx] Docusate [Colace] 100 mg PO BID PRN cap 01/11/19 [Rx] Hydrocodone/Acetaminophen [[place] 10-325] 1 tab PO Q6H PRN #12 tablet 01/11/19 [ Rx] INSULIN LISPRO (HumaLOG) [humaLOG] 0 unit SQ ACHS #1 vial 01/11/19 [Rx] Loperamide [Imodium] 2 mg PO DAILY PRN #3 cap 01/11/19 [Rx] Melatonin 6 mg PO HS tablet 01/11/19 [Rx] Nystatin 100,000 Unit/gm Powd [Mycostatin Powder] 1 applic TOPICAL BID applic 01/11/19 [Rx] Nystatin 100,000Unit/gm Cream [Mycostatin Cream] 1 applic TOPICAL BID applic [Rx] Pantoprazole [Protonix] 40 mg PO AC-BRKFST tablet. 01/11/19 [Rx] Follow up Appointment(s)/Referral(s): Dr. Jerod Ortiz orthopedic trauma surgeon [Other] - 1 Week Praneeth Russo MD [STAFF PHYSICIAN] - 1 Week Ariel Cotton MD [STAFF PHYSICIAN] - 3 Days (While at subacute rehab) Seth Montoya DO [Primary Care Provider] - 1 Week (After discharge from subacute rehab) Activity/Diet/Wound Care/Special Instructions: SANDY Jean in 3 days Activity: Referred to orthopedic note; nonweightbearing left leg Discharge Disposition: TRANSFER TO SNF/ECF
[2019-01-11 16:04] VITALS: BP 120/75; PULSE 59
[2019-01-11 16:05] VITALS: TEMP 98.8
[2019-01-11 17:35] LABS: Glucose,Whole Blood 106 mg/dL (75-99)
--- NOTE | 2019-01-13 10:59 | CDI ---
Documentation Clarification Form Date: 01/13/2019 10:42:13 AM From: ARIEL Saez; Leni Chawla [employer] Teacher Phone: If you have a question about this query, please contact Leni Chawla [employer] Teacher at [phone] between 8am and 5pm. Admit Date: 01/06/2019 4:47:00 PM Patient Name: Merissa Donato Visit Number: [id number] Discharge Date: 01/11/2019 6:20:00 PM ATTENTION: The Clinical Documentation Specialists (CDI) and [facility] Coding Staff appreciate your assistance in clarifying documentation. Please respond to the clarification below the line at the bottom and electronically sign. The CDI & [facility] Coding staff will review the response and follow-up if needed. Please note: Queries are made part of the Legal Health Record. If you have any questions, please contact the author of this message via ITS. Dr. Froilan Virk The patient presented with left leg pain and possible left transverse humerus fracture with proximal screw fracture. Patient had previous surgical repair of pathological fracture, left femur. History/Risk Factors: Multiple myeloma on chemotherapy, DM type 2, history of multiple falls, chronic pain secondary to malignancy with narcotic dependency. Clinical Indicators: Left leg pain Treatment: Pain management. Consults: Recheck myeloma markers, remain non-weight bearing. In your professional opinion, can you please clarify the underlying etiology of the left leg pain? Multiple Myeloma Left transverse humeral fracture with proximal screw fracture Other, please specify Unable to determine Left transverse humeral fracture with proximal screw fracture [facility]
== END 2019-01-11 18:20 | DRG 559 ==
LOC: 4SSUR 16:47
PROVIDERS: ADMIT Hospitalist; ATTEND Hospitalist
DX: T84.115A Breakdown (mechanical) of internal fixation device of left femur, initial encounter (principal); S72.322A Displaced transverse fracture of shaft of left femur, initial encounter for closed fracture; C90.00 Multiple myeloma not having achieved remission; F11.20 Opioid dependence, uncomplicated; N39.0 Urinary tract infection, site not specified; Y83.8 Other surgical procedures as the cause of abnormal reaction of the patient, or of later complication, without mention of misadventure at the time of the procedure; E11.9 Type 2 diabetes mellitus without complications; E78.5 Hyperlipidemia, unspecified; G89.3 Neoplasm related pain (acute) (chronic); I10 Essential (primary) hypertension; K21.9 Gastro-esophageal reflux disease without esophagitis; M79.7 Fibromyalgia; R29.6 Repeated falls; W19.XXXA Unspecified fall, initial encounter; Z79.01 Long term (current) use of anticoagulants; Z79.84 Long term (current) use of oral hypoglycemic drugs; Z79.899 Other long term (current) drug therapy; Z86.718 Personal history of other venous thrombosis and embolism; Z87.01 Personal history of pneumonia (recurrent); Z87.442 Personal history of urinary calculi; Z91.81 History of falling; Z92.21 Personal history of antineoplastic chemotherapy; B36.9 Superficial mycosis, unspecified; E66.01 Morbid (severe) obesity due to excess calories
CPT/HCPCS: 72170; 80048; 80053; 81001; 82784; 83036; 83735; 83883; 84132; 84165; 85025; 87040; 93005

== ENCOUNTER → 2019-01-06 | Outpatient (CLI) | payer MEDICARE ==
--- NOTE | 2019-01-06 14:47 | XR ---
EXAMINATION TYPE: XR pelvis AP view DATE OF EXAM: 01/06/2019 CLINICAL HISTORY: pain TECHNIQUE: Two views of the left femur are obtained. COMPARISON: None. FINDINGS: There is evidence of plate fixation mid and distal left femur. Proximal screw is fractured. There is a transverse lucency noted felt to reflect fracture. Remaining screws are intact. No additional fract ures identified at this time. The hip and knee joints appear within normal limits. The overlying sof t tissue appears unremarkable. IMPRESSION: Proximal screw is fractured. There is a transverse lucency noted felt to reflect fracture.
--- NOTE | 2019-01-06 14:50 | XR ---
EXAMINATION TYPE: XR femur LT DATE OF EXAM: 01/06/2019 CLINICAL HISTORY: pain TECHNIQUE: Two views of the left femur are obtained. COMPARISON: None. FINDINGS: There is evidence of plate fixation mid and distal left femur. Proximal screw is fractured. There is a transverse lucency noted felt to reflect fracture. Remaining screws are intact. No additi onal fractures identified at this time. The hip and knee joints appear within normal limits. The over lying soft tissue appears unremarkable. IMPRESSION: Proximal screw is fractured. There is a transverse lucency noted felt to reflect fracture .
--- NOTE | 2019-01-06 14:52 | XR ---
EXAMINATION TYPE: XR knee complete LT DATE OF EXAM: 01/06/2019 CLINICAL HISTORY: pain TECHNIQUE: Three views of the left knee are obtained. COMPARISON: None. FINDINGS: There is no acute fracture/dislocation. The tri-compartment joint spaces appear within no rmal limits. The overlying soft tissue appears unremarkable. IMPRESSION: There is no acute fracture or dislocation ICD 10 NO FRACTURE, INITIAL EVALUATION
== END ==
LOC: RADXRMAIN 13:36
PROVIDERS: ATTEND Radiology Radiation Oncology
DX: C90.00 Multiple myeloma not having achieved remission (principal); S72.492A Other fracture of lower end of left femur, initial encounter for closed fracture; Z98.1 Arthrodesis status
CPT/HCPCS: 72170

== ENCOUNTER 2019-03-07 15:16 | Emergency (ER) | payer MEDICARE ==
[2019-03-07 15:25] VITALS: BP 138/81; PULSE 68; RESP 24; TEMP 99.1
[2019-03-07] MEDS ORDERED: MORPHINE SULFATE 4 MG/ML SYRINGE IM STA (16:14)
[2019-03-07 16:54] LABS: Appearance,Urine Cloudy (Clear); Bacteria,Urine Occasional /hpf; Bilirubin,Urine Negative (Negative); Blood,Urine Negative (Negative); Color,Urine Yellow; Glucose,Urine (UA) Negative (Negative); Ketones,Urine 1+ (Negative); Leukocyte Esterase,Urine Small (Negative); Mucus,Urine Rare /hpf; Nitrite,Urine Negative (Negative); PH, Urine 5.5 (5.0-8.0); Protein,Urine Negative (Negative); RBC,Urine 4 /hpf (0-5); Specific Gravity,Urine 1.014 (1.001-1.035); Squamous Epithelial Cell,Urine <1 /hpf (0-4); Urobilinogen,Urine <2.0 mg/dL (<2.0); WBC,Urine 2 /hpf (0-5)
--- NOTE | 2019-03-07 17:16 | XR ---
EXAMINATION TYPE: XR femur LT DATE OF EXAM: 03/07/2019 COMPARISON: 01/06/2019 HISTORY: Fracture TECHNIQUE: 5 views FINDINGS: There is a plate with screws fixing an old fracture of the distal shaft of the femur. There is a fracture at the proximal end of the plate. There is fracture of one of the screws. There is corby ency around the fracture site and a mild varus deformity of the femur. There is lateral angulation at the fracture site. The proximal femur is intact. There are multiple small lucent areas in the shaft of the femur proximally that would be consistent with myeloma. IMPRESSION: There is a old fracture of the midshaft of the femur at the proximal end of the plate wit h further separation of the fragments compared to old exam. Small lucent areas in the proximal femur consistent with myeloma.
--- NOTE | 2019-03-07 17:33 | ED ---
Lower Extremity Injury HPI - General Chief Complaint: Extremity Injury, Lower Stated Complaint: LEFT LEG PAIN, Ca PATIENT Time Seen by Provider: 03/07/19 15:28 Source: patient, EMS, RN notes reviewed, old records reviewed Mode of arrival: EMS Limitations: no limitations - History of Present Illness Initial Comments: Patient is a 63-year-old female with extensive past medical history including multiple myeloma presents today with complaints of left femur pain. She reports she's had a previous left femur fracture many years ago. She reports that she's been managed by Dr. Ortiz at [facility] for this injury. He reports she was diagnosed with a fracture of her left femur. She is placed in a leg brace. She was told that she needed to be off of her leg brace and can ambulate. She was in an out of rehab facilities to build up her strength. She is return home. At this time Patient states that over the past 2 days she's been having incre ased difficulty with ambulation. She states she's been unable to greens picker her leg. She reports normal sensation in the foot and lower leg. Patient states that she has been having pain with sitting. She denies any specific fall or trauma to for the new onset of pain today. She states that she did have a fall last week. She doesn't typically ambulates in a lift chair and motor scooter. - Related Data Home Medications Medication Instructions Recorded Confirmed Acyclovir 400 mg PO BID 01/05/18 01/06/19 Cholecalciferol (Vitamin D3) 4,000 unit PO DAILY 01/05/18 01/06/19 [Vitamin D3] Cyanocobalamin [Vitamin B-12] 500 mcg PO DAILY 01/05/18 01/06/19 Pyridoxine [Vitamin B-6] 50 mg PO DAILY 01/05/18 01/06/19 metFORMIN HCL [Glucophage] 500 mg PO BID 01/05/18 01/06/19 Prochlorperazine Maleate 10 mg PO Q6H PRN 05/04/18 01/06/19 Apixaban [Eliquis] 5 mg PO BID 11/26/18 01/06/19 Fexofenadine HCl 180 mg PO DAILY 11/26/18 01/06/19 Lenalidomide [Revlimid] 25 mg PO DIRECTED 11/26/18 01/06/19 Escitalopram Oxalate [Lexapro] 20 mg PO DAILY 11/28/18 01/06/19 Bisacodyl [Dulcolax] 10 mg RECTAL DAILY PRN 01/06/19 01/06/19 Magnesium Hydroxide [Milk of 2,400 mg PO DAILY PRN 01/06/19 01/06/19 Magnesia] Menthol/Zinc Oxide [Calmoseptine 1 applic TOPICAL Q12H 01/06/19 01/06/19 Ointment] Na Phos,M-B/Na Phos,Di-Ba [Fleet 133 ml RECTAL ONCE PRN 01/06/19 01/06/19 Adult] SILVER sulfADIAZINE Cream 1 applic TOPICAL DAILY 01/06/19 01/06/19 [Silvadene 1% Cream] Previous Rx's Medication Instructions Recorded guaiFENesin [Mucinex] 1,200 mg PO Q12HR tablet.er 12/01/18 Cefuroxime Axetil [Ceftin] 500 mg PO BID #10 tab 01/11/19 Docusate [Colace] 100 mg PO BID PRN cap 01/11/19 Hydrocodone/Acetaminophen [[place] 1 tab PO Q6H PRN #12 tablet 01/11/19 10-325] INSULIN LISPRO (HumaLOG) [humaLOG] 0 unit SQ ACHS #1 vial 01/11/19 Loperamide [Imodium] 2 mg PO DAILY PRN #3 cap 01/11/19 Melatonin 6 mg PO HS tablet 01/11/19 Nystatin 100,000 Unit/gm Powd 1 applic TOPICAL BID applic 01/11/19 [Mycostatin Powder] Nystatin 100,000Unit/gm Cream 1 applic TOPICAL BID applic 01/11/19 [Mycostatin Cream] Pantoprazole [Protonix] 40 mg PO AC-BRKFST tablet. 01/11/19 Allergies Allergy/AdvReac Type Severity Reaction Status Date / Time No Known Allergies Allergy Verified 03/07/19 15:26 Review of Systems ROS Statement: Those systems with pertinent positive or pertinent negative responses have been documented in the HPI. ROS Other: All systems not noted in ROS Statement are negative. Past Medical History Past Medical History: Cancer, Diabetes Mellitus, Deep Vein Thrombosis (DVT), Fibromyalgia, GERD/Reflux, Hyperlipidemia, Pneumonia Additional Past Medical History / Comment(s): multiple myeloma -chemo every other week, uti-ecoli ,kidney stone/polynephritis History of Any Multi-Drug Resistant Organisms: None Reported Past Surgical History: Orthopedic Surgery Additional Past Surgical History / Comment(s): knee sx. CA REMOVED FROM LEFT LEG Past Anesthesia/Blood Transfusion Reactions: Previous Problems w/ Anesthesia Additional Past Anesthesia/Blood Transfusion Reaction / Comment(s): DIFFICULT INTUBATION WHEN HAVING PREVIOUS LEFT KNEE SURGERIES Past Psychological History: No Psychological Hx Reported Smoking Status: Never smoker Past Alcohol Use History: None Reported Past Drug Use History: None Reported - Past Family History Father Family Medical History: Cancer Mother Additional Family Medical History / Comment(s): from ALS General Exam - General Exam Comments Initial Comments: 63-year-old female. Alert and oriented. Patient appears in moderate discomfort. Limitations: no limitations General appearance: alert, in no apparent distress Head exam: Present: atraumatic, normocephalic, normal inspection Eye exam: Present: normal appearance, PERRL, EOMI. Absent: scleral icterus, conjunctival injection, periorbital swelling ENT exam: Present: normal exam, mucous membranes moist Neck exam: Present: normal inspection. Absent: tenderness, meningismus, lymphadenopathy Respiratory exam: Present: normal lung sounds bilaterally. Absent: respiratory distress, wheezes, rales, rhonchi, stridor Cardiovascular Exam: Present: regular rate, normal rhythm, normal heart sounds. Absent: systolic murmur, diastolic murmur, rubs, gallop, clicks GI/Abdominal exam: Present: soft, normal bowel sounds. Absent: distended, tenderness, guarding, rebound, rigid Extremities exam: Present: full ROM, normal capillary refill. Absent: normal inspection, tenderness, pedal edema, joint swelling, calf tenderness Left Upper Leg exam: Present: tenderness (Patient has significant tenderness over the distal femur.), swelling. Absent: normal inspection, full ROM Knee exam: Absent: normal inspection, full ROM Lower Leg exam: Present: normal inspection, full ROM Ankle exam: Present: normal inspection, full ROM Foot/Toe exam: Present: normal inspection, full ROM Neurovascular tendon exam: Present: no vascular compromise Gait: unable to bear weight Back exam: Present: normal inspection Neurological exam: Present: alert, oriented X3, CN II-XII intact Psychiatric exam: Present: normal affect, normal mood Course Vital Signs 03/07/19 15:20 Temperature 99.1 F Pulse Rate 68 Respiratory 24 Rate Blood Pressure 138/81 O2 Sat by Pulse 99 Oximetry Medical Decision Making - Medical Decision Making 63-year-old female multiple comorbidities presents emergency Department today with complaints of severe left leg pain. She states she is unable to ambulate and bear weight. She's had a previous old fracture that's been managed by Dr. Ortiz. At this time x-rays show old fracture at the midshaft of the femur with separation of the fragments compared old exam. Patient is normal sensation and dorsalis pedis pulses palpable. Patient case discussed with Dr. Ortiz and he reviewed the images. Recommended transfer to [facility] for possible surgical revision. Patient is pain has been managed with morphine and emergency department. No labs are obtained at this time. Patient will be transferred to [facility]. Accepting physician is Dr. Wilkerson. - Lab Data Lab Results 03/07/19 Range/Units 16:31 Urine Color Yellow Urine Appearance Cloudy H (Clear) Urine pH 5.5 (5.0-8.0) Ur Specific [place] 1.014 (1.001-1.035) Urine Protein Negative (Negative) Urine Glucose (UA) Negative (Negative) Urine Ketones 1+ H (Negative) Urine Blood Negative (Negative) Urine Nitrite Negative (Negative) Urine Bilirubin Negative (Negative) Urine Urobilinogen <2.0 (<2.0) mg/dL Ur Leukocyte Esterase Small H (Negative) Urine RBC 4 (0-5) /hpf Urine WBC 2 (0-5) /hpf Ur Squamous Epith Cells <1 (0-4) /hpf Urine Bacteria Occasional H (None) /hpf Urine Mucus Rare H (None) /hpf - Radiology Data Radiology results: report reviewed There is an old fracture of the midshaft of the femur or the proximal end of the plate with further separation of the fragments compared old exam. Small lucent areas in the proximal femur consistent with multiple myeloma. Disposition Clinical Impression: Left femoral shaft fracture, Multiple myeloma Disposition: DC/TRNS INTERMEDIATE CARE FAC Condition: Stable Is patient prescribed a controlled substance at d/c from ED?: No Referrals: Seth Montoya DO [Primary Care Provider] - 1-2 days Time of Disposition: 18:17 - Out of Hospital Transfer - Req. Specs Out of Hospital Transfer - Requested Specifics: Other Emergency Center ([facility])
[2019-03-07] MEDS ORDERED: SODIUM CHLORIDE 0.9% 1,000 ML IV ONE (18:10)
[2019-03-07] MEDS ORDERED: MORPHINE SULFATE 4 MG/ML SYRINGE IVP STA (18:47)
== END 2019-03-07 19:04 ==
LOC: EC 15:16
DX: S72.302A Unspecified fracture of shaft of left femur, initial encounter for closed fracture (principal); C90.00 Multiple myeloma not having achieved remission; E11.9 Type 2 diabetes mellitus without complications; Z92.21 Personal history of antineoplastic chemotherapy; Z86.718 Personal history of other venous thrombosis and embolism; Z98.890 Other specified postprocedural states; Z79.84 Long term (current) use of oral hypoglycemic drugs; Z79.01 Long term (current) use of anticoagulants; Z79.899 Other long term (current) drug therapy; X58.XXXA Exposure to other specified factors, initial encounter
CPT/HCPCS: 81001; 73552; 99285; 96374; 96372; J2270

== ENCOUNTER → 2019-05-28 | Outpatient (CLI) | payer MEDICARE ==
--- NOTE | 2019-06-02 08:02 | PE ---
EXAMINATION TYPE: PET CT fusion skull to thigh DATE OF EXAM: 05/28/2019 COMPARISON: CT left femur February 13, 2018. CT abdomen and pelvis May 16, 2018. CT chest November 27. HISTORY: Multiple myeloma originally diagnosed in 2013 left leg completed radiation treatment 4-5 y ears ago, currently on chemotherapy. TECHNIQUE: Following the intravenous administration of 11.474 mCi of F-18 FDG, whole body images are performed from the top of skull to the bottom of feet. Images are reviewed on the computer in the c oronal, axial, and sagittal planes. Reconstructed rotating images are created on independent worksta tion and reviewed on the computer. A noncontrast CT is performed in conjunction with the PET scan. SCAN: Subsequent Scan FINDINGS: SKULL BASE AND NECK: There is hypermetabolic uptake right mandibular angle with lucent lesion near a xial image 81, max SUV is 9.79. There is second area of hypermetabolic uptake near the central maxill a at level of incisors without definitive osseous lesion may be just posterior to the maxilla axial i mage 87, maximum SUV is 13.38 at this level. Correlation with direct visualization is advised. No additional areas of suspicious hypermetabolic uptake are present. CHEST, MEDIASTINUM, AND HILAR REGION: No areas of suspicious hypermetabolic uptake. ABDOMEN AND PELVIS: NO definitive areas of abnormal hypermetabolic uptake. LOWER EXTREMITIES: Some focal areas of abnormal hypermetabolic uptake through the mid to distal left femur are seen at sites of prior surgery for reference axial image 36, medial aspect of bone max SUV is 2.95. Additional areas of hypermetabolic uptake are present. Findings favored postsurgical. No def initive hypermetabolic soft tissue nodules are seen. There is linear vertical hypermetabolic Uptake i n the outer aspect of both legs, left greater than right, correlate clinically for any muscular infla mmatory process. There is extension into the left anterolateral hindfoot and midfoot along the dorsal surface. OSSEOUS STRUCTURES: No definitive additional areas of suspicious hypermetabolic uptake. OTHER CT: Mild mucosal thickening involving the right maxillary sinus is present. Enlarged pulmonary arteries are seen, CT finding suggestive of underlying pulmonary artery hypertensi on. Calcification at level of mitral valve is present. There is a ventral wall hernia containing fat and tiny mesenteric vessels in the lower abdomen. There is redemonstration of extensive surgical change to the distal left femur with bone grafting mat erial present. IMPRESSION: Suspicious areas noted right mandible and central maxilla. Correlate clinically. No defin itive areas of abnormal hypermetabolic uptake.
== END | disposition home or self-care (01) ==
LOC: RADPETMAIN 16:22
PROVIDERS: ATTEND Internal Medicine Hematology & Oncology
DX: C90.01 Multiple myeloma in remission (principal)
CPT/HCPCS: 78815; A9552

== ENCOUNTER → 2020-04-20 | Outpatient (CLI) | payer MEDICARE ==
--- NOTE | 2020-04-20 15:37 | US ---
EXAMINATION TYPE: US venous doppler duplex UE RT DATE OF EXAM: 04/20/2020 COMPARISON: NONE CLINICAL HISTORY: M79.621 pain right upper limb. Right arm pain, patient on blood thinners. SIDE PERFORMED: Right Grayscale, color doppler, spectral doppler imaging performed of the deep veins of the right upper ext remity. There is normal flow, compressibility and vascular waveforms. Right Arm: Appears negative for DVT IMPRESSION: No sonographic evidence of deep venous thrombosis within the right upper extremity in its visualized portions.
== END | disposition home or self-care (01) ==
LOC: RADUSWWP 14:23
PROVIDERS: ATTEND Internal Medicine Hematology & Oncology
DX: M79.621 Pain in right upper arm (principal)

== ENCOUNTER → 2020-04-20 | Outpatient (CLI) | payer MEDICARE ==
--- NOTE | 2020-04-20 16:03 | XR ---
EXAMINATION TYPE: XR shoulder complete RT DATE OF EXAM: 04/20/2020 CLINICAL HISTORY: Right shoulder pain with no recent injury. History of rotator cuff surgery. TECHNIQUE: Three views of the right shoulder are obtained. COMPARISON: None. FINDINGS: There is no acute fracture/dislocation evident in the right shoulder. The acromioclavicul ar and glenohumeral joint spaces appear aligned however there is mild to moderate acromio clavicular arthropathy with joint space narrowing.. Right-sided perihilar airspace disease is seen The visualiz ed ribs are intact and unremarkable. Scapula is elevated, which may be positional. IMPRESSION: 1. There is no acute fracture or dislocation in the right shoulder. Scapular elevation may be positio nal. 2. Right-sided perihilar airspace disease. Chest x-ray is recommended for further evaluation.
--- NOTE | 2020-04-21 08:28 | XR ---
EXAMINATION TYPE: XR cervical spine comp DATE OF EXAM: 04/20/2020 TECHNIQUE: Frontal, lateral, oblique, swimmers, and open mouth view of the cervical spine are obtaine d. HISTORY: C90.01,Z71.3,E11.9,I82.890 COMPARISON: None FINDINGS: The cervical spine is visualized in its entirety from C1 thru C7. Vertebral body heights are maintained. Alignment is also maintained. Small anterior osteophytes and multilevel uncovertebral hypertrophy are seen. Mild neural foraminal narrowing at C3-C4 on the left radiographically. This co uld be further evaluated with MRI. The pre-vertebral soft tissue appears within normal limits. The C 1-C2 articulation is within normal limits on the open mouth view. The oblique images are within norm al limits. IMPRESSION: No acute fracture or dislocation is seen in the cervical spine. Mild multilevel degenera tive disease of the cervical spine.
== END | disposition home or self-care (01) ==
LOC: RADXRWHC 14:28
PROVIDERS: ATTEND Internal Medicine Hematology & Oncology
DX: M50.30 Other cervical disc degeneration, unspecified cervical region (principal); Z71.3 Dietary counseling and surveillance; E11.9 Type 2 diabetes mellitus without complications; I82.890 Acute embolism and thrombosis of other specified veins; C90.01 Multiple myeloma in remission
CPT/HCPCS: 72050

== ENCOUNTER → 2020-06-10 | Outpatient (CLI) | payer MEDICARE ==
--- NOTE | 2020-06-14 06:42 | PE ---
EXAMINATION TYPE: PET CT fusion whole body DATE OF EXAM: 06/10/2020 COMPARISON: Prior PET/CT May 28, 2019 and older studies HISTORY: Multiple myeloma progress study originally diagnosed April 2019 all over body history of chem otherapy and radiation treatment per patient. She stated in 2019 originally diagnosed in 2013 in the left leg? TECHNIQUE: Following the intravenous administration of 12.29 mCi of F-18 FDG, whole body images are performed from the top of skull to the bottom of feet. Images are reviewed on the computer in the co elliott, axial, and sagittal planes. Reconstructed rotating images are created on independent workstat ion and reviewed on the computer. A localization noncontrast CT is performed in conjunction with th e PET scan. SCAN: Subsequent Scan FINDINGS: HEAD AND NECK: There is persistent hypermetabolic uptake mandible extending right mandibular angle w ith enlarging lucent lesion near axial image 67, max SUV is 8.19 on current study on axial image 61. There is new hypermetabolic 10 x 6 mm right posterior cervical triangle lymph node at this level of m andible axial image 61, Max SUV is 6.71. Posterior lower cervical upper thoracic muscular uptake left greater than right favors muscular infla mmation CHEST, MEDIASTINUM, AND HILAR REGION: Abnormal hypermetabolic uptake through the right shoulder subsc apularis along with proximal humeral muscles presumed inflammatory. No new hypermetabolic soft tissue nodules. ABDOMEN AND PELVIS: Normal excretion is seen. Nonspecific bowel uptake anterior right pelvis axial im age 219. NO definitive areas of new abnormal hypermetabolic uptake. LOWER EXTREMITIES: Metallic hardware from prior left femoral surgery redemonstrated. Mild hypermetabo lic uptake posterior distal left femoral muscle and posterior medial right leg muscles presumed infla mmatory. Abnormal hypermetabolic uptake involves posterior medial left hindfoot muscles favoring infl ammatory. No definitive new hypermetabolic soft tissue nodules are seen. OSSEOUS STRUCTURES: No definitive additional areas of suspicious hypermetabolic uptake. OTHER CT: Enlarged pulmonary arteries are redemonstrated, CT finding suggestive of underlying pulmonary artery hypertension. Calcification at level of mitral valve is redemonstrated. There is a ventral wall hernia just right of midline containing fat and tiny mesenteric vessels in th e mid to lower lower abdomen axial image 208 redemonstrated. There is redemonstration of extensive surgical change to the distal left femur with bone grafting mat erial present. IMPRESSION: Persistent neoplasm mandible extending to right of midline. New posterior right cervical adenopathy at level of mandible. No new metastatic disease.
== END | disposition home or self-care (01) ==
LOC: RADPETMAIN 09:27
PROVIDERS: ATTEND Internal Medicine Hematology & Oncology
DX: R59.0 Localized enlarged lymph nodes (principal); C90.01 Multiple myeloma in remission
CPT/HCPCS: 78816; A9552

== ENCOUNTER 2020-10-24 13:41 | Inpatient (IN) | payer MEDICARE ==
--- NOTE | 2020-10-24 14:28 | ED ---
General Adult HPI - General Chief complaint: Weakness Stated complaint: Weakness Time Seen by Provider: 10/24/20 14:00 Source: patient, EMS, RN notes reviewed, old records reviewed Mode of arrival: EMS Limitations: no limitations - History of Present Illness Initial comments: This is a 65-year-old female presents emergency department with past medical h istory significant for multiple myeloma. Patient comes in today complaining of generalized weakness. Patient denies any new pain. Patient denies any chest pain palpitations difficulty breathing shortness of breath per patient does any recent fever chills or cough. Patient denies abdominal pain she denies any vomiting but states she has had diarrhea since yesterday. Patient states she is not eating or drinking very much at all. Patient states was no focal weakness is generalized weakness - Related Data Home Medications Medication Instructions Recorded Confirmed Acyclovir 400 mg PO BID 01/05/18 10/24/20 Apixaban [Eliquis] 5 mg PO BID 11/26/18 10/24/20 Lenalidomide [Revlimid] 25 mg PO DIRECTED 11/26/18 10/24/20 Escitalopram Oxalate [Lexapro] 20 mg PO DAILY 11/28/18 10/24/20 Dexamethasone [Decadron] 16 mg PO WE 10/24/20 10/24/20 Diphenoxylate HCl/Atropine 1 tab PO TID PRN 10/24/20 10/24/20 [Lomotil 2.5-0.025 mg Tablet] Furosemide [Lasix] 40 mg PO DAILY 10/24/20 10/24/20 Gabapentin [Neurontin] 300 mg PO TID 10/24/20 10/24/20 HYDROcodone/APAP 5-325MG [[place] 1 tab PO Q6H PRN 10/24/20 10/24/20 5-325] Magnesium Oxide [Michael] 500 mg PO DAILY 10/24/20 10/24/20 Ondansetron [Zofran] 4 mg PO Q6H PRN 10/24/20 10/24/20 Oxybutynin Xl [Ditropan Xl] 5 mg PO DAILY 10/24/20 10/24/20 Potassium Chloride ER [K-Dur 20] 20 meq PO DAILY 10/24/20 10/24/20 Prevalite 4gm Package 1 pack PO BID 12/01/20 12/01/20 Terbinafine [LamISIL] 250 mg PO DAILY 10/24/20 10/24/20 traZODone HCL [Desyrel] 100 mg PO HS PRN 10/24/20 10/24/20 Previous Rx's Medication Instructions Recorded Loperamide [Imodium] 2 mg PO DAILY PRN #3 cap 01/11/19 Pantoprazole [Protonix] 40 mg PO AC-BRKFST tablet. 01/11/19 Allergies Allergy/AdvReac Type Severity Reaction Status Date / Time No Known Allergies Allergy Verified 10/24/20 15:14 Review of Systems ROS Statement: Those systems with pertinent positive or pertinent negative responses have been documented in the HPI. ROS Other: All systems not noted in ROS Statement are negative. Past Medical History Past Medical History: Cancer, Diabetes Mellitus, Deep Vein Thrombosis (DVT), Fibromyalgia, GERD/Reflux, Hyperlipidemia, Pneumonia Additional Past Medical History / Comment(s): multiple myeloma -chemo every other week, uti-ecoli ,kidney stone/polynephritis History of Any Multi-Drug Resistant Organisms: None Reported Past Surgical History: Orthopedic Surgery Additional Past Surgical History / Comment(s): knee sx. CA REMOVED FROM LEFT LEG Past Anesthesia/Blood Transfusion Reactions: Previous Problems w/ Anesthesia Additional Past Anesthesia/Blood Transfusion Reaction / Comment(s): DIFFICULT INTUBATION WHEN HAVING PREVIOUS LEFT KNEE SURGERIES Past Psychological History: No Psychological Hx Reported Smoking Status: Never smoker Past Alcohol Use History: None Reported Past Drug Use History: None Reported - Past Family History Father Family Medical History: Cancer Mother Additional Family Medical History / Comment(s): from ALS General Exam - General Exam Comments Initial Comments: GENERAL: Patient is well-developed and well-nourished. Patient is nontoxic and well- hydrated and is in mild distress. ENT: Neck is soft and supple. No significant lymphadenopathy is noted. Oropharynx is clear. Moist mucous membranes. Neck has full range of motion without eliciting any pain. EYES: The sclera were anicteric and conjunctiva were pink and moist. Extraocular movements were intact and pupils were equal round and reactive to light. Eyelids were unremarkable. PULMONARY: Unlabored respirations. Good breath sounds bilaterally. No audible rales rhonchi or wheezing was noted. CARDIOVASCULAR: There is a regular rate and rhythm without any murmurs gallops or rubs. ABDOMEN: Soft and nontender with normal bowel sounds. SKIN: Skin is clear with no lesions or rashes and otherwise unremarkable. NEUROLOGIC: Patient is alert and oriented x3. Cranial nerves II through XII are grossly intact. Motor and sensory are also intact. Normal speech, volume and content. Symmetrical smile. MUSCULOSKELETAL: Normal extremities with adequate strength and full range of motion. No lower extremity swelling or edema. No calf tenderness. LYMPHATICS: No significant lymphadenopathy is noted PSYCHIATRIC: Normal psychiatric evaluation. Limitations: no limitations Course Vital Signs 10/24/20 10/24/20 14:01 16:46 Temperature 98.3 F 98.2 F Pulse Rate 86 76 Respiratory 18 20 Rate Blood Pressure 111/49 117/62 O2 Sat by Pulse 94 L 97 Oximetry Medical Decision Making - Medical Decision Making EKG shows normal sinus rhythm at 76 bpm WA interval is on a 44 QRS is 78 QT interval 46 QTC is 456 per patient's EKG shows no ST segment elevation or depression. Patient's chest x-ray shows no acute abnormality. She did try to get a minute but did not feel steady enough to go home. I spoke with Dr. Montoya he agreed to admit the patient admitted the patient I wrote admitting orders. - Lab Data Result diagrams: 10/24/20 14:46 10/24/20 14:46 Lab Results 10/24/20 10/24/20 10/24/20 Range/Units 14:46 14:46 14:46 WBC 10.4 (3.8-10.6) k/uL RBC 4.28 (3.80-5.40) m/uL Hgb 14.2 (11.4-16.0) gm/dL Hct 43.0 (34.0-46.0) % MCV 100.5 H (80.0-100.0) fL MCH 33.1 (25.0-35.0) pg MCHC 32.9 (31.0-37.0) g/dL RDW 16.4 H (11.5-15.5) % Plt Count 204 (150-450) k/uL MPV 8.4 Neutrophils % 85 % Lymphocytes % 4 % Monocytes % 7 % Eosinophils % 2 % Basophils % 0 % Neutrophils # 8.9 H (1.3-7.7) k/uL Lymphocytes # 0.4 L (1.0-4.8) k/uL Monocytes # 0.7 (0-1.0) k/uL Eosinophils # 0.2 (0-0.7) k/uL Basophils # 0.0 (0-0.2) k/uL Anisocytosis Slight Macrocytosis Slight PT 10.3 (9.0-12.0) sec INR 1.0 (<1.2) APTT 20.2 L (22.0-30.0) sec Sodium (137-145) mmol/L Potassium (3.5-5.1) mmol/L Chloride (98-107) mmol/L Carbon Dioxide (22-30) mmol/L Anion Gap mmol/L BUN (7-17) mg/dL Creatinine (0.52-1.04) mg/dL Est GFR (CKD-EPI)AfAm (>60 ml/min/1.73 sqM) Est GFR (CKD-EPI)NonAf (>60 ml/min/1.73 sqM) Glucose (74-99) mg/dL Lactic Ac Sepsis Rflx Plasma Lactic Acid Manoj (0.7-2.0) mmol/L Calcium (8.4-10.2) mg/dL Magnesium (1.6-2.3) mg/dL Total Bilirubin (0.2-1.3) mg/dL AST (14-36) U/L ALT (4-34) U/L Alkaline Phosphatase (38-126) U/L Troponin I (0.000-0.034) ng/mL Total Protein (6.3-8.2) g/dL Albumin (3.5-5.0) g/dL Urine Color Yellow Urine Appearance Clear (Clear) Urine pH 5.0 (5.0-8.0) Ur Specific [place] 1.021 (1.001-1.035) Urine Protein Negative (Negative) Urine Glucose (UA) Negative (Negative) Urine Ketones Negative (Negative) Urine Blood Negative (Negative) Urine Nitrite Negative (Negative) Urine Bilirubin Negative (Negative) Urine Urobilinogen <2.0 (<2.0) mg/dL Ur Leukocyte Esterase Negative (Negative) 10/24/20 10/24/20 10/24/20 Range/Units 14:46 14:46 14:46 WBC (3.8-10.6) k/uL RBC (3.80-5.40) m/uL Hgb (11.4-16.0) gm/dL Hct (34.0-46.0) % MCV (80.0-100.0) fL MCH (25.0-35.0) pg MCHC (31.0-37.0) g/dL RDW (11.5-15.5) % Plt Count (150-450) k/uL MPV Neutrophils % % Lymphocytes % % Monocytes % % Eosinophils % % Basophils % % Neutrophils # (1.3-7.7) k/uL Lymphocytes # (1.0-4.8) k/uL Monocytes # (0-1.0) k/uL Eosinophils # (0-0.7) k/uL Basophils # (0-0.2) k/uL Anisocytosis Macrocytosis PT (9.0-12.0) sec INR (<1.2) APTT (22.0-30.0) sec Sodium 138 (137-145) mmol/L Potassium 3.6 (3.5-5.1) mmol/L Chloride 105 (98-107) mmol/L Carbon Dioxide 25 (22-30) mmol/L Anion Gap 8 mmol/L BUN 20 H (7-17) mg/dL Creatinine 0.96 (0.52-1.04) mg/dL Est GFR (CKD-EPI)AfAm 72 (>60 ml/min/1.73 sqM) Est GFR (CKD-EPI)NonAf 63 (>60 ml/min/1.73 sqM) Glucose 115 H (74-99) mg/dL Lactic Ac Sepsis Rflx Plasma Lactic Acid Manoj 3.3 H* (0.7-2.0) mmol/L Calcium 9.4 (8.4-10.2) mg/dL Magnesium 1.6 (1.6-2.3) mg/dL Total Bilirubin 0.6 (0.2-1.3) mg/dL AST 24 (14-36) U/L ALT 17 (4-34) U/L Alkaline Phosphatase 65 (38-126) U/L Troponin I <0.012 (0.000-0.034) ng/mL Total Protein 7.5 (6.3-8.2) g/dL Albumin 3.6 (3.5-5.0) g/dL Urine Color Urine Appearance (Clear) Urine pH (5.0-8.0) Ur Specific [place] (1.001-1.035) Urine Protein (Negative) Urine Glucose (UA) (Negative) Urine Ketones (Negative) Urine Blood (Negative) Urine Nitrite (Negative) Urine Bilirubin (Negative) Urine Urobilinogen (<2.0) mg/dL Ur Leukocyte Esterase (Negative) 10/24/20 Range/Units 15:12 WBC (3.8-10.6) k/uL RBC (3.80-5.40) m/uL Hgb (11.4-16.0) gm/dL Hct (34.0-46.0) % MCV (80.0-100.0) fL MCH (25.0-35.0) pg MCHC (31.0-37.0) g/dL RDW (11.5-15.5) % Plt Count (150-450) k/uL MPV Neutrophils % % Lymphocytes % % Monocytes % % Eosinophils % % Basophils % % Neutrophils # (1.3-7.7) k/uL Lymphocytes # (1.0-4.8) k/uL Monocytes # (0-1.0) k/uL Eosinophils # (0-0.7) k/uL Basophils # (0-0.2) k/uL Anisocytosis Macrocytosis PT (9.0-12.0) sec INR (<1.2) APTT (22.0-30.0) sec Sodium (137-145) mmol/L Potassium (3.5-5.1) mmol/L Chloride (98-107) mmol/L Carbon Dioxide (22-30) mmol/L Anion Gap mmol/L BUN (7-17) mg/dL Creatinine (0.52-1.04) mg/dL Est GFR (CKD-EPI)AfAm (>60 ml/min/1.73 sqM) Est GFR (CKD-EPI)NonAf (>60 ml/min/1.73 sqM) Glucose (74-99) mg/dL Lactic Ac Sepsis Rflx Y Plasma Lactic Acid Manoj (0.7-2.0) mmol/L Calcium (8.4-10.2) mg/dL Magnesium (1.6-2.3) mg/dL Total Bilirubin (0.2-1.3) mg/dL AST (14-36) U/L ALT (4-34) U/L Alkaline Phosphatase (38-126) U/L Troponin I (0.000-0.034) ng/mL Total Protein (6.3-8.2) g/dL Albumin (3.5-5.0) g/dL Urine Color Urine Appearance (Clear) Urine pH (5.0-8.0) Ur Specific [place] (1.001-1.035) Urine Protein (Negative) Urine Glucose (UA) (Negative) Urine Ketones (Negative) Urine Blood (Negative) Urine Nitrite (Negative) Urine Bilirubin (Negative) Urine Urobilinogen (<2.0) mg/dL Ur Leukocyte Esterase (Negative) Disposition Clinical Impression: Generalized weakness Disposition: ADMITTED IP TO THIS HOSP Referrals: Seth Montoya DO [Primary Care Provider] - 1-2 days Time of Disposition: 18:22
[2020-10-24] MEDS ORDERED: SODIUM CHLORIDE 0.9% 1,000 ML IV STA (14:35)
[2020-10-24 14:58] LABS: Anisocytosis Slight; Basophils % (A) 0 %; Eosinophils # (A) 0.2 k/uL (0-0.7); Eosinophils % (A) 2 %; HGB 14.2 gm/dL (11.4-16.0); Lymphocytes # (A) 0.4 k/uL (1.0-4.8); Lymphocytes % (A) 4 %; MCH 33.1 pg (25.0-35.0); MCHC 32.9 g/dL (31.0-37.0); MCV 100.5 fL (80.0-100.0); Macrocytosis Slight; Mean Platelet Volume 8.4; Monocytes # (A) 0.7 k/uL (0-1.0); Monocytes % (A) 7 %; Neutrophils # (A) 8.9 k/uL (1.3-7.7); Neutrophils % (A) 85 %; Platelet Count 204 k/uL (150-450); RBC 4.28 m/uL (3.80-5.40); RDW 16.4 % (11.5-15.5); WBC 10.4 k/uL (3.8-10.6)
[2020-10-24 15:09] LABS: Albumin 3.6 g/dL (3.5-5.0); Calcium 9.4 mg/dL (8.4-10.2); Magnesium 1.6 mg/dL (1.6-2.3); Potassium 3.6 mmol/L (3.5-5.1); Total Bilirubin 0.6 mg/dL (0.2-1.3); Total Protein 7.5 g/dL (6.3-8.2)
[2020-10-24 15:16] LABS: Partial Thromboplastin Time 20.2 sec (22.0-30.0); Prothrombin Time 10.3 sec (9.0-12.0)
--- NOTE | 2020-10-24 15:26 | XR ---
EXAMINATION TYPE: XR chest 2V DATE OF EXAM: 10/24/2020 COMPARISON: Chest x-ray November 26, 2018. Chest CT November 27, 2018 HISTORY: History of bone cancer or myeloma with weakness. TECHNIQUE: Frontal and lateral views of the chest are obtained. FINDINGS: Low lung volumes and elevated right hemidiaphragm redemonstrated. There is bilateral chroni c parenchymal changes bilaterally redemonstrated with suggestion of new left basilar opacity silhouet ting portion of left heart border. The cardiac silhouette size is stable and mildly enlarged. The osseous structures are demineralized. Multilevel spurring in the spine redemonstrated. Partial visual ization of surgical change to the mid to distal right humerus. Lytic foci from known myeloma seen bet ter on CT versus plain films. IMPRESSION: Chronic changes and mild cardiomegaly with possible developing left basilar acute infilt rate and/or atelectasis.
[2020-10-24] MEDS ORDERED: SODIUM CHLORIDE 0.9% 1,000 ML IV ONE ×2 (15:53→18:22)
[2020-10-24 17:13] LABS: Appearance,Urine Clear (Clear); Bilirubin,Urine Negative (Negative); Blood,Urine Negative (Negative); Color,Urine Yellow; Glucose,Urine (UA) Negative (Negative); Ketones,Urine Negative (Negative); Leukocyte Esterase,Urine Negative (Negative); Nitrite,Urine Negative (Negative); Protein,Urine Negative (Negative); Specific Gravity,Urine 1.021 (1.001-1.035); Urobilinogen,Urine <2.0 mg/dL (<2.0)
[2020-10-24] MEDS: ONDANSETRON 4 MG/2 ML VIAL IVP PRN (20:28)
[2020-10-25] MEDS ORDERED: HYDROcodone/APAP 5-325MG 1 EACH TAB PO PRN (05:53)
[2020-10-25] MEDS ORDERED: ONDANSETRON 4 MG TAB PO PRN (05:53)
[2020-10-25] MEDS ORDERED: LOPERAMIDE 2 MG CAP PO PRN (05:53)
[2020-10-25] MEDS ORDERED: DIPHENOX-ATROP 2.5-0.025 MG 1 EACH TAB PO PRN (05:53)
[2020-10-25] MEDS: ACETAMINOPHEN TAB 325 MG TAB PO PRN ×2 (06:26→23:18)
[2020-10-25] MEDS ORDERED: NON FORMULARY DRUG (Magnesium Oxide [Phillips] 500 MG Tablet) PO SCH (09:00)
[2020-10-25] MEDS ORDERED: dexAMETHasone 4 MG TAB PO SCH (09:00)
[2020-10-25] MEDS: GABAPENTIN 300 MG CAP PO SCH ×3 (11:21→21:08)
[2020-10-25] MEDS: ESCITALOPRAM 20 MG TAB PO SCH (11:22)
[2020-10-25] MEDS: ACYCLOVIR 200 MG CAP PO SCH ×2 (11:22→20:46)
[2020-10-25] MEDS: POTASSIUM CHLORIDE ER 20 MEQ TAB.ER PO SCH (11:22)
[2020-10-25] MEDS: PANTOPRAZOLE 40 MG TABLET PO SCH (11:22)
[2020-10-25] MEDS: APIXABAN 5 MG TAB PO SCH ×2 (11:22→20:48)
[2020-10-25] MEDS: FUROSEMIDE 40 MG TAB PO SCH (11:22)
[2020-10-25] MEDS: OXYBUTYNIN XL 5 MG TAB.ER.24 PO SCH (11:22)
[2020-10-25] MEDS: TERBINAFINE 250 MG TAB PO SCH (11:23)
[2020-10-25] MEDS: CHOLESTYRAMINE PO SCH ×2 (11:39→22:33)
[2020-10-25] MEDS: ONDANSETRON 4 MG/2 ML VIAL IVP PRN (11:41)
[2020-10-25 11:51] LABS: Anisocytosis Slight; Basophils % (A) 1 %; Eosinophils # (A) 0.2 k/uL (0-0.7); Eosinophils % (A) 2 %; HGB 13.3 gm/dL (11.4-16.0); Lymphocytes # (A) 0.5 k/uL (1.0-4.8); Lymphocytes % (A) 5 %; MCH 33.1 pg (25.0-35.0); MCHC 32.4 g/dL (31.0-37.0); MCV 102.3 fL (80.0-100.0); Macrocytosis Slight; Mean Platelet Volume 8.3; Monocytes # (A) 0.8 k/uL (0-1.0); Monocytes % (A) 9 %; Neutrophils # (A) 7.1 k/uL (1.3-7.7); Neutrophils % (A) 80 %; Platelet Count 175 k/uL (150-450); RBC 4.01 m/uL (3.80-5.40); RDW 16.3 % (11.5-15.5); WBC 8.9 k/uL (3.8-10.6)
[2020-10-25 13:16] VITALS: BMI 34.9
[2020-10-25] MEDS ORDERED: Magnesium Replacement Protocol 1 EACH MISC MISCELLANE PRN (13:59)
--- NOTE | 2020-10-25 14:24 | P.HPIM ---
History of Present Illness H&P Date: 10/25/20 Chief Complaint: Increasing generalized weakness This 65-year-old female with past medical history for multiple myeloma receiving chemo every other week, diabetes mellitus, DVT, fibromyalgia, gastroesophageal reflux disease, hyperlipidemia, and multiple other medical issues presented to the ER with complaints of worsening denies weakness, reporting her potassium was super low. Potassium on admission 3.6. Patient recently was hospitalized at [facility] for short stay regarding cellulitis of lower extremities, sent home on antibiotic. Reports she is on day 14 of her Revlimid. EKG reporting normal sinus rhythm, anterior infarct, age undetermined. Troponin negative 1.Denies chest pain, palpitations or shortness of breath. Denies fever or chills or cough denies nausea vomiting. Reports diarrhea started yesterday. Afebrile, normal WBC, MCV elevated 102.3. BUN 20, creatinine 0.96. Glucose 1:15. Lactic acid 3.3 on admission, improved with IV fluid hydration, down to 1.4. Magnesium 1.6. Denies any lightheadedness, dizziness or focal deficits. Chest x-ray reported chronic changes with possible developing left basilar acute infiltrate and/or atelectasis. UA negative. Review of Systems ROS Statement: Those systems with pertinent positive or pertinent negative responses have been documented in the HPI. ROS Other: All systems not noted in ROS Statement are negative. Past Medical History Past Medical History: Cancer, Diabetes Mellitus, Deep Vein Thrombosis (DVT), Fibromyalgia, GERD/Reflux, Hyperlipidemia, Pneumonia Additional Past Medical History / Comment(s): multiple myeloma -chemo every other week, uti-ecoli ,kidney stone/polynephritis History of Any Multi-Drug Resistant Organisms: None Reported Past Surgical History: Orthopedic Surgery Additional Past Surgical History / Comment(s): knee sx. CA REMOVED FROM LEFT LEG Past Anesthesia/Blood Transfusion Reactions: Previous Problems w/ Anesthesia Additional Past Anesthesia/Blood Transfusion Reaction / Comment(s): DIFFICULT INTUBATION WHEN HAVING PREVIOUS LEFT KNEE SURGERIES Past Psychological History: No Psychological Hx Reported Smoking Status: Never smoker Past Alcohol Use History: None Reported Past Drug Use History: None Reported - Past Family History Father Family Medical History: Cancer Mother Additional Family Medical History / Comment(s): from ALS Medications and Allergies Home Medications Medication Instructions Recorded Confirmed Type Acyclovir 400 mg PO BID 01/05/18 10/24/20 History Apixaban [Eliquis] 5 mg PO BID 11/26/18 10/24/20 History Lenalidomide [Revlimid] 25 mg PO DIRECTED 11/26/18 10/24/20 History Escitalopram Oxalate [Lexapro] 20 mg PO DAILY 11/28/18 10/24/20 History Loperamide [Imodium] 2 mg PO DAILY PRN #3 cap 01/11/19 10/24/20 Rx Pantoprazole [Protonix] 40 mg PO AC-BRKFST tablet. 01/11/19 10/24/20 Rx Dexamethasone [Decadron] 16 mg PO WE 10/24/20 10/24/20 History Diphenoxylate HCl/Atropine 1 tab PO TID PRN 10/24/20 10/24/20 History [Lomotil 2.5-0.025 mg Tablet] Furosemide [Lasix] 40 mg PO DAILY 10/24/20 10/24/20 History Gabapentin [Neurontin] 300 mg PO TID 10/24/20 10/24/20 History HYDROcodone/APAP 5-325MG [[place] 1 tab PO Q6H PRN 10/24/20 10/24/20 History 5-325] Magnesium Oxide [Michael] 500 mg PO DAILY 10/24/20 10/24/20 History Ondansetron [Zofran] 4 mg PO Q6H PRN 10/24/20 10/24/20 History Oxybutynin Xl [Ditropan Xl] 5 mg PO DAILY 10/24/20 10/24/20 History Potassium Chloride ER [K-Dur 20] 20 meq PO DAILY 10/24/20 10/24/20 History Prevalite 4gm Package 1 pack PO BID 10/24/20 10/24/20 History Terbinafine [LamISIL] 250 mg PO DAILY 10/24/20 10/24/20 History traZODone HCL [Desyrel] 100 mg PO HS PRN 10/24/20 10/24/20 History Allergies Allergy/AdvReac Type Severity Reaction Status Date / Time No Known Allergies Allergy Verified 10/24/20 15:14 Physical Exam Vitals: Vital Signs Temp Pulse Pulse Resp BP BP Pulse Ox 10/25/20 04:45 97.3 F L 66 18 102/65 92 L 10/25/20 03:00 19 10/25/20 01:45 19 10/25/20 01:40 97.9 F 68 19 113/71 92 L 10/24/20 18:00 97.9 F 90 18 104/62 98 10/24/20 16:46 98.2 F 76 20 117/62 97 10/24/20 14:01 98.3 F 86 18 111/49 94 L Intake and Output 10/24/20 10/25/20 10/25/20 22:59 06:59 14:59 Intake Total 200 200 Output Total 575 Balance -375 200 Intake: Oral 200 200 Output: Urine 575 Other: Voiding Method Toilet # Voids 1 # Bowel Movements 1 Weight 95.254 kg PHYSICAL EXAM: VITAL SIGNS: As above GENERAL: Sitting up in bed, no acute distress HEENT: Conjunctivae normal. eyes normal. Chronic mild facial droop. NECK: No JVD. No thyroid enlargement. No LNs CARDIOVASCULAR: S1, S2 regular. No murmur RESPIRATION: Breath sounds diminished in the bases. No rhonchi or crackles. No bronchial breathing. ABDOMEN: Soft, nontender . No guarding. no masses palpable. No ascites, No hepatosplenomegaly.Bowel sounds heard. LEGS: No edema. no swelling PSYCHIATRY: Alert and oriented X3, mood and affect normal. NERVOUS SYSTEM: Cranial N 2-12 grossly normal. Moves all 4 limbs. Diffuse weakness, No focal deficits. Strength and sensation grossly intact.. Skin: Warm and dry, no rash Results CBC & Chem 7: 10/25/20 11:16 10/24/20 14:46 Labs: Abnormal Lab Results - Last 24 Hours (Table) 10/24/20 10/24/20 10/24/20 Range/Units 14:46 14:46 14:46 MCV 100.5 H (80.0-100.0) fL RDW 16.4 H (11.5-15.5) % Neutrophils # 8.9 H (1.3-7.7) k/uL Lymphocytes # 0.4 L (1.0-4.8) k/uL APTT 20.2 L (22.0-30.0) sec BUN 20 H (7-17) mg/dL Glucose 115 H (74-99) mg/dL Plasma Lactic Acid Manoj (0.7-2.0) mmol/L 10/24/20 Range/Units 14:46 MCV (80.0-100.0) fL RDW (11.5-15.5) % Neutrophils # (1.3-7.7) k/uL Lymphocytes # (1.0-4.8) k/uL APTT (22.0-30.0) sec BUN (7-17) mg/dL Glucose (74-99) mg/dL Plasma Lactic Acid Manoj 3.3 H* (0.7-2.0) mmol/L Thrombosis Risk Factor Assmnt - Choose All That Apply Each Factor Represents 1 point: Obesity (BMI >25), Swollen legs (current) Each Risk Factor Represents 2 Points: Age 61-74 years Each Risk Factor Represents 3 Points: History of DVT/PE Thrombosis Risk Factor Assessment Total Risk Factor Score: 7 Thrombosis Risk Factor Assessment Level: High Risk Assessment and Plan Assessment: Worsening generalized weakness in a patient with multiple myeloma Lactic acidosis, improved with IV fluid hydration Mild dehydration Diarrhea, ruling out C. difficile in a patient who just recently completed antibiotic therapy for acute lower extremity cellulitis, possibly medication induced, on Revlimid Gait dysfunction, uses a walker Atelectasis Morbid obesity, BMI 34.9 Plan: Continue on current medication regime ,monitoring and symptomatic treatment. Maintain IV fluid hydration .Covid testing pending.Stool culture ordered to rule out C. difficile colitis. PT/OT consulted. Oncology consult in place, recommendations pending. Labs pending. Home meds have been reviewed and resumed accordingly. GI and DVT prophylaxis in place. The impression and plan of care has been dictated as directed. : I performed a history and examination of this patient, discussed the same with the dictator. I agree with the dictator's note ,documented as a scribe. Any additional findings or plans will be noted.
[2020-10-25 18:32] LABS: African American GFR (CKD) 68.9 (60.0-200.0); Anion Gap 9.9 mmol/L (4.00-12.00); Calcium 8.8 mg/dL (8.7-10.3); Carbon Dioxide 28.1 mmol/L (21.6-31.8); Non-African American GFR(CKD) 59.5 (60.0-200.0); Potassium 3.3 mmol/L (3.5-5.5)
[2020-10-25] MEDS: SODIUM CHLORIDE 0.9% 1,000 ML IV SCH (19:02)
--- NOTE | 2020-10-25 19:08 | P.CONS ---
History of Present Illness - Reason for Consult Consult date: 10/25/20 Multiple Myeloma Requesting physician: Mariel Coats - Chief Complaint Weakness - History of Present Illness Merissa presented in 2011 with severe L leg pain > she was found to have a pathologic fracture of L distal femur, had surgery by Dr Hector Segura (Ortho/Onc) > was found to have Plasma cell Myeloma. 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 The patient was initially treated with Velcade/Dex , received XRT to L femur, then placed in maintenance Revlamid from November 2012 to Dec 2015 when disease progressed. She was then treated with Kyprolis/Rev/Dex without significant clinical response> treatment changed to Empliciti/Rev/Dex with exellent control > he remains on protocol. She was recently admitted to [facility] with bilateral lower extremities cellulitis, she is very weak, in wheelchair, denies chest pain, SOB or significant skeletal pain. 07.15.19: Tolerating treatment well. Pain in leg improved. We are weaning off narcotics, down to 7.5mg/325 and improved. Go to 60 count next month. 08.12.19: Tolerating Treatment well. No acute complaints 09/09/19: C/O insomnia on days of oral steroids, as well as, occasional confusion. 11/11/19: Had oral surgery done> severe pain. Zometa on hold. Tolerating Empliciti/Rev/Dex well 01/13/20: Feels Ok, tired, tolerating Empliciti/Rev/Dex well 03/09/20: Feels well, having R maxillary pain 2nd to bone necrosis, will be seen by Dr Fernandez (Oral surgery) soon. Tolerating Empliciti/Rev/Dex well. Denies skele justin pain. 04/28/20: Feels well, tolerating Empliciti/Rev/Dex well. C/O R arm pain. 06/22/20:PET scan stable - Increased activity in Jaw but recurrent infection and dental work. Moving bowels well. Pain is controlled on current regimen. 07/17/20: Last paraprotein 0.22, on 06/22 = 0.67. Will recheck today. She complains of middle of chest soreness but she states this is not new and from the way she sleeps. She is having problems with memory more. She has been maintained on treatment with Empliciti/Rev/Dex well. Although her last treatment on 09/07/20, She has not shown for last three, or her last follow-up visit. She appears to be declining in her mental satus and her ability to care for herself.. She cannot remeber the last time she was able to take a shower. She states she is weak. She has a dog at home and is concerned if she is put into a halfway that her dog will not have a home. She has two children who have not been able to visit due to covid. Her laundry is in the basement of her home and she has not been able to manage this for quit some time. She has had homecare in the past, unclear why not recently. Review of Systems All systems: negative Constitutional: Reports as per HPI Past Medical History Past Medical History: Cancer, Diabetes Mellitus, Deep Vein Thrombosis (DVT), Fibromyalgia, GERD/Reflux, Hyperlipidemia, Pneumonia Additional Past Medical History / Comment(s): multiple myeloma -chemo every other week, uti-ecoli ,kidney stone/polynephritis History of Any Multi-Drug Resistant Organisms: None Reported Past Surgical History: Orthopedic Surgery Additional Past Surgical History / Comment(s): knee sx. CA REMOVED FROM LEFT LEG Past Anesthesia/Blood Transfusion Reactions: Previous Problems w/ Anesthesia Additional Past Anesthesia/Blood Transfusion Reaction / Comm: DIFFICULT INTUBATION WHEN HAVING PREVIOUS LEFT KNEE SURGERIES Past Psychological History: No Psychological Hx Reported Smoking Status: Never smoker Past Alcohol Use History: None Reported Past Drug Use History: None Reported - Past Family History Father Family Medical History: Cancer Mother Additional Family Medical History / Comment(s): from ALS Medications and Allergies Home Medications Medication Instructions Recorded Confirmed Type Acyclovir 400 mg PO BID 01/05/18 10/24/20 History Apixaban [Eliquis] 5 mg PO BID 11/26/18 10/24/20 History Lenalidomide [Revlimid] 25 mg PO DIRECTED 11/26/18 10/24/20 History Escitalopram Oxalate [Lexapro] 20 mg PO DAILY 11/28/18 10/24/20 History Loperamide [Imodium] 2 mg PO DAILY PRN #3 cap 01/11/19 10/24/20 Rx Pantoprazole [Protonix] 40 mg PO AC-BRKFST tablet. 01/11/19 10/24/20 Rx Dexamethasone [Decadron] 16 mg PO WE 10/24/20 10/24/20 History Diphenoxylate HCl/Atropine 1 tab PO TID PRN 10/24/20 10/24/20 History [Lomotil 2.5-0.025 mg Tablet] Furosemide [Lasix] 40 mg PO DAILY 10/24/20 10/24/20 History Gabapentin [Neurontin] 300 mg PO TID 10/24/20 10/24/20 History HYDROcodone/APAP 5-325MG [[place] 1 tab PO Q6H PRN 10/24/20 10/24/20 History 5-325] Magnesium Oxide [Michael] 500 mg PO DAILY 10/24/20 10/24/20 History Ondansetron [Zofran] 4 mg PO Q6H PRN 10/24/20 10/24/20 History Oxybutynin Xl [Ditropan Xl] 5 mg PO DAILY 10/24/20 10/24/20 History Potassium Chloride ER [K-Dur 20] 20 meq PO DAILY 10/24/20 10/24/20 History Prevalite 4gm Package 1 pack PO BID 10/24/20 10/24/20 History Terbinafine [LamISIL] 250 mg PO DAILY 10/24/20 10/24/20 History traZODone HCL [Desyrel] 100 mg PO HS PRN 10/24/20 10/24/20 History Allergies Allergy/AdvReac Type Severity Reaction Status Date / Time No Known Allergies Allergy Verified 10/24/20 15:14 Physical Exam Vitals: Vital Signs Temp Pulse Resp BP Pulse Ox 10/25/20 14:45 97.5 F L 74 18 99/61 96 10/25/20 04:45 97.3 F L 66 18 102/65 92 L 10/25/20 03:00 19 10/25/20 01:45 19 10/25/20 01:40 97.9 F 68 19 113/71 92 L Intake and Output 10/25/20 10/25/20 10/25/20 06:59 14:59 22:59 Intake Total 200 300 360 Output Total 575 Balance -375 300 360 Intake: Oral 200 200 360 Other 100 Output: Urine 575 Other: Voiding Method Toilet Toilet # Voids 1 # Bowel Movements 1 Weight 95.254 kg 95.254 kg - Constitutional General appearance: cooperative, morbidly obese - EENT Eyes: EOMI, PERRLA ENT: hard of hearing, NA/AT, normal oropharynx - Neck Neck: normal ROM - Respiratory Respiratory: bilateral: diminished - Cardiovascular Rhythm: regular leg Peripheral Edema: right: 2+, left: 3+ - Gastrointestinal General gastrointestinal: soft, tenderness - Integumentary Integumentary: pale - Neurologic Neurologic: CNII-XII intact - Musculoskeletal Musculoskeletal: generalized weakness, strength equal bilaterally - Psychiatric Psychiatric: A&O x's 3, appropriate affect Results CBC & Chem 7: 10/25/20 11:16 12 11:16 Labs: Abnormal Lab Results - Last 24 Hours (Table) 10/25/20 10/25/20 Range/Units 11:16 11:16 MCV 102.3 H (80.0-100.0) fL RDW 16.3 H (11.5-15.5) % Lymphocytes # 0.5 L (1.0-4.8) k/uL Potassium 3.3 L (3.5-5.5) mmol/L Est GFR (CKD-EPI)NonAf 59.5 L (60.0-200.0) BUN/Creatinine Ratio 23.00 H (12.00-20.00) Ratio Glucose 114 H (70-110) mg/dL Assessment and Plan (1) Weakness Current Visit: Yes Status: Acute Code(s): R53.1 - WEAKNESS SNOMED Code(s): 28460646 (2) Multiple myeloma Current Visit: No Status: Chronic Priority: Medium Code(s): C90.00 - MULTIPLE MYELOMA NOT HAVING ACHIEVED REMISSION SNOMED Code(s): 582994216 Plan: Concern for safety in home alone Decreased overal mental acuity noted I will discuss further with her children She has a dog at the home Recommend social work job titles to consult OK to continue Revlimid and eliquis while hospitalized.
--- NOTE | 2020-10-25 20:48 | US ---
EXAMINATION TYPE: US venous doppler duplex LE BI DATE OF EXAM: 10/25/2020 8:23 PM COMPARISON: 04/20/2020 CLINICAL HISTORY: non-compliance with eliquis, Increased swelling. Non-compliance with eliquis, incre ased swelling. SIDE PERFORMED: Bilateral TECHNIQUE: The lower extremity deep venous system is examined utilizing real time linear array sonog ernst with graded compression, doppler sonography and color-flow sonography. VESSELS IMAGED: Common Femoral Vein Deep Femoral Vein Greater Saphenous Vein * Femoral Vein Popliteal Vein Small Saphenous Vein * Proximal Calf Veins (* superficial vessels) Limited due to patient body habitus and swelling. Right Leg: There was slight color defect in the right femoral vein proximal segment/ deep femoral ve in. Possible artifact versus minimal chronic non-occlusive thrombus. Hypoechoic area seen medial righ t popliteal area measurin.4 x 1.3 x 0.8 cm. Left Leg: No evidence of DVT in veins imaged at this time from prox calf veins to CFV/GSV. IMPRESSION: There is evidence of some mild chronic deep vein thrombosis in the right leg. No evidenc e of acute deep vein thrombosis in both legs. Right side popliteal cyst.
[2020-10-25] MEDS: Lenalidomide [Revlimid] 25 MG Capsule PO SCH (21:08)
[2020-10-26 07:40] LABS: Anisocytosis Slight; Basophils % (A) 0 %; Eosinophils % (A) 0 %; HCT 38.5 % (34.0-46.0); HGB 12.6 gm/dL (11.4-16.0); Lymphocytes # (A) 0.4 k/uL (1.0-4.8); Lymphocytes % (A) 5 %; MCHC 32.8 g/dL (31.0-37.0); MCV 100.8 fL (80.0-100.0); Macrocytosis Slight; Mean Platelet Volume 8.1; Monocytes # (A) 0.5 k/uL (0-1.0); Monocytes % (A) 7 %; Neutrophils # (A) 5.7 k/uL (1.3-7.7); Neutrophils % (A) 85 %; Platelet Count 189 k/uL (150-450); RBC 3.82 m/uL (3.80-5.40); RDW 16.2 % (11.5-15.5); WBC 6.7 k/uL (3.8-10.6)
[2020-10-26 09:31] LABS: African American GFR (CKD) >90 (>60 ml/min/1.73 sqM); Anion Gap 3 mmol/L; Blood Urea Nitrogen 23 mg/dL (7-17); Calcium 8.6 mg/dL (8.4-10.2); Carbon Dioxide 27 mmol/L (22-30); Chloride 107 mmol/L (98-107); Glucose 152 mg/dL (74-99); Magnesium 1.7 mg/dL (1.6-2.3); Non-African American GFR(CKD) >90 (>60 ml/min/1.73 sqM); Sodium 137 mmol/L (137-145)
[2020-10-26] MEDS: ESCITALOPRAM 20 MG TAB PO SCH (10:10)
[2020-10-26] MEDS: ACYCLOVIR 200 MG CAP PO SCH ×2 (10:10→20:10)
[2020-10-26] MEDS: GABAPENTIN 300 MG CAP PO SCH ×3 (10:10→22:02)
[2020-10-26] MEDS: APIXABAN 5 MG TAB PO SCH ×2 (10:10→20:11)
[2020-10-26] MEDS: POTASSIUM CHLORIDE ER 20 MEQ TAB.ER PO SCH (10:10)
[2020-10-26] MEDS: TERBINAFINE 250 MG TAB PO SCH (10:10)
[2020-10-26] MEDS: OXYBUTYNIN XL 5 MG TAB.ER.24 PO SCH (10:11)
[2020-10-26] MEDS: FUROSEMIDE 40 MG TAB PO SCH (10:11)
[2020-10-26] MEDS: PANTOPRAZOLE 40 MG TABLET PO SCH (10:11)
[2020-10-26] MEDS: ONDANSETRON 4 MG/2 ML VIAL IVP PRN (10:18)
[2020-10-26] MEDS: CHOLESTYRAMINE PO SCH ×2 (10:21→23:48)
--- NOTE | 2020-10-26 14:03 | P.PN ---
Subjective Progress Note Date: 10/26/20 This 65-year-old female with past medical history for multiple myeloma receiving chemo every other week, diabetes mellitus, DVT, fibromyalgia, gastroesophageal reflux disease, hyperlipidemia, and multiple other medical issues presented to the ER with complaints of worsening denies weakness, reporting her potassium was super low. Potassium on admission 3.6. Patient recently was hospitalized at [facility] for short stay regarding cellulitis of lower extremities, sent home on antibiotic. Reports she is on day 14 of her Revlimid. EKG reporting normal sinus rhythm, anterior infarct, age undetermined. Troponin negative 1.Denies chest pain, palpitations or shortness of breath. Denies fever or chills or cough denies nausea vomiting. Reports diarrhea started yesterday. Afebrile, normal WBC, MCV elevated 102.3. BUN 20, creatinine 0.96. Glucose 1:15. Lactic acid 3.3 on admission, improved with IV fluid hydration, down to 1.4. Magnesium 1.6. Denies any lightheadedness, dizziness or focal deficits. Chest x-ray reported chronic changes with possible developing left basilar acute infiltrate and/or atelectasis. UA negative. 10/26/2020 Significant weakness, urinary incontinence and complains of ongoing diarrhea. No diarrhea reported this morning per staff. Coronavirus not detect ed. Venous Doppler reports no evidence of acute DVT in bilateral legs, mild chronic DVT of the right leg. Evaluated by oncology with recommendations noted. Denies chest pain, palpitations or shortness of breath. PT/OT evaluation pending. Objective - Vital Signs Vital signs: Vital Signs Temp 97.5 F L 10/26/20 13:44 Pulse 55 L 10/26/20 13:44 Resp 17 10/26/20 13:44 BP 111/65 10/26/20 13:44 Pulse Ox 97 10/26/20 13:44 Intake & Output 10/25/20 10/26/20 10/26/20 18:59 06:59 18:59 Intake Total 660 240 Output Total 577 Balance 660 -337 Weight 95.254 kg Intake: Oral 560 240 Other 100 Output: Urine 575 Stool 2 Other: Voiding Method Toilet Toilet Toilet Diaper # Voids 1 1 1 # Bowel Movements 1 1 - Exam PHYSICAL EXAM: VITAL SIGNS: As above GENERAL: Sitting up in bed, no acute distress HEENT: Conjunctivae normal. eyes normal. Chronic mild facial droop. NECK: No JVD. No thyroid enlargement. No LNs CARDIOVASCULAR: S1, S2 regular. No murmur RESPIRATION: Breath sounds diminished in the bases. No rhonchi or crackles. No wheezing ABDOMEN: Soft, nontender . No guarding. no masses palpable. Positive Bowel sounds. LEGS: No edema. no swelling PSYCHIATRY: Alert and oriented X3, mood and affect normal. NERVOUS SYSTEM: Cranial N 2-12 grossly normal. Moves all 4 limbs. Diffuse weakness, No focal deficits. Strength and sensation grossly intact.. Skin: Warm and dry, no rash - Labs CBC & Chem 7: 10/26/20 07:18 10/26/20 07:18 Labs: Abnormal Lab Results - Last 24 Hours (Table) 10/25/20 10/26/20 10/26/20 Range/Units 11:16 07:18 07:18 MCV 100.8 H (80.0-100.0) fL RDW 16.2 H (11.5-15.5) % Lymphocytes # 0.4 L (1.0-4.8) k/uL Potassium 3.3 L (3.5-5.5) mmol/L BUN 23 H (7-17) mg/dL Est GFR (CKD-EPI)NonAf 59.5 L (60.0-200.0) BUN/Creatinine Ratio 23.00 H (12.00-20.00) Ratio Glucose 114 H 152 H (70-110) mg/dL Assessment and Plan Assessment: Worsening generalized weakness in a patient with multiple myeloma Lactic acidosis, improved with IV fluid hydration Mild dehydration Diarrhea, ruling out C. difficile in a patient who just recently completed antibiotic therapy for acute lower extremity cellulitis, possibly medication induced, on Revlimid Gait dysfunction, uses a walker Atelectasis Morbid obesity, BMI 34.9 Plan: Continue on current medication regime ,monitoring and symptomatic treatment. Maintain IV fluid hydration .PT/OT recommendations pending. Potential discharge to subacute rehab .Oncology recommendations noted including continuing Revlimid and eliquis. The impression and plan of care has been dictated as directed. : I performed a history and examination of this patient, discussed the same with the dictator. I agree with the dictator's note ,documented as a scribe. Any additional findings or plans will be noted.
[2020-10-26 16:49] LABS: BUN/Creat Ratio 31.43 Ratio (12.00-20.00)
[2020-10-26] MEDS: SODIUM CHLORIDE 0.9% 1,000 ML IV SCH (17:17)
[2020-10-26 17:42] LABS: Protein, Total 6.4 g/dL (6.2-8.2)
[2020-10-26] MEDS: Lenalidomide [Revlimid] 25 MG Capsule PO SCH (20:18)
[2020-10-27 02:35] VITALS: RESP 18
[2020-10-27] MEDS: ACYCLOVIR 200 MG CAP PO SCH (08:37)
[2020-10-27] MEDS: SODIUM CHLORIDE 0.9% 1,000 ML IV SCH (08:37)
[2020-10-27] MEDS: PANTOPRAZOLE 40 MG TABLET PO SCH (08:37)
[2020-10-27] MEDS: OXYBUTYNIN XL 5 MG TAB.ER.24 PO SCH (08:38)
[2020-10-27] MEDS: ESCITALOPRAM 20 MG TAB PO SCH (08:38)
[2020-10-27] MEDS: APIXABAN 5 MG TAB PO SCH (08:38)
[2020-10-27] MEDS: GABAPENTIN 300 MG CAP PO SCH (08:38)
[2020-10-27] MEDS: FUROSEMIDE 40 MG TAB PO SCH (08:38)
[2020-10-27] MEDS: POTASSIUM CHLORIDE ER 20 MEQ TAB.ER PO SCH (08:38)
[2020-10-27] MEDS: TERBINAFINE 250 MG TAB PO SCH (08:39)
[2020-10-27] MEDS: CHOLESTYRAMINE PO SCH (08:56)
--- NOTE | 2020-10-27 10:55 | P.DS ---
Providers Date of admission: 10/26/20 12:32 Expected date of discharge: 10/27/20 Attending physician: Seth Montoya Primary care physician: Seth Montoya [facility] Course: Final diagnoses Worsening generalized weakness in a patient with multiple myeloma Lactic acidosis, improved with IV fluid hydration Mild dehydration Diarrhea, ruling out C. difficile in a patient who just recently completed antibiotic therapy for acute lower extremity cellulitis, possibly medication induced, on Revlimid. Stool firming up, unable to collect. Gait dysfunction, uses a walker Atelectasis Morbid obesity, BMI 34.9 Hospital course:This 65-year-old female with past medical history for multiple myeloma receiving chemo every other week, diabetes mellitus, DVT, fibromyalgia, gastroesophageal reflux disease, hyperlipidemia, and multiple other medical issues presented to the ER with complaints of worsening denies weakness, reporting her potassium was super low. Potassium on admission 3.6. Patient recently was hospitalized at [facility] for short stay regarding cellulitis of lower extremities, sent home on antibiotic. Reports she is on day 14 of her Revlimid. EKG reporting normal sinus rhythm, anterior infarct, age undetermined. Troponin negative 1.Denies chest pain, palpitations or shortness of breath. Denies fever or chills or cough denies nausea vomiting. Reports diarrhea started yesterday. Afebrile, normal WBC, MCV elevated 102.3. BUN 20, creatinine 0.96. Glucose 1:15. Lactic acid 3.3 on admission, improved with IV fluid hydration, down to 1.4. Magnesium 1.6. Denies any lightheadedness, dizziness or focal deficits. Chest x-ray reported chronic changes with possible developing left basilar acute infiltrate and/or atelectasis. UA negative. 10/26/2020 Significant weakness, urinary incontinence and complains of ongoing diarrhea. No diarrhea reported this morning per staff. Coronavirus not detected. Venous Doppler reports no evidence of acute DVT in bilateral legs, mild chronic DVT of the right leg. Evaluated by oncology with recommendations noted. Denies chest pain, palpitations or shortness of breath. PT/OT evaluation pending. Significant clinical improvement. Oncology has okayed patient to be off of Revlimid while in subacute rehab. Patient will be discharged to [facility] subacute rehab today in a stable condition with guarded prognosis. The impression and plan of care has been dictated as directed. : I performed a history and examination of this patient, discussed the same with the dictator. I agree with the dictator's note ,documented as a scribe. Any additional findings or plans will be noted. Patient Condition at Discharge: Stable Plan - Discharge Summary New Discharge Prescriptions: New Acetaminophen Tab [Tylenol] 650 mg PO Q6HR PRN tab PRN Reason: Fever And/ Or Pain Continue Acyclovir 400 mg PO BID Apixaban [Eliquis] 5 mg PO BID Escitalopram Oxalate [Lexapro] 20 mg PO DAILY Pantoprazole [Protonix] 40 mg PO AC-BRKFST tablet. Loperamide [Imodium] 2 mg PO DAILY PRN #3 cap PRN Reason: Diarrhea traZODone HCL [Desyrel] 100 mg PO HS PRN PRN Reason: sleep Terbinafine [LamISIL] 250 mg PO DAILY Prevalite 4gm Package 1 pack PO BID Potassium Chloride ER [K-Dur 20] 20 meq PO DAILY Oxybutynin Xl [Ditropan XL] 5 mg PO DAILY Ondansetron [Zofran] 4 mg PO Q6H PRN PRN Reason: Nausea Furosemide [Lasix] 40 mg PO DAILY Dexamethasone [Decadron] 16 mg PO WE Magnesium Oxide [Michael] 500 mg PO DAILY Diphenoxylate HCl/Atropine [Lomotil 2.5-0.025 mg Tablet] 1 tab PO TID PRN #9 tab PRN Reason: Diarrhea Gabapentin [Neurontin] 300 mg PO TID #9 cap HYDROcodone/APAP 5-325MG [[place] 5-325] 1 tab PO Q6H PRN #12 tab PRN Reason: Pain Discontinued Lenalidomide [Revlimid] 25 mg PO DIRECTED Discharge Medication List Acyclovir 400 mg PO BID 01/05/18 [History] Apixaban [Eliquis] 5 mg PO BID 11/26/18 [History] Escitalopram Oxalate [Lexapro] 20 mg PO DAILY 11/28/18 [History] Loperamide [Imodium] 2 mg PO DAILY PRN #3 cap 01/11/19 [Rx] Pantoprazole [Protonix] 40 mg PO AC-BRKFST tablet. 01/11/19 [Rx] Dexamethasone [Decadron] 16 mg PO WE 10/24/20 [History] Furosemide [Lasix] 40 mg PO DAILY 10/24/20 [History] Magnesium Oxide [Michael] 500 mg PO DAILY 10/24/20 [History] Ondansetron [Zofran] 4 mg PO Q6H PRN 10/24/20 [History] Oxybutynin Xl [Ditropan XL] 5 mg PO DAILY 10/24/20 [History] Potassium Chloride ER [K-Dur 20] 20 meq PO DAILY 10/24/20 [History] Prevalite 4gm Package 1 pack PO BID 10/24/20 [History] Terbinafine [LamISIL] 250 mg PO DAILY 10/24/20 [History] traZODone HCL [Desyrel] 100 mg PO HS PRN 10/24/20 [History] Acetaminophen Tab [Tylenol] 650 mg PO Q6HR PRN tab 10/27/20 [Rx] Diphenoxylate HCl/Atropine [Lomotil 2.5-0.025 mg Tablet] 1 tab PO TID PRN #9 tab 10/27/20 [Rx] Gabapentin [Neurontin] 300 mg PO TID #9 cap 10/27/20 [Rx] HYDROcodone/APAP 5-325MG [[place] 5-325] 1 tab PO Q6H PRN #12 tab 10/27/20 [Rx] Follow up Appointment(s)/Referral(s): Seth Montoya DO [Primary Care Provider] - 11/03/20 2:30 pm [facility], [NON-STAFF] - 1-2 Days Activity/Diet/Wound Care/Special Instructions: [facility] subacute rehab CBC, BMP in 3 days Heart healthy diet
[2020-10-27 12:29] LABS: Gamma Globulin 1.61 g/dL (0.70-1.50)
--- NOTE | 2020-10-27 13:52 | P.PN ---
Subjective Progress Note Date: 10/27/20 Principal diagnosis: Multiple Myeloma and weakness Plan is for patient to go to rehab, ok to hold her revlimid during the time in rehab Objective - Vital Signs Vital signs: Vital Signs Temp 98.0 F 10/27/20 09:00 Pulse 50 L 10/27/20 09:00 Resp 18 10/27/20 09:00 BP 116/60 10/27/20 09:00 Pulse Ox 96 10/27/20 09:00 Intake & Output 10/26/20 10/27/20 10/27/20 18:59 06:59 18:59 Output Total 950 501 200 Balance -950 -501 -200 Weight 95.254 kg Output: Urine 950 500 200 Stool 1 Other: Voiding Method Toilet Toilet Diaper Diaper # Voids 1 - Exam - Constitutional General appearance: cooperative, morbidly obese - EENT Eyes: EOMI, PERRLA ENT: hard of hearing, NA/AT, normal oropharynx - Neck Neck: normal ROM - Respiratory Respiratory: bilateral: diminished - Cardiovascular Rhythm: regular leg Peripheral Edema: right: 2+, left: 3+ - Gastrointestinal General gastrointestinal: soft, tenderness - Integumentary Integumentary: pale - Neurologic Neurologic: CNII-XII intact - Musculoskeletal Musculoskeletal: generalized weakness, strength equal bilaterally - Psychiatric Psychiatric: A&O x's 3, appropriate affect - Labs CBC & Chem 7: 10/26/20 07:18 10/26/20 07:18 Labs: Abnormal Lab Results - Last 24 Hours (Table) 10/26/20 10/26/20 Range/Units 07:18 07:18 BUN/Creatinine Ratio 31.43 H (12.00-20.00) Ratio Albumin (PEP) 3.10 L (3.80-4.90) g/dL Beta Globulins 0.54 L (0.60-1.30) g/dL Gamma Globulins 1.61 H (0.70-1.50) g/dL Assessment and Plan (1) Weakness Current Visit: Yes Status: Acute Code(s): R53.1 - WEAKNESS SNOMED Code(s): 26586913 (2) Multiple myeloma Current Visit: No Status: Chronic Priority: Medium Code(s): C90.00 - MULTIPLE MYELOMA NOT HAVING ACHIEVED REMISSION SNOMED Code(s): 922291151 Plan: Concern for safety in home alone Decreased overal mental acuity noted I will discuss further with her children She has a dog at the home Recommend social services coordinator to consult Hold Multiple myeloma treatment while in rehab, follow up with Dr. Jefferson after discharge rehab. Discussed with Primary team
[2020-10-27 14:00] LABS: Immunoglobulin M <16.9 mg/dL (40.0-280.0)
[2020-10-27 14:01] LABS: Immunoglobulin A <25.5 mg/dL (60.0-350.0)
[2020-10-27 14:31] LABS: Free Kappa Lt Chain Qnt, Serum 0.03 mg/dL (0.33-1.94)
[2020-10-27 15:16] VITALS: BP 109/71; PULSE 62; TEMP 98.1
== END 2020-10-27 15:26 | DRG 394 ==
LOC: EC 13:41 → 1SOBS 18:24 → 5NMEDONC 10-25 01:10 → OBSVTOIN 10-26 12:32 → 5NMEDONC 10-26 20:36
PROVIDERS: ADMIT Family Medicine; ATTEND Family Medicine
DX: K52.1 Toxic gastroenteritis and colitis (principal); C90.00 Multiple myeloma not having achieved remission; E87.2 Acidosis; J98.11 Atelectasis; E11.9 Type 2 diabetes mellitus without complications; E66.01 Morbid (severe) obesity due to excess calories; E78.5 Hyperlipidemia, unspecified; E86.0 Dehydration; M79.7 Fibromyalgia; Z20.828 Contact with and (suspected) exposure to other viral communicable diseases; T36.95XA Adverse effect of unspecified systemic antibiotic, initial encounter; K21.9 Gastro-esophageal reflux disease without esophagitis; R26.9 Unspecified abnormalities of gait and mobility; R32 Unspecified urinary incontinence; Z68.34 Body mass index [BMI] 34.0-34.9, adult; Z79.01 Long term (current) use of anticoagulants; Z79.899 Other long term (current) drug therapy; Z87.442 Personal history of urinary calculi; Z87.01 Personal history of pneumonia (recurrent); Z98.890 Other specified postprocedural states; Z87.440 Personal history of urinary (tract) infections; Z80.9 Family history of malignant neoplasm, unspecified
CPT/HCPCS: 36415; 71046; 80048; 80053; 81003; 82607; 82784; 83605; 83735; 83883; 83921; 84165; 84484; 85025; 85610; 85730; 86334; 87635; 93005; 93970; 94760; 96360; 96361; 99285